=== PATIENT | female | born 1965 | race Caucasian/White ===

== ENCOUNTER → 2016-05-13 | Outpatient (CLI) | payer BC ==
[~2016-05-13] MED LIST: ACET-789 PO; ALPR-557 PO; ALPR.5T PO; CIPR-225 PO; CITA10TA70 PO; CITA20TA12 PO; Docusate Sodium PO; HYDR-34 PO; HYDR-757 PO; IBP600T1 PO; IBUP800T26 PO; Ibuprofen PO; LAMO100T69 PO; LISD50CA2 PO; ONDA4TAB8 PO; PRD20T PO
--- NOTE | 2016-05-15 10:08 | Diagnostic Imaging Report ---
Bilateral screening mammogram The current study was also evaluated with a Computer Aided Detection (CAD) system. Indication: Screening. No current complaints stated on the questionnaire. COMPARISON: 02/14/14. FINDINGS: The breasts are composed of heterogeneously dense parenchyma which may decrease mammographic sensitivity. There is a biopsy clip in the outer aspect of the left breast. There are multiple calcifications seen in the breasts bilaterally increased from previous exams. No heterogenous particularly suspicious group is seen. IMPRESSION: The breasts are very dense. There are increasing bilateral loosely grouped calcifications favored to be benign in etiology. Evaluation with ultrasound to rule out underlying lesion and 6 months mammogram followup would be recommended. ACR BI-RADS Category 0: Incomplete. (Needs additional imaging evaluation). Result letter will be mailed to the patient. Note: At least 10% of breast cancer is not imaged by mammography. Dictated by: Dictated on workstation # [id number]
== END ==
LOC: RAD 10:50
PROVIDERS: ATTEND Internal Medicine
DX: Z12.31 Encounter for screening mammogram for malignant neoplasm of breast (principal)
CPT/HCPCS: 77067

== ENCOUNTER → 2016-06-01 | Outpatient (CLI) | payer BC ==
--- NOTE | 2016-06-01 13:53 | Diagnostic Imaging Report ---
Pelvic ultrasound. INDICATION: History of right ovarian cyst. FINDINGS: The patient has had hysterectomy with no definite lesion seen in the hysterectomy bed. The urinary bladder appears unremarkable. The ovaries are obscured by bowel gas. IMPRESSION: The ovaries are not seen. Dictated by: Dictated on workstation # [id number]
--- NOTE | 2016-06-01 20:10 | Diagnostic Imaging Report ---
EXAM: Bilateral breast ultrasound. INDICATION: Bilateral dense breasts seen on mammography with calcifications favored to be benign. FINDINGS: The retroareolar region and 4 quadrants of each breast were scanned with no suspicious mass identified. There are scattered simple cysts seen less than a centimeter each, most prominent in the left breast at 1:00 o'clock zone, 2 cm from the nipple. No large cysts or solid masses identified. IMPRESSION: No suspicious abnormality. As recommended on the prior mammogram, a 6 month bilateral mammogram to insure stability of the increasing calcifications is recommended. BI-RADS 3. ACR BI-RADS Category 3: Probably benign findings. Result letter will be mailed to the patient. Note: At least 10% of breast cancer is not imaged by mammography. Dictated by: Dictated on workstation # [id number]
== END ==
LOC: RAD 13:01
PROVIDERS: ATTEND Internal Medicine
DX: R92.0 Mammographic microcalcification found on diagnostic imaging of breast (principal); Z90.710 Acquired absence of both cervix and uterus
CPT/HCPCS: 76830; 76856

== ENCOUNTER 2017-03-05 22:21 | Emergency (ER) | payer BC ==
[~2017-03-05] VITALS: Ht 157.5 cm; Wt 57.6 kg
[2017-03-05] MEDS ORDERED: LIDOCAINE 1% INJ 20 ML (XYLOCAINE) VIAL INJ ONE (22:30)
[2017-03-05] MEDS ORDERED: TETANUS,DIPTH,PERTUSS P/F (BOOSTRIX) 0.5 ML VIAL IM ONE (22:30)
--- NOTE | 2017-03-05 23:19 | ED General ---
General Chief Complaint: Laceration Stated Complaint: LEFT HAND LACERATION Nursing Triage Note: laceration to left inner hand, pad of palm Nursing Sepsis Screen: No Definite Risk Source of Information: Patient Exam Limitations: No Limitations History of Present Illness Time Seen by Provider: 22:25 Initial Comments This 52-year-old woman presents to the emergency room with a laceration to the left hand. She was preparing food when she accidentally stabbed her left thenar eminence with a paring knife. Wound is actively bleeding. Muscle is visible but she retains range of motion and strength in the hand and thumb. She is in need of a tetanus immunization. Allergies and Home Medications Allergies Coded Allergies: codeine (Unverified Allergy, Unknown, 03/05/17) Home Medications Alprazolam 0.5 Mg Tab, 0.5 MG PO DAILY PRN for ANXIETY, (Reported) Citalopram Hydrobromide 20 Mg Tablet, 20 MG PO DAILY, (Reported) Lisdexamfetamine Dimesylate 50 Mg Capsule, 50 MG PO DAILY, (Reported) Constitutional: no symptoms reported EENTM: no symptoms reported Respiratory: no symptoms reported Cardiovascular: no symptoms reported Gastrointestinal: no symptoms reported Genitourinary: no symptoms reported : No Musculoskeletal: see HPI Skin: see HPI Psychiatric/Neurological: No Symptoms Reported Hematologic/Lymphatic: No Symptoms Reported Past Itdmavk-Ylecrk-Nrgpct Hx Patient Social History Alcohol Use: Occasionally Uses Recreational Drug Use: No Smoking Status: Never a Smoker 2nd Hand Smoke Exposure: No Recent Foreign Travel: No Contact w/Someone Who Travel: No Recent Infectious Disease Expo: No Physical Abuse: No Sexual Abuse: No Mistreated: No Fear: No Immunizations Up To Date Tetanus Booster (TDap): More than 5yrs Date of Influenza Vaccine: Dec 14, 2016 Surgeries History of Surgeries: Yes (wisdom teeth, UTERINE ABLATION) Surgeries: Hysterectomy Respiratory History of Respiratory Disorde: No Cardiovascular History of Cardiac Disorders: No Neurological History of Neurological Disord: Yes Neurological Disorders: Headaches /Migraines Reproductive System Hx Reproductive Disorders: No Sexually Transmitted Disease: No Genitourinary History of Genitourinary Disor: No Gastrointestinal History of Gastrointestinal Di: No Musculoskeletal History of Musculoskeletal Dis: No (ANKYLOSING SPONDYLITIS, STENOSIS) Endocrine History of Endocrine Disorders: No HEENT History of HEENT Disorders: No Cancer History of Cancer: No Psychosocial History of Psychiatric Problem: Yes (mood disorder) Suicide Risk Score: 0 Integumentary History of Skin or Integumenta: No Blood Transfusions History of Blood Disorders: No Family Medical History Significant Family History: Heart Disease, Cancer, Diabetes, Hypertension Physical Exam Vital Signs Vital Sign - Last 12Hours 03/05/17 22:25 Pulse 88 Resp 18 B/P (MAP) 133/80 (97) Pulse Ox 97 Capillary Refill : Less Than 3 Seconds General Appearance: No Apparent Distress, WD/WN HEENT: Normal ENT Inspection Respiratory: No Accessory Muscle Use, No Respiratory Distress Extremity: Other (1.5 cm laceration to the thenar eminence of the left hand with active bleeding. There is muscle exposure with no evidence of muscle damage. Strength and range of motion is intact in the hand. Distal sensation and capillary refill intact. No other evidence of injury.) Neurologic/Psychiatric: Alert, Oriented x3, No Motor/Sensory Deficits, Normal Mood/Affect, space operations II-XII Norm as Tested Laceration Repair : Other Wound Location Thenar eminence of the left hand Wound Length (cm): 1.5 Wound's Depth, Shape: linear, sub Q Wound Explored: clean Irrigated w/ Saline (ccs): 500 Betadine Prep?: Yes Anesthesia: 1% Lidocaine Volume Anesthetic (ccs): 5 Suture: Prolene Suture Size: 4-0 Number of Sutures: 3 Sterile Dressing Applied?: Yes (Band-Aid with antibiotic ointment) Progress/Results/Core Measures Suspected Sepsis Recent Fever Within 48 Hours: No Infection Criteria Present: None New/Unexplained Altered Menta: No Sepsis Screen: No Definite Risk Sepsis Diagnosis: SIRS Temperature: Pulse: 88 Respiratory Rate: 18 Blood Pressure 133 /80 Mean: 97 Results/Orders My Orders Orders - KATHIA JEAN MD Dipht,Pertchuck(Acell),Tet Adult (Boostrix (03/05/17 22:30) Lidocaine 1% Injection (Xylocaine 1% Inj (03/05/17 22:30) Medications Given in ED Vital Signs/I&O Capillary Refill : Less Than 3 Seconds Blood Pressure Mean: 97 Progress Note : Progress Note Tetanus immunization was provided. Wound was irrigated and repaired with suture. Departure Impression Impression: Primary Impression: Laceration of left hand Qualified Codes: S61.412A - Laceration without foreign body of left hand, initial encounter Disposition: HOME, SELF-CARE Condition: Improved Departure-Patient Inst. Decision time for Depature: 23:00 Referrals: CARTER HAND DO (PCP/Family) Primary Care Physician Patient Instructions: Laceration Repair With Stitches (DC) Add. Discharge Instructions: Keep the wound clean and dry except for normal handwashing and showering. Avoid submersion until sutures are removed. Monitor for signs of infection such as increasing redness, increasing swelling, puslike drainage, or fever. Return to care if you notice these problems. You may use Tylenol and/or ibuprofen for pain. Have your sutures removed in about 7 days. All discharge instructions reviewed with patient and/or family. Voiced understanding. KATHIA JEAN MD Mar 05, 2017 23:19
[2017-03-05 23:27] VITALS: BP 120/70
== END 2017-03-05 23:22 | disposition home or self-care (01) ==
LOC: EDUNIT# 22:21 → ER 22:23
DX: S61.412A Laceration without foreign body of left hand, initial encounter (principal); G43.909 Migraine, unspecified, not intractable, without status migrainosus; F39 Unspecified mood [affective] disorder; Z90.710 Acquired absence of both cervix and uterus; Z82.49 Family history of ischemic heart disease and other diseases of the circulatory system; W26.0XXA Contact with knife, initial encounter
CPT/HCPCS: 12011; 90715

== ENCOUNTER 2017-06-24 08:57 | Emergency (ER) | payer BC ==
[~2017-06-24] VITALS: Ht 157.5 cm; Wt 57.6 kg
[2017-06-24] MEDS ORDERED: ASPIRIN 81 MG CHEW (CHILDREN'S ASA) PO ONE (09:15)
[2017-06-24] MEDS ORDERED: NITROGLYCERIN 0.4 MG SL TABS BTL 25'S SL PRN (09:15)
[2017-06-24 09:23] VITALS: BP 122/76
[2017-06-24 09:30] LABS: BASOPHILS % (AUTO) 1 % (0-10); EOSINOPHILS # (AUTO) 0.1 10^3/uL (0.0-0.3); EOSINOPHILS % (AUTO) 1 % (0-10); HEMATOCRIT 41 % (35-52); HEMOGLOBIN 13.9 G/DL (11.5-16.0); LYMPHOCYTES # (AUTO) 1.3 X 10^3 (1.0-4.0); LYMPHOCYTES % (AUTO) 21 % (12-44); MEAN CORPUSCULAR HEMOGLOBIN 34 PG (25-34); MEAN CORPUSCULAR HGB CONC 34 G/DL (32-36); MEAN CORPUSCULAR VOLUME 98 FL (80-99); MEAN PLATELET VOLUME 9.6 FL (7.4-10.4); MONOCYTES # (AUTO) 0.4 X 10^3 (0.0-1.0); MONOCYTES % (AUTO) 6 % (0-12); NEUTROPHILS # (AUTO) 4.4 X 10^3 (1.8-7.8); NEUTROPHILS % (AUTO) 71 % (42-75); PLATELET COUNT 246 10^3/uL (130-400); RED BLOOD COUNT 4.15 10^6/uL (4.35-5.85); RED CELL DISTRIBUTION WIDTH 12.4 % (10.0-14.5); WHITE BLOOD COUNT 6.2 10^3/uL (4.3-11.0)
[2017-06-24 09:41] LABS: INR 1.1 (0.8-1.4); PROTHROMBIN TIME PATIENT 13.8 SEC (12.2-14.7)
[2017-06-24 09:48] LABS: ALANINE AMINOTRANSFERASE 13 U/L (0-55); ALBUMIN 4.4 GM/DL (3.2-4.5); ALKALINE PHOSPHATASE 69 U/L (40-136); BILIRUBIN,TOTAL 0.4 MG/DL (0.1-1.0); BUN/CREATININE RATIO 24; CALCIUM 9.7 MG/DL (8.5-10.1); CARBON DIOXIDE 26 MMOL/L (21-32); CHLORIDE 101 MMOL/L (98-107); CREATININE SERUM 0.71 MG/DL (0.60-1.30); GFR ESTIMATED > 60; GLUCOSE 85 MG/DL (70-105); MAGNESIUM 2.1 MG/DL (1.8-2.4); POTASSIUM 3.9 MMOL/L (3.6-5.0); SODIUM 136 MMOL/L (135-145)
[2017-06-24 09:55] LABS: MYOGLOBIN SERUM 32.3 NG/ML (10.0-92.0)
--- NOTE | 2017-06-24 10:10 | Diagnostic Imaging Report ---
Indication: Chest pain. Procedure: Frontal chest obtained at 10:01 hrs. a.m. Comparison: There are no previous studies for comparison. Findings: Heart is normal in size. Mediastinal silhouette is unremarkable. There are chronic-appearing increased basilar markings. There is no consolidation or pneumothorax or pleural fluid. Impression: Chronic-appearing increased basilar markings are present. No overt consolidation or pneumothorax or pleural fluid. Dictated by: Dictated on workstation # [id number]
[2017-06-24] MEDS ORDERED: LIDOCAINE 2% VISCOUS 15 ML UDC PO ONE (10:15)
[2017-06-24] MEDS ORDERED: ANTACID SUSP 30 ML UDC (MYLANTA) PO ONE (10:15)
[2017-06-24] MEDS ORDERED: KETOROLAC 30 MG/ML VIAL IVP ONE (11:15)
--- NOTE | 2017-06-24 11:17 | ED Chest Pain ---
General Chief Complaint: Chest Pain Stated Complaint: CHEST PAIN Nursing Triage Note: ARRIVED VIA AMB TO ROOM 07. STATES CHEST PAIN STARTED AT APPX 0630 ET STATES SHE THINKS SHE HAS A PULLED MUSCLE. Nursing Sepsis Screen: No Definite Risk Source: patient Exam Limitations: no limitations History of Present Illness Date Seen by Provider: Jun 24, 2017 Time Seen by Provider: 08:59 Initial Comments This 52-year-old woman presents to emergency room with central chest pain that started around 06:30 this morning. She noted that her blood pressure and heart rate were elevated at home. She had some sweats and dizziness associated with the pain. She does feel little short of breath and notes that it hurts to take a deep breath. Pain is also worse with movement of her torso and upper extremities. She has never had a cardiac workup and has no known heart disease. She has no history of DVT. She did recently drive to [place] and back but denies any lower extremity symptoms. Pain is now 5/10 and was 8/10 at its worst. It is sharp and constant with exacerbation by upper body movements and deep breathing. Allergies and Home Medications Allergies Coded Allergies: codeine (Unverified Allergy, Unknown, 03/05/17) Home Medications Alprazolam 0.5 Mg Tab, 0.5 MG PO DAILY PRN for ANXIETY, (Reported) Citalopram Hydrobromide 20 Mg Tablet, 20 MG PO DAILY, (Reported) Lisdexamfetamine Dimesylate 50 Mg Capsule, 50 MG PO DAILY, (Reported) Patient Home Medication List Home Medication List Reviewed: Yes Review of Systems Constitutional: no symptoms reported EENTM: No Symptoms Reported Respiratory: See HPI Cardiovascular: See HPI Gastrointestinal: No Symptoms Reported Genitourinary: No Symptoms Reported Musculoskeletal: see HPI Skin: see HPI Psychiatric/Neurological: No Symptoms Reported Endocrine: No Symptoms Reported Past Iyzofoz-Lrusdh-Hkphnw Hx Patient Social History Alcohol Use: Occasionally Uses Recreational Drug Use: No Smoking Status: Current Everyday Smoker 2nd Hand Smoke Exposure: No Recent Foreign Travel: No Contact w/Someone Who Travel: No Recent Infectious Disease Expo: No Immunizations Up To Date Tetanus Booster (TDap): More than 5yrs Date of Influenza Vaccine: Dec 14, 2016 Past Medical History Surgeries: Yes (wisdom teeth, UTERINE ABLATION) Hysterectomy Respiratory: No Cardiac: No Neurological: Yes Headaches /Migraines : No Reproductive Disorders: No Sexually Transmitted Disease: No Genitourinary: No Gastrointestinal: No Musculoskeletal: No (ANKYLOSING SPONDYLITIS, STENOSIS) Endocrine: No HEENT: No Cancer: No Psychosocial: Yes (mood disorder) Integumentary: No Blood Disorders: No Family Medical History Heart Disease, Cancer, Diabetes, Hypertension Physical Exam Vital Signs Vital Signs - First Documented 06/24/17 09:00 Temp 98.0 Pulse 93 Resp 18 B/P (MAP) 124/90 (101) Pulse Ox 98 O2 Delivery Room Air Capillary Refill : Less Than 3 Seconds General Appearance: WD/WN, Mild Distress HEENT: PERRL/EOMI, Normal ENT Inspection Neck: Normal Inspection Respiratory: Chest Non Tender, Lungs Clear, Normal Breath Sounds, No Accessory Muscle Use, No Respiratory Distress Cardiovascular: Regular Rate, Rhythm, No Edema, No Murmur, Normal Peripheral Pulses Gastrointestinal: Normal Bowel Sounds, Non Tender, Soft Extremity: Normal Inspection, Non Tender, No Calf Tenderness, No Pedal Edema, Other (negative Fidel) Neurologic/Psychiatric: Alert, Oriented x3, No Motor/Sensory Deficits, Normal Mood/Affect, operations general agent II-XII Norm as Tested Skin: Normal Color, Warm/Dry Procedures/Interventions Suture Size: 4-0 Progress/Results/Core Measures Lab Results Laboratory Tests Test 06/24/17 09:20 06/24/17 11:42 Range/Units White Blood Count 6.2 4.3-11.0 10^3/uL Red Blood Count 4.15 L 4.35-5.85 10^6/uL Hemoglobin 13.9 11.5-16.0 G/DL Hematocrit 41 35-52 % Mean Corpuscular Volume 98 80-99 FL Mean Corpuscular Hemoglobin 34 25-34 PG Mean Corpuscular Hemoglobin Concent 34 32-36 G/DL Red Cell Distribution Width 12.4 10.0-14.5 % Platelet Count 246 130-400 10^3/uL Mean Platelet Volume 9.6 7.4-10.4 FL Neutrophils (%) (Auto) 71 42-75 % Lymphocytes (%) (Auto) 21 12-44 % Monocytes (%) (Auto) 6 0-12 % Eosinophils (%) (Auto) 1 0-10 % Basophils (%) (Auto) 1 0-10 % Neutrophils # (Auto) 4.4 1.8-7.8 X 10^3 Lymphocytes # (Auto) 1.3 1.0-4.0 X 10^3 Monocytes # (Auto) 0.4 0.0-1.0 X 10^3 Eosinophils # (Auto) 0.1 0.0-0.3 10^3/uL Basophils # (Auto) 0.0 0.0-0.1 10^3/uL Prothrombin Time 13.8 12.2-14.7 SEC INR Comment 1.1 0.8-1.4 Activated Partial Thromboplast Time 31 24-35 SEC D-Dimer < 0.27 0.00-0.49 UG/ML Sodium Level 136 135-145 MMOL/L Potassium Level 3.9 3.6-5.0 MMOL/L Chloride Level 101 98-107 MMOL/L Carbon Dioxide Level 26 21-32 MMOL/L Anion Gap 9 5-14 MMOL/L Blood Urea Nitrogen 17 7-18 MG/DL Creatinine 0.71 0.60-1.30 MG/DL Estimat Glomerular Filtration Rate > 60 BUN/Creatinine Ratio 24 Glucose Level 85 70-105 MG/DL Calcium Level 9.7 8.5-10.1 MG/DL Magnesium Level 2.1 1.8-2.4 MG/DL Total Bilirubin 0.4 0.1-1.0 MG/DL Aspartate Amino Transf (AST/SGOT) 18 5-34 U/L Alanine Aminotransferase (ALT/SGPT) 13 0-55 U/L Alkaline Phosphatase 69 40-136 U/L Myoglobin 32.3 10.0-92.0 NG/ML Troponin I < 0.30 < 0.30 <0.30 NG/ML Total Protein 7.0 6.4-8.2 GM/DL Albumin 4.4 3.2-4.5 GM/DL My Orders Orders - KATHIA JEAN MD Ekg Tracing (06/24/17 08:59) Cbc With Automated Diff (06/24/17 09:10) Magnesium (06/24/17 09:10) Chest 1 View, Ap/Pa Only (06/24/17 09:10) Cardiac Profile 1 (06/24/17 09:10) Comprehensive Metabolic Panel (06/24/17 09:10) Myoglobin Serum (06/24/17 09:10) Protime With Inr (06/24/17 09:10) Partial Thromboplastin Time (06/24/17 09:10) O2 (06/24/17 09:10) Monitor-Rhythm Ecg Trace Only (06/24/17 09:10) Lipid Panel (06/25/17 06:00) Aspirin Chewable Tablet (Baby Aspirin Ch (06/24/17 09:15) Nitroglycerin 0.4 Mg Btl 25's (Nitrostat (06/24/17 09:15) Saline Lock/Iv-Start (06/24/17 09:10) Fibrin Degradation Products (06/24/17 09:10) Lidocaine 2% Viscous 15 Ml (Xylocaine Vi (06/24/17 10:15) Antacid Suspension (Mylanta Suspension (06/24/17 10:15) Ketorolac Injection (Toradol Injection) (06/24/17 11:15) Troponin I (06/24/17 11:38) Medications Given in ED Current Medications Medications Dose Ordered Sig/Karen Route Start Time Stop Time Status Last Admin Dose Admin Al Hydrox/Mg Hydrox/Simethicone 30 ml ONCE ONCE PO 06/24/17 10:15 06/24/17 10:16 DC 06/24/17 10:14 30 ML Aspirin 324 mg ONCE ONCE PO 06/24/17 09:15 06/24/17 09:16 DC 06/24/17 09:26 324 MG Ketorolac Tromethamine 15 mg ONCE ONCE IVP 06/24/17 11:15 06/24/17 11:16 DC 06/24/17 11:10 15 MG Lidocaine HCl 15 ml ONCE ONCE PO 06/24/17 10:15 06/24/17 10:16 DC 06/24/17 10:14 15 ML Nitroglycerin 0.4 mg UD PRN SL 06/24/17 09:15 06/24/17 09:27 0.4 MG Vital Signs/I&O 06/24/17 09:00 Temp 98.0 Pulse 93 Resp 18 B/P (MAP) 124/90 (101) Pulse Ox 98 O2 Delivery Room Air Blood Pressure Mean: 101 Progress Note #1: Time: 11:11 Progress Note Chest pain workup was pursued. Patient was treated with aspirin and nitroglycerin. She did not believe the nitroglycerin affected her pain but she did have side effects related to it. Workup was unremarkable. As patient's ER course progressed, she felt like her pain was musculoskeletal. She specifically had worsening of pain when she moved her shoulder girdle. She had no significant change in symptoms with GI cocktail. Toradol is being administered for pain control. Progress Note #2: Time: 11:42 Progress Note Patient still is experiencing some pain after Toradol, especially with movement of the head or shoulders. She is convinced it is musculoskeletal in nature. However, as a matter precaution we will repeat a troponin. Patient is agreeable. Progress Note #3: Time: 12:31 Progress Note Repeat troponin was negative. Patient rates her pain as 1/10 at this time. Initial ECG Impression Date: Jun 24, 2017 Initial ECG Impression Time: 08:59 Initial ECG Rate: 96 Initial ECG Rhythm: S.Tach Comment Sinus tachycardia with no ST elevation or depression. No abnormal intervals or axis deviation. Diagonstic Imaging: Xray Plain Films/CT/US/NM/MRI: chest Comments Chest x-ray viewed by me and report reviewed. See report below: NAME: ANN MED[facility] REC#: [id number] PT STATUS: REG ER : 1965 PHYSICIAN: KATHIA JEAN MD ADMIT DATE: 06/24/17/ER Draft Date of Exam:06/24/17 CHEST 1 VIEW, AP/PA ONLY Indication: Chest pain. Procedure: Frontal chest obtained at 10:01 hrs. a.m. Comparison: There are no previous studies for comparison. Findings: Heart is normal in size. Mediastinal silhouette is unremarkable. There are chronic-appearing increased basilar markings. There is no consolidation or pneumothorax or pleural fluid. Impression: Chronic-appearing increased basilar markings are present. No overt consolidation or pneumothorax or pleural fluid. Dictated on workstation # [id number] Dict: 06/24/17 1007 Trans: 06/24/17 1009 [facility] [id number] Interpreted by: TERESITA NERI MD Departure Impression Primary Impression: Atypical chest pain Disposition: 01 HOME, SELF-CARE Condition: Improved Departure-Patient Inst. Decision time for Depature: 12:31 Referrals: CARTER HAND DO (PCP/Family) Primary Care Physician Patient Instructions: Chest Pain (DC) Add. Discharge Instructions: You may take ibuprofen up to 400 mg every 6 hours as needed for pain. Add Tylenol (acetaminophen) up to 650 mg every 6 hours as needed for additional pain relief. Return to care if symptoms are worsening. Follow-up with your primary care provider soon as possible. All discharge instructions reviewed with patient and/or family. Voiced understanding. Copy Copies To 1: CARTER HAND JOSHUA T MD Jun 24, 2017 11:17
[2017-06-24 12:45] VITALS: BP 107/73
== END 2017-06-24 12:45 | disposition home or self-care (01) ==
LOC: EDUNIT# 08:57 → ER 08:59
DX: R07.89 Other chest pain (principal); G43.909 Migraine, unspecified, not intractable, without status migrainosus; F17.200 Nicotine dependence, unspecified, uncomplicated; Z88.5 Allergy status to narcotic agent; Z82.49 Family history of ischemic heart disease and other diseases of the circulatory system; Z90.710 Acquired absence of both cervix and uterus
CPT/HCPCS: 36415; 71045; 80053; 83735; 83874; 84484; 85025; 85379; 85610; 85730; 93005; 93041; 96374

== ENCOUNTER 2017-12-07 15:00 | Outpatient (CLI) | payer BC ==
[~2017-12-07] VITALS: Ht 157.5 cm; Wt 57.6 kg
[~2017-12-07 15:00] MED LIST changes: +HYDR-4226 PO; -HYDR-757 PO
[2017-12-07] MEDS ORDERED: LISD50CA PO (15:10)
[2017-12-07] MEDS ORDERED: CHOL200085 PO (15:10)
[2017-12-07] MEDS ORDERED: TIZA4CAP8 PO (15:10)
[2017-12-07] MEDS ORDERED: CITA40TA19 PO (15:10)
[2017-12-07] MEDS ORDERED: ALPR1TAB7 PO (15:10)
[2017-12-07] MEDS ORDERED: IBUP-1780 PO (15:10)
== END 2017-12-07 15:15 | disposition home or self-care (01) ==
LOC: PREOP 15:00
PROVIDERS: ATTEND Surgery
DX: Z01.818 Encounter for other preprocedural examination (principal)

== ENCOUNTER 2017-12-13 12:04 | Day surgery (SDC) | payer BC ==
[~2017-12-13] VITALS: Ht 157.5 cm; Wt 57.6 kg
[~2017-12-13 12:04] MED LIST changes: +ALPR1TAB7 PO; +CHOL200085 PO; +CITA40TA19 PO; +IBUP-1780 PO; +LISD50CA PO; +TIZA4CAP8 PO
[2017-12-13] MEDS ORDERED: LACTATED RINGERS 1,000 ML IV STA (12:24)
[2017-12-13 12:30] VITALS: BP 110/82
--- OUTSIDE RECORDS SUMMARY | 2017-12-13 12:52 | XMS REPORT ---
Author Author JORDIN DUFFY Organization [employer] Address Unknown Phone Unavailable Care Team Providers Care Waffle Machine Operator Name Role Phone JORDIN DUFFY CP Unavailable Allergies No Known Allergies Problems Problem Type Condition ICD-9 Code Onset Dates Condition Status Problem Irregular menstrual cycle 626.4 Active Problem Routine general medical examination at health care facility V70.0 Active Problem Attention deficit disorder of childhood without mention of hyperactivity 314.00 Active Problem Need for prophylactic vaccination and inoculation, Influenza V04.81 Active Problem Degeneration of lumbar or lumbosacral intervertebral disc 722.52 Active Problem Personal history of underimmunization status V15.83 Active Problem Unspecified contraceptive management V25.9 Active Problem Major depressive disorder, single episode, moderate 296.22 Active Problem Other dyschromia 709.09 Active Problem Cough 786.2 Active Problem VARICELLA DX V05.4 Active Problem Hypoglycemia, unspecified 251.2 Active Problem Screening for malignant neoplasm of the cervix V76.2 Active Problem Counseling on substance use and abuse V65.42 Active Problem Lumbar sprain and strain 847.2 Active Problem Mammographic microcalcification 793.81 Active Problem Unspecified abnormal mammogram 793.80 Active Problem Personal history of tobacco use, presenting hazards to health V15.82 Active Problem Lumbago 724.2 Active Problem Contact dermatitis and other eczema, due to unspecified cause 692.9 Active Medications Medication Code System Code Instructions Start Date End Date Status Dosage Zanaflex [facility] [address]-36 4 MG 2 times a day prn Jan 12, 2014 1 capsule by Oral route Results No Known Results Summary Purpose [employer] Submission
--- OUTSIDE RECORDS SUMMARY | 2017-12-13 12:52 | XMS REPORT ---
Author Author DIANE CONSTANTINO Organization [employer] Address Unknown Phone Unavailable Care Team Providers Care Customer Logistics Manager Name Role Phone DIANE CONSTANTINO CP Unavailable Allergies, Adverse Reactions, Alerts Substance Reaction Event Type N.K.D.A. 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 [address]-21 800 MG Jan 24, 2014 take 1 tablet ( 800 mg) by oral route 3 times per day with food Ambien [facility] [address]-35 5 MG Orally August 24, 2012 take 0.5 tablet by Oral route at bedtime 1 time per day PRN insomnia citalopram ND 0 10 mg September 30, 2012 take 1 tablet by Oral route 1 time per day Xanax [facility] [address]-89 0.5 MG Once a day prn July 25, 2012 1 tablet by Oral route 2 times per day PRN anxiety Vyvanse [facility] [address]-76 60 MG Orally Oct 26, 2013 1 capsule by Oral route 1 time per day For ADHD Lamictal [facility] [address]-94 100 mg Oct 26, 2013 1 Tablet(s) by Oral route 1 time per day Hydrocodone-Acetaminophen [facility] [address]-87 7.5-325 MG Orally Jan 12, 2014 1 tablet by Oral route every 4 hours PRN Procedures Procedure Coding System Code Date Office Visit, Est Pt., Level 3 CPT-4 36162 Apr 15, 2015 Vital Signs Date/Time: Apr 15, 2015 Temperature 98.8 F Weight 119 lbs Height 62 in BMI 21.76 Index Blood Pressure Diastolic 72 mmHg Blood Pressure Systolic 120 mmHg Cardiac Monitoring Heart Rate 80 bpm Results No Known Results Summary Purpose [employer] Submission
--- OUTSIDE RECORDS SUMMARY | 2017-12-13 12:54 | XMS REPORT | Continuity of Care Document ---
Author Author [facility] Address Unknown Phone Unavailable Allergies Active Description Code Type Severity Reaction Onset Reported/Identified Relationship to Patient Clinical Status Yes codeine [id number] Drug Allergy Unknown N/A 03/05/2017 Medications There is no data. Problems Date Dx Coded Attending Type Code Diagnosis Diagnosed By 11/12/2007 LEVAR OVALLES DO V05.3 Hepatitis Viral/all 11/12/2007 LEVAR OVALLES DO V05.3 Hepatitis Viral/all 11/12/2007 V05.3 Hepatitis Viral/all 11/12/2007 V05.3 Hepatitis Viral/all 11/12/2007 LEVAR OVALLES DO V05.3 Hepatitis Viral/all 11/12/2007 LEVAR OVALLES DO V05.3 Hepatitis Viral/all 11/12/2007 CAITLYN BARRON, PEPPER James V05.3 Hepatitis Viral/all 11/12/2007 NISHANT BENSON APRN V05.3 Hepatitis Viral/all 11/12/2007 TIERNEY CRUZ MD V05.3 Hepatitis Viral/all 11/12/2007 LEVAR OVALLES DO V05.3 Hepatitis Viral/all 11/12/2007 JORDIN DUFFY APRN V05.3 Hepatitis Viral/all 11/12/2007 RUBI HAWKINS DDS V05.3 Hepatitis Viral/all 11/12/2007 LEVAR OVALLES DO V05.3 Hepatitis Viral/all 11/12/2007 JORDIN DUFFY APRN V05.3 Hepatitis Viral/all 11/12/2007 LEVAR OVALLES DO V05.3 Hepatitis Viral/all 11/12/2007 GERARDO SCHNEIDER APRN V05.3 Hepatitis Viral/all 03/22/2008 LEVAR OVALLES DO 346.90 Migraine Unspecified Without Intractable Migraine 03/22/2008 LEVAR OVALLES DO V58.69 MEDICATION HIGH RISK 03/22/2008 OVALLES DO, LEVAR K 346.90 Migraine Unspecified Without Intractable Migraine 03/22/2008 OVALLES DO, LEVAR K V58.69 MEDICATION HIGH RISK 03/22/2008 346.90 Migraine Unspecified Without Intractable Migraine 03/22/2008 V58.69 MEDICATION HIGH RISK 03/22/2008 346.90 Migraine Unspecified Without Intractable Migraine 03/22/2008 V58.69 MEDICATION HIGH RISK 03/22/2008 OVALLES DO, LEVAR K 346.90 Migraine Unspecified Without Intractable Migraine 03/22/2008 OVALLES DO, LEVAR K V58.69 MEDICATION HIGH RISK 03/22/2008 OVALLES DO, LEVAR K 346.90 Migraine Unspecified Without Intractable Migraine 03/22/2008 OVALLES DO, LEVAR K V58.69 MEDICATION HIGH RISK 03/22/2008 WHITE DDS, PEPPER J 346.90 Migraine Unspecified Without Intractable Migraine 03/22/2008 WHITE DDS, PEPPER J V58.69 MEDICATION HIGH RISK 03/22/2008 NISHANT BENSON APRN R 346.90 Migraine Unspecified Without Intractable Migraine 03/22/2008 VIC BENSON APRNRICIA R V58.69 MEDICATION HIGH RISK 03/22/2008 TIERNEY CRUZ MD 346.90 Migraine Unspecified Without Intractable Migraine 03/22/2008 TIERNEY CRUZ MD V58.69 MEDICATION HIGH RISK 03/22/2008 OVALLES DO LEVAR K 346.90 Migraine Unspecified Without Intractable Migraine 03/22/2008 OVALLES DO, LEVAR K V58.69 MEDICATION HIGH RISK 03/22/2008 MISSAEL DUFFY APRNA S 346.90 Migraine Unspecified Without Intractable Migraine 03/22/2008 TATI FITZGERALD JORDIN S V58.69 MEDICATION HIGH RISK 03/22/2008 HAWKINS DDS, RUBI 346.90 Migraine Unspecified Without Intractable Migraine 03/22/2008 HAWKINS DDS, RUBI V58.69 MEDICATION HIGH RISK 03/22/2008 OVALLES DO, LEVAR K 346.90 Migraine Unspecified Without Intractable Migraine 03/22/2008 OVALLES DO, LEVAR K V58.69 MEDICATION HIGH RISK 03/22/2008 TATI BLINTZE ROLLER, JORDIN S 346.90 Migraine Unspecified Without Intractable Migraine 03/22/2008 TATI BLINTZE ROLLER, JORDIN S V58.69 MEDICATION HIGH RISK 03/22/2008 OVALLES DO, LEVAR K 346.90 Migraine Unspecified Without Intractable Migraine 03/22/2008 OVALLES DO, LEVAR K V58.69 MEDICATION HIGH RISK 03/22/2008 GERARDO SCHNEIDER APRN R 346.90 Migraine Unspecified Without Intractable Migraine 03/22/2008 GERARDO SCHNEIDER APRN R V58.69 MEDICATION HIGH RISK 10/23/2008 OVALLES DO, LEVAR K V74.1 SCREENING EXAMINATION FOR PULMONARY TUBERCULOSIS 10/23/2008 OVALLES DO, LEVAR K V74.1 SCREENING EXAMINATION FOR PULMONARY TUBERCULOSIS 10/23/2008 V74.1 SCREENING EXAMINATION FOR PULMONARY TUBERCULOSIS 10/23/2008 V74.1 SCREENING EXAMINATION FOR PULMONARY TUBERCULOSIS 10/23/2008 OVALLES DO, LEVAR K V74.1 SCREENING EXAMINATION FOR PULMONARY TUBERCULOSIS 10/23/2008 OVALLES DO, LEVAR K V74.1 SCREENING EXAMINATION FOR PULMONARY TUBERCULOSIS 10/23/2008 PEPPER BRADY DDS V74.1 SCREENING EXAMINATION FOR PULMONARY TUBERCULOSIS 10/23/2008 NISHANT BENSON APRN V74.1 SCREENING EXAMINATION FOR PULMONARY TUBERCULOSIS 10/23/2008 TIERNEY CRUZ MD V74.1 SCREENING EXAMINATION FOR PULMONARY TUBERCULOSIS 10/23/2008 OVALLES DO, LEVAR K V74.1 SCREENING EXAMINATION FOR PULMONARY TUBERCULOSIS 10/23/2008 JORDIN DUFFY APRN V74.1 SCREENING EXAMINATION FOR PULMONARY TUBERCULOSIS 10/23/2008 RUBI HAWKINS DDS V74.1 SCREENING EXAMINATION FOR PULMONARY TUBERCULOSIS 10/23/2008 OVALLES DO, LEVAR K V74.1 SCREENING EXAMINATION FOR PULMONARY TUBERCULOSIS 10/23/2008 JORDIN DUFFY APRN V74.1 SCREENING EXAMINATION FOR PULMONARY TUBERCULOSIS 10/23/2008 OVALLES DO, LEVAR K V74.1 SCREENING EXAMINATION FOR PULMONARY TUBERCULOSIS 10/23/2008 ROBSON SCHNEIDER APRNINA R V74.1 SCREENING EXAMINATION FOR PULMONARY TUBERCULOSIS 11/01/2008 OVALLES DO, LEVAR K 300.00 anxiety 11/01/2008 OVALLES DO, LEVAR K 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 11/01/2008 OVALLES DO, LEVAR K 300.00 anxiety 11/01/2008 OVALLES DO, LEVAR K 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 11/01/2008 300.00 anxiety 11/01/2008 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 11/01/2008 300.00 anxiety 11/01/2008 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 11/01/2008 OVALLES DO, LEVAR K 300.00 anxiety 11/01/2008 OVALLES DO, LEVAR K 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 11/01/2008 OVALLES DO, LEVAR K 300.00 anxiety 11/01/2008 OVALLES DO, LEVAR K 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 11/01/2008 WHITE DDS, PEPPER J 300.00 anxiety 11/01/2008 WHITE DDS, PEPPER J 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 11/01/2008 VIC BENSON APRNRICIA R 300.00 anxiety 11/01/2008 VIC BENSON APRNRICIA R 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 11/01/2008 TIERNEY CRUZ MD 300.00 anxiety 11/01/2008 TIERNEY CRUZ MD 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 11/01/2008 JOSR RUFFIN LEVAR K 300.00 anxiety 11/01/2008 OVALLES DO, LEVAR K 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 11/01/2008 DARCY DUFFY APRNNDA S 300.00 anxiety 11/01/2008 DARCY DUFFY APRNNDA S 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 11/01/2008 HAWKINS DDS, RUBI 300.00 anxiety 11/01/2008 HAWKINS DDS, RUBI 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 11/01/2008 JOSR RUFFIN LEVAR K 300.00 anxiety 11/01/2008 OVALLES DO, LEVAR K 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 11/01/2008 DARCY DUFFY APRNNDA S 300.00 anxiety 11/01/2008 DARCY DUFFY APRNNDA S 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 11/01/2008 JOSR RUFFIN LEVAR K 300.00 anxiety 11/01/2008 OVALLES DO, LEVAR K 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 11/01/2008 JENNIE BLINTZE ROLLER, GERARDO R 300.00 anxiety 11/01/2008 JENNIE BLINTZE ROLLER, GERARDO R 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 10/01/2009 JOSR RUFFIN LEVAR K 305.1 NONDEPENDENT ABUSE OF DRUGS, TOBACCO USE DISORDER 10/01/2009 JOSR RUFFIN LEVAR K 780.8 Generalized Hyperhidrosis 10/01/2009 MIAN OVALLES DOA K V25.40 Contraceptive Surveillance Unspecified 10/01/2009 MIAN OVALLES DOA K V72.31 COATING ENGINEER EXAM, ROUTINE 10/01/2009 LEVAR OVALLES DO K V74.5 Std Screen 10/01/2009 OVALLES MIAN RUFFINA K 305.1 NONDEPENDENT ABUSE OF DRUGS, TOBACCO USE DISORDER 10/01/2009 LEVAR OVALLES DO K 780.8 Generalized Hyperhidrosis 10/01/2009 MIAN OVALLES DOA K V25.40 Contraceptive Surveillance Unspecified 10/01/2009 MIAN OVALLES DOA K V72.31 COATING ENGINEER EXAM, ROUTINE 10/01/2009 MIAN OVALLES DOA K V74.5 Std Screen 10/01/2009 305.1 NONDEPENDENT ABUSE OF DRUGS, TOBACCO USE DISORDER 10/01/2009 780.8 Generalized Hyperhidrosis 10/01/2009 V25.40 Contraceptive Surveillance Unspecified 10/01/2009 V72.31 COATING ENGINEER EXAM, ROUTINE 10/01/2009 V74.5 Std Screen 10/01/2009 305.1 NONDEPENDENT ABUSE OF DRUGS, TOBACCO USE DISORDER 10/01/2009 780.8 Generalized Hyperhidrosis 10/01/2009 V25.40 Contraceptive Surveillance Unspecified 10/01/2009 V72.31 COATING ENGINEER EXAM, ROUTINE 10/01/2009 V74.5 Std Screen 10/01/2009 LEVAR OVALLES DO 305.1 NONDEPENDENT ABUSE OF DRUGS, TOBACCO USE DISORDER 10/01/2009 MIAN OVALLES DOA K 780.8 Generalized Hyperhidrosis 10/01/2009 MIAN OVALLES DOA K V25.40 Contraceptive Surveillance Unspecified 10/01/2009 MIAN OVALLES DOA K V72.31 COATING ENGINEER EXAM, ROUTINE 10/01/2009 MIAN OVALLES DOA K V74.5 Std Screen 10/01/2009 MIAN OVALLES DOA K 305.1 NONDEPENDENT ABUSE OF DRUGS, TOBACCO USE DISORDER 10/01/2009 MIAN OVALLES DOA K 780.8 Generalized Hyperhidrosis 10/01/2009 JOSR RUFFIN LEVAR K V25.40 Contraceptive Surveillance Unspecified 10/01/2009 MIAN OVALLES DOA K V72.31 COATING ENGINEER EXAM, ROUTINE 10/01/2009 OVALLES DO LEVAR K V74.5 Std Screen 10/01/2009 WHITE DDS, PEPPER J 305.1 NONDEPENDENT ABUSE OF DRUGS, TOBACCO USE DISORDER 10/01/2009 WHITE DDSPEPPER J 780.8 Generalized Hyperhidrosis 10/01/2009 WHITE DDS, PEPPER J V25.40 Contraceptive Surveillance Unspecified 10/01/2009 WHITE DDS, PEPPER J V72.31 COATING ENGINEER EXAM, ROUTINE 10/01/2009 WHITE DDS, PEPPER J V74.5 Std Screen 10/01/2009 NISHANT BENSON APRN R 305.1 NONDEPENDENT ABUSE OF DRUGS, TOBACCO USE DISORDER 10/01/2009 MARCELINO FITZGERALD NISHANT R 780.8 Generalized Hyperhidrosis 10/01/2009 MARCELINO FITZGERALD NISHANT R V25.40 Contraceptive Surveillance Unspecified 10/01/2009 VIC BENSON APRNRICIA R V72.31 COATING ENGINEER EXAM, ROUTINE 10/01/2009 CLAUDINE BENSON APRNIA R V74.5 Std Screen 10/01/2009 TIERNEY CRUZ MD 305.1 NONDEPENDENT ABUSE OF DRUGS, TOBACCO USE DISORDER 10/01/2009 TIERNEY CRUZ MD 780.8 Generalized Hyperhidrosis 10/01/2009 TIERNEY CRUZ MD V25.40 Contraceptive Surveillance Unspecified 10/01/2009 TIERNEY CRUZ MD V72.31 COATING ENGINEER EXAM, ROUTINE 10/01/2009 TIERNEY CRUZ MD V74.5 Std Screen 10/01/2009 LEVAR OVALLES DO K 305.1 NONDEPENDENT ABUSE OF DRUGS, TOBACCO USE DISORDER 10/01/2009 LEVAR OVALLES DO K 780.8 Generalized Hyperhidrosis 10/01/2009 LEVAR OVALLES DO K V25.40 Contraceptive Surveillance Unspecified 10/01/2009 LEVAR OVALLES DO K V72.31 COATING ENGINEER EXAM, ROUTINE 10/01/2009 LEVAR OVALLES DO K V74.5 Std Screen 10/01/2009 DARCY DUFFY APRNNDA S 305.1 NONDEPENDENT ABUSE OF DRUGS, TOBACCO USE DISORDER 10/01/2009 DARCY DUFFY APRNNDA S 780.8 Generalized Hyperhidrosis 10/01/2009 DARCY DUFFY APRNNDA S V25.40 Contraceptive Surveillance Unspecified 10/01/2009 DARCY DUFFY APRNNDA S V72.31 COATING ENGINEER EXAM, ROUTINE 10/01/2009 DARCY DUFFY APRNNDA S V74.5 Std Screen 10/01/2009 RUBI HAWKINS DDS 305.1 NONDEPENDENT ABUSE OF DRUGS, TOBACCO USE DISORDER 10/01/2009 HAWKINS DDS, RUBI 780.8 Generalized Hyperhidrosis 10/01/2009 HAWKINS DDS, RUBI V25.40 Contraceptive Surveillance Unspecified 10/01/2009 HAWKINS DDS, RUBI V72.31 COATING ENGINEER EXAM, ROUTINE 10/01/2009 HAWKINS DDS, RUBI V74.5 Std Screen 10/01/2009 JOSR RUFFIN LEVAR K 305.1 NONDEPENDENT ABUSE OF DRUGS, TOBACCO USE DISORDER 10/01/2009 JOSR RUFFIN LEVAR K 780.8 Generalized Hyperhidrosis 10/01/2009 OVALLES DO LEVAR K V25.40 Contraceptive Surveillance Unspecified 10/01/2009 JOSR RUFFIN LEVAR K V72.31 COATING ENGINEER EXAM, ROUTINE 10/01/2009 JOSR RUFFIN LEVAR K V74.5 Std Screen 10/01/2009 JORDIN DUFFY APRN S 305.1 NONDEPENDENT ABUSE OF DRUGS, TOBACCO USE DISORDER 10/01/2009 JORDIN DUFFY APRN S 780.8 Generalized Hyperhidrosis 10/01/2009 DARCY DUFFY APRNNDA S V25.40 Contraceptive Surveillance Unspecified 10/01/2009 MISSAEL DUFFY APRNA S V72.31 COATING ENGINEER EXAM, ROUTINE 10/01/2009 DARCY DUFFY APRNNDA S V74.5 Std Screen 10/01/2009 OVALLES DO LEVAR K 305.1 NONDEPENDENT ABUSE OF DRUGS, TOBACCO USE DISORDER 10/01/2009 JOSR DO LEVAR K 780.8 Generalized Hyperhidrosis 10/01/2009 JOSR RUFFIN LEVAR K V25.40 Contraceptive Surveillance Unspecified 10/01/2009 JOSR RUFFIN LEVAR K V72.31 COATING ENGINEER EXAM, ROUTINE 10/01/2009 OVALLES DO LEVAR K V74.5 Std Screen 10/01/2009 JENNIE BLINTZE ROLLER GERARDO R 305.1 NONDEPENDENT ABUSE OF DRUGS, TOBACCO USE DISORDER 10/01/2009 JENNIE BLINTZE ROLLER GERARDO R 780.8 Generalized Hyperhidrosis 10/01/2009 JENNIE BLINTZE ROLLER, GERARDO R V25.40 Contraceptive Surveillance Unspecified 10/01/2009 JENNIE GRAYSONN GERARDO R V72.31 COATING ENGINEER EXAM, ROUTINE 10/01/2009 JENNIE BLINTZE ROLLER, GERARDO R V74.5 Std Screen 11/11/2009 OVALLES DOMIANA Ewa 719.47 Pain In Joint Involving Ankle And Foot 11/11/2009 OVALLES DO LEVAR K 719.47 Pain In Joint Involving Ankle And Foot 11/11/2009 719.47 Pain In Joint Involving Ankle And Foot 11/11/2009 719.47 Pain In Joint Involving Ankle And Foot 11/11/2009 OVALLES MIAN RUFFINA K 719.47 Pain In Joint Involving Ankle And Foot 11/11/2009 OVALLES MIAN RUFFINA K 719.47 Pain In Joint Involving Ankle And Foot 11/11/2009 PEPPER BRADY DDS 719.47 Pain In Joint Involving Ankle And Foot 11/11/2009 NISHANT BENSON APRN 719.47 Pain In Joint Involving Ankle And Foot 11/11/2009 TIERNEY CRUZ MD 719.47 Pain In Joint Involving Ankle And Foot 11/11/2009 OVALLES LEVAR RUFFIN 719.47 Pain In Joint Involving Ankle And Foot 11/11/2009 JORDIN DUFFY APRN 719.47 Pain In Joint Involving Ankle And Foot 11/11/2009 RUBI HAWKINS DDS 719.47 Pain In Joint Involving Ankle And Foot 11/11/2009 LEVAR OVALLES DO 719.47 Pain In Joint Involving Ankle And Foot 11/11/2009 JORDIN DUFFY APRN 719.47 Pain In Joint Involving Ankle And Foot 11/11/2009 LEVAR OVALLES DO 719.47 Pain In Joint Involving Ankle And Foot 11/11/2009 GERARDO SCHNEIDER APRN 719.47 Pain In Joint Involving Ankle And Foot 12/13/2009 OVALLES DO LEVAR K 735.0 Hallux Valgus (acquired) 12/13/2009 OVALLES DO, LEVAR K 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 12/13/2009 OVALLES DO LEVAR K 735.0 Hallux Valgus (acquired) 12/13/2009 OVALLES DO LEVAR K 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 12/13/2009 735.0 Hallux Valgus (acquired) 12/13/2009 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 12/13/2009 735.0 Hallux Valgus (acquired) 12/13/2009 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 12/13/2009 OVALLES DO, LEVAR K 735.0 Hallux Valgus (acquired) 12/13/2009 OVALLES DO, LEVAR K 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 12/13/2009 OVALLES DO, LEVAR K 735.0 Hallux Valgus (acquired) 12/13/2009 OVALLES DO, LEVAR K 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 12/13/2009 WHITE DDS, PEPPER J 735.0 Hallux Valgus (acquired) 12/13/2009 WHITE DDS, PEPPER J 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 12/13/2009 MARCELINO BLINTZE ROLLER, NISHANT R 735.0 Hallux Valgus (acquired) 12/13/2009 MARCELINO BLINTZE ROLLER, NISHANT R 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 12/13/2009 TIERNEY CRUZ MD 735.0 Hallux Valgus (acquired) 12/13/2009 TIERNEY CRUZ MD 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 12/13/2009 OVALLES DO, LEVAR K 735.0 Hallux Valgus (acquired) 12/13/2009 OVALLES DO, LEVAR K 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 12/13/2009 TATI FITZGERALD JORDIN S 735.0 Hallux Valgus (acquired) 12/13/2009 TATI FITZGERALD JORDIN S 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 12/13/2009 SHRUTHI DDS, RUBI 735.0 Hallux Valgus (acquired) 12/13/2009 SHRUTHI LEMOSS, RUBI 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 12/13/2009 OVALLES DO, LEVAR K 735.0 Hallux Valgus (acquired) 12/13/2009 OVALLES DO, LEVAR K 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9 Rhinitis 02/12/2010 462 Pharyngitis Acute 02/12/2010 477.9 Rhinitis 02/12/2010 462 Pharyngitis Acute 02/12/2010 477.9 Rhinitis 02/12/2010 OVALLES DO, LEVAR K 462 Pharyngitis Acute 02/12/2010 OVALLES DO, LEVAR K 477.9 Rhinitis 02/12/2010 OVALLES DO, LEVAR K 462 Pharyngitis Acute 02/12/2010 OVALLES DO, LEVAR K 477.9 Rhinitis 02/12/2010 WHITE DDS, PEPPER J 462 Pharyngitis Acute 02/12/2010 WHITE DDS, PEPPER J 477.9 Rhinitis 02/12/2010 MARCELINO FITZGERALD, NISHANT R 462 Pharyngitis Acute 02/12/2010 MARCELINO FITZGERALD, NISHANT R 477.9 Rhinitis 02/12/2010 TIERNEY CRUZ MD 462 Pharyngitis Acute 02/12/2010 TIERNEY CRUZ MD 477.9 Rhinitis 02/12/2010 OVALLES DO, LEVAR K 462 Pharyngitis Acute 02/12/2010 OVALLES DO, LEVAR K 477.9 Rhinitis 02/12/2010 TATI GRAYSONN JORDIN S 462 Pharyngitis Acute 02/12/2010 TATI FITZGERALD JORDIN S 477.9 Rhinitis 02/12/2010 HAWKINS DDSRUBI 462 Pharyngitis Acute 02/12/2010 HAWKINS DDS, RUBI 477.9 Rhinitis 02/12/2010 OVALLES DO, LEVAR K 462 Pharyngitis Acute 02/12/2010 OVALLES DO, LEVAR K 477.9 Rhinitis 02/12/2010 TATI BLINTZE ROLLER, JORDIN S 462 Pharyngitis Acute 02/12/2010 TATI BLINTZE ROLLER, JORDIN S 477.9 Rhinitis 02/12/2010 OVALLES DOMIANA K 462 Pharyngitis Acute 02/12/2010 OVALLES DO, LEVAR K 477.9 Rhinitis 02/12/2010 JENNIE BLINTZE ROLLER, GERARDO R 462 Pharyngitis Acute 02/12/2010 JENNIE BLINTZE ROLLER, GERARDO R 477.9 Rhinitis 03/28/2010 OVALLES DO LEVAR K V25.49 SURVEILLANCE OF OTHER CONTRACEPTIVE METHOD 03/28/2010 OVALLES DO LEVAR K V25.49 SURVEILLANCE OF OTHER CONTRACEPTIVE METHOD 03/28/2010 V25.49 SURVEILLANCE OF OTHER CONTRACEPTIVE METHOD 03/28/2010 V25.49 SURVEILLANCE OF OTHER CONTRACEPTIVE METHOD 03/28/2010 OVALLES DO LEVAR K V25.49 SURVEILLANCE OF OTHER CONTRACEPTIVE METHOD 03/28/2010 OVALLES DO LEVAR K V25.49 SURVEILLANCE OF OTHER CONTRACEPTIVE METHOD 03/28/2010 PEPPER BRADY DDS V25.49 SURVEILLANCE OF OTHER CONTRACEPTIVE METHOD 03/28/2010 NISHANT BENSON APRN V25.49 SURVEILLANCE OF OTHER CONTRACEPTIVE METHOD 03/28/2010 TIERNEY CRUZ MD V25.49 SURVEILLANCE OF OTHER CONTRACEPTIVE METHOD 03/28/2010 OVALLES DO LEVAR K V25.49 SURVEILLANCE OF OTHER CONTRACEPTIVE METHOD 03/28/2010 DARCY DUFFY APRNNDA S V25.49 SURVEILLANCE OF OTHER CONTRACEPTIVE METHOD 03/28/2010 RUBI HAWKINS DDS V25.49 SURVEILLANCE OF OTHER CONTRACEPTIVE METHOD 03/28/2010 OVALLES DO LEVAR K V25.49 SURVEILLANCE OF OTHER CONTRACEPTIVE METHOD 03/28/2010 DARCY DUFFY APRNNDA S V25.49 SURVEILLANCE OF OTHER CONTRACEPTIVE METHOD 03/28/2010 OVALLES DO LEVAR K V25.49 SURVEILLANCE OF OTHER CONTRACEPTIVE METHOD 03/28/2010 JENNIE BLINTZE ROLLERROBSON QuinonesINA R V25.49 SURVEILLANCE OF OTHER CONTRACEPTIVE METHOD 10/03/2010 OVALLES DO LEVAR K V72.41 TEST NEGATIVE RESULT 10/03/2010 OVALLES DO LEVAR K V72.41 TEST NEGATIVE RESULT 10/03/2010 V72.41 TEST NEGATIVE RESULT 10/03/2010 V72.41 TEST NEGATIVE RESULT 10/03/2010 OVALLES DO, LEVAR K V72.41 TEST NEGATIVE RESULT 10/03/2010 OVALLES DO, LEVAR K V72.41 TEST NEGATIVE RESULT 10/03/2010 PEPPER BRADY DDS V72.41 TEST NEGATIVE RESULT 10/03/2010 NISHANT BENSON APRN V72.41 TEST NEGATIVE RESULT 10/03/2010 TIERNEY CRUZ MD V72.41 TEST NEGATIVE RESULT 10/03/2010 OVALLES DO, LEVAR K V72.41 TEST NEGATIVE RESULT 10/03/2010 MISSAEL DUFFY APRNA S V72.41 TEST NEGATIVE RESULT 10/03/2010 RUBI HAWKINS DDS V72.41 TEST NEGATIVE RESULT 10/03/2010 OVALLES DO, LEVAR K V72.41 TEST NEGATIVE RESULT 10/03/2010 MISSAEL DUFFY APRNA S V72.41 TEST NEGATIVE RESULT 10/03/2010 OVALLES DO, LEVAR K V72.41 TEST NEGATIVE RESULT 10/03/2010 GERARDO SCHNEIDER APRN V72.41 TEST NEGATIVE RESULT 01/02/2011 OVALLES DO, LEVAR K V76.10 BREAST CANCER SCREENING 01/02/2011 OVALLES DO, LEVAR K V76.10 BREAST CANCER SCREENING 01/02/2011 V76.10 BREAST CANCER SCREENING 01/02/2011 V76.10 BREAST CANCER SCREENING 01/02/2011 OVALLES DO, LEVAR K V76.10 BREAST CANCER SCREENING 01/02/2011 OVALLES DO, LEVAR K V76.10 BREAST CANCER SCREENING 01/02/2011 PEPPER BRADY DDS V76.10 BREAST CANCER SCREENING 01/02/2011 NISHANT BENSON APRN R V76.10 BREAST CANCER SCREENING 01/02/2011 TIERNEY CRUZ MD V76.10 BREAST CANCER SCREENING 01/02/2011 OVALLES DO, LEVAR K V76.10 BREAST CANCER SCREENING 01/02/2011 MISSAEL DUFFY APRNA S V76.10 BREAST CANCER SCREENING 01/02/2011 RUBI HAWKINS DDS V76.10 BREAST CANCER SCREENING 01/02/2011 OVALLES DO, LEVAR K V76.10 BREAST CANCER SCREENING 01/02/2011 MISSAEL DUFFY APRNA S V76.10 BREAST CANCER SCREENING 01/02/2011 OVALLES DO, LEVAR K V76.10 BREAST CANCER SCREENING 01/02/2011 GERARDO SCHNEIDER APRN V76.10 BREAST CANCER SCREENING 04/10/2011 OVALLES LEVAR RUFFIN V25.9 CONTRACEPTION MANAGEMENT 04/10/2011 JOSR LEVAR RUFFIN V65.42 COUNSELING - SMOKING CESSATION 04/10/2011 JOSR RUFFINLEVAR V76.2 CERVICAL CANCER SCREENING (PAP SMEAR) 04/10/2011 OVALLES LEVAR RUFFIN V25.9 CONTRACEPTION MANAGEMENT 04/10/2011 OVALLES LEVAR RUFFIN V65.42 COUNSELING - SMOKING CESSATION 04/10/2011 OVALELS LEVAR RUFFIN V76.2 CERVICAL CANCER SCREENING (PAP SMEAR) 04/10/2011 V25.9 CONTRACEPTION MANAGEMENT 04/10/2011 V65.42 COUNSELING - SMOKING CESSATION 04/10/2011 V76.2 CERVICAL CANCER SCREENING (PAP SMEAR) 04/10/2011 V25.9 CONTRACEPTION MANAGEMENT 04/10/2011 V65.42 COUNSELING - SMOKING CESSATION 04/10/2011 V76.2 CERVICAL CANCER SCREENING (PAP SMEAR) 04/10/2011 LEVAR OVALLES DO V25.9 CONTRACEPTION MANAGEMENT 04/10/2011 OVALLES LEVAR RUFFIN V65.42 COUNSELING - SMOKING CESSATION 04/10/2011 JOSR LEVAR RUFFIN V76.2 CERVICAL CANCER SCREENING (PAP SMEAR) 04/10/2011 LEVAR OVALLES DO V25.9 CONTRACEPTION MANAGEMENT 04/10/2011 JOSR LEVAR RUFFIN V65.42 COUNSELING - SMOKING CESSATION 04/10/2011 JOSR LEVAR RUFFIN V76.2 CERVICAL CANCER SCREENING (PAP SMEAR) 04/10/2011 PEPPER BRADY DDS J V25.9 CONTRACEPTION MANAGEMENT 04/10/2011 PEPPER BRADY DDS V65.42 COUNSELING - SMOKING CESSATION 04/10/2011 CAITLYN LEMOSSPEPPER J V76.2 CERVICAL CANCER SCREENING (PAP SMEAR) 04/10/2011 NISHANT BENSON APRN R V25.9 CONTRACEPTION MANAGEMENT 04/10/2011 NISHANT BENSON APRN V65.42 COUNSELING - SMOKING CESSATION 04/10/2011 NISHANT BENSON APRN R V76.2 CERVICAL CANCER SCREENING (PAP SMEAR) 04/10/2011 TIERNEY CRUZ MD V25.9 CONTRACEPTION MANAGEMENT 04/10/2011 TIERNEY CRUZ MD V65.42 COUNSELING - SMOKING CESSATION 04/10/2011 TIERNEY CRUZ MD V76.2 CERVICAL CANCER SCREENING (PAP SMEAR) 04/10/2011 LEVAR OVALLES DO K V25.9 CONTRACEPTION MANAGEMENT 04/10/2011 MIAN OVALLES DOA K V65.42 COUNSELING - SMOKING CESSATION 04/10/2011 MIAN OVALLES DOA K V76.2 CERVICAL CANCER SCREENING (PAP SMEAR) 04/10/2011 MISSAEL DUFFY APRNA S V25.9 CONTRACEPTION MANAGEMENT 04/10/2011 MISSAEL DUFFY APRNA S V65.42 COUNSELING - SMOKING CESSATION 04/10/2011 JORDIN DUFFY APRN S V76.2 CERVICAL CANCER SCREENING (PAP SMEAR) 04/10/2011 HAWKINS DDSRUBI V25.9 CONTRACEPTION MANAGEMENT 04/10/2011 HAWKINS DDSRUBI V65.42 COUNSELING - SMOKING CESSATION 04/10/2011 HAWKINS DDSRUBI V76.2 CERVICAL CANCER SCREENING (PAP SMEAR) 04/10/2011 LEVAR OVALLES DO K V25.9 CONTRACEPTION MANAGEMENT 04/10/2011 MIAN OVALLES DOA K V65.42 COUNSELING - SMOKING CESSATION 04/10/2011 MIAN OVALLES DOA K V76.2 CERVICAL CANCER SCREENING (PAP SMEAR) 04/10/2011 JORDIN DUFFY APRN S V25.9 CONTRACEPTION MANAGEMENT 04/10/2011 MISSAEL DUFFY APRNA S V65.42 COUNSELING - SMOKING CESSATION 04/10/2011 JORDIN DUFFY APRN S V76.2 CERVICAL CANCER SCREENING (PAP SMEAR) 04/10/2011 LEVAR OVALLES DO K V25.9 CONTRACEPTION MANAGEMENT 04/10/2011 MIAN OVALLES DOA K V65.42 COUNSELING - SMOKING CESSATION 04/10/2011 MIAN OVALLES DOA K V76.2 CERVICAL CANCER SCREENING (PAP SMEAR) 04/10/2011 GERARDO SCHNEIDER APRN R V25.9 CONTRACEPTION MANAGEMENT 04/10/2011 GERARDO SCHNEIDER APRN R V65.42 COUNSELING - SMOKING CESSATION 04/10/2011 GERARDO SCHNEIDER APRN R V76.2 CERVICAL CANCER SCREENING (PAP SMEAR) 04/27/2011 LEVAR OVALLES DO 793.81 MAMMOGRAPHIC MICROCALCIFICATION 04/27/2011 LEVAR OVALLES DO 793.81 MAMMOGRAPHIC MICROCALCIFICATION 04/27/2011 793.81 MAMMOGRAPHIC MICROCALCIFICATION 04/27/2011 793.81 MAMMOGRAPHIC MICROCALCIFICATION 04/27/2011 OVALLES DO, LEVAR K 793.81 MAMMOGRAPHIC MICROCALCIFICATION 04/27/2011 OVALLES DO, LEVAR K 793.81 MAMMOGRAPHIC MICROCALCIFICATION 04/27/2011 PEPPER BRADY DDS J 793.81 MAMMOGRAPHIC MICROCALCIFICATION 04/27/2011 NISHANT BENSON APRN R 793.81 MAMMOGRAPHIC MICROCALCIFICATION 04/27/2011 TIERNEY CRUZ MD 793.81 MAMMOGRAPHIC MICROCALCIFICATION 04/27/2011 OVALLES DO, LEVAR K 793.81 MAMMOGRAPHIC MICROCALCIFICATION 04/27/2011 JORDIN DUFFY APRN S 793.81 MAMMOGRAPHIC MICROCALCIFICATION 04/27/2011 RUBI HAWKINS DDS 793.81 MAMMOGRAPHIC MICROCALCIFICATION 04/27/2011 OVALLSE DO, LEVAR K 793.81 MAMMOGRAPHIC MICROCALCIFICATION 04/27/2011 JORDIN DUFFY APRN S 793.81 MAMMOGRAPHIC MICROCALCIFICATION 04/27/2011 OVALLES DO, LEVAR K 793.81 MAMMOGRAPHIC MICROCALCIFICATION 04/27/2011 GERARDO SCHNEIDER APRN R 793.81 MAMMOGRAPHIC MICROCALCIFICATION 06/26/2011 Ot 626.6 METRORRHAGIA 07/28/2011 OVALLES DO, LEVAR K 724.2 BACK PAIN, LOWER 07/28/2011 OVALLES DO, LEVAR K 724.2 BACK PAIN, LOWER 07/28/2011 724.2 BACK PAIN, LOWER 07/28/2011 724.2 BACK PAIN, LOWER 07/28/2011 OVALLES DO, LEVAR K 724.2 BACK PAIN, LOWER 07/28/2011 OVALLES DO, LEVAR K 724.2 BACK PAIN, LOWER 07/28/2011 CAITLYN BARRON, PEPPER J 724.2 BACK PAIN, LOWER 07/28/2011 NISHANT BENSON APRN R 724.2 BACK PAIN, LOWER 07/28/2011 TIERNEY CRUZ MD 724.2 BACK PAIN, LOWER 07/28/2011 OVALLES DO, LEVAR K 724.2 BACK PAIN, LOWER 07/28/2011 JORDIN DUFFY APRN S 724.2 BACK PAIN, LOWER 07/28/2011 SHRUTHI BARRON, RUBI 724.2 BACK PAIN, LOWER 07/28/2011 OVALLES DO, LEVAR K 724.2 BACK PAIN, LOWER 07/28/2011 JORDIN DUFFY APRN S 724.2 BACK PAIN, LOWER 07/28/2011 OVALLES DO, LEVAR K 724.2 BACK PAIN, LOWER 07/28/2011 JENNIE FITZGERALD, GERARDO R 724.2 BACK PAIN, LOWER 01/15/2012 OVALLES DO, LEVAR K V04.81 FLU DX (3 YRS AND ABOVE, IM) 01/15/2012 OVALLES DO, LEVAR K V04.81 FLU DX (3 YRS AND ABOVE, IM) 01/15/2012 V04.81 FLU DX (3 YRS AND ABOVE, IM) 01/15/2012 V04.81 FLU DX (3 YRS AND ABOVE, IM) 01/15/2012 OVALLES DO, LEVAR K V04.81 FLU DX (3 YRS AND ABOVE, IM) 01/15/2012 OVALLES DO, LEVAR K V04.81 FLU DX (3 YRS AND ABOVE, IM) 01/15/2012 CAITLYN BARRON, PEPPER James V04.81 FLU DX (3 YRS AND ABOVE, IM) 01/15/2012 NISHANT BENSON APRN V04.81 FLU DX (3 YRS AND ABOVE, IM) 01/15/2012 TIERNEY CRUZ MD V04.81 FLU DX (3 YRS AND ABOVE, IM) 01/15/2012 OVALLES DO, LEVAR K V04.81 FLU DX (3 YRS AND ABOVE, IM) 01/15/2012 JORDIN DUFFY APRN S V04.81 FLU DX (3 YRS AND ABOVE, IM) 01/15/2012 SHRUTHI BARRON, RUBI V04.81 FLU DX (3 YRS AND ABOVE, IM) 01/15/2012 OVALLES DO, LEVAR K V04.81 FLU DX (3 YRS AND ABOVE, IM) 01/15/2012 JORDIN DUFFY APRN S V04.81 FLU DX (3 YRS AND ABOVE, IM) 01/15/2012 OVALLES DO, LEVAR K V04.81 FLU DX (3 YRS AND ABOVE, IM) 01/15/2012 GERARDO SCHNEIDER APRN R V04.81 FLU DX (3 YRS AND ABOVE, IM) 10/06/2012 V05.4 VARICELLA DX 10/06/2012 V05.4 VARICELLA DX 10/06/2012 OVALLES DO, LEVAR K V05.4 VARICELLA DX 10/06/2012 OVALLES DO, LEVAR K V05.4 VARICELLA DX 10/06/2012 CAITLYN BARRON, PEPPER J V05.4 VARICELLA DX 10/06/2012 NISHANT BENSON APRN R V05.4 VARICELLA DX 10/06/2012 TIERNEY CRUZ MD V05.4 VARICELLA DX 10/06/2012 OVALLES DO, LEVAR K V05.4 VARICELLA DX 10/06/2012 MISSAEL DUFFY APRNA S V05.4 VARICELLA DX 10/06/2012 RUBI HAWKINS DDS V05.4 VARICELLA DX 10/06/2012 OVALLES DO, LEVAR K V05.4 VARICELLA DX 10/06/2012 MISSAEL DUFFY APRNA S V05.4 VARICELLA DX 10/06/2012 OVALLES DO, LEVAR K V05.4 VARICELLA DX 10/06/2012 ROBSON SCHNEIDER APRNINA R V05.4 VARICELLA DX 11/02/2012 251.2 HYPOGLYCEMIA 11/02/2012 251.2 HYPOGLYCEMIA 11/02/2012 OVALLES DO, LEVAR K 251.2 HYPOGLYCEMIA 11/02/2012 OVALLES , LEVAR K 251.2 HYPOGLYCEMIA 11/02/2012 PEPPER BRADY DDS J 251.2 HYPOGLYCEMIA 11/02/2012 NISHANT BENSON APRN R 251.2 HYPOGLYCEMIA 11/02/2012 TIERNEY CRUZ MD 251.2 HYPOGLYCEMIA 11/02/2012 OVALLES , LEVAR K 251.2 HYPOGLYCEMIA 11/02/2012 DARCY DUFFY APRNNDA S 251.2 HYPOGLYCEMIA 11/02/2012 RUBI HAWKINS DDS 251.2 HYPOGLYCEMIA 11/02/2012 OVALLES DO, LEVAR K 251.2 HYPOGLYCEMIA 11/02/2012 TATI FITZGERALD JORDIN S 251.2 HYPOGLYCEMIA 11/02/2012 OVALLES DO, LEVAR K 251.2 HYPOGLYCEMIA 11/02/2012 JENNIE FITZGERALD GERARDO R 251.2 HYPOGLYCEMIA 12/13/2012 OVALLES DO LEVAR K V15.83 IMMUNIZATION- DELINQUENT 12/13/2012 OVALLES DO LEVAR K V15.83 IMMUNIZATION- DELINQUENT 12/13/2012 CAITLYN LEMOSS, PEPPER James V15.83 IMMUNIZATION- DELINQUENT 12/13/2012 NISHANT BENSON APRN R V15.83 IMMUNIZATION- DELINQUENT 12/13/2012 TIERNEY CRUZ MD V15.83 IMMUNIZATION- DELINQUENT 12/13/2012 LEVAR OVALLES DO V15.83 IMMUNIZATION- DELINQUENT 12/13/2012 JORDIN UDFFY APRN S V15.83 IMMUNIZATION- DELINQUENT 12/13/2012 SHRUTHI BARRON, RUBI V15.83 IMMUNIZATION- DELINQUENT 12/13/2012 LEVAR OVALLES DO K V15.83 IMMUNIZATION- DELINQUENT 12/13/2012 JORDIN DUFFY APRN S V15.83 IMMUNIZATION- DELINQUENT 12/13/2012 LEVAR OVALLES DO K V15.83 IMMUNIZATION- DELINQUENT 12/13/2012 GERARDO SCHNEIDER APRN V15.83 IMMUNIZATION- DELINQUENT 02/16/2013 LEVAR OVALLES DO K 709.09 OTHER DYSCHROMIA 02/16/2013 LEVAR OVALLES DO K 786.2 COUGH 02/16/2013 CAITLYN DDS, PEPPER J 709.09 OTHER DYSCHROMIA 02/16/2013 CAITLYN LEMOSS, PEPPER J 786.2 COUGH 02/16/2013 NISHANT BENSON APRN R 709.09 OTHER DYSCHROMIA 02/16/2013 NISHANT BENSON APRN R 786.2 COUGH 02/16/2013 TIERNEY CRUZ MD 709.09 OTHER DYSCHROMIA 02/16/2013 TIERNEY CRUZ MD 786.2 COUGH 02/16/2013 LEVAR OVALLES DO K 709.09 OTHER DYSCHROMIA 02/16/2013 OVALLES DO LEVAR K 786.2 COUGH 02/16/2013 JORDIN DUFFY APRN S 709.09 OTHER DYSCHROMIA 02/16/2013 JORDIN DUFFY APRN S 786.2 COUGH 02/16/2013 SHRUTHI BARRON, RUBI 709.09 OTHER DYSCHROMIA 02/16/2013 SHRUTHI BARRON, RUBI 786.2 COUGH 02/16/2013 MIAN OVALLES DOA K 709.09 OTHER DYSCHROMIA 02/16/2013 OVALLES DO, LEVAR K 786.2 COUGH 02/16/2013 TATI BLINTZE ROLLER, JORDIN S 709.09 OTHER DYSCHROMIA 02/16/2013 TATI BLINTZE ROLLER, JORDIN S 786.2 COUGH 02/16/2013 OVALLES DO, LEVAR K 709.09 OTHER DYSCHROMIA 02/16/2013 OVALLES DO, LEVAR K 786.2 COUGH 02/16/2013 JENNIE BLINTZE ROLLER, GERARDO R 709.09 OTHER DYSCHROMIA 02/16/2013 JENNIE BLINTZE ROLLER, GERARDO R 786.2 COUGH 09/21/2013 VIC BENSON APRNRICIA R 692.9 CONTACT DERMATITIS AND OTHER ECZEMA UNSPECIFIED CAUSE 09/21/2013 TIERNEY CRUZ MD 692.9 CONTACT DERMATITIS AND OTHER ECZEMA UNSPECIFIED CAUSE 09/21/2013 OVALLES DO LEVAR K 692.9 CONTACT DERMATITIS AND OTHER ECZEMA UNSPECIFIED CAUSE 09/21/2013 MISSAEL DUFFY APRNA S 692.9 CONTACT DERMATITIS AND OTHER ECZEMA UNSPECIFIED CAUSE 09/21/2013 RUBI HAWKINS DDS 692.9 CONTACT DERMATITIS AND OTHER ECZEMA UNSPECIFIED CAUSE 09/21/2013 OVALLES DO LEVAR K 692.9 CONTACT DERMATITIS AND OTHER ECZEMA UNSPECIFIED CAUSE 09/21/2013 MISSAEL DUFFY APRNA S 692.9 CONTACT DERMATITIS AND OTHER ECZEMA UNSPECIFIED CAUSE 09/21/2013 OVALLES DO, LEVAR K 692.9 CONTACT DERMATITIS AND OTHER ECZEMA UNSPECIFIED CAUSE 09/21/2013 JENNIE FITZGERALD GERARDO R 692.9 CONTACT DERMATITIS AND OTHER ECZEMA UNSPECIFIED CAUSE 10/26/2013 TIERNEY CRUZ MD 847.2 SPRAIN LUMBAR REGION 10/26/2013 OVALLES DO, LEVAR K 847.2 SPRAIN LUMBAR REGION 10/26/2013 TATI FITZGERALD JORDIN S 847.2 SPRAIN LUMBAR REGION 10/26/2013 RUBI HAWKINS DDS 847.2 SPRAIN LUMBAR REGION 10/26/2013 OVALLES DO, LEVAR K 847.2 SPRAIN LUMBAR REGION 10/26/2013 DARCY DUFFY APRNNDA S 847.2 SPRAIN LUMBAR REGION 10/26/2013 OVALLES DO LEVAR K 847.2 SPRAIN LUMBAR REGION 10/26/2013 JENNIE FITZGERALD GERARDO R 847.2 SPRAIN LUMBAR REGION 10/26/2013 TED ZABALA, KATHIA Chyna Ot 724.5 BACKACHE NOS 11/14/2013 LEVAR OVALLES DO 722.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 11/14/2013 JORDIN DUFFY APRN S 722.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 11/14/2013 RUBI HAWKINS DDS 722.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 11/14/2013 LEVAR OVALLES DO 722.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 11/14/2013 JORDIN DUFFY APRN S 722.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 11/14/2013 LEVAR OVALLES DO 722.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 11/14/2013 GERARDO SCHNEIDER APRN R 722.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 11/20/2013 JORDIN DUFFY APRN S 296.22 MAJOR DEPRESSIVE AFFECTIVE DISORDER SINGLE EPISODE MODERATE DEGREE 11/20/2013 JORDIN DUFFY APRN S 314.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 DEFICIT DISORDER OF CHILDHOOD WITHOUT HYPERACTIVITY 11/20/2013 JORDIN DUFFY APRN S 626.4 IRREGULAR MENSTRUAL CYCLE 11/20/2013 JORDIN DUFFY APRN S V25.9 CONTRACEPTION MANAGEMENT 11/20/2013 JORDIN DUFFY APRN S V70.0 EXAM - ROUTINE H&P 11/20/2013 RUBI HAWKINS DDS 296.22 MAJOR DEPRESSIVE AFFECTIVE DISORDER SINGLE EPISODE MODERATE DEGREE 11/20/2013 RUBI HAWKINS DDS 314.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 DEFICIT DISORDER OF CHILDHOOD WITHOUT HYPERACTIVITY 11/20/2013 RUBI HAWKINS DDS 626.4 IRREGULAR MENSTRUAL CYCLE 11/20/2013 RUBI HAWKINS DDS V25.9 CONTRACEPTION MANAGEMENT 11/20/2013 RUBI HAWKINS DDS V70.0 EXAM - ROUTINE H&P 11/20/2013 LEVAR OVALLES DO K 296.22 MAJOR DEPRESSIVE AFFECTIVE DISORDER SINGLE EPISODE MODERATE DEGREE 11/20/2013 LEVAR OVALLES DO 314.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 DEFICIT DISORDER OF CHILDHOOD WITHOUT HYPERACTIVITY 11/20/2013 OVALLES DO, LEVAR K 626.4 IRREGULAR MENSTRUAL CYCLE 11/20/2013 OVALLES DO LEVAR K V25.9 CONTRACEPTION MANAGEMENT 11/20/2013 OVALLES DO LEVAR K V70.0 EXAM - ROUTINE H&P 11/20/2013 MISSAEL DUFFY APRNA S 296.22 MAJOR DEPRESSIVE AFFECTIVE DISORDER SINGLE EPISODE MODERATE DEGREE 11/20/2013 TATI FITZGERALD JORDIN S 314.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 DEFICIT DISORDER OF CHILDHOOD WITHOUT HYPERACTIVITY 11/20/2013 DARCY DUFFY APRNNDA S 626.4 IRREGULAR MENSTRUAL CYCLE 11/20/2013 DARCY DUFFY APRNNDA S V25.9 CONTRACEPTION MANAGEMENT 11/20/2013 DARCY DUFFY APRNNDA S V70.0 EXAM - ROUTINE H&P 11/20/2013 MIAN OVALLES DOA K 296.22 MAJOR DEPRESSIVE AFFECTIVE DISORDER SINGLE EPISODE MODERATE DEGREE 11/20/2013 JOSR RUFFIN LEVAR K 314.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 DEFICIT DISORDER OF CHILDHOOD WITHOUT HYPERACTIVITY 11/20/2013 MIAN OVALLES DOA K 626.4 IRREGULAR MENSTRUAL CYCLE 11/20/2013 MIAN OVALLES DOA K V25.9 CONTRACEPTION MANAGEMENT 11/20/2013 MIAN OVALLES DOA K V70.0 EXAM - ROUTINE H&P 11/20/2013 ROBSON SCHNEIDER APRNINA R 296.22 MAJOR DEPRESSIVE AFFECTIVE DISORDER SINGLE EPISODE MODERATE DEGREE 11/20/2013 ROBSON SCHNEIDER APRNINA R 314.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 DEFICIT DISORDER OF CHILDHOOD WITHOUT HYPERACTIVITY 11/20/2013 JENNIE FITZGERALD GERARDO R 626.4 IRREGULAR MENSTRUAL CYCLE 11/20/2013 JENNIE FITZGERALD GERARDO R V25.9 CONTRACEPTION MANAGEMENT 11/20/2013 JENNIE FITZGERALD GERARDO R V70.0 EXAM - ROUTINE H&P 12/23/2013 MIAN OVALLES DOA K V04.81 FLU SHOT 12/23/2013 DARCY DUFFY APRNNDA S V04.81 FLU SHOT 12/23/2013 JOSR RUFFIN LEVAR K V04.81 FLU SHOT 12/23/2013 JENNIE FITZGERALD GERARDO R V04.81 FLU SHOT 01/24/2014 JORDIN DUFFY APRN S V15.82 NICOTINE ABUSE 01/24/2014 MIAN OVALLES DOA K V15.82 NICOTINE ABUSE 01/24/2014 JENNIE FITZGERALD GERARDO R V15.82 NICOTINE ABUSE 01/26/2014 ALLY BARRIGA BULB TESTER Ot 722.10 01/29/2014 JORDIN DUFFY APRN 793.80 ABNORMAL MAMMOGRAM 01/29/2014 JOSR RUFFINLEVAR Ewa 793.80 ABNORMAL MAMMOGRAM 01/29/2014 GERARDO SCHNEIDER APRN 793.80 ABNORMAL MAMMOGRAM 01/30/2014 ALLY BARRIGA BULB TESTER Ot 724.2 LUMBAGO 01/30/2014 ALLY BARRIGA BULB TESTER Ot V57.1 PHYSICAL THERAPY NEC 02/14/2014 Ot 611.89 02/14/2014 Ot V16.3 02/14/2014 Ot V76.12 02/14/2014 Ot 793.81 02/14/2014 Ot 793.82 02/14/2014 Ot V71.2 02/14/2014 Ot 793.81 02/14/2014 Ot 610.1 02/14/2014 Ot 793.81 02/14/2014 Ot 626.6 02/14/2014 Ot V72.84 02/14/2014 Ot V74.8 02/14/2014 ALLY BARRIGA BULB TESTER Ot 722.10 02/14/2014 DEION ZABALA, MICHAEL James Ot 625.8 02/14/2014 MABLE RUFFINJOJO Ot V76.12 02/19/2014 MABLE RUFFINJOJO Ot V76.12 2014 MABLE JOJO RUFFIN Ot 218.1 INTRAMURAL LEIOMYOMA 2014 JOJO AKINS DO Ot 218.2 SUBSEROUS LEIOMYOMA 2014 JOJO AKINS DO Ot 617.0 UTERINE ENDOMETRIOSIS 2014 KAYLAIMANI JOJO RUFFIN Ot 621.2 HYPERTROPHY OF UTERUS 2014 KAYLAIMANI JOJO RUFFIN Ot 626.2 EXCESSIVE MENSTRUATION 03/14/2014 JOJO AKINS DO S Ot 793.80 06/23/2014 GERARDO SCHNEIDER APRN 786.2 COUGH 06/23/2014 GERARDO SCHNEIDER APRN 787.01 NAUSEA WITH VOMITING 06/23/2014 GERARDO SCHNEIDER APRN 787.91 DIARRHEA 07/05/2015 Ot 793.82 INCONCLUSIVE MAMMOGRAM 07/05/2015 Ot V71.2 OBSERV- SUSPECT TB 07/05/2015 Ot 793.81 MAMMOGRAPHIC MICROCLACIFICATION 07/05/2015 Ot 610.1 DIFFUS CYSTIC MASTOPATHY 07/05/2015 Ot 793.81 MAMMOGRAPHIC MICROCLACIFICATION 07/05/2015 Ot 626.6 METRORRHAGIA 07/05/2015 Ot V72.84 EXAM PRE- OPERATIVE NOS 07/05/2015 Ot V74.8 SCREEN- BACTERIAL DIS NEC 07/05/2015 ALLY BARRIGA BULB TESTER Ot 722.10 LUMBAR DISC DISPLACEMENT 07/05/2015 DEION ZABALA, MICHAEL James Ot 625.8 FEM GENITAL SYMPTOMS NEC 07/05/2015 JOJO AKINS DO Ot V76.12 OTH SCREEN MAMMO-MALIGN NEOPLASM OF YOAN 07/05/2015 JOJO AKINS DO Ot 218.9 UTERINE LEIOMYOMA NOS 07/05/2015 JOJO KAINS DO Ot 625.9 FEM GENITAL SYMPTOMS NOS 07/05/2015 JOJO AKINS DO Ot V72.84 EXAM PRE-OPERATIVE NOS 07/05/2015 MABLE RUFFIN JOJO Bethea Ot V74.8 SCREEN-BACTERIAL DIS NEC 07/05/2015 JOJO AKINS DO Ot 793.80 UNSPEC ABNORMAL MAMMOGRAM 07/05/2015 AMALIA ZABALA, PATRICK Bethea Ot F17.210 NICOTINE DEPENDENCE, CIGARETTES, UNCOMPL 07/05/2015 AMALIA ZABALA, PATRICK Bethea Ot N15.9 RENAL TUBULO-INTERSTITIAL DISEASE, UNSPE 07/05/2015 PATRICK HOLLAND MD Ot R11.2 NAUSEA WITH VOMITING, UNSPECIFIED 07/05/2015 PATRICK HOLLAND MD Ot R51 HEADACHE 07/05/2015 PATRICK HOLLAND MD Ot F17.210 NICOTINE DEPENDENCE, CIGARETTES, UNCOMPL 07/05/2015 PATRICK HOLLAND MD Ot N15.9 RENAL TUBULO-INTERSTITIAL DISEASE, UNSPE 07/05/2015 PATRICK HOLLAND MD Ot R11.2 NAUSEA WITH VOMITING, UNSPECIFIED 07/05/2015 PATRICK HOLLAND MD Ot R51 HEADACHE 07/06/2015 PATRICK HOLLAND MD Ot F17.210 NICOTINE DEPENDENCE, CIGARETTES, UNCOMPL 07/06/2015 PATRICK HOLLAND MD Ot N15.9 RENAL TUBULO-INTERSTITIAL DISEASE, UNSPE 07/06/2015 PATRICK HOLLAND MD Ot R11.2 NAUSEA WITH VOMITING, UNSPECIFIED 07/06/2015 AMALIA ZABALA, PATRICK Bethea Ot R51 HEADACHE 07/16/2015 CAMPBELL PIZANO BLINTZE ROLLER Ot K59.00 CONSTIPATION, UNSPECIFIED 07/16/2015 CAMPBELL PIZANO BLINTZE ROLLER Ot N28.1 CYST OF KIDNEY, ACQUIRED 07/16/2015 CAMPBELL PIZANO BLINTZE ROLLER Ot N83.20 UNSPECIFIED OVARIAN CYSTS 07/16/2015 CAMPBELL PIZANO BLINTZE ROLLER Ot R10.31 RIGHT LOWER QUADRANT PAIN 07/16/2015 CAMPBELL PIZANO BLINTZE ROLLER Ot R30.0 DYSURIA 07/17/2015 CAMPBELL PIZANO BLINTZE ROLLER Ot K59.00 CONSTIPATION, UNSPECIFIED 07/17/2015 CAMPBELL PIZANO BLINTZE ROLLER Ot N28.1 CYST OF KIDNEY, ACQUIRED 07/17/2015 CAMPBELL PIZANO BLINTZE ROLLER Ot N83.20 UNSPECIFIED OVARIAN CYSTS 07/17/2015 CAMPBELL PIZANO BLINTZE ROLLER Ot R10.31 RIGHT LOWER QUADRANT PAIN 07/17/2015 CAMPBELL PIZANO BLINTZE ROLLER Ot R30.0 DYSURIA 08/01/2015 AMALIA ZABALA, PATRICK Neema Ot F17.210 NICOTINE DEPENDENCE, CIGARETTES, UNCOMPL 08/01/2015 AMALIA ZABALA, PATRICK Neema Ot N15.9 RENAL TUBULO-INTERSTITIAL DISEASE, UNSPE 08/01/2015 AMALIA ZABALA, PATRICK Bethea Ot R11.2 NAUSEA WITH VOMITING, UNSPECIFIED 08/01/2015 AMALIA ZABALA PATRICK Neema Ot R51 HEADACHE 08/02/2015 AMALIA ZABALA, PATRICK Neema Ot F17.210 NICOTINE DEPENDENCE, CIGARETTES, UNCOMPL 08/02/2015 AMALIA ZABALA, PATRICK Neema Ot N15.9 RENAL TUBULO-INTERSTITIAL DISEASE, UNSPE 08/02/2015 AMALIA ZABALA PATRICK Neema Ot R11.2 NAUSEA WITH VOMITING, UNSPECIFIED 08/02/2015 AMALIA ZABALA, PATRICK Bethea Ot R51 HEADACHE 05/13/2016 Ot 793.82 INCONCLUSIVE MAMMOGRAM 05/13/2016 Ot V71.2 OBSERV- SUSPECT TB 05/13/2016 Ot 793.81 MAMMOGRAPHIC MICROCLACIFICATION 05/13/2016 Ot 610.1 DIFFUS CYSTIC MASTOPATHY 05/13/2016 Ot 793.81 MAMMOGRAPHIC MICROCLACIFICATION 05/13/2016 Ot 626.6 METRORRHAGIA 05/13/2016 Ot V72.84 EXAM PRE- OPERATIVE NOS 05/13/2016 Ot V74.8 SCREEN- BACTERIAL DIS NEC 05/13/2016 ALLY BARRIGA BULB TESTER Ot 722.10 LUMBAR DISC DISPLACEMENT 05/13/2016 MICHALE ALBARRAN MD Ot 625.8 FEM GENITAL SYMPTOMS NEC 05/13/2016 MABLE RUFFINJOJO Ot V76.12 OTH SCREEN MAMMO-MALIGN NEOPLASM OF YOAN 05/13/2016 MABLE JOJO RUFFIN Ot 218.9 UTERINE LEIOMYOMA NOS 05/13/2016 MABLE JJOO RUFFIN Ot 625.9 FEM GENITAL SYMPTOMS NOS 05/13/2016 MABLE JOJO RUFFIN Ot V72.84 EXAM PRE-OPERATIVE NOS 05/13/2016 MABLE JOJO RUFFIN Ot V74.8 SCREEN-BACTERIAL DIS NEC 05/13/2016 KAYLAJOJO DIALLO DO Ot 793.80 UNSPEC ABNORMAL MAMMOGRAM 05/28/2016 CARTER HAND DO Ot Z12.31 ENCNTR SCREEN MAMMOGRAM FOR MALIGNANT NE 06/01/2016 Ot 793.82 INCONCLUSIVE MAMMOGRAM 06/01/2016 Ot V71.2 OBSERV- SUSPECT TB 06/01/2016 Ot 793.81 MAMMOGRAPHIC MICROCLACIFICATION 06/01/2016 Ot 610.1 DIFFUS CYSTIC MASTOPATHY 06/01/2016 Ot 793.81 MAMMOGRAPHIC MICROCLACIFICATION 06/01/2016 Ot 626.6 METRORRHAGIA 06/01/2016 Ot V72.84 EXAM PRE- OPERATIVE NOS 06/01/2016 Ot V74.8 SCREEN- BACTERIAL DIS NEC 06/01/2016 ALLY BARRIGA BULB TESTER Ot 722.10 LUMBAR DISC DISPLACEMENT 06/01/2016 MICHAEL ALBARRAN MD Ot 625.8 FEM GENITAL SYMPTOMS NEC 06/01/2016 MABLE JOJO RUFFIN Ot V76.12 OTH SCREEN MAMMO-MALIGN NEOPLASM OF YOAN 06/01/2016 KAYLAJOJO DIALLO DO Ot 218.9 UTERINE LEIOMYOMA NOS 06/01/2016 KAYLAJOJO DIALLO DO Ot 625.9 FEM GENITAL SYMPTOMS NOS 06/01/2016 KAYLAJOJO DIALLO DO Ot V72.84 EXAM PRE-OPERATIVE NOS 06/01/2016 JOJO AKINS DO Ot V74.8 SCREEN-BACTERIAL DIS NEC 06/01/2016 JOJO AKINS DO S Ot 793.80 UNSPEC ABNORMAL MAMMOGRAM 06/01/2016 YAZAN RUFFIN CARTER Ot Z12.31 ENCNTR SCREEN MAMMOGRAM FOR MALIGNANT NE 06/02/2016 CARTER HAND DO Ot R92.0 MAMMOGRAPHIC MICROCALCIFICATION FOUND ON 06/02/2016 YAZAN RUFFIN CARTER Ot Z90.710 ACQUIRED ABSENCE OF BOTH CERVIX AND UTER 06/16/2016 CARTER HAND DO Ot R92.0 MAMMOGRAPHIC MICROCALCIFICATION FOUND ON 06/16/2016 YAZAN RUFFIN CARTER Ot Z90.710 ACQUIRED ABSENCE OF BOTH CERVIX AND UTER 03/05/2017 ALLY BARRIGA BULB TESTER Ot 722.10 LUMBAR DISC DISPLACEMENT 03/05/2017 DEION ZABALA, MICHAEL James Ot 625.8 FEM GENITAL SYMPTOMS NEC 03/05/2017 MABLE RUFFIN JOJO S Ot V76.12 OTH SCREEN MAMMO-MALIGN NEOPLASM OF YOAN 03/05/2017 MABLE DO JOJO S Ot 218.9 UTERINE LEIOMYOMA NOS 03/05/2017 MABLE RUFFIN JOJO S Ot 625.9 FEM GENITAL SYMPTOMS NOS 03/05/2017 MABLE RUFFIN JOJO S Ot V72.84 EXAM PRE-OPERATIVE NOS 03/05/2017 MABLE RUFFIN JOJO Bethea Ot V74.8 SCREEN-BACTERIAL DIS NEC 03/05/2017 MABLE RUFFIN JOJO S Ot 793.80 UNSPEC ABNORMAL MAMMOGRAM 03/05/2017 HAND DO CARTER Ot Z12.31 ENCNTR SCREEN MAMMOGRAM FOR MALIGNANT NE 03/05/2017 YAZAN RUFFIN CARTER Ot R92.0 MAMMOGRAPHIC MICROCALCIFICATION FOUND ON 03/05/2017 HAND CARTER RUFFIN Ot Z90.710 ACQUIRED ABSENCE OF BOTH CERVIX AND UTER 03/05/2017 TED ZABALA, KATHIA Clemente Ot F39 UNSPECIFIED MOOD [AFFECTIVE] DISORDER 03/05/2017 TED ZABALA, KATHIA Clemente Ot G43.909 MIGRAINE, UNSP, NOT INTRACTABLE, WITHOUT 03/05/2017 KATHIA JEAN MD Ot S61.412A LACERATION WITHOUT FOREIGN BODY OF LEFT 03/05/2017 KATHIA JEAN MD Ot W26.0XXA CONTACT WITH KNIFE, INITIAL ENCOUNTER 03/05/2017 KATHIA JEAN MD, Ot Z82.49 FAMILY HX OF ISCHEM HEART DIS AND OTH DI 03/05/2017 KATHIA JEAN MD Ot Z90.710 ACQUIRED ABSENCE OF BOTH CERVIX AND UTER 03/09/2017 KATHIA JEAN MD Ot F39 UNSPECIFIED MOOD [AFFECTIVE] DISORDER 03/09/2017 KATHIA JEAN MD Ot G43.909 MIGRAINE, UNSP, NOT INTRACTABLE, WITHOUT 03/09/2017 KATHIA JEAN MD Ot S61.412A LACERATION WITHOUT FOREIGN BODY OF LEFT 03/09/2017 KATHIA JEAN MD Ot W26.0XXA CONTACT WITH KNIFE, INITIAL ENCOUNTER 03/09/2017 KATHIA JEAN MD Ot Z82.49 FAMILY HX OF ISCHEM HEART DIS AND OTH DI 03/09/2017 KATHIA JEAN MD Ot Z90.710 ACQUIRED ABSENCE OF BOTH CERVIX AND UTER 06/24/2017 NITHYA ALLY L BULB TESTER Ot 722.10 LUMBAR DISC DISPLACEMENT 06/24/2017 DEION ZABALA, MICHAEL James Ot 625.8 FEM GENITAL SYMPTOMS NEC 06/24/2017 JOJO AKINS DO Ot V76.12 OTH SCREEN MAMMO-MALIGN NEOPLASM OF YOAN 06/24/2017 JOJO AKINS DO S Ot 218.9 UTERINE LEIOMYOMA NOS 06/24/2017 JOJO AKINS DO S Ot 625.9 FEM GENITAL SYMPTOMS NOS 06/24/2017 JOJO AKINS DO Ot V72.84 EXAM PRE-OPERATIVE NOS 06/24/2017 JOJO AKINS DO Ot V74.8 SCREEN-BACTERIAL DIS NEC 06/24/2017 JOJO AKINS DO S Ot 793.80 UNSPEC ABNORMAL MAMMOGRAM 06/24/2017 CARTER HAND DO Ot Z12.31 ENCNTR SCREEN MAMMOGRAM FOR MALIGNANT NE 06/24/2017 CARTER HAND DO Ot R92.0 MAMMOGRAPHIC MICROCALCIFICATION FOUND ON 06/24/2017 CARTER HAND DO Ot Z90.710 ACQUIRED ABSENCE OF BOTH CERVIX AND UTER 06/24/2017 KATHIA JEAN MD Ot F17.200 NICOTINE DEPENDENCE, UNSPECIFIED, UNCOMP 06/24/2017 KATHIA JEAN MD Ot G43.909 MIGRAINE, UNSP, NOT INTRACTABLE, WITHOUT 06/24/2017 TED ZABALA, KATHIA Clemente Ot R07.89 OTHER CHEST PAIN 06/24/2017 TED ZABALA, KATHIA Clemente Ot Z82.49 FAMILY HX OF ISCHEM HEART DIS AND OTH DI 06/24/2017 TED ZABALA, KATHIA Clemente Ot Z88.5 ALLERGY STATUS TO NARCOTIC AGENT STATUS 06/24/2017 TED ZABALA, KATHIA Clemente Ot Z90.710 ACQUIRED ABSENCE OF BOTH CERVIX AND UTER 06/24/2017 ALLY BARRIGA BULB TESTER Ot 722.10 LUMBAR DISC DISPLACEMENT 06/24/2017 DEION ZABALA, MICHAEL James Ot 625.8 FEM GENITAL SYMPTOMS NEC 06/24/2017 KAYLAECH DO, JOJO S Ot V76.12 OTH SCREEN MAMMO-MALIGN NEOPLASM OF YOAN 06/24/2017 KAYLAECH DO, JOJO S Ot 218.9 UTERINE LEIOMYOMA NOS 06/24/2017 FENECH DO, JOJO S Ot 625.9 FEM GENITAL SYMPTOMS NOS 06/24/2017 FENECH DO, JOJO S Ot V72.84 EXAM PRE-OPERATIVE NOS 06/24/2017 KAYLAECH DO, JOJO S Ot V74.8 SCREEN-BACTERIAL DIS NEC 06/24/2017 MABLE RUFFIN JOJO S Ot 793.80 UNSPEC ABNORMAL MAMMOGRAM 06/24/2017 CARTER HAND DO Ot Z12.31 ENCNTR SCREEN MAMMOGRAM FOR MALIGNANT NE 06/24/2017 CARTER HAND DO Ot R92.0 MAMMOGRAPHIC MICROCALCIFICATION FOUND ON 06/24/2017 CARTER HAND DO Ot Z90.710 ACQUIRED ABSENCE OF BOTH CERVIX AND UTER 06/24/2017 ALLY BARRIGA BULB TESTER Ot 722.10 LUMBAR DISC DISPLACEMENT 06/24/2017 DEION ZABALA, MICHAEL J Ot 625.8 FEM GENITAL SYMPTOMS NEC 06/24/2017 FENECH DO, JOJO S Ot V76.12 OTH SCREEN MAMMO-MALIGN NEOPLASM OF YOAN 06/24/2017 KAYLAECH DO, JOJO S Ot 218.9 UTERINE LEIOMYOMA NOS 06/24/2017 FENECH DO, JOJO S Ot 625.9 FEM GENITAL SYMPTOMS NOS 06/24/2017 FENECH DO JOJO S Ot V72.84 EXAM PRE-OPERATIVE NOS 06/24/2017 FENECH DO, JOJO S Ot V74.8 SCREEN-BACTERIAL DIS NEC 06/24/2017 JOJO AKINS DO S Ot 793.80 UNSPEC ABNORMAL MAMMOGRAM 06/24/2017 YAZAN RUFFIN CARTER Ot Z12.31 ENCNTR SCREEN MAMMOGRAM FOR MALIGNANT NE 06/24/2017 ADAN HAND DOI Ot R92.0 MAMMOGRAPHIC MICROCALCIFICATION FOUND ON 06/24/2017 ADAN HAND DOI Ot Z90.710 ACQUIRED ABSENCE OF BOTH CERVIX AND UTER 06/24/2017 ALLY BARRIGA BULB TESTER Ot 722.10 LUMBAR DISC DISPLACEMENT 06/24/2017 DEION ZABALA, MICHAEL J Ot 625.8 FEM GENITAL SYMPTOMS NEC 06/24/2017 MABLE RUFFIN JOJO S Ot V76.12 OTH SCREEN MAMMO-MALIGN NEOPLASM OF YOAN 06/24/2017 MABLE RUFFIN JOJO S Ot 218.9 UTERINE LEIOMYOMA NOS 06/24/2017 MABLE RUFFIN JOJO S Ot 625.9 FEM GENITAL SYMPTOMS NOS 06/24/2017 MABLE RUFFIN JOJO S Ot V72.84 EXAM PRE-OPERATIVE NOS 06/24/2017 MABLE RUFFIN JOJO S Ot V74.8 SCREEN-BACTERIAL DIS NEC 06/24/2017 JOJO AKINS DO S Ot 793.80 UNSPEC ABNORMAL MAMMOGRAM 06/24/2017 CARTER HAND DO Ot Z12.31 ENCNTR SCREEN MAMMOGRAM FOR MALIGNANT NE 06/24/2017 ADAN HAND DOI Ot R92.0 MAMMOGRAPHIC MICROCALCIFICATION FOUND ON 06/24/2017 YAZAN RUFFIN CARTER Ot Z90.710 ACQUIRED ABSENCE OF BOTH CERVIX AND UTER 06/25/2017 ALLY BARRIGA BULB TESTER Ot 722.10 LUMBAR DISC DISPLACEMENT 06/25/2017 DEION ZABALA, MICHAEL J Ot 625.8 FEM GENITAL SYMPTOMS NEC 06/25/2017 MABLE RUFFIN JOJO S Ot V76.12 OTH SCREEN MAMMO-MALIGN NEOPLASM OF YOAN 06/25/2017 MABLE RUFFIN JOJO S Ot 218.9 UTERINE LEIOMYOMA NOS 06/25/2017 MABLE RUFFIN JOJO S Ot 625.9 FEM GENITAL SYMPTOMS NOS 06/25/2017 MABLE RUFFIN JOJO S Ot V72.84 EXAM PRE-OPERATIVE NOS 06/25/2017 MABLE RUFFIN JOJO S Ot V74.8 SCREEN-BACTERIAL DIS NEC 06/25/2017 JOJO AKINS DO Ot 793.80 UNSPEC ABNORMAL MAMMOGRAM 06/25/2017 YAZAN CARTER RUFFIN Ot Z12.31 ENCNTR SCREEN MAMMOGRAM FOR MALIGNANT NE 06/25/2017 HANDCARTER GARCIA DO Ot R92.0 MAMMOGRAPHIC MICROCALCIFICATION FOUND ON 06/25/2017 YAZAN CARTER RUFFIN Ot Z90.710 ACQUIRED ABSENCE OF BOTH CERVIX AND UTER 06/28/2017 TED ZABALA, KATHIA Clemente Ot F17.200 NICOTINE DEPENDENCE, UNSPECIFIED, UNCOMP 06/28/2017 TED ZABALA, KATHIA Clemente Ot G43.909 MIGRAINE, UNSP, NOT INTRACTABLE, WITHOUT 06/28/2017 TED ZABALA, KATHIA Clemente Ot R07.89 OTHER CHEST PAIN 06/28/2017 TED ZABALA, KATHIA Clemente Ot Z82.49 FAMILY HX OF ISCHEM HEART DIS AND OTH DI 06/28/2017 KATHIA JEAN MD Ot Z88.5 ALLERGY STATUS TO NARCOTIC AGENT STATUS 06/28/2017 KATHIA JEAN MD Ot Z90.710 ACQUIRED ABSENCE OF BOTH CERVIX AND UTER Procedures Code [place] [address] GLUCOSE FINGER STICK 11/02/2012 32526 ROUTINE VENIPUNCTURE 11/03/2012 56788 A1C (IN-HOUSE) 11/03/2012 23211 CBC 11/03/2012 37926 CMP 11/03/2012 12184 LIPID PANEL 11/03/2012 2550979 GFR CALC (RESULT ONLY) 11/03/2012 49756 TSH 11/03/2012 15020 VITAMIN D 25-HYDROXY (D2,D3 , TOTAL) 11/03/2012 76109 TB TEST INTRADERMAL 08/04/2013 69082 MAMMOGRAM DX, LINNEA 11/07/2013 31653 XRAY LUMBAR SPINE 2 OR 3 VIEWS 11/07/2013 PHYSICAL PHYSICAL THERAPY, VIA VALDEZ 11/08/2013 01937 TEST, URINE (IN- HOUSE) 11/20/2013 [id number] DEPO PROVERA 11/20/2013 27781 THERAPUTIC INJ SQ/IM 11/20/2013 15096 MAMMOGRAM, SCREENING 01/24/2014 37660 MAMMOGRAM DX, RIGHT 01/24/2014 60604 ROUTINE VENIPUNCTURE 02/13/2014 49150 CBC 02/14/2014 68174 T4 FREE 02/14/2014 57948 TSH 02/14/2014 Results Test Result Range Complete blood count (CBC) with automated white blood cell (WBC) differential - 06/24/17 09:20 Blood leukocytes automated count (number/volume) 6.2 10*3/uL 4.3-11.0 Blood erythrocytes automated count (number/volume) 4.15 10*6/uL 4.35-5.85 Venous blood hemoglobin measurement (mass/volume) 13.9 g/dL 11.5-16.0 Blood hematocrit (volume fraction) 41 % 35-52 Automated erythrocyte mean corpuscular volume 98 [foz_us] 80-99 Automated erythrocyte mean corpuscular hemoglobin (mass per erythrocyte) 34 pg 25-34 Automated erythrocyte mean corpuscular hemoglobin concentration measurement ( mass/volume) 34 g/dL 32-36 Automated erythrocyte distribution width ratio 12.4 % 10.0-14.5 Automated blood platelet count (count/volume) 246 10*3/uL 130-400 Automated blood platelet mean volume measurement 9.6 [foz_us] 7.4-10.4 Automated blood neutrophils/100 leukocytes 71 % 42-75 Automated blood lymphocytes/100 leukocytes 21 % 12-44 Blood monocytes/100 leukocytes 6 % 0-12 Automated blood eosinophils/100 leukocytes 1 % 0-10 Automated blood basophils/100 leukocytes 1 % 0-10 Blood neutrophils automated count (number/volume) 4.4 10*3 1.8-7.8 Blood lymphocytes automated count (number/volume) 1.3 10*3 1.0-4.0 Blood monocytes automated count (number/volume) 0.4 10*3 0.0-1.0 Automated eosinophil count 0.1 10*3/uL 0.0-0.3 Automated blood basophil count (count/volume) 0.0 10*3/uL 0.0-0.1 PT panel in platelet poor plasma by coagulation assay - 06/24/17 09:20 Prothrombin time (PT) in platelet poor plasma by coagulation assay 13.8 s 12.2-14.7 INR in platelet poor plasma or blood by coagulation assay 1.1 0.8-1.4 Activated partial thromboplastin time (aPTT) in platelet poor plasma bycoagulation assay - 06/24/17 09:20 Activated partial thromboplastin time (aPTT) in platelet poor plasma bycoagulation assay 31 s 24-35 Comprehensive metabolic panel - 06/24/17 09:20 Serum or plasma sodium measurement (moles/volume) 136 mmol/L 135-145 Serum or plasma potassium measurement (moles/volume) 3.9 mmol/L 3.6-5.0 Serum or plasma chloride measurement (moles/volume) 101 mmol/L 98-107 Carbon dioxide 26 mmol/L 21-32 Serum or plasma anion gap determination (moles/volume) 9 mmol/L 5-14 Serum or plasma urea nitrogen measurement (mass/volume) 17 mg/dL 7-18 Serum or plasma creatinine measurement (mass/volume) 0.71 mg/dL 0.60-1.30 Serum or plasma urea nitrogen/creatinine mass ratio 24 NRG Serum or plasma creatinine measurement with calculation of estimated glomerular filtration rate > NRG Serum or plasma glucose measurement (mass/volume) 85 mg/dL 70-105 Serum or plasma calcium measurement (mass/volume) 9.7 mg/dL 8.5-10.1 Serum or plasma total bilirubin measurement (mass/volume) 0.4 mg/dL 0.1-1.0 Serum or plasma alkaline phosphatase measurement (enzymatic activity/volume) 69 U/L 40-136 Serum or plasma aspartate aminotransferase measurement (enzymatic activity/ volume) 18 U/L 5-34 Serum or plasma alanine aminotransferase measurement (enzymatic activity/volume ) 13 U/L 0-55 Serum or plasma protein measurement (mass/volume) 7.0 g/dL 6.4-8.2 Serum or plasma albumin measurement (mass/volume) 4.4 g/dL 3.2-4.5 Magnesium - 06/24/17 09:20 Magnesium 2.1 mg/dL 1.8-2.4 Serum or plasma troponin i.cardiac measurement (mass/volume) - 06/24/17 09:20 Serum or plasma troponin i.cardiac measurement (mass/volume) < ng/ mL <0.30 Myoglobin, serum - 06/24/17 09:20 Myoglobin, serum 32.3 ng/mL 10.0-92.0 Fibrin D-dimer FEU measurement in platelet poor plasma (mass/volume) - 09:20 Fibrin D-dimer FEU measurement in platelet poor plasma (mass/volume) < ug/mL 0.00-0.49 Serum or plasma troponin i.cardiac measurement (mass/volume) - 06/24/17 11:42 Serum or plasma troponin i.cardiac measurement (mass/volume) < ng/ mL <0.30 Encounters ACCT No. Visit Date/Time Discharge Status Pt. Type Provider Facility Loc./Unit Complaint [id number] 06/23/2014 12:47:00 06/23/2014 23:59:59 CLS Outpatient GERARDO SCHNEIDER APRN [id number] 02/13/2014 18:02:00 02/13/2014 23:59:59 CLS Outpatient LEVAR OVALLES DO [id number] 01/24/2014 10:32:00 01/24/2014 23:59:59 CLS Outpatient JORDIN DUFFY APRN [id number] 12/23/2013 11:07:00 12/23/2013 23:59:59 CLS Outpatient LEVAR OVALLES DO [id number] 12/13/2013 12:59:00 12/13/2013 23:59:59 CLS Outpatient RUBI HAWKINS DDS [id number] 11/20/2013 08:41:00 11/20/2013 23:59:59 CLS Outpatient JORDIN DUFFY APRN [id number] 11/07/2013 07:51:00 11/07/2013 23:59:59 CLS Outpatient LEVAR OVALLES DO [id number] 10/26/2013 09:41:00 10/26/2013 23:59:59 CLS Outpatient TIERNEY CRUZ MD [id number] 09/21/2013 14:24:00 09/21/2013 23:59:59 CLS Outpatient NISHANT BENSON APRN [id number] 07/28/2013 15:55:00 07/28/2013 23:59:59 CLS Outpatient PEPPER BRADY DDS [id number] 02/16/2013 10:01:00 02/16/2013 23:59:59 CLS Outpatient LEVAR OVALLES DO [id number] 12/13/2012 10:46:00 12/13/2012 23:59:59 CLS Outpatient LEVAR OVALLES DO [id number] 01/15/2012 10:55:00 01/15/2012 23:59:59 [place] [id number] 01/15/2012 10:55:00 01/15/2012 23:59:59 CLS Outpatient LEVAR OVALLES DO [id number] 11/03/2012 08:53:00 Document Registration [id number] 11/02/2012 11:49:00 Document Registration [id number] 12/06/2017 05:49:00 12/06/2017 23:59:59 CLS Outpatient YULIA ROSADO DO [facility] PREOP COLO [id number] 11/09/2017 07:12:00 11/09/2017 23:59:59 CLS Preadmit HAND DO, CARTER [facility] RAD SCREENING [id number] 06/24/2017 08:59:00 06/24/2017 12:45:00 DIS Emergency TED ZABALA, KATHIA Clemente [facility] ER CHEST PAIN [id number] 04/15/2017 14:16:00 04/15/2017 23:59:59 CLS Preadmit HAND DO, CARTER [facility] RAD SCREENING MAMMO [id number] 03/05/2017 22:23:00 03/05/2017 23:22:00 DIS Emergency TED ZABALA, KATHIA Clemente [facility] ER LEFT HAND LACERATION [id number] 06/01/2016 13:01:00 06/01/2016 23:59:59 CLS Outpatient HAND DO, CARTER [facility] RAD R92.0 [id number] 05/13/2016 10:50:00 05/13/2016 23:59:59 CLS Outpatient HAND DO, CARTER [facility] RAD Z12.31 [id number] 07/16/2015 12:18:00 07/16/2015 15:15:00 DIS Emergency CAMPBELL PIZANO APRN [facility] ER [id number] 07/05/2015 05:24:00 07/05/2015 08:01:00 DIS Emergency PATRICK HOLLAND MD [facility] ER [id number] 2014 06:00:00 2014 17:40:00 DIS [facility]IB[facility] [id number] 02/14/2014 12:55:00 02/14/2014 23:59:59 CLS Outpatient JOJO AKINS DO [facility] RAD ABNORMAL MAMMO [id number] 02/14/2014 09:01:00 02/14/2014 23:59:59 CLS Outpatient JOJO AKINS DO [facility] PREOP PELVIC PAIN; FIBROIDS [id number] 12/27/2013 08:26:00 01/30/2014 09:54:00 DIS Outpatient ALLY BARRIGA BULB TESTER [facility] REHAB LBP [id number] 01/24/2014 08:55:00 01/24/2014 23:59:59 CLS Outpatient JOJO AKINS DO [facility] RAD SCREENING [id number] 01/04/2014 09:45:00 01/04/2014 23:59:59 CLS Outpatient MICHAEL ALBARRAN MD [facility] RAD PELVIC MASS ON MRI [id number] 12/04/2013 14:27:00 12/04/2013 23:59:59 CLS Outpatient ALLY BARRIGA BULB TESTER [facility] RAD LBP [id number] 10/25/2013 20:57:00 10/26/2013 00:10:00 DIS Emergency TED ZABALA, KATHIA Clemente [facility] ER BACK PAIN [id number] 12/13/2017 13:00:00 PEN Preadmit YULIA ROSADO DO [facility] ENDO SCREENING [id number] 06/26/2011 05:37:00 Document Registration [id number] 06/18/2011 08:00:00 Document Registration [id number] 05/06/2011 12:07:00 Document Registration [id number] 04/22/2011 08:02:00 Document Registration [id number] 04/16/2011 09:06:00 Document Registration [id number] 10/22/2009 13:28:00 Document Registration [id number] 10/11/2009 08:49:00 Document Registration [email or web address] 2014 06:08:12 ACT Document Registration
--- NOTE | 2017-12-13 13:01 | Progress Note-Pre Operative ---
Pre-Operative Progress Note H&P Reviewed The H&P was reviewed, patient examined and no changes noted. Time Seen by Provider: 12:43 Date H&P Reviewed: Dec 13, 2017 Time H&P Reviewed: 12:44 Pre-Operative Diagnosis: Change in bowel habits YULIA ROSADO DO Dec 13, 2017 13:01
[2017-12-13] MEDS ORDERED: MIDAZOLAM 2 MG/2 ML (VERSED) VIAL ONE (14:17)
[2017-12-13] MEDS ORDERED: proPOfol 200 MG/20 ML (DIPRIVAN) VIAL IV ONE ×2 (14:17→14:41)
--- NOTE | 2017-12-13 15:09 | Progress Note-Post Operative ---
Post-Operative Progess Note Surgeon (s)/Pmo Business Analyst (s) Surgeon YULIA ROSADO DO Pmo Business Analyst: none Pre-Operative Diagnosis Change in bowel habits Post-Operative Diagnosis Colon polyps Internal hemorrhoids Procedure & Operative Findings Date of Procedure 12/13/17 Procedure Performed/Findings Colon with snare Anesthesia Type IV sedation by ACUTE DIALYSIS NURSE Estimated Blood Loss Estimated blood loss (mL): scant Specimens/Packing Specimens Removed Asc colon polyp Rectal polyp x 2 YULIA ROSADO DO Dec 13, 2017 15:09
--- NOTE | 2017-12-13 15:10 | Endoscopy Discharge Instruct ---
Endo Procedure/Findings Findings 1.: Polyp 2.: Internal Hemorrhoids Discharge Instructions - Activity: You might feel a little sleepy until tomorrow. This is due to the medicine you received to relax you. Until tomorrow, you should: NOT drive a car, operate machinery or power tools. NOT drink any alcoholic beverages. NOT make any important decisions or sign importortant papers. Do not return to work until tomorrow, unless otherwise instructed. Resume previous activities tomorrow. Diet: Start by taking liquids. If you tolerate liquids, advance to solid food. make appointment for one week Notify Physician - If you experience excessive bleeding, unusual abdominal pain, fever, or chest pain, contact your doctor immediately. Follow-Up: - I have received and understand the above instructions and will call my doctor if I have any further questions. Patient Signature Date Nurse Signature Other (Relationship) YULIA ROSADO DO Dec 13, 2017 15:10
--- NOTE | 2017-12-13 16:06 | Anesthesia-General Post-Op ---
MAC Patient Condition Mental Status/LOC: Same as Preop Cardiovascular: Satisfactory Nausea/Vomiting: Absent Respiratory: Satisfactory Pain: Controlled Complications: Absent Post Op Complications Complications None Follow Up Care/Instructions Patient Instructions None needed. Anesthesiology Discharge Order Discharge Order Patient is doing well, no complaints, stable vital signs, no apparent adverse anesthesia problems. No complications reported per nursing. DERRICK DING CRNA Dec 13, 2017 16:06
--- NOTE | 2017-12-13 20:11 | OPERATIVE REPORT ---
DATE OF SERVICE: PREOPERATIVE DIAGNOSES: Change in bowel habits, left upper quadrant pain and numbness. POSTOPERATIVE DIAGNOSES: 1. Colon polyps. 2. Internal hemorrhoids. PROCEDURE: Colonoscopy with snare polypectomy. SURGEON: Brian Cordero DO LUMBER MARKER: None. ANESTHESIA: IV sedation by SHELL FISHERMAN. SPECIMEN: One polyp from the ascending colon and 2 polyps from the rectum. BLOOD LOSS: Scant. FLUIDS: Per anesthesia. POSTOPERATIVE CONDITION: Stable. INDICATION FOR PROCEDURE: The patient is a 52-year-old female who is in need of colonoscopy because of age, but also because she has had change in bowel habits, some left upper quadrant pain and some numbness. FINDINGS: The patient had at least 3 polyps, possibly a smaller to couple of smaller ones, one in the ascending colon and 2 in the rectum. She has also had some minimal internal hemorrhoids. PROCEDURE NOTE: After informed consent was obtained, the patient was brought to the endoscopy suite and placed in the left lateral decubitus position. She was administered IV sedation by the SHELL FISHERMAN who then monitored her vitals the entire time, heart rate, blood pressure and pulse ox and the scope was inserted, pushed all the way to about 150 cm, able to get all the way to the cecum, took a picture of appendiceal orifice and noted the ileocecal valve and then just prior to get into the cecum and ascending colon, saw a large polyp. I elected to do a snare polypectomy of this, able to get this and suctioned it up, will be sent to pathology. Once in the cecum, then slowly withdrew the scope, insufflating to look circumferentially at the wade starting in the cecum, up the ascending colon to the hepatic flexure, then down to transverse colon, to the splenic flexure, then into the descending colon and finally into the sigmoid and rectum and in the rectum about 15 cm saw 2 small polyps, did a snare polypectomies of both of these and then suctioned them up. Then, into the rectal vault, retroflexed, saw some small internal hemorrhoids, took a picture of this and then removed the scope. The patient tolerated the procedure and she was recovered in endoscopy suite. Job ID: [id number] DocumentID: [id number] Dictated Date: 12/13/2017 15:08:04 Master Control Operator Date: 12/13/2017 20:11:11 Dictated By: BRIAN CORDERO DO [facility]
== END 2017-12-13 15:50 | disposition home or self-care (01) ==
LOC: ENDO 12:04
PROVIDERS: ATTEND Surgery
DX: D12.2 Benign neoplasm of ascending colon (principal); K62.1 Rectal polyp; K64.8 Other hemorrhoids; K63.89 Other specified diseases of intestine; R19.4 Change in bowel habit; R10.12 Left upper quadrant pain; F41.9 Anxiety disorder, unspecified; F31.9 Bipolar disorder, unspecified; F20.9 Schizophrenia, unspecified; F98.8 Other specified behavioral and emotional disorders with onset usually occurring in childhood and adolescence; G47.00 Insomnia, unspecified; F17.210 Nicotine dependence, cigarettes, uncomplicated; G43.909 Migraine, unspecified, not intractable, without status migrainosus; M48.061 Spinal stenosis, lumbar region without neurogenic claudication; Z79.899 Other long term (current) drug therapy

== ENCOUNTER 2018-12-01 18:33 | Emergency (ER) | payer BC ==
[~2018-12-01] VITALS: Ht 160 cm; Wt 26.0 kg
[~2018-12-01 18:33] MED LIST changes: +CHOL200014 PO; -CHOL200085 PO
--- NOTE | 2018-12-01 18:53 | ED GI ---
General Chief Complaint: Abdominal/GI Problems Stated Complaint: ABD PAIN/PAIN ALL OVER Nursing Triage Note: Pt abmbualtes to RM 9, guarding right side of abd. C/O RLQ pain that radiates to back, starting yesterday. Pt reports chills and nausea yesterday, fever and vomiting today. Pt reports taking ibuprofen and tylenol for the pain but is unrelieved. Sepsis Screen: Possible Severe Sepsis Risk Source of Information: Patient History of Present Illness Date Seen by Provider: Dec 01, 2018 Time Seen by Provider: 18:45 Initial Comments PT ARRIVES VIA POV FROM HOME C/O RLQ PAIN AND RIGHT FLANK PAIN--STATES "SINCE EVERYTHING FELL OUT" --STATES THAT HER "BLADDER AND RECTUM FELL OUT" ON 11/03/18 HAS NOT SOUGHT CARE UNTIL TODAY PT HAD HYST IN 2013, OVARIES INTACT. DONE BY DR. AKINS. HAS NOT SEEN HIM SINCE THEN STATES NO RELIEF WITH TYLENOL AND MOTRIN C/O NAUSEA SINCE YESTERDAY AND VOMITING TODAY HAS HAD CHILLS YESTERDAY AND SUBJECTIVE FEVER TODAY--IS 100.4 ON ARRIVAL HERE STATES TODAY SHE HAS PAIN IN HER "KNEES, SHOULDERS, EVERYWHERE" NO PAIN ON URINATION PCP: DR. HAND--HAD AN APPOINTMENT 2 DAYS AGO, FOR THIS PROBLEM, BUT "MISSED IT" Allergies and Home Medications Allergies Coded Allergies: No Known Drug Allergies (Unverified , 12/07/17) Home Medications Alprazolam 1 Mg Tablet, 1 MG PO PRN, (Reported) Cholecalciferol (Vitamin D3) 2,000 Unit Tablet, 2,000 UNIT PO 3X PER WEEK, (Reported) Citalopram Hydrobromide 40 Mg Tablet, 40 MG PO DAILY, (Reported) Ibuprofen 800 Mg Tablet, 800 MG PO Q8H PRN for PAIN, (Reported) Ketorolac Tromethamine 10 Mg Tablet, 10 MG PO Q6H Prescribed by: DAVID JESUS on 12/01/182040 Lisdexamfetamine Dimesylate 50 Mg Capsule, 50 MG PO DAILY, (Reported) Nitrofurantoin Monohyd/M-Cryst 100 Mg Capsule, 100 MG PO BID Prescribed by: DAVID JESUS on 12/01/182040 Ondansetron 4 Mg Tab.rapdis, 4 MG PO Q4H Prescribed by: DAVID JESUS on 12/01/182040 Phenazopyridine HCl 200 Mg Tablet, 1 TAB PO TID Prescribed by: DAVID JESUS on 12/01/182040 Tizanidine HCl 4 Mg Capsule, 4 MG PO HS PRN for SPASMS, (Reported) Patient Home Medication List Home Medication List Reviewed: Yes Review of Systems Review of Systems Constitutional: see HPI, chills, fever EENTM: No Symptoms Reported Respiratory: No Symptoms Reported; Denies Cough, Denies Shortness of Air Cardiovascular: No Symptoms Reported Gastrointestinal: See HPI, Abdominal Pain; Denies Constipated, Denies Diarrhea; Nausea, Vomiting Genitourinary: See HPI; Denies Burning, Denies Discharge, Denies Frequency; Flank Pain; Denies Pain, Denies Urgency Musculoskeletal: see HPI, back pain, joint pain, other (GENERALIZED PAIN ) Skin: no symptoms reported Psychiatric/Neurological: No Symptoms Reported Endocrine: No Symptoms Reported Hematologic/Lymphatic: No Symptoms Reported Past [id number] Hx Patient Social History Alcohol Use: Denies Use Recreational Drug Use: No Smoking Status: Current Everyday Smoker Type Used: Cigarettes 2nd Hand Smoke Exposure: No Recent Foreign Travel: No Contact w/Someone Who Travel: No Recent Infectious Disease Expo: No Recent Hopitalizations: No Immunizations Up To Date Tetanus Booster (TDap): More than 5yrs Date of Influenza Vaccine: Dec 14, 2016 Seasonal Allergies Seasonal Allergies: Yes Past Medical History Surgeries: Yes (WISDOM TEETH REMOVED; UTERINE ABLATION; COLONOSCOPY; HYST/OVARIES INTACT [address] 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 Sexually Transmitted Disease: No HIV/AIDS: No Genitourinary: No Gastrointestinal: No Musculoskeletal: Yes (ANKYLOSING SPONDYLITIS; SPINAL STENOSIS) Chronic Back Pain Endocrine: No HEENT: No Loss of Vision: Denies Hearing Impairment: Denies Cancer: No Psychosocial: Yes (MOOD DISORDER) Anxiety, Depression Integumentary: No Blood Disorders: No Adverse Reaction/Blood Tranf: No (N/A) Family Medical History Heart Disease, Cancer, Diabetes, Hypertension Physical Exam Vital Signs Vital Signs - First Documented 12/01/18 18:48 Temp 38.0 Pulse 107 Resp 18 B/P (MAP) 112/81 (91) Pulse Ox 98 O2 Delivery Room Air Capillary Refill : Less Than 3 Seconds Height/Weight/BMI Height: 5'2.00" Weight: 127lbs. 0.0oz. [id number]; 10.00 BMI Method:Stated General Appearance: no apparent distress HEENT: PERRL/EOMI Neck: normal inspection Respiratory: normal breath sounds, no respiratory distress, no accessory muscle use Cardiovascular: regular rate, rhythm, no edema, no gallop, no JVD, no murmur Gastrointestinal: normal bowel sounds, soft, no organomegaly, no pulsatile mass; No distended, No guarding, No rebound; tenderness (RLQ AND RIGHT FLANK); No hernia, No mass Rectal: deferred Genital/Rectal: other (DECLINES) Extremities: normal range of motion, non-tender, normal inspection, no pedal edema, normal capillary refill Back: no vertebral tenderness, CVA tenderness (R) Neurologic/Psychiatric: spool fixer II-XII nml as tested, no motor/sensory deficits, alert, normal mood/affect, oriented x 3 Skin: normal color, warm/dry; No rash Focused Exam Lactate Level 12/01/18 18:57: Lactic Acid Level 0.45L Lactic Acid Level Laboratory Tests Test 12/01/18 18:57 Lactic Acid Level 0.45 MMOL/L (0.50-2.00) L Procedures/Interventions Suture Size: 4-0 Progress/Results/Core Measures Results/Orders Lab Results Laboratory Tests Test 12/01/18 18:57 12/01/18 18:59 Range/Units White Blood Count 9.5 4.3-11.0 10^3/uL Red Blood Count 3.80 L 4.35-5.85 10^6/uL Hemoglobin 12.3 11.5-16.0 G/DL Hematocrit 37 35-52 % Mean Corpuscular Volume 96 80-99 FL Mean Corpuscular Hemoglobin 32 25-34 PG Mean Corpuscular Hemoglobin Concent 34 32-36 G/DL Red Cell Distribution Width 12.8 10.0-14.5 % Platelet Count 238 130-400 10^3/uL Mean Platelet Volume 9.8 7.4-10.4 FL Neutrophils (%) (Auto) 76 H 42-75 % Lymphocytes (%) (Auto) 14 12-44 % Monocytes (%) (Auto) 10 0-12 % Eosinophils (%) (Auto) 1 0-10 % Basophils (%) (Auto) 0 0-10 % Neutrophils # (Auto) 7.2 1.8-7.8 X 10^3 Lymphocytes # (Auto) 1.3 1.0-4.0 X 10^3 Monocytes # (Auto) 0.9 0.0-1.0 X 10^3 Eosinophils # (Auto) 0.1 0.0-0.3 10^3/uL Basophils # (Auto) 0.0 0.0-0.1 10^3/uL Urine Color ABE H Urine Clarity VERY CLOUDY H Urine pH 6 5-9 Urine Specific [place] 1.020 1.016-1.022 Urine Protein 2+ H NEGATIVE Urine Glucose (UA) NEGATIVE NEGATIVE Urine Ketones 2+ H NEGATIVE Urine Nitrite POSITIVE H NEGATIVE Urine Bilirubin NEGATIVE NEGATIVE Urine Urobilinogen NORMAL NORMAL MG/DL Urine Leukocyte Esterase 3+ H NEGATIVE Urine RBC (Auto) 5+ H NEGATIVE Urine RBC NONE /HPF Urine WBC TNTC H /HPF Urine Squamous Epithelial Cells 2-5 /HPF Urine Crystals NONE /LPF Urine Bacteria LARGE H /HPF Urine Casts NONE /LPF Urine Mucus SMALL H /LPF Urine Culture Indicated YES Sodium Level 135 135-145 MMOL/L Potassium Level 4.0 3.6-5.0 MMOL/L Chloride Level 100 98-107 MMOL/L Carbon Dioxide Level 26 21-32 MMOL/L Anion Gap 9 5-14 MMOL/L Blood Urea Nitrogen 13 7-18 MG/DL Creatinine 0.75 0.60-1.30 MG/DL Estimat Glomerular Filtration Rate > 60 BUN/Creatinine Ratio 17 Glucose Level 96 70-105 MG/DL Lactic Acid Level 0.45 L 0.50-2.00 MMOL/L Calcium Level 10.0 8.5-10.1 MG/DL Corrected Calcium 9.7 8.5-10.1 MG/DL Magnesium Level 2.1 1.6-2.4 MG/DL Total Bilirubin 0.4 0.1-1.0 MG/DL Aspartate Amino Transf (AST/SGOT) 14 5-34 U/L Alanine Aminotransferase (ALT/SGPT) 8 0-55 U/L Alkaline Phosphatase 72 40-136 U/L Total Protein 7.0 6.4-8.2 GM/DL Albumin 4.4 3.2-4.5 GM/DL Amylase Level 47 25-125 U/L Lipase 10 8-78 U/L Urine Opiates Screen NEGATIVE NEGATIVE Urine Oxycodone Screen NEGATIVE NEGATIVE Urine Methadone Screen NEGATIVE NEGATIVE Urine Propoxyphene Screen NEGATIVE NEGATIVE Urine Barbiturates Screen NEGATIVE NEGATIVE Ur Tricyclic Antidepressants Screen NEGATIVE NEGATIVE Urine Phencyclidine Screen NEGATIVE NEGATIVE Urine Amphetamines Screen POSITIVE H NEGATIVE Urine Methamphetamines Screen NEGATIVE NEGATIVE Urine Benzodiazepines Screen NEGATIVE NEGATIVE Urine Cocaine Screen NEGATIVE NEGATIVE Urine Cannabinoids Screen NEGATIVE NEGATIVE Glucometer 110 70-110 MG/DL My Orders Orders - DAVID JESUS DO Accucheck Stat ONCE (12/01/18 18:40) Amylase (12/01/18 18:40) Cbc With Automated Diff (12/01/18 18:40) Comprehensive Metabolic Panel (12/01/18 18:40) Lipase (12/01/18 18:40) Ua Culture If Indicated (12/01/18 18:40) Drug Screen Stat (Urine) (12/01/18 18:58) Lactic Acid Analyzer (12/01/18 18:58) Magnesium (12/01/18 18:58) Blood Culture (12/01/18 18:58) Ed Iv/Invasive Line Start (12/01/18 18:58) Lactated Ringers (Lr 1000 Ml Iv Solution (12/01/18 18:58) Ondansetron Injection (Zofran Injectio (12/01/18 19:00) Urine Culture (12/01/18 18:57) Ceftriaxone For Iv Use (Rocephin For I (12/01/18 19:45) Ct Abd/Pelvis Wo(Kidney Stone) (12/01/18 19:36) Acute Abd Series (12/01/18 19:36) Ketorolac Injection (Toradol Injection) (12/01/18 19:45) Acetaminophen Tablet (Tylenol Tablet) (12/01/18 20:45) Medications Given in ED Current Medications Medications Dose Ordered Sig/Karen Route Start Time Stop Time Status Last Admin Dose Admin Acetaminophen 1,000 mg ONCE ONCE PO 12/01/18 20:45 12/01/18 20:46 DC 12/01/18 20:54 1,000 MG Ceftriaxone Sodium 1000 mg/ Sterile Water 10 ml @ 200 mls/hr ONCE ONCE IV 12/01/18 19:45 12/01/18 19:47 DC 12/01/18 19:39 200 MLS/HR Ketorolac Tromethamine 30 mg ONCE ONCE IVP 12/01/18 19:45 12/01/18 19:46 DC 12/01/18 19:41 30 MG Lactated Ringer's 1,000 ml @ 0 mls/hr Q0M ONCE IV 12/01/18 18:58 12/01/18 19:00 DC 12/01/18 19:09 0 MLS/HR Ondansetron HCl 4 mg ONCE ONCE IVP 12/01/18 19:00 12/01/18 19:01 DC 12/01/18 19:09 4 MG Vital Signs/I&O 12/01/18 12/01/18 18:48 20:56 Temp 38.0 38.0 Pulse 107 107 Resp 18 18 B/P (MAP) 112/81 (91) 122/85 (91) Pulse Ox 98 98 O2 Delivery Room Air 12/02/18 00:00 Intake Total 1010 ml Balance 1010 ml Blood Pressure Mean: 91 Progress Progress Note : Progress Note FEELING MUCH BETTER AT DISMISSAL NO DETERIORATION IN PT'S CONDITION DURING ER STAY Diagnostic Imaging Comments ABDOMEN XRAYS--CONSTIPATION, GAS IN LEFT MID ABDOMEN, NODULE LEFT LOWER CHEST--POSSIBLE NIPPLE SHADOW CT ABDOMEN/PELVIS--NO ACUTE PROCESS PER RADIOLOGIST REPORTS AT 2039 Reviewed: Reviewed by Me Departure Impression Primary Impression: Urinary tract infection Disposition: HOME, SELF-CARE Condition: Improved Departure-Patient Inst. Referrals: JOJO AKINS MINDI DO (PCP/Family) Primary Care Physician Patient Instructions: Urinary Tract Infection, Adult (DC) Add. Discharge Instructions: LOTS OF CLEAR LIQUIDS--NO COFFEE, POP OR TEA TYLENOL AND MOTRIN NEEDED FOR PAIN OR FEVER FOLLOW UP WITH DR. AKINS NEXT WEEK FOR FURTHER CARE All discharge instructions reviewed with patient and/or family. Voiced understanding. Scripts Ondansetron (Ondansetron Odt) 4 Mg Tab.rapdis 4 MG PO Q4H for Nausea/Vomiting, #10 TAB Prov: DAVID JESUS K 12/01/18 Ketorolac Tromethamine (Ketorolac Tromethamine) 10 Mg Tablet 10 MG PO Q6H for Pain, #15 TAB Prov: MAHSA JESUSA K 12/01/18 Phenazopyridine HCl (Pyridium) 200 Mg Tablet 1 TAB PO TID for BLADDER DISCOMFORT, #15 TAB Prov: DAVID JESUS DO 12/01/18 Nitrofurantoin Monohyd/M-Cryst (Macrobid 100 mg Capsule) 100 Mg Capsule 100 MG PO BID, #20 CAP Prov: DAVID JESUS DO 12/01/18 DAVID JESUS DO Dec 01, 2018 18:53
[2018-12-01] MEDS ORDERED: LACTATED RINGERS 1,000 ML IV ONE (18:58)
[2018-12-01] MEDS ORDERED: ONDANSETRON 4 MG/2 ML (SDV) Z0FRAN IVP ONE (19:00)
[2018-12-01 19:12] LABS: BASOPHILS % (AUTO) 0 % (0-10); EOSINOPHILS # (AUTO) 0.1 10^3/uL (0.0-0.3); EOSINOPHILS % (AUTO) 1 % (0-10); HEMATOCRIT 37 % (35-52); HEMOGLOBIN 12.3 G/DL (11.5-16.0); LYMPHOCYTES # (AUTO) 1.3 X 10^3 (1.0-4.0); LYMPHOCYTES % (AUTO) 14 % (12-44); MEAN CORPUSCULAR HEMOGLOBIN 32 PG (25-34); MEAN CORPUSCULAR HGB CONC 34 G/DL (32-36); MEAN CORPUSCULAR VOLUME 96 FL (80-99); MEAN PLATELET VOLUME 9.8 FL (7.4-10.4); MONOCYTES # (AUTO) 0.9 X 10^3 (0.0-1.0); MONOCYTES % (AUTO) 10 % (0-12); NEUTROPHILS # (AUTO) 7.2 X 10^3 (1.8-7.8); NEUTROPHILS % (AUTO) 76 % (42-75); PLATELET COUNT 238 10^3/uL (130-400); RED CELL DISTRIBUTION WIDTH 12.8 % (10.0-14.5); WHITE BLOOD COUNT 9.5 10^3/uL (4.3-11.0)
[2018-12-01 19:18] LABS: BILIRUBIN,URINE NEGATIVE (NEGATIVE); CLARITY,URINE VERY CLOUDY; COLOR,URINE AMBER; GLUCOSE, URINE (UA) NEGATIVE (NEGATIVE); KETONES,URINE 2+ (NEGATIVE); LEUKOCYTE ESTERASE ,URINE 3+ (NEGATIVE); NITRITE,URINE POSITIVE (NEGATIVE); PH,URINE 6 (5-9); PROTEIN,URINE 2+ (NEGATIVE); UROBILINOGEN,URINE NORMAL (NORMAL)
[2018-12-01 19:30] LABS: BACTERIA,URINE LARGE /HPF; WBC,URINE TNTC /HPF
[2018-12-01 19:34] LABS: ALANINE AMINOTRANSFERASE 8 U/L (0-55); ALBUMIN 4.4 GM/DL (3.2-4.5); ALKALINE PHOSPHATASE 72 U/L (40-136); AMYLASE 47 U/L (25-125); BILIRUBIN,TOTAL 0.4 MG/DL (0.1-1.0); BUN/CREATININE RATIO 17; CARBON DIOXIDE 26 MMOL/L (21-32); CHLORIDE 100 MMOL/L (98-107); CREATININE SERUM 0.75 MG/DL (0.60-1.30); GFR ESTIMATED > 60; GLUCOSE 96 MG/DL (70-105); LIPASE 10 U/L (8-78); MAGNESIUM 2.1 MG/DL (1.6-2.4); SODIUM 135 MMOL/L (135-145)
[2018-12-01 19:35] LABS: AMPHETAMINE SCREEN, URINE POSITIVE (NEGATIVE); BARBITURATE SCREEN URINE NEGATIVE (NEGATIVE); BENZODIAZEPINES SCREEN URINE NEGATIVE (NEGATIVE); CANNABINOID SCREEN, URINE NEGATIVE (NEGATIVE); COCAINE SCREEN URINE NEGATIVE (NEGATIVE); METHADONE STAT NEGATIVE (NEGATIVE); METHAMPHETAMINE SCREEN URINE S NEGATIVE (NEGATIVE); OPIATE SCREEN URINE NEGATIVE (NEGATIVE); OXYCODONE STAT NEGATIVE (NEGATIVE); PROPOXYPHENE STAT NEGATIVE (NEGATIVE); TRICYCLIC ANTIDEPRESSANTS SCRE NEGATIVE (NEGATIVE)
[2018-12-01] MEDS ORDERED: cefTRIAXone FOR IV USE 1,000 MG in WATER (STERILE) FOR INJECTION 10 ML IV ONE (19:45)
[2018-12-01] MEDS ORDERED: KETOROLAC 30 MG/ML VIAL IVP ONE (19:45)
--- NOTE | 2018-12-01 20:22 | Diagnostic Imaging Report ---
INDICATION: Severe abdominal pain starting one day earlier. TECHNIQUE: Single view chest with supine and upright radiographs of the abdomen. CORRELATION STUDY: Chest, 06/24/2017. FINDINGS: Heart size and vasculature are within normal limits. Prominent interstitial markings are noted. There is a nodular density over the left mid lung field, approximately 15 mm. Small sclerotic foci over the proximal right humerus likely of no significance. Mild fecal retention without evidence for large fecal impaction. Scattered gas-filled loops of bowel are present most pronounced in the left mid abdomen. There is however gas and stool to the level of the rectum. No definitive pathologic intra-abdominal calcifications. The liver may be somewhat prominent. IMPRESSION: 1. Negative for acute cardiopulmonary abnormality. 2. There is nodular density over the left mid lower chest. This may be reflective of nipple shadow. Pulmonary nodule is not excluded. Short-term follow-up with nonemergent two-view chest imaging to include nipple markers would be recommended. 3. Mild severity fecal retention. Disproportionate gas within the left mid abdomen; however, no findings to suggest high degree of bowel obstruction. Dictated by: Dictated on workstation # [id number]
--- NOTE | 2018-12-01 20:36 | Diagnostic Imaging Report ---
PROCEDURE: CT urinary tract, rule out kidney stone. TECHNIQUE: Multiple contiguous axial images were obtained through the abdomen and pelvis without the use of intravenous contrast. Auto Exposure Controls were utilized during the CT exam to meet ALARA standards for radiation dose reduction. INDICATION: Right flank pain. COMPARISON: Study of 07/16/2015. FINDINGS: Unenhanced images of the liver and spleen reveal no focal abnormality. There is no gallbladder, pancreatic or adrenal gland lesion. Unenhanced images of the kidneys again demonstrate probable cyst in the medial left upper pole. There is no evidence of renal or ureteric stone. No hydronephrosis or hydroureter is identified. The appendix has a normal appearance. No bladder calculus is seen. There is no evidence of organized fluid collection. IMPRESSION: No acute abnormality is identified. In particular, there is no evidence of urinary tract calculus or obstruction. Dictated by: Dictated on workstation # [id number]
[2018-12-01] MEDS ORDERED: KETO10TA PO (20:41)
[2018-12-01] MEDS ORDERED: ONDA4TAB11 PO (20:41)
[2018-12-01] MEDS ORDERED: NITR-65 PO (20:41)
[2018-12-01] MEDS ORDERED: PHEN-640 PO (20:41)
[2018-12-01] MEDS ORDERED: ACETAMINOPHEN 500 MG TAB (TYLENOL) PO ONE (20:45)
[2018-12-01 20:56] VITALS: BP 122/85
== END 2018-12-01 20:56 | disposition home or self-care (01) ==
LOC: EDUNIT# 18:33 → ER 18:34
DX: N39.0 Urinary tract infection, site not specified (principal); F41.9 Anxiety disorder, unspecified; F32.9 Major depressive disorder, single episode, unspecified; G43.909 Migraine, unspecified, not intractable, without status migrainosus; F17.210 Nicotine dependence, cigarettes, uncomplicated; Z90.710 Acquired absence of both cervix and uterus; Z82.49 Family history of ischemic heart disease and other diseases of the circulatory system
CPT/HCPCS: 36415; 74022; 74176; 80053; 80306; 81000; 82150; 82962; 83605; 83690; 83735; 85025; 87040; 87077; 87088; 87186

== ENCOUNTER → 2018-12-30 | Outpatient (CLI) | payer BC ==
[~2018-12-30] MED LIST changes: +KETO10TA PO; +NITR-65 PO; +ONDA4TAB11 PO; +PHEN-640 PO
--- NOTE | 2018-12-30 08:51 | Diagnostic Imaging Report ---
INDICATION: Cough, history of tobacco use. TECHNIQUE: Two view chest 8:17 AM CORRELATION STUDY: 12/01/2018 FINDINGS: The heart size, mediastinal configuration and pulmonary vasculature are within normal limits. Mildly prominent interstitial markings throughout both lung souza. No infiltrate. No effusion. Lung souza are slightly hyperinflated. Previously noted nodule over the left mid to lower lung field not demonstrated at follow-up. There is somewhat faint appearing density over the right lung base currently. Visualized osseous structures are unremarkable. IMPRESSION: 1. Negative for acute abnormality of the chest. Dictated by: Dictated on workstation # [id number]
--- NOTE | 2018-12-30 11:28 | Diagnostic Imaging Report ---
INDICATION: Routine screening. COMPARISON is made with prior mammograms from 05/13/2016 and 01/24/2014. 2-D and 3-D bilateral screening mammography was performed with CAD. FINDINGS: Both breasts remain heterogeneously dense, limiting the sensitivity of mammography. Bilateral calcifications appear stable. There is a biopsy clip in the upper outer left breast. No new mass or malignant appearing microcalcifications are seen. Axillae are unremarkable. IMPRESSION: BI-RADS Category 2 No mammographic features suspicious for malignancy are identified. ACR BI-RADS Category 2: Benign findings. Result letter will be mailed to the patient. Note: At least 10% of breast cancer is not imaged by mammography. Dictated by: Dictated on workstation # [id number]
== END ==
LOC: RAD 07:55
PROVIDERS: ATTEND Internal Medicine
DX: Z12.31 Encounter for screening mammogram for malignant neoplasm of breast (principal); R05 Cough; Z87.891 Personal history of nicotine dependence
CPT/HCPCS: 71046; 77067

== ENCOUNTER 2019-08-06 05:31 | Emergency (ER) | payer BC ==
[~2019-08-06] VITALS: Ht 157 cm; Wt 59.1 kg
--- OUTSIDE RECORDS SUMMARY | 2019-08-06 05:38 | XMS REPORT ---
Author Author Annabella SALVADOR Organization [facility] Address [address] [place] [address] Care Team Providers Care Weight Checker Name Role Phone FAY SALVADOR Unavailable PROBLEMS Type Condition ICD9-CM Code OUV27-RZ Code Onset Dates Condition S tatus SNOMED Code Problem Counseling on substance use and abuse V65.42 Active 225895991 Problem Screening for malignant neoplasm of the cervix V76.2 Active 615456422 Problem Personal history of tobacco use, presenting hazards to health V15.82 Active 8560521015101 Problem Unspecified contraceptive management V25.9 Active 886023082 Problem VARICELLA DX V05.4 Active Problem Routine general medical examination at [facility] V70.0 Active 053515105 Problem Lumbar sprain and strain 847.2 Activ e 398568618 Problem Need for prophylactic vaccination and inoculation, Influen za V04.81 Active 611844852 Problem Cough 786.2 Active 68150754 Problem Degeneration of lumbar or lumbosacral intervertebral disc 722.52 Active 97298430 Problem Other dyschromia 709.09 Active 325 3007 Problem Major depressive disorder, single episode, moderate 296.22 Active 72949101 Problem Unspecified abnormal mammogram 793.80 Active 556939119 Problem Hypoglycemia, unspecified 251.2 Acti ve 133820785 Problem Mammographic microcalcification 793.81 Active 80651355646189 Problem Personal history of underimmunization status V15.83 Active 783044635 Problem Contact dermatitis and other eczema, due to unspecified ca use 692.9 Active 97406128 Problem Lumbago 724.2 Active 506084317 Problem Irregular menstrual cycle 626.4 Acti ve 84976813 Problem Attention deficit disorder o f childhood without mention of hyperactivity 314.00 Active 38860484 ALLERGIES No Information ENCOUNTERS Encounter Location Date Diagnosis [facility] [address] [facility] [id number] [address] [place] [address] Apr, Gastroenteritis K52.9 [facility] [address] [id number] [address] [place] [address] Oct, [facility] [address] [id number] [address] [place] [address] Oct, [facility] [address] [id number] [address] [place] [address] July, Status post partial hysterec shivani V88.02 ; Back pain 724.5 ; Arthralgia 719.40 and Nicotine addiction 305.1 [facility] [address] [id number] [address] [place] [address] Jun, [facility] [address] [id number] [address] [place] [address] Jun, [facility] [address] [id number] [address] [place] [address] Feb, [facility] [address] [id number] [address] [place] [address] Feb, [facility] [address] [id number] [address] [place] [address] Feb, [facility] [address] [id number] [address] [place] [address] Jan, [facility] [address] [id number] [address] [place] [address] Jan, [facility] [address] [id number] [address] [place] [address] Jan, [facility] [address] [id number] [address] [place] [address] Jan, [facility] [address] [id number] [address] [place] [address] Jan, [facility] [address] [id number] [address] [place] [address] Jan, [facility] [address] [id number] [address] [place] [address], [place] [address] Jan, [facility] [address] [id number] [address] [place] [address], [place] [address] Jan, [facility] [address] [id number] [address] [place] [address], [place] [address] Dec, [facility] [address] [id number] [address] [place] [address], [place] [address] Dec, [facility] [address] [id number] [address] [place] [address], [place] [address] Dec, [facility] [address] [id number] [address] [place] [address], [place] [address] Dec, [facility] [address] [id number] [address] [place] [address], [place] [address] Dec, [facility] [address] [id number] [address] [place] [address], [place] [address] Dec, [facility] [address] [id number] [address] [place] [address], [place] [address] Dec, [facility] [address] [id number] [address] [place] [address], [place] [address] Dec, [facility] [address] [id number] [address] [place] [address], [place] [address] Dec, [facility] [address] [id number] [address] [place] [address], [place] [address] Dec, [facility] [address] [id number] [address] [place] [address], [place] [address] Nov, 2013 [facility] [address] [id number] [address] [place] [address], [place] [address] 19 Nov, 2013 [facility] [address] [id number] [address] [place] [address], [place] [address] 08 Nov, 2013 [facility] [address] [id number] [address] [place] [address], [place] [address] 08 Nov, 2013 [facility] [address] [id number] [address] [place] [address] Nov, [facility] [address] [id number] [facility] [place] [address] Nov, [facility] [address] [id number] [facility] [place] [address] Oct, [facility] [address] [id number] [address] [place] [address], [place] [address] Oct, [facility] [address] [id number] [address] [place] [address], [place] [address] Oct, [facility] [address] [id number] [address] [place] [address], [place] [address] Oct, [facility] [address] [id number] [address] [place] [address], [place] [address] Oct, [facility] [address] [id number] [address] [place] [address], [place] [address] Oct, [facility] [address] [id number] [address] [place] [address], [place] [address] Oct, [facility] [address] [id number] [address] [place] [address], [place] [address] Oct, [facility] [address] [id number] [address] [place] [address], [place] [address] Oct, [facility] [address] [id number] [address] [place] [address], [place] [address] Oct, [facility] [address] [id number] [address] [place] [address], [place] [address] Oct, [facility] [address] [id number] [address] [place] [address], [place] [address] Sep, [facility] [address] [id number] [address] [place] [address], [place] [address] Sep, [facility] [address] [id number] [address] [place] [address], [place] [address] July, [facility] [address] [id number] [address] [place] [address], [place] [address] July, [facility] [address] [id number] [address] [place] [address], [place] [address] Feb, [facility] [address] [id number] [address] [place] [address], [place] [address] Feb, [facility] [address] [id number] [address] [place] [address], [place] [address] Dec, [facility] [address] [id number] [address] [place] [address], [place] [address] Nov, [facility] [address] [id number] [address] [place] [address], [place] [address] Oct, [facility] [address] [id number] [address] [place] [address], [place] [address] Oct, [facility] [address] [id number] [address] [place] [address], [place] [address] Oct, [facility] [address] [id number] [address] [place] [address], [place] [address] Sep, [facility] [address] [id number] [address] [place] [address], [place] [address] Sep, [facility] [address] [id number] [address] [place] [address], [place] [address] Aug, [facility] [address] [id number] [address] [place] [address], [place] [address] July, [facility] [address] [id number] [address] [place] [address], [place] [address] Mar, [facility] [address] [id number] [address] [place] [address], [place] [address] Jan, [facility] [address] [id number] [address] [place] [address], [place] [address] Jan, [facility] [address] [id number] [address] [place] [address], [place] [address] Jan, [facility] [address] [id number] [address] [place] [address], [place] [address] Jan, [facility] [address] [id number] [address] [place] [address], [place] [address] Dec, [facility] [address] [id number] [address] [place] [address], [place] [address] Dec, [facility] [address] [id number] [address] [place] [address], [place] [address] Dec, [facility] [address] [id number] [address] [place] [address], [place] [address] Dec, [facility] [address] [id number] [address] [place] [address], [place] [address] Dec, [facility] [address] [id number] [address] [place] [address], [place] [address] Dec, [facility] [address] [id number] [address] [place] [address], [place] [address] Oct, [facility] [address] [id number] [address] [place] [address], [place] [address] Oct, [facility] [address] [id number] [address] [place] [address], [place] [address] Sep, [facility] [address] [id number] [address] [place] [address], [place] [address] Aug, [facility] [address] [id number] [address] [place] [address], [place] [address] Aug, [facility] [address] [id number] [address] [place] [address], [place] [address] July, [facility] [address] [id number] [address] [place] [address], [place] [address] July, [facility] [address] [id number] [address] [place] [address], [place] [address] July, [facility] [address] [id number] [address] [place] [address], [place] [address] July, [facility] [address] [id number] [address] [place] [address], [place] [address] July, [facility] [address] [id number] [address] [place] [address], [place] [address] Jun, [facility] [address] [id number] [address] [place] [address], [place] [address] May, [facility] [address] [id number] [address] [place] [address], [place] [address] May, [facility] [address] [id number] [address] [place] [address], [place] [address] Apr, [facility] [address] [id number] [address] [place] [address], [place] [address] Apr, [facility] [address] [id number] [address] [place] [address], [place] [address] Apr, [facility] [address] [id number] [address] [place] [address], [place] [address] Apr, [facility] [address] [id number] [address] [place] [address], [place] [address] Apr, [facility] [address] [id number] [address] [place] [address], [place] [address] Apr, [facility] [address] [id number] [address] [place] [address], [place] [address] Mar, [facility] [address] [id number] [address] [place] [address], [place] [address] Mar, [facility] [address] [id number] [address] [place] [address], [place] [address] Mar, [facility] [address] [id number] [address] [place] [address], [place] [address] Mar, [facility] [address] [id number] [address] [place] [address] Mar, [facility] [address] [id number] [address] [place] [address] Jan, [facility] [address] [id number] [address] [place] [address] Dec, [facility] [address] [id number] [address] [place] [address] Dec, [facility] [address] [id number] [address] [place] [address] Feb, [facility] [address] [id number] [address] [place] [address] Jan, [facility] [address] [id number] [address] [place] [address] Jan, [facility] [address] [id number] [address] [place] [address] Jan, [facility] [address] [id number] [address] [place] [address] Jan, [facility] [address] [id number] [address] [place] [address] Dec, [facility] [address] [id number] [address] [place] [address] Sep, [facility] [address] [id number] [address] [place] [address] Oct, IMMUNIZATIONS No Known Immunizations SOCIAL HISTORY Never Assessed REASON FOR VISIT PLAN OF CARE VITAL SIGNS MEDICATIONS No Known Medications RESULTS No Results PROCEDURES No Known procedures INSTRUCTIONS MEDICATIONS ADMINISTERED No Known Medications MEDICAL (GENERAL) HISTORY Type Description Date Medical History degenerative disease lumbosacral spine Medical History depression Medical History attention deficit disorder Medical History cervical dysplasia Medical History osteoarthritis Surgical History loop electrosurgical excision procedure (LEEP) & cryo Surgical History uterine ablation ([facility]) 2012 Surgical History breast biopsy (L) calcifications/benign ([facility]) 04/2011 Surgical History hysterectomy 02/21/2014 Hospitalization History child x2 Hospitalization History Migraine
--- OUTSIDE RECORDS SUMMARY | 2019-08-06 05:38 | XMS REPORT ---
Author Author Annabella Victoria Doctor Organization [facility] Address Unknown Phone Unavailable Care Team Providers Care Compacting Machine Operator/Tender Name Role Phone Migration, Doctor Unavailable Unavailable PROBLEMS Type Condition ICD9-CM Code AVD28-HU Code Onset Dates Condition S tatus SNOMED Code Problem Counseling on substance use and abuse V65.42 Active 520981090 Problem Screening for malignant neoplasm of the cervix V76.2 Active 991246417 Problem Personal history of tobacco use, presenting hazards to health V15.82 Active 5072053524465 Problem Unspecified contraceptive management V25.9 Active 223742400 Problem VARICELLA DX V05.4 Active Problem Routine general medical examination at [facility] y V70.0 Active 111267063 Problem Lumbar sprain and strain 847.2 Activ e 476355082 Problem Need for prophylactic vaccination and inoculation, Influen za V04.81 Active 228953379 Problem Cough 786.2 Active 66791521 Problem Degeneration of lumbar or lumbosacral intervertebral disc 722.52 Active 08181362 Problem Other dyschromia 709.09 Active 325 3007 Problem Major depressive disorder, single episode, moderate 296.22 Active 27915027 Problem Unspecified abnormal mammogram 793.80 Active 803445193 Problem Hypoglycemia, unspecified 251.2 Acti ve 290127656 Problem Mammographic microcalcification 793.81 Active [id number] Problem Personal history of underimmunization status V15.83 Active 722143538 Problem Contact dermatitis and other eczema, due to unspecified ca use 692.9 Active 18014830 Problem Lumbago 724.2 Active 318172548 Problem Irregular menstrual cycle 626.4 Acti ve 46293432 Problem Attention deficit disorder o f childhood without mention of hyperactivity 314.00 Active 18441442 ALLERGIES No Information ENCOUNTERS Encounter Location Date Diagnosis [facility] [address] [facility] [id number] [address] [place] [address] Apr, Gastroenteritis K52.9 [facility] [address] [id number] [address] [place] [address] Oct, [facility] [address] [id number] [address] [place] [address] Oct, [facility] [address] [id number] [address] [place] [address] July, Status post partial hysterec shivani V88.02 ; Back pain 724.5 ; Arthralgia 719.40 and Nicotine addiction 305.1 [facility] [address] [id number] [address] [place] [address] Jun, [facility] [address] [id number] [address] [place] [phone] Jun, [facility] [address] [id number] [address] [place] [address] Feb, [facility] [address] [id number] [address] [place] [address] Feb, [facility] [address] [id number] [address] [place] [address] Feb, [facility] [address] [id number] [address] [place] [address] Jan, [facility] [address] [id number] [address] [place] [address] Jan, [facility] [address] [id number] [address] [place] [phone] Jan, [facility] [address] [id number] [address] [place] [address] Jan, [facility] [address] [id number] [address] [place] [address] Jan, [facility] [address] [id number] [address] [place] [address] Jan, [facility] [address] [id number] [address] [place] [address] Jan, [facility] [place] [facility] [address] [id number] [address] [place] [address], [place] [address] Jan, [facility] [place] [facility] [address] [id number] [address] [place] [address], [place] [address] Dec, [facility] [place] [facility] [address] [id number] [address] [place] [address], [place] [address] Dec, [facility] [place] [facility] [address] [id number] [address] [place] [address], [place] [address] Dec, [facility] [place] [facility] [address] [id number] [address] [place] [address], [place] [address] Dec, [facility] [place] [facility] [address] [id number] [address] [place] [address], [place] [address] Dec, [facility] [place] [facility] [address] [id number] [address] [place] [address], [place] [address] Dec, [facility] [place] [facility] [address] [id number] [address] [place] [address], [place] [address] Dec, [facility] [place] [facility] [address] [id number] [address] [place] [address], [place] [address] Dec, [facility] [place] [facility] [address] [id number] [address] [place] [address], [place] [address] Dec, [facility] [place] [facility] [address] [id number] [address] [place] [address], [place] [address] Dec, [facility] [place] [facility] [address] [id number] [address] [place] [address], [place] [address] 19 Nov, 2013 [facility] [place] [facility] [address] [id number] [address] [place] [address], [place] [address] 19 Nov, 2013 [facility] [place] [facility] [address] [id number] [address] [place] [address], [place] [address] 08 Nov, 2013 [facility] [place] [facility] [address] [id number] [address] [place] [address], [place] [address] 08 Nov, 2013 [facility] [place] [facility] [address] [id number] [address] [place] [address], [place] [address] Nov, [facility] [address] [id number] [facility] [place] [address] Nov, [facility] [place] [facility] [address] [id number] [address] [place] [address], [place] [address] Oct, [facility] [address] [id number] [address] [place] [address], [place] [address] Oct, [facility] [place] [facility] [address] [id number] [address] [place] [address], [place] [address] Oct, [facility] [address] [id number] [address] [place] [address], [place] [address] Oct, [facility] [place] [facility] [address] [id number] [address] [place] [address], [place] [address] Oct, [facility] [address] [id number] [address] [place] [address], [place] [address] Oct, [facility] [place] [facility] [address] [id number] [address] [place] [address], [place] [address] Oct, [facility] [address] [id number] [address] [place] [address], [place] [address] Oct, [facility] [place] [facility] [address] [id number] [address] [place] [address], [place] [address] Oct, [facility] [place] [facility] [address] [id number] [address] [place] [address], [place] [address] Oct, [facility] [place] [facility] [address] [id number] [address] [place] [address], [place] [address] Oct, [facility] [place] [facility] [address] [id number] [address] [place] [address], [place] [address] Sep, [facility] [place] [facility] [address] [id number] [address] [place] [address], [place] [address] Sep, [facility] [place] [facility] [address] [id number] [address] [place] [address], [place] [address] July, [facility] [place] [facility] [address] [id number] [address] [place] [address] July, [facility] [place] [address] [id number] [address] [place] [address], [place] [address] Feb, [facility] [address] [id number] [address] [place] [address], [place] [address] Feb, [facility] [address] [id number] [address] [place] [address], [place] [address] Dec, [facility] [address] [id number] [address] [place] [address], [place] [address] Nov, [facility] [address] [id number] [address] [place] [address], [place] [address] Oct, [facility] [address] [id number] [address] [place] [address], [place] [address] Oct, [facility] [address] [id number] [address] [place] [address], [place] [address] Oct, [facility] [place] [address] [id number] [address] [place] [address], [place] [address] Sep, [facility] [address] [id number] [address] [place] [address], [place] [address] Sep, [facility] [address] [id number] [address] [place] [address], [place] [address] Aug, [facility] [address] [id number] [address] [place] [address], [place] [address] July, [facility] [address] [id number] [address] [place] [address], [place] [address] Mar, [facility] [address] [id number] [address] [place] [address], [place] [address] Jan, [facility] [address] [id number] [address] [place] [address], [place] [address] Jan, [facility] [address] [id number] [address] [place] [address], [place] [address] Jan, [facility] [address] [id number] [address] [place] [address], [place] [address] Jan, [facility] [address] [id number] [address] [place] [address], [place] [address] Dec, [facility] [address] [id number] [address] [place] [address], [place] [address] Dec, [facility] [address] [id number] [address] [place] [address], [place] [address] Dec, [facility] [address] [id number] [address] [place] [address], [place] [address] Dec, [facility] [address] [id number] [address] [place] [address], [place] [address] Dec, [facility] [address] [id number] [address] [place] [address], [place] [address] Dec, [facility] [address] [id number] [address] [place] [address], [place] [address] Oct, [facility] [address] [id number] [address] [place] [address], [place] [address] Oct, [facility] [address] [id number] [address] [place] [address], [place] [address] Sep, [facility] [address] [id number] [address] [place] [address], [place] [address] Aug, [facility] [address] [id number] [address] [place] [address], [place] [address] Aug, [facility] [address] [id number] [address] [place] [address], [place] [address] July, [facility] [address] [id number] [address] [place] [address], [place] [address] July, [facility] [address] [id number] [address] [place] [address], [place] [address] July, [facility] [address] [id number] [address] [place] [address], [place] [address] July, [facility] [place] [address] [id number] [address] [place] [address], [place] [address] July, [facility] [address] [id number] [address] [place] [address], [place] [address] Jun, [facility] [address] [id number] [address] [place] [address], [place] [address] May, [facility] [address] [id number] [address] [place] [address], [place] [address] May, [facility] [address] [id number] [address] [place] [address], [place] [address] Apr, [facility] [address] [id number] [address] [place] [address], [place] [address] Apr, [facility] [place] [address] [id number] [address] [place] [address], [place] [address] Apr, [facility] [address] [id number] [address] [place] [address], [place] [address] Apr, [facility] [place] [address] [id number] [address] [place] [address], [place] [address] Apr, [facility] [address] [id number] [address] [place] [address], [place] [address] Apr, [facility] [place] [address] [id number] [address] [place] [address], [place] [address] Mar, [facility] [address] [id number] [address] [place] [address], [place] [address] Mar, [facility] [address] [id number] [address] [place] [address], [place] [address] Mar, [facility] [address] [id number] [address] [place] [address], [place] [address] Mar, [facility] [address] [id number] [address] [place] [address], [place] [address] Mar, [facility] [address] [id number] [address] [place] [address] Jan, [facility] [address] [id number] [address] [place] [address] Dec, [facility] [address] [id number] [address] [place] [address] Dec, [facility] [address] [id number] [address] [place] [address] Feb, [facility] [address] [id number] [address] [place] [address] Jan, [facility] [address] [id number] [address] [place] [address] Jan, [facility] [address] [id number] [address] [place] [address] Jan, [facility] [address] [id number] [address] [place] [address] Jan, [facility] [address] [id number] [address] [place] [address] Dec, [facility] [address] [id number] [address] [place] [address] Sep, [facility] [address] [id number] [address] [place] [address] Oct, IMMUNIZATIONS No Known Immunizations SOCIAL HISTORY [...]
--- OUTSIDE RECORDS SUMMARY | 2019-08-06 05:38 | XMS REPORT ---
Author Author Annabella Victoria Doctor Organization [facility] Address Unknown Phone Unavailable Care Team Providers Care Taxation Consultant Name Role Phone Migration, Doctor Unavailable Unavailable PROBLEMS Type Condition ICD9-CM Code [id number] Code Onset Dates Condition S tatus SNOMED Code Problem Counseling on substance use and abuse V65.42 Active 733452490 Problem Screening for malignant neoplasm of the cervix V76.2 Active 576419414 Problem Personal history of tobacco use, presenting hazards to health V15.82 Active 1171754965126 Problem Unspecified contraceptive management V25.9 Active 954678915 Problem VARICELLA DX V05.4 Active Problem Routine general medical examination at [facility] y V70.0 Active 078558053 Problem Lumbar sprain and strain 847.2 Activ e 703007915 Problem Need for prophylactic vaccination and inoculation, Influen za V04.81 Active 974034180 Problem Cough 786.2 Active 18537275 Problem Degeneration of lumbar or lumbosacral intervertebral disc 722.52 Active 75961571 Problem Other dyschromia 709.09 Active 325 3007 Problem Major depressive disorder, single episode, moderate 296.22 Active 33334993 Problem Unspecified abnormal mammogram 793.80 Active 721568107 Problem Hypoglycemia, unspecified 251.2 Acti ve 604046432 Problem Mammographic microcalcification 793.81 Active [id number] Problem Personal history of underimmunization status V15.83 Active 564386230 Problem Contact dermatitis and other eczema, due to unspecified ca use 692.9 Active 40631545 Problem Lumbago 724.2 Active 878694378 Problem Irregular menstrual cycle 626.4 Acti ve 35992865 Problem Attention deficit disorder o f childhood without mention of hyperactivity 314.00 Active 32923809 ALLERGIES No Information ENCOUNTERS Encounter Location Date Diagnosis [facility] [address] [facility] [id number] [address] [place] [phone] Apr, Gastroenteritis K52.9 [facility] [address] [id number] [address] [place] [phone] Oct, [facility] [address] [id number] [address] [place] [phone] Oct, [facility] [address] [id number] [address] [place] [address] July, Status post partial hysterec shivani V88.02 ; Back pain 724.5 ; Arthralgia 719.40 and Nicotine addiction 305.1 [facility] [address] [id number] [address] [place] [id number] Jun, [facility] [address] [id number] [address] [place] [phone] Jun, [facility] [address] [id number] [address] [place] [phone] Feb, [facility] [address] [id number] [address] [place] [phone] Feb, [facility] [address] [id number] [address] [place] [phone] Feb, [facility] [address] [id number] [address] [place] [phone] Jan, [facility] [address] [id number] [address] [place] [phone] Jan, [facility] [address] [id number] [address] [place] [phone] Jan, [facility] [address] [id number] [address] [place] [phone] Jan, [facility] [address] [id number] [address] [place] [phone] Jan, [facility] [address] [id number] [address] [place] [phone] Jan, [facility] [address] [id number] [address] [place] [phone] Jan, [facility] [place] [facility] [address] [id number] [address] [place] [address], [place] [address] Jan, [facility] [place] [facility] [address] [id number] [address] [place] [address], [place] [address] Dec, [facility] [place] [facility] [address] [id number] [address] [place] [address], [place] [address] Dec, [facility] [place] [facility] [address] [id number] [address] [place] [address], [place] [address] Dec, [facility] [place] [facility] [address] [id number] [address] [place] [address], [place] [address] Dec, [facility] [place] [facility] [address] [id number] [address] [place] [address], [place] [address] Dec, [facility] [place] [facility] [address] [id number] [address] [place] [address], [place] [address] Dec, [facility] [place] [facility] [address] [id number] [address] [place] [address], [place] [address] Dec, [facility] [place] [facility] [address] [id number] [address] [place] [address], [place] [address] Dec, [facility] [place] [facility] [address] [id number] [address] [place] [address], [place] [address] Dec, [facility] [place] [facility] [address] [id number] [address] [place] [address], [place] [address] Dec, [facility] [place] [facility] [address] [id number] [address] [place] [address], [place] [address] 19 Nov, 2013 [facility] [place] [facility] [address] [id number] [address] [place] [address], [place] [address] 19 Nov, 2013 [facility] [place] [facility] [address] [id number] [address] [place] [address], [place] [address] 08 Nov, 2013 [facility] [place] [facility] [address] [id number] [address] [place] [address], [place] [address] 08 Nov, 2013 [facility] [place] [facility] [address] [id number] [address] [place] [address], [place] [address] Nov, [facility] [address] [id number] [facility] [place] [place] [address] Nov, [facility] [place] [facility] [address] [id number] [address] [place] [address], [place] [address] Oct, [facility] [address] [id number] [address] [place] [address], [place] [address] Oct, [facility] [place] [facility] [address] [id number] [address] [place] [address], [place] [address] Oct, [facility] [address] [id number] [address] [place] [address], [place] [address] Oct, [facility] [place] [facility] [address] [id number] [address] [place] [address], [place] [address] Oct, [facility] [address] [id number] [address] [place] [address], [place] [address] Oct, [facility] [place] [facility] [address] [id number] [address] [place] [address], [place] [address] Oct, [facility] [address] [id number] [address] [place] [address], [place] [address] Oct, [facility] [place] [facility] [address] [id number] [address] [place] [address], [place] [address] Oct, [facility] [place] [facility] [address] [id number] [address] [place] [address], [place] [address] Oct, [facility] [place] [facility] [address] [id number] [address] [place] [address], [place] [address] Oct, [facility] [place] [facility] [address] [id number] [address] [place] [address], [place] [address] Sep, [facility] [place] [facility] [address] [id number] [address] [place] [address], [place] [address] Sep, [facility] [place] [facility] [address] [id number] [address] [place] [address], [place] [address] July, [facility] [place] [facility] [address] [id number] [address] [place] [address] July, [facility] [place] [address] [id number] [address] [place] [address], [place] [address] Feb, [facility] [address] [id number] [address] [place] [address], [place] [address] Feb, [facility] [address] [id number] [address] [place] [address], [place] [address] Dec, [facility] [address] [id number] [address] [place] [address], [place] [address] Nov, [facility] [address] [id number] [address] [place] [address], [place] [address] Oct, [facility] [address] [id number] [address] [place] [address], [place] [address] Oct, [facility] [address] [id number] [address] [place] [address], [place] [address] Oct, [facility] [place] [address] [id number] [address] [place] [address], [place] [address] Sep, [facility] [address] [id number] [address] [place] [address], [place] [address] Sep, [facility] [address] [id number] [address] [place] [address], [place] [address] Aug, [facility] [address] [id number] [address] [place] [address], [place] [address] July, [facility] [address] [id number] [address] [place] [address], [place] [address] Mar, [facility] [address] [id number] [address] [place] [address], [place] [address] Jan, [facility] [address] [id number] [address] [place] [address], [place] [address] Jan, [facility] [address] [id number] [address] [place] [address], [place] [address] Jan, [facility] [address] [id number] [address] [place] [address], [place] [address] Jan, [facility] [address] [id number] [address] [place] [address], [place] [address] Dec, [facility] [address] [id number] [address] [place] [address], [place] [address] Dec, [facility] [address] [id number] [address] [place] [address], [place] [address] Dec, [facility] [address] [id number] [address] [place] [address], [place] [address] Dec, [facility] [address] [id number] [address] [place] [address], [place] [address] Dec, [facility] [address] [id number] [address] [place] [address], [place] [address] Dec, [facility] [address] [id number] [address] [place] [address], [place] [address] Oct, [facility] [address] [id number] [address] [place] [address], [place] [address] Oct, [facility] [address] [id number] [address] [place] [address], [place] [address] Sep, [facility] [address] [id number] [address] [place] [address], [place] [address] Aug, [facility] [address] [id number] [address] [place] [address], [place] [address] Aug, [facility] [address] [id number] [address] [place] [address], [place] [address] July, [facility] [address] [id number] [address] [place] [address], [place] [address] July, [facility] [address] [id number] [address] [place] [address], [place] [address] July, [facility] [address] [id number] [address] [place] [address], [place] [address] July, [facility] [place] [address] [id number] [address] [place] [address], [place] [address] July, [facility] [address] [id number] [address] [place] [address], [place] [address] Jun, [facility] [address] [id number] [address] [place] [address], [place] [address] May, [facility] [address] [id number] [address] [place] [address], [place] [address] May, [facility] [address] [id number] [address] [place] [address], [place] [address] Apr, [facility] [address] [id number] [address] [place] [address], [place] [address] Apr, [facility] [place] [address] [id number] [address] [place] [address], [place] [address] Apr, [facility] [address] [id number] [address] [place] [address], [place] [address] Apr, [facility] [place] [address] [id number] [address] [place] [address], [place] [address] Apr, [facility] [address] [id number] [address] [place] [address], [place] [address] Apr, [facility] [place] [address] [id number] [address] [place] [address], [place] [address] Mar, [facility] [address] [id number] [address] [place] [address], [place] [address] Mar, [facility] [address] [id number] [address] [place] [address], [place] [address] Mar, [facility] [address] [id number] [address] [place] [address], [place] [address] Mar, [facility] [address] [id number] [address] [place] [address], [place] [address] Mar, [facility] [address] [id number] [address] [place] [id number] Jan, [facility] [address] [id number] [address] [place] [phone] Dec, [facility] [address] [id number] [address] [place] [address] Dec, [facility] [address] [id number] [address] [place] [address] Feb, [facility] [address] [id number] [address] [place] [address] Jan, [facility] [address] [id number] [address] [place] [address] Jan, [facility] [address] [id number] [address] [place] [address] Jan, [facility] [address] [id number] [address] [place] [address] Jan, [facility] [address] [id number] [address] [place] [address] Dec, [facility] [address] [id number] [place] [address] Sep, [facility] [address] [id number] [address] [place] [id number] Oct, IMMUNIZATIONS No Known Immunizations SOCIAL HISTORY [...]
--- OUTSIDE RECORDS SUMMARY | 2019-08-06 05:38 | XMS REPORT ---
Author Author Annabella Parrish Organization [facility] Address [address] [place] [address] Care Team Providers Care Logistics Planning Engineer Name Role Phone GERARDO Parrish Unavailable PROBLEMS Type Condition ICD9-CM Code THU41-QZ Code Onset Dates Condition S tatus SNOMED Code Problem Counseling on substance use and abuse V65.42 Active 112414999 Problem Screening for malignant neoplasm of the cervix V76.2 Active 988183888 Problem Personal history of tobacco use, presenting hazards to health V15.82 Active 4621401540018 Problem Unspecified contraceptive management V25.9 Active 059570287 Problem VARICELLA DX V05.4 Active Problem Routine general medical examination at rust y V70.0 Active 604829781 Problem Lumbar sprain and strain 847.2 Activ e 572930409 Problem Need for prophylactic vaccination and inoculation, Influen za V04.81 Active 892448892 Problem Cough 786.2 Active 72629538 Problem Degeneration of lumbar or lumbosacral intervertebral disc 722.52 Active 94266375 Problem Other dyschromia 709.09 Active 325 3007 Problem Major depressive disorder, single episode, moderate 296.22 Active 18145790 Problem Unspecified abnormal mammogram 793.80 Active 649188417 Problem Hypoglycemia, unspecified 251.2 Acti ve 866681393 Problem Mammographic microcalcification 793.81 Active [id number] Problem Personal history of underimmunization status V15.83 Active 319801403 Problem Contact dermatitis and other eczema, due to unspecified ca use 692.9 Active 79009085 Problem Lumbago 724.2 Active 878378114 Problem Irregular menstrual cycle 626.4 Acti ve 70218670 Problem Attention deficit disorder o f childhood without mention of hyperactivity 314.00 Active 84647007 ALLERGIES No Information ENCOUNTERS Encounter Location Date Diagnosis [facility] [address] [facility] [id number] [address] [place] [address] Apr, Gastroenteritis K52.9 [facility] [address] [id number] [address] [place] [address] Oct, [facility] [address] [id number] [address] [place] [address] Oct, [facility] [address] [id number] [address] [place] [address] July, Status post partial hysterec shivani V88.02 ; Back pain 724.5 ; Arthralgia 719.40 and Nicotine addiction 305.1 [facility] [address] [id number] [address] [place] [address] Jun, [facility] [address] [id number] [address] [place] [address] Jun, [facility] [address] [id number] [address] [place] [address] Feb, [facility] [address] [id number] [address] [place] [address] Feb, [facility] [address] [id number] [address] [place] [address] Feb, [facility] [address] [id number] [address] [place] [address] Jan, [facility] [address] [id number] [address] [place] [address] Jan, [facility] [address] [id number] [address] [place] [address] Jan, [facility] [address] [id number] [address] [place] [address] Jan, [facility] [address] [id number] [address] [place] [address] Jan, [facility] [address] [id number] [address] [place] [address] Jan, [facility] [address] [id number] [address] [place] [address], [place] [address] Jan, [facility] [address] [id number] [address] [place] [address], [place] [address] Jan, [facility] [address] [id number] [address] [place] [address], [place] [address] Dec, [facility] [address] [id number] [address] [place] [address], [place] [address] Dec, [facility] [address] [id number] [address] [place] [address], [place] [address] Dec, [facility] [address] [id number] [address] [place] [address], [place] [address] Dec, [facility] [address] [id number] [address] [place] [address], [place] [address] Dec, [facility] [address] [id number] [address] [place] [address], [place] [address] Dec, [facility] [address] [id number] [address] [place] [address], [place] [address] Dec, [facility] [address] [id number] [address] [place] [address], [place] [address] Dec, [facility] [address] [id number] [address] [place] [address], [place] [address] Dec, [facility] [address] [id number] [address] [place] [address], [place] [address] Dec, [facility] [address] [id number] [address] [place] [address], [place] [address] Nov, [facility] [address] [id number] [address] [place] [address], [place] [address] 19 Nov, 2013 [facility] [address] [id number] [address] [place] [address], [place] [address] 08 Nov, 2013 [facility] [address] [id number] [address] [place] [address], [place] [address] Nov, [facility] [address] [id number] [address] [place] [address], [place] [address] Nov, [facility] [address] [id number] [address] [place] [address], [place] [address] Nov, [facility] [address] [id number] [address] [place] [address], [place] [address] Oct, [facility] [address] [id number] [address] [place] [address], [place] [address] Oct, [facility] [address] [id number] [address] [place] [address], [place] [address] Oct, [facility] [address] [id number] [address] [place] [address], [place] [address] Oct, [facility] [address] [id number] [address] [place] [address], [place] [address] Oct, [facility] [address] [id number] [address] [place] [address], [place] [address] Oct, [facility] [address] [id number] [address] [place] [address], [place] [address] Oct, [facility] [address] [id number] [address] [place] [address], [place] [address] Oct, [facility] [address] [id number] [address] [place] [address], [place] [address] Oct, [facility] [address] [id number] [address] [place] [address], [place] [address] Oct, [facility] [address] [id number] [address] [place] [address], [place] [address] Oct, [facility] [address] [id number] [address] [place] [address], [place] [address] Sep, [facility] [address] [id number] [address] [place] [address], [place] [address] Sep, [facility] [address] [id number] [address] [place] [address], [place] [address] July, [facility] [address] [id number] [address] [place] [address], [place] [address] July, [facility] [address] [id number] [address] [place] [address], [place] [address] Feb, [facility] [address] [id number] [address] [place] [address], [place] [address] Feb, [facility] [address] [id number] [address] [place] [address], [place] [address] Dec, [facility] [address] [id number] [address] [place] [address], [place] [address] Nov, [facility] [address] [id number] [address] [place] [address], [place] [address] Oct, [facility] [address] [id number] [address] [place] [address], [place] [address] Oct, [facility] [address] [id number] [address] [place] [address], [place] [address] Oct, [facility] [address] [id number] [address] [place] [address], [place] [address] Sep, [facility] [address] [id number] [address] [place] [address], [place] [address] Sep, [facility] [address] [id number] [address] [place] [address], [place] [address] Aug, [facility] [address] [id number] [address] [place] [address], [place] [address] July, [facility] [address] [id number] [address] [place] [address], [place] [address] Mar, [facility] [address] [id number] [address] [place] [address], [place] [address] Jan, [facility] [address] [id number] [address] [place] [address], [place] [address] Jan, [facility] [address] [id number] [address] [place] [address], [place] [address] Jan, [facility] [address] [id number] [address] [place] [address], [place] [address] Jan, [facility] [address] [id number] [address] [place] [address], [place] [address] Dec, [facility] [address] [id number] [address] [place] [address], [place] [address] Dec, [facility] [address] [id number] [address] [place] [address], [place] [address] Dec, [facility] [address] [id number] [address] [place] [address], [place] [address] Dec, [facility] [address] [id number] [address] [place] [address], [place] [address] Dec, [facility] [address] [id number] [address] [place] [address], [place] [address] Dec, [facility] [address] [id number] [address] [place] [address], [place] [address] Oct, [facility] [address] [id number] [address] [place] [address] Oct, [facility] [address] [id number] [address] [place] [address] Sep, [facility] [address] [id number] [address] [place] [address] Aug, [facility] [address] [id number] [address] [place] [address], [place] [address] Aug, [facility] [address] [id number] [address] [place] [address] July, [facility] [address] [id number] [address] [place] [address] July, [facility] [address] [id number] [address] [place] [address] July, [facility] [address] [id number] [address] [place] [address], [place] [address] July, [facility] [address] [id number] [address] [place] [address], [place] [address] July, [facility] [address] [id number] [address] [place] [address], [place] [address] Jun, [facility] [address] [id number] [address] [place] [address], [place] [address] May, [facility] [address] [id number] [address] [place] [address], [place] [address] May, [facility] [address] [id number] [address] [place] [address], [place] [address] Apr, [facility] [address] [id number] [address] [place] [address], [place] [address] Apr, [facility] [address] [id number] [address] [place] [address], [place] [address] Apr, [facility] [address] [id number] [address] [place] [address], [place] [address] 05 Apr, 2011 [facility] [address] [id number] [address] [place] [address], [place] [address] Apr, [facility] [address] [id number] [address] [place] [address], [place] [address] Apr, [facility] [address] [id number] [address] [place] [address], [place] [address] Mar, [facility] [address] [id number] [address] [place] [address], [place] [address] Mar, [facility] [address] [id number] [address] [place] [address], [place] [address] Mar, [facility] [address] [id number] [address] [place] [address], [place] [address] Mar, [facility] [address] [id number] [address] [place] [address] Mar, [facility] [address] [id number] [address] [place] [address] Jan, [facility] [address] [id number] [address] [place] [address] Dec, [facility] [address] [id number] [address] [place] [address] Dec, [facility] [address] [id number] [address] [place] [address] Feb, [facility] [address] [id number] [address] [place] [address] Jan, [facility] [address] [id number] [address] [place] [address] Jan, [facility] [address] [id number] [address] [place] [address] Jan, [facility] [address] [id number] [address] [place] [address] Jan, [facility] [address] [id number] [address] [place] [address] Dec, [facility] [address] [id number] [address] [place] [address] Sep, [facility] [address] [id number] [address] [place] [id number] Oct, IMMUNIZATIONS No Known Immunizations SOCIAL HISTORY Never Assessed REASON FOR VISIT PLAN OF CARE VITAL SIGNS Height 62 in 2013-02-16 Weight 137.5 lbs 2013-02-16 Temperature 97 degrees Fahrenheit 2013-02-16 Heart Rate 76 bpm 2013-02-16 Respiratory Rate 16 2013-02-16 Blood pressure systolic 106 mmHg 2013-02-16 Blood pressure diastolic 68 mmHg 2013-02-16 MEDICATIONS No Known Medications RESULTS No Results [...]
--- OUTSIDE RECORDS SUMMARY | 2019-08-06 05:38 | XMS REPORT ---
Author Author Annabella Victoria Doctor Organization [facility] Address Unknown Phone Unavailable Care Team Providers Care Red Mud Thickener Operator Name Role Phone Migration, Doctor Unavailable Unavailable PROBLEMS Type Condition ICD9-CM Code HQP94-KT Code Onset Dates Condition S tatus SNOMED Code Problem Counseling on substance use and abuse V65.42 Active 111332975 Problem Screening for malignant neoplasm of the cervix V76.2 Active 375280601 Problem Personal history of tobacco use, presenting hazards to health V15.82 Active 4292991835918 Problem Unspecified contraceptive management V25.9 Active 201247192 Problem VARICELLA DX V05.4 Active Problem Routine general medical examination at [facility] y V70.0 Active 492363849 Problem Lumbar sprain and strain 847.2 Activ e 714375400 Problem Need for prophylactic vaccination and inoculation, Influen za V04.81 Active 487069288 Problem Cough 786.2 Active 91921806 Problem Degeneration of lumbar or lumbosacral intervertebral disc 722.52 Active 30499618 Problem Other dyschromia 709.09 Active 325 3007 Problem Major depressive disorder, single episode, moderate 296.22 Active 79970637 Problem Unspecified abnormal mammogram 793.80 Active 860934968 Problem Hypoglycemia, unspecified 251.2 Acti ve 447067775 Problem Mammographic microcalcification 793.81 Active [id number] Problem Personal history of underimmunization status V15.83 Active 718892555 Problem Contact dermatitis and other eczema, due to unspecified ca use 692.9 Active 58504370 Problem Lumbago 724.2 Active 976437688 Problem Irregular menstrual cycle 626.4 Acti ve 10972621 Problem Attention deficit disorder o f childhood without mention of hyperactivity 314.00 Active 90757404 ALLERGIES No Information ENCOUNTERS Encounter Location Date Diagnosis [facility] [address] [facility] [id number] [address] [place] [address] Apr, Gastroenteritis K52.9 [facility] [address] [id number] [address] [place] [id number] Oct, [facility] [address] [id number] [address] [place] [address] Oct, [facility] [address] [id number] [address] [place] [address] July, Status post partial hysterec shivani V88.02 ; Back pain 724.5 ; Arthralgia 719.40 and Nicotine addiction 305.1 [facility] [address] [id number] [address] [place] [address] Jun, [facility] [address] [id number] [address] [place] [address] Jun, [facility] [address] [id number] [address] [place] [address] Feb, [facility] [address] [id number] [address] [place] [address] Feb, [facility] [address] [id number] [address] [place] [address] Feb, [facility] [address] [id number] [address] [place] [address] Jan, [facility] [address] [id number] [address] [place] [address] Jan, [facility] [address] [id number] [address] [place] [address] Jan, [facility] [address] [id number] [address] [place] [phone] Jan, [facility] [address] [id number] [address] [place] [phone] Jan, [facility] [address] [id number] [address] [place] [phone] Jan, [facility] [address] [id number] [address] [place] [address] Jan, [facility] [place] [facility] [address] [id number] [address] [place] [address], [place] [address] Jan, [facility] [place] [facility] [address] [id number] [address] [place] [address], [place] [address] Dec, [facility] [place] [facility] [address] [id number] [address] [place] [address], [place] [address] Dec, [facility] [place] [facility] [address] [id number] [address] [place] [address], [place] [address] Dec, [facility] [place] [facility] [address] [id number] [address] [place] [address], [place] [address] Dec, [facility] [place] [facility] [address] [id number] [address] [place] [address], [place] [address] Dec, [facility] [place] [facility] [address] [id number] [address] [place] [address], [place] [address] Dec, [facility] [place] [facility] [address] [id number] [address] [place] [address], [place] [address] Dec, [facility] [place] [facility] [address] [id number] [address] [place] [address], [place] [address] Dec, [facility] [place] [facility] [address] [id number] [address] [place] [address], [place] [address] Dec, [facility] [place] [facility] [address] [id number] [address] [place] [address], [place] [address] Dec, [facility] [place] [facility] [address] [id number] [address] [place] [address], [place] [address] 19 Nov, 2013 [facility] [place] [facility] [address] [id number] [address] [place] [address], [place] [address] 19 Nov, 2013 [facility] [place] [facility] [address] [id number] [address] [place] [address], [place] [address] 08 Nov, 2013 [facility] [place] [facility] [address] [id number] [address] [place] [address], [place] [address] 08 Nov, 2013 [facility] [place] [facility] [address] [id number] [address] [place] [address], [place] [address] Nov, [facility] [address] [id number] [facility] [place] [address] Nov, [facility] [place] [facility] [address] [id number] [address] [place] [address], [place] [address] Oct, [facility] [address] [id number] [address] [place] [address], [place] [address] Oct, [facility] [place] [facility] [address] [id number] [address] [place] [address], [place] [address] Oct, [facility] [address] [id number] [address] [place] [address], [place] [address] Oct, [facility] [place] [facility] [address] [id number] [address] [place] [address], [place] [address] Oct, [facility] [address] [id number] [address] [place] [address], [place] [address] Oct, [facility] [place] [facility] [address] [id number] [address] [place] [address], [place] [address] Oct, [facility] [address] [id number] [address] [place] [address], [place] [address] Oct, [facility] [place] [facility] [address] [id number] [address] [place] [address], [place] [address] Oct, [facility] [place] [facility] [address] [id number] [address] [place] [address], [place] [address] Oct, [facility] [place] [facility] [address] [id number] [address] [place] [address], [place] [address] Oct, [facility] [place] [facility] [address] [id number] [address] [place] [address], [place] [address] Sep, [facility] [place] [facility] [address] [id number] [address] [place] [address], [place] [address] Sep, [facility] [place] [facility] [address] [id number] [address] [place] [address], [place] [address] July, [facility] [place] [facility] [address] [id number] [address] [place] [address] July, [facility] [address] [id number] [address] [place] [address], [place] [address] Feb, [facility] [address] [id number] [address] [place] [address], [place] [address] Feb, [facility] [address] [id number] [address] [place] [address], [place] [address] Dec, [facility] [address] [id number] [address] [place] [address], [place] [address] Nov, [facility] [address] [id number] [address] [place] [address], [place] [address] Oct, [facility] [address] [id number] [address] [place] [address], [place] [address] Oct, [facility] [address] [id number] [address] [place] [address], [place] [address] Oct, [facility] [address] [id number] [address] [place] [address], [place] [address] Sep, [facility] [address] [id number] [address] [place] [address], [place] [address] Sep, [facility] [address] [id number] [address] [place] [address], [place] [address] Aug, [facility] [address] [id number] [address] [place] [address], [place] [address] July, [facility] [address] [id number] [address] [place] [address], [place] [address] Mar, [facility] [address] [id number] [address] [place] [address], [place] [address] Jan, [facility] [address] [id number] [address] [place] [address], [place] [address] Jan, [facility] [address] [id number] [address] [place] [address], [place] [address] Jan, [facility] [address] [id number] [address] [place] [address], [place] [address] Jan, [facility] [address] [id number] [address] [place] [address], [place] [address] Dec, [facility] [address] [id number] [address] [place] [address], [place] [address] Dec, [facility] [address] [id number] [address] [place] [address], [place] [address] Dec, [facility] [address] [id number] [address] [place] [address], [place] [address] Dec, [facility] [address] [id number] [address] [place] [address], [place] [address] Dec, [facility] [address] [id number] [address] [place] [address], [place] [address] Dec, [facility] [address] [id number] [address] [place] [address], [place] [address] Oct, [facility] [address] [id number] [address] [place] [address], [place] [address] Oct, [facility] [address] [id number] [address] [place] [address], [place] [address] Sep, [facility] [address] [id number] [address] [place] [address], [place] [address] Aug, [facility] [address] [id number] [address] [place] [address], [place] [address] Aug, [facility] [address] [id number] [address] [place] [address], [place] [address] July, [facility] [address] [id number] [address] [place] [address], [place] [address] July, [facility] [address] [id number] [address] [place] [address], [place] [address] July, [facility] [address] [id number] [address] [place] [address], [place] [address] July, [facility] [address] [id number] [address] [place] [address], [place] [address] July, [facility] [address] [id number] [address] [place] [address], [place] [address] Jun, [facility] [address] [id number] [address] [place] [address], [place] [address] May, [facility] [address] [id number] [address] [place] [address], [place] [address] May, [facility] [address] [id number] [address] [place] [address], [place] [address] Apr, [facility] [address] [id number] [address] [place] [address], [place] [address] Apr, [facility] [address] [id number] [address] [place] [address], [place] [address] Apr, [facility] [address] [id number] [address] [place] [address], [place] [address] Apr, [facility] [address] [id number] [address] [place] [address], [place] [address] Apr, [facility] [address] [id number] [address] [place] [address], [place] [address] Apr, [facility] [address] [id number] [address] [place] [address], [place] [address] Mar, [facility] [address] [id number] [address] [place] [address], [place] [address] Mar, [facility] [address] [id number] [address] [place] [address], [place] [address] Mar, [facility] [address] [id number] [address] [place] [address], [place] [address] Mar, [facility] [address] [id number] [address] [place] [address], [place] [address] Mar, [facility] [address] [id number] [address] [place] [address] Jan, [facility] [address] [id number] [address] [place] [address] Dec, [facility] [address] [id number] [address] [place] [address] Dec, [facility] [address] [id number] [address] [place] [address] Feb, [facility] [address] [id number] [address] [place] [address] Jan, [facility] [address] [id number] [address] [place] [address] Jan, [facility] [address] [id number] [address] [place] [address] Jan, [facility] [address] [id number] [address] [place] [address] Jan, [facility] [address] [id number] [address] [place] [address] Dec, [facility] [address] [id number] [address] [place] [address] Sep, [facility] [address] [id number] [address] [place] [address] Oct, IMMUNIZATIONS No Known Immunizations SOCIAL HISTORY [...]
--- OUTSIDE RECORDS SUMMARY | 2019-08-06 05:39 | XMS REPORT ---
Author Author Annabella Victoria Doctor Organization [facility] Address Unknown Phone Unavailable Care Team Providers Care Glove Operator Name Role Phone Migration, Doctor Unavailable Unavailable PROBLEMS Type Condition ICD9-CM Code [id number] Code Onset Dates Condition S tatus SNOMED Code Problem Counseling on substance use and abuse V65.42 Active 802050349 Problem Screening for malignant neoplasm of the cervix V76.2 Active 477319338 Problem Personal history of tobacco use, presenting hazards to health V15.82 Active 4017537404234 Problem Unspecified contraceptive management V25.9 Active 145437197 Problem VARICELLA DX V05.4 Active Problem Routine general medical examination at [facility] y V70.0 Active 057561470 Problem Lumbar sprain and strain 847.2 Activ e 347729656 Problem Need for prophylactic vaccination and inoculation, Influen za V04.81 Active 211359128 Problem Cough 786.2 Active 19663556 Problem Degeneration of lumbar or lumbosacral intervertebral disc 722.52 Active 45568194 Problem Other dyschromia 709.09 Active 325 3007 Problem Major depressive disorder, single episode, moderate 296.22 Active 12262085 Problem Unspecified abnormal mammogram 793.80 Active 148006320 Problem Hypoglycemia, unspecified 251.2 Acti ve 630860111 Problem Mammographic microcalcification 793.81 Active 70200089601598 Problem Personal history of underimmunization status V15.83 Active 814503476 Problem Contact dermatitis and other eczema, due to unspecified ca use 692.9 Active 85736760 Problem Lumbago 724.2 Active 143504509 Problem Irregular menstrual cycle 626.4 Acti ve 81718857 Problem Attention deficit disorder o f childhood without mention of hyperactivity 314.00 Active 07735665 ALLERGIES No Information ENCOUNTERS Encounter Location Date Diagnosis [facility] [address] [facility] [id number] [address] [place] [address] Apr, Gastroenteritis K52.9 [facility] [address] [id number] [address] [place] [address] Oct, [facility] [address] [id number] [address] [place] [address] Oct, [facility] [address] [id number] [address] [place] [address] July, Status post partial hysterec shivani V88.02 ; Back pain 724.5 ; Arthralgia 719.40 and Nicotine addiction 305.1 [facility] [address] [id number] [address] [place] [address] Jun, [facility] [address] [id number] [address] [place] [address] Jun, [facility] [address] [id number] [address] [place] [address] Feb, [facility] [address] [id number] [address] [place] [address] Feb, [facility] [address] [id number] [address] [place] [id number] Feb, [facility] [address] [id number] [address] [place] [address] Jan, [facility] [address] [id number] [address] [place] [address] Jan, [facility] [address] [id number] [address] [place] [address] Jan, [facility] [address] [id number] [address] [place] [address] Jan, [facility] [address] [id number] [address] [place] [address] Jan, [facility] [address] [id number] [address] [place] [address] Jan, [facility] [address] [id number] [address] [place] [address] Jan, [facility] [place] [facility] [address] [id number] [address] [place] [address], [place] [address] Jan, [facility] [place] [facility] [address] [id number] [address] [place] [address], [place] [address] Dec, [facility] [place] [facility] [address] [id number] [address] [place] [address], [place] [address] Dec, [facility] [place] [facility] [address] [id number] [address] [place] [address], [place] [address] Dec, [facility] [place] [facility] [address] [id number] [address] [place] [address], [place] [address] Dec, [facility] [place] [facility] [address] [id number] [address] [place] [address], [place] [address] Dec, [facility] [place] [facility] [address] [id number] [address] [place] [address], [place] [address] Dec, [facility] [place] [facility] [address] [id number] [address] [place] [address], [place] [address] Dec, [facility] [place] [facility] [address] [id number] [address] [place] [address], [place] [address] Dec, [facility] [place] [facility] [address] [id number] [address] [place] [address], [place] [address] Dec, [facility] [place] [facility] [address] [id number] [address] [place] [address], [place] [address] Dec, [facility] [place] [facility] [address] [id number] [address] [place] [address], [place] [address] 19 Nov, 2013 [facility] [place] [facility] [address] [id number] [address] [place] [address], [place] [address] 19 Nov, 2013 [facility] [place] [facility] [address] [id number] [address] [place] [address], [place] [address] 08 Nov, 2013 [facility] [place] [facility] [address] [id number] [address] [place] [address], [place] [address] 08 Nov, 2013 [facility] [place] [facility] [address] [id number] [address] [place] [address], [place] [address] Nov, [facility] [address] [id number] [facility] [place] [address] Nov, [facility] [place] [facility] [address] [id number] [address] [place] [address], [place] [address] Oct, [facility] [address] [id number] [address] [place] [address], [place] [address] Oct, [facility] [place] [facility] [address] [id number] [address] [place] [address], [place] [address] Oct, [facility] [address] [id number] [address] [place] [address], [place] [address] Oct, [facility] [place] [facility] [address] [id number] [address] [place] [address], [place] [address] Oct, [facility] [address] [id number] [address] [place] [address], [place] [address] Oct, [facility] [place] [facility] [address] [id number] [address] [place] [address], [place] [address] Oct, [facility] [address] [id number] [address] [place] [address], [place] [address] Oct, [facility] [place] [facility] [address] [id number] [address] [place] [address], [place] [address] Oct, [facility] [place] [facility] [address] [id number] [address] [place] [address], [place] [address] Oct, [facility] [place] [facility] [address] [id number] [address] [place] [address], [place] [address] Oct, [facility] [place] [facility] [address] [id number] [address] [place] [address], [place] [address] Sep, [facility] [place] [facility] [address] [id number] [address] [place] [address], [place] [address] Sep, [facility] [place] [facility] [address] [id number] [address] [place] [address], [place] [address] July, [facility] [place] [facility] [address] [id number] [address] [place] [address] July, [facility] [address] [id number] [address] [place] [address], [place] [address] Feb, [facility] [address] [id number] [address] [place] [address], [place] [address] Feb, [facility] [address] [id number] [address] [place] [address], [place] [address] Dec, [facility] [address] [id number] [address] [place] [address], [place] [address] Nov, [facility] [address] [id number] [address] [place] [address], [place] [address] Oct, [facility] [address] [id number] [address] [place] [address], [place] [address] Oct, [facility] [address] [id number] [address] [place] [address], [place] [address] Oct, [facility] [address] [id number] [address] [place] [address], [place] [address] Sep, [facility] [address] [id number] [address] [place] [address], [place] [address] Sep, [facility] [address] [id number] [address] [place] [address], [place] [address] Aug, [facility] [address] [id number] [address] [place] [address], [place] [address] July, [facility] [address] [id number] [address] [place] [address], [place] [address] Mar, [facility] [address] [id number] [address] [place] [address], [place] [address] Jan, [facility] [address] [id number] [address] [place] [address], [place] [address] Jan, [facility] [address] [id number] [address] [place] [address], [place] [address] Jan, [facility] [address] [id number] [address] [place] [address], [place] [address] Jan, [facility] [address] [id number] [address] [place] [address], [place] [address] Dec, [facility] [address] [id number] [address] [place] [address], [place] [address] Dec, [facility] [address] [id number] [address] [place] [address], [place] [address] Dec, [facility] [address] [id number] [address] [place] [address], [place] [address] Dec, [facility] [address] [id number] [address] [place] [address], [place] [address] Dec, [facility] [address] [id number] [address] [place] [address], [place] [address] Dec, [facility] [address] [id number] [address] [place] [address], [place] [address] Oct, [facility] [address] [id number] [address] [place] [address], [place] [address] Oct, [facility] [address] [id number] [address] [place] [address], [place] [address] Sep, [facility] [address] [id number] [address] [place] [address], [place] [address] Aug, [facility] [address] [id number] [address] [place] [address], [place] [address] Aug, [facility] [address] [id number] [address] [place] [address], [place] [address] July, [facility] [address] [id number] [address] [place] [address], [place] [address] July, [facility] [address] [id number] [address] [place] [address], [place] [address] July, [facility] [address] [id number] [address] [place] [address], [place] [address] July, [facility] [address] [id number] [address] [place] [address], [place] [address] July, [facility] [address] [id number] [address] [place] [address], [place] [address] Jun, [facility] [address] [id number] [address] [place] [address], [place] [address] May, [facility] [address] [id number] [address] [place] [address], [place] [address] May, [facility] [address] [id number] [address] [place] [address], [place] [address] Apr, [facility] [address] [id number] [address] [place] [address], [place] [address] Apr, [facility] [address] [id number] [address] [place] [address], [place] [address] Apr, [facility] [address] [id number] [address] [place] [address], [place] [address] Apr, [facility] [address] [id number] [address] [place] [address], [place] [address] Apr, [facility] [address] [id number] [address] [place] [address], [place] [address] Apr, [facility] [address] [id number] [address] [place] [address], [place] [address] Mar, [facility] [address] [id number] [address] [place] [address], [place] [address] Mar, [facility] [address] [id number] [address] [place] [address], [place] [address] Mar, [facility] [address] [id number] [address] [place] [address], [place] [address] Mar, [facility] [address] [id number] [address] [place] [address], [place] [address] Mar, [facility] [address] [id number] [address] [place] [address] Jan, [facility] [address] [id number] [address] [place] [address] Dec, [facility] [address] [id number] [address] [place] [address] Dec, [facility] [address] [id number] [address] [place] [address] Feb, [facility] [address] [id number] [address] [place] [address] Jan, [facility] [address] [id number] [address] [place] [address] Jan, [facility] [address] [id number] [address] [place] [address] Jan, [facility] [address] [id number] [address] [place] [address] Jan, [facility] [address] [id number] [address] [place] [address] Dec, [facility] [address] [id number] [address] [place] [address] Sep, [facility] [address] [id number] [address] [place] [address] Oct, IMMUNIZATIONS No Known Immunizations SOCIAL HISTORY [...]
--- OUTSIDE RECORDS SUMMARY | 2019-08-06 05:39 | XMS REPORT ---
Author Author Annabella DUFFY [facility] Address [address] [place] [address] Care Team Providers Care Ticker Wirer Name Role Phone JORDIN DUFFY Unavailable PROBLEMS Type Condition ICD9-CM Code OLI12-SU Code Onset Dates Condition S tatus SNOMED Code Problem Counseling on substance use and abuse V65.42 Active 381282861 Problem Screening for malignant neoplasm of the cervix V76.2 Active 945062789 Problem Personal history of tobacco use, presenting hazards to health V15.82 Active 2580173716976 Problem Unspecified contraceptive management V25.9 Active 133008915 Problem VARICELLA DX V05.4 Active Problem Routine general medical examination at [facility] V70.0 Active 449113642 Problem Lumbar sprain and strain 847.2 Activ e 523894633 Problem Need for prophylactic vaccination and inoculation, Influen za V04.81 Active 133467505 Problem Cough 786.2 Active 94906116 Problem Degeneration of lumbar or lumbosacral intervertebral disc 722.52 Active 55631503 Problem Other dyschromia 709.09 Active 325 3007 Problem Major depressive disorder, single episode, moderate 296.22 Active 43916072 Problem Unspecified abnormal mammogram 793.80 Active 208506369 Problem Hypoglycemia, unspecified 251.2 Acti ve 541556718 Problem Mammographic microcalcification 793.81 Active 12708332034501 Problem Personal history of underimmunization status V15.83 Active 509410206 Problem Contact dermatitis and other eczema, due to unspecified ca use 692.9 Active 63599496 Problem Lumbago 724.2 Active 429053777 Problem Irregular menstrual cycle 626.4 Acti ve 66715027 Problem Attention deficit disorder o f childhood without mention of hyperactivity 314.00 Active 26803693 ALLERGIES No Information ENCOUNTERS Encounter Location Date Diagnosis [facility] [address] [facility] [id number] [address] [place] [address] Apr, Gastroenteritis K52.9 [facility] [address] [id number] [address] [place] [address] Oct, [facility] [address] [id number] [address] [place] [address] Oct, [facility] [address] [id number] [address] [place] [address] July, Status post partial hysterec shivani V88.02 ; Back pain 724.5 ; Arthralgia 719.40 and Nicotine addiction 305.1 [facility] [address] [id number] [address] [place] [address] Jun, [facility] [address] [id number] [address] [place] [address] Jun, [facility] [address] [id number] [address] [place] [address] Feb, [facility] [address] [id number] [address] [place] [address] Feb, [facility] [address] [id number] [address] [place] [address] Feb, [facility] [address] [id number] [address] [place] [address] Jan, [facility] [address] [id number] [address] [place] [address] Jan, [facility] [address] [id number] [address] [place] [address] Jan, [facility] [address] [id number] [address] [place] [address] Jan, [facility] [address] [id number] [address] [place] [address] Jan, [facility] [address] [id number] [address] [place] [address] Jan, [facility] [address] [id number] [address] [place] [address], [place] [address] Jan, [facility] [address] [id number] [address] [place] [address], [place] [address] Jan, [facility] [address] [id number] [address] [place] [address], [place] [address] Dec, [facility] [address] [id number] [address] [place] [address], [place] [address] Dec, [facility] [address] [id number] [address] [place] [address], [place] [address] Dec, [facility] [address] [id number] [address] [place] [address], [place] [address] Dec, [facility] [address] [id number] [address] [place] [address], [place] [address] Dec, [facility] [address] [id number] [address] [place] [address], [place] [address] Dec, [facility] [address] [id number] [address] [place] [address], [place] [address] Dec, [facility] [address] [id number] [address] [place] [address], [place] [address] Dec, [facility] [address] [id number] [address] [place] [address], [place] [address] Dec, [facility] [address] [id number] [address] [place] [address], [place] [address] Dec, [facility] [address] [id number] [address] [place] [address], [place] [address] 19 Nov, 2013 [facility] [address] [id number] [address] [place] [address], [place] [address] 19 Nov, 2013 [facility] [address] [id number] [address] [place] [address], [place] [address] 08 Nov, 2013 [facility] [address] [id number] [address] [place] [address], [place] [address] Nov, [facility] [address] [id number] [facility] [place] [address] Nov, [facility] [address] [id number] [facility] [place] [address] Nov, [facility] [address] [id number] [facility] [place] [address] Oct, [facility] [address] [id number] [address] [place] [address], [place] [address] Oct, [facility] [address] [id number] [address] [place] [address], [place] [address] Oct, [facility] [address] [id number] [address] [place] [address], [place] [address] Oct, [facility] [address] [id number] [address] [place] [address], [place] [address] Oct, [facility] [address] [id number] [address] [place] [address], [place] [address] Oct, [facility] [address] [id number] [address] [place] [address], [place] [address] Oct, [facility] [address] [id number] [address] [place] [address], [place] [address] Oct, [facility] [address] [id number] [address] [place] [address], [place] [address] Oct, [facility] [address] [id number] [address] [place] [address], [place] [address] Oct, [facility] [address] [id number] [address] [place] [address], [place] [address] Oct, [facility] [address] [id number] [address] [place] [address], [place] [address] Sep, [facility] [address] [id number] [address] [place] [address], [place] [address] Sep, [facility] [address] [id number] [address] [place] [address], [place] [address] July, [facility] [address] [id number] [address] [place] [address], [place] [address] July, [facility] [address] [id number] [address] [place] [address], [place] [address] Feb, [facility] [address] [id number] [address] [place] [address], [place] [address] Feb, [facility] [address] [id number] [address] [place] [address], [place] [address] Dec, [facility] [address] [id number] [address] [place] [address], [place] [address] Nov, [facility] [address] [id number] [address] [place] [address], [place] [address] Oct, [facility] [address] [id number] [address] [place] [address], [place] [address] Oct, [facility] [address] [id number] [address] [place] [address], [place] [address] Oct, [facility] [address] [id number] [address] [place] [address], [place] [address] Sep, [facility] [address] [id number] [address] [place] [address], [place] [address] Sep, [facility] [address] [id number] [address] [place] [address], [place] [address] Aug, [facility] [address] [id number] [address] [place] [address], [place] [address] July, [facility] [address] [id number] [address] [place] [address], [place] [address] Mar, [facility] [address] [id number] [address] [place] [address], [place] [address] Jan, [facility] [address] [id number] [address] [place] [address], [place] [address] Jan, [facility] [address] [id number] [address] [place] [address], [place] [address] Jan, [facility] [address] [id number] [address] [place] [address], [place] [address] Jan, [facility] [address] [id number] [address] [place] [address], [place] [address] Dec, [facility] [address] [id number] [address] [place] [address], [place] [address] Dec, [facility] [address] [id number] [address] [place] [address], [place] [address] Dec, [facility] [address] [id number] [address] [place] [address], [place] [address] Dec, [facility] [address] [id number] [address] [place] [address], [place] [address] Dec, [facility] [address] [id number] [address] [place] [address], [place] [address] Dec, [facility] [address] [id number] [address] [place] [address], [place] [address] Oct, [facility] [address] [id number] [address] [place] [address], [place] [address] Oct, [facility] [address] [id number] [address] [place] [address], [place] [address] Sep, [facility] [address] [id number] [address] [place] [address], [place] [address] Aug, [facility] [address] [id number] [address] [place] [address], [place] [address] Aug, [facility] [address] [id number] [address] [place] [address], [place] [address] July, [facility] [address] [id number] [address] [place] [address], [place] [address] July, [facility] [address] [id number] [place] [address] July, [facility] [address] [id number] [address] [place] [address], [place] [address] July, [facility] [address] [id number] [address] [place] [address], [place] [address] July, [facility] [address] [id number] [address] [place] [address], [place] [address] Jun, [facility] [address] [id number] [address] [place] [address], [place] [address] May, [facility] [address] [id number] [address] [place] [address], [place] [address] May, [facility] [address] [id number] [address] [place] [address], [place] [address] Apr, [facility] [address] [id number] [address] [place] [address], [place] [address] Apr, [facility] [address] [id number] [address] [place] [address], [place] [address] Apr, [facility] [address] [id number] [address] [place] [address], [place] [address] Apr, [facility] [address] [id number] [address] [place] [address], [place] [address] Apr, [facility] [address] [id number] [address] [place] [address], [place] [address] Apr, [facility] [address] [id number] [address] [place] [address], [place] [address] Mar, [facility] [address] [id number] [address] [place] [address], [place] [address] Mar, [facility] [address] [id number] [address] [place] [address], [place] [address] Mar, [facility] [address] [id number] [address] [place] [address], [place] [address] Mar, [facility] [address] [id number] [address] [place] [address] Mar, [facility] [address] [id number] [address] [place] [address] Jan, [facility] [address] [id number] [address] [place] [address] Dec, [facility] [address] [id number] [address] [place] [address] Dec, [facility] [address] [id number] [address] [place] [address] Feb, [facility] [address] [id number] [address] [place] [address] Jan, [facility] [address] [id number] [address] [place] [address] Jan, [facility] [address] [id number] [address] [place] [address] Jan, [facility] [address] [id number] [address] [place] [address] Jan, [facility] [address] [id number] [address] [place] [address] Dec, [facility] [address] [id number] [address] [place] [address] Sep, [facility] [address] [id number] [address] [place] [address] Oct, IMMUNIZATIONS No Known Immunizations SOCIAL HISTORY Never Assessed REASON FOR VISIT PLAN OF CARE VITAL SIGNS Height 62 in 2014-01-24 Weight 134.44 lbs 2014-01-24 Temperature 99.2 degrees Fahrenheit 2014-01-24 Heart Rate 80 bpm 2014-01-24 Respiratory Rate 18 2014-01-24 Blood pressure systolic 124 mmHg 2014-01-24 Blood pressure diastolic 76 mmHg 2014-01-24 MEDICATIONS No Known Medications RESULTS No Results [...]
--- OUTSIDE RECORDS SUMMARY | 2019-08-06 05:39 | XMS REPORT ---
Author Author Annabella BARRIGA [facility] Address [address] [place] [address] Care Team Providers Care Filler Room Attendant Name Role Phone NITHYA ALLY Unavailable PROBLEMS Type Condition ICD9-CM Code [id number] Code Onset Dates Condition S tatus SNOMED Code Problem Counseling on substance use and abuse V65.42 Active 704094066 Problem Screening for malignant neoplasm of the cervix V76.2 Active 727685985 Problem Personal history of tobacco use, presenting hazards to health V15.82 Active 2552396340187 Problem Unspecified contraceptive management V25.9 Active 094175515 Problem VARICELLA DX V05.4 Active Problem Routine general medical examination at [facility] y V70.0 Active 060409804 Problem Lumbar sprain and strain 847.2 Activ e 770241089 Problem Need for prophylactic vaccination and inoculation, Influen za V04.81 Active 136458538 Problem Cough 786.2 Active 89210762 Problem Degeneration of lumbar or lumbosacral intervertebral disc 722.52 Active 24821328 Problem Other dyschromia 709.09 Active 325 3007 Problem Major depressive disorder, single episode, moderate 296.22 Active 99744722 Problem Unspecified abnormal mammogram 793.80 Active 248207047 Problem Hypoglycemia, unspecified 251.2 Acti ve 700054612 Problem Mammographic microcalcification 793.81 Active [id number] Problem Personal history of underimmunization status V15.83 Active 316984911 Problem Contact dermatitis and other eczema, due to unspecified ca use 692.9 Active 56205271 Problem Lumbago 724.2 Active 622018303 Problem Irregular menstrual cycle 626.4 Acti ve 74872498 Problem Attention deficit disorder o f childhood without mention of hyperactivity 314.00 Active 96963728 ALLERGIES No Information ENCOUNTERS Encounter Location Date Diagnosis [facility] [address] [facility] [id number] [address] [place] [address] Apr, Gastroenteritis K52.9 [facility] [address] [id number] [address] [place] [address] Oct, [facility] [address] [id number] [address] [place] [address] Oct, [facility] [address] [id number] [address] [place] [address] July, Status post partial hysterec shivani V88.02 ; Back pain 724.5 ; Arthralgia 719.40 and Nicotine addiction 305.1 [facility] [address] [id number] [address] [place] [address] Jun, [facility] [address] [id number] [address] [place] [address] Jun, [facility] [address] [id number] [address] [place] [address] Feb, [facility] [address] [id number] [address] [place] [address] Feb, [facility] [address] [id number] [address] [place] [address] Feb, [facility] [address] [id number] [address] [place] [address] Jan, [facility] [address] [id number] [address] [place] [address] Jan, [facility] [address] [id number] [address] [place] [address] Jan, [facility] [address] [id number] [address] [place] [address] Jan, [facility] [address] [id number] [address] [place] [address] Jan, [facility] [address] [id number] [address] [place] [address] Jan, [facility] [address] [id number] [address] [place] [address], [place] [address] Jan, [facility] [address] [id number] [address] [place] [address], [place] [address] Jan, [facility] [address] [id number] [address] [place] [address], [place] [address] Dec, [facility] [address] [id number] [address] [place] [address], [place] [address] Dec, [facility] [address] [id number] [address] [place] [address], [place] [address] Dec, [facility] [address] [id number] [address] [place] [address], [place] [address] Dec, [facility] [address] [id number] [address] [place] [address], [place] [address] Dec, [facility] [address] [id number] [address] [place] [address], [place] [address] Dec, [facility] [address] [id number] [address] [place] [address], [place] [address] Dec, [facility] [address] [id number] [address] [place] [address], [place] [address] Dec, [facility] [address] [id number] [address] [place] [address], [place] [address] Dec, [facility] [address] [id number] [address] [place] [address], [place] [address] Dec, [facility] [address] [id number] [address] [place] [address], [place] [address] 19 Nov, 2013 [facility] [address] [id number] [address] [place] [address], [place] [address] 19 Nov, 2013 [facility] [address] [id number] [address] [place] [address], [place] [address] 08 Nov, 2013 [facility] [address] [id number] [address] [place] [address], [place] [address] Nov, [facility] [address] [id number] [facility] [place] [address] Nov, [facility] [address] [id number] [facility] [place] [address] Nov, [facility] [address] [id number] [facility] [place] [address] Oct, [facility] [address] [id number] [address] [place] [address], [place] [address] Oct, [facility] [address] [id number] [address] [place] [address], [place] [address] Oct, [facility] [address] [id number] [address] [place] [address], [place] [address] Oct, [facility] [address] [id number] [address] [place] [address], [place] [address] Oct, [facility] [address] [id number] [address] [place] [address], [place] [address] Oct, [facility] [address] [id number] [address] [place] [address], [place] [address] Oct, [facility] [address] [id number] [address] [place] [address], [place] [address] Oct, [facility] [address] [id number] [address] [place] [address], [place] [address] Oct, [facility] [address] [id number] [address] [place] [address], [place] [address] Oct, [facility] [address] [id number] [address] [place] [address], [place] [address] Oct, [facility] [address] [id number] [address] [place] [address], [place] [address] Sep, [facility] [address] [id number] [address] [place] [address], [place] [address] Sep, [facility] [address] [id number] [address] [place] [address], [place] [address] July, [facility] [address] [id number] [address] [place] [address], [place] [address] July, [facility] [address] [id number] [address] [place] [address], [place] [address] Feb, [facility] [address] [id number] [address] [place] [address], [place] [address] Feb, [facility] [address] [id number] [address] [place] [address], [place] [address] Dec, [facility] [address] [id number] [address] [place] [address], [place] [address] Nov, [facility] [address] [id number] [address] [place] [address], [place] [address] Oct, [facility] [address] [id number] [address] [place] [address], [place] [address] Oct, [facility] [address] [id number] [address] [place] [address], [place] [address] Oct, [facility] [address] [id number] [address] [place] [address], [place] [address] Sep, [facility] [address] [id number] [address] [place] [address], [place] [address] Sep, [facility] [address] [id number] [address] [place] [address], [place] [address] Aug, [facility] [address] [id number] [address] [place] [address], [place] [address] July, [facility] [address] [id number] [address] [place] [address], [place] [address] Mar, [facility] [address] [id number] [address] [place] [address], [place] [address] Jan, [facility] [address] [id number] [address] [place] [address], [place] [address] Jan, [facility] [address] [id number] [address] [place] [address], [place] [address] Jan, [facility] [address] [id number] [address] [place] [address], [place] [address] Jan, [facility] [address] [id number] [address] [place] [address], [place] [address] Dec, [facility] [address] [id number] [address] [place] [address], [place] [address] Dec, [facility] [address] [id number] [address] [place] [address], [place] [address] Dec, [facility] [address] [id number] [address] [place] [address], [place] [address] Dec, [facility] [address] [id number] [address] [place] [address], [place] [address] Dec, [facility] [address] [id number] [address] [place] [address], [place] [address] Dec, [facility] [address] [id number] [address] [place] [address], [place] [address] Oct, [facility] [address] [id number] [address] [place] [address], [place] [address] Oct, [facility] [address] [id number] [address] [place] [address], [place] [address] Sep, [facility] [address] [id number] [address] [place] [address], [place] [address] Aug, [facility] [address] [id number] [address] [place] [address], [place] [address] Aug, [facility] [address] [id number] [address] [place] [address], [place] [address] July, [facility] [address] [id number] [address] [place] [address], [place] [address] July, [facility] [address] [id number] [address] [address] July, [facility] [address] [id number] [address] [place] [address], [place] [address] July, [facility] [address] [id number] [address] [place] [address], [place] [address] July, [facility] [address] [id number] [address] [place] [address], [place] [address] Jun, [facility] [address] [id number] [address] [place] [address], [place] [address] May, [facility] [address] [id number] [address] [place] [address], [place] [address] May, [facility] [address] [id number] [address] [place] [address], [place] [address] Apr, [facility] [address] [id number] [address] [place] [address], [place] [address] Apr, [facility] [address] [id number] [address] [place] [address], [place] [address] Apr, [facility] [address] [id number] [address] [place] [address], [place] [address] Apr, [facility] [address] [id number] [address] [place] [address], [place] [address] Apr, [facility] [address] [id number] [address] [place] [address], [place] [address] Apr, [facility] [address] [id number] [address] [place] [address], [place] [address] Mar, [facility] [address] [id number] [address] [place] [address], [place] [address] Mar, [facility] [address] [id number] [address] [place] [address], [place] [address] Mar, [facility] [address] [id number] [address] [place] [address], [place] [address] Mar, [facility] [address] [id number] [address] [place] [address] Mar, [facility] [address] [id number] [address] [place] [address] Jan, [facility] [address] [id number] [address] [place] [address] Dec, [facility] [address] [id number] [address] [place] [address] Dec, [facility] [address] [id number] [address] [place] [address] Feb, [facility] [address] [id number] [address] [place] [address] Jan, [facility] [address] [id number] [address] [place] [address] Jan, [facility] [address] [id number] [address] [place] [address] Jan, [facility] [address] [id number] [address] [place] [address] Jan, [facility] [address] [id number] [address] [place] [address] Dec, [facility] [address] [id number] [address] [place] [address] Sep, [facility] [address] [id number] [address] [place] [address] Oct, IMMUNIZATIONS No Known Immunizations SOCIAL HISTORY [...]
--- OUTSIDE RECORDS SUMMARY | 2019-08-06 05:39 | XMS REPORT ---
Author Author Annabella BARRIGA [facility] Address [address] [place] [address] Care Team Providers Care Collar Band Creaser Name Role Phone NITHYA ALLY Unavailable PROBLEMS Type Condition ICD9-CM Code KYH93-LM Code Onset Dates Condition S tatus SNOMED Code Problem Counseling on substance use and abuse V65.42 Active 699448672 Problem Screening for malignant neoplasm of the cervix V76.2 Active 746565418 Problem Personal history of tobacco use, presenting hazards to health V15.82 Active [id number] Problem Unspecified contraceptive management V25.9 Active 168773796 Problem VARICELLA DX V05.4 Active Problem Routine general medical examination at [facility] y V70.0 Active 032017641 Problem Lumbar sprain and strain 847.2 Activ e 026196723 Problem Need for prophylactic vaccination and inoculation, Influen za V04.81 Active 946263496 Problem Cough 786.2 Active 63706420 Problem Degeneration of lumbar or lumbosacral intervertebral disc 722.52 Active 63454069 Problem Other dyschromia 709.09 Active 325 3007 Problem Major depressive disorder, single episode, moderate 296.22 Active 43523079 Problem Unspecified abnormal mammogram 793.80 Active 063146673 Problem Hypoglycemia, unspecified 251.2 Acti ve 593976927 Problem Mammographic microcalcification 793.81 Active [id number] Problem Personal history of underimmunization status V15.83 Active 049802023 Problem Contact dermatitis and other eczema, due to unspecified ca use 692.9 Active 48101427 Problem Lumbago 724.2 Active 813278168 Problem Irregular menstrual cycle 626.4 Acti ve 55403345 Problem Attention deficit disorder o f childhood without mention of hyperactivity 314.00 Active 12017359 ALLERGIES No Information ENCOUNTERS Encounter Location Date Diagnosis [facility] [address] [facility] [place] [id number] [address] [place] [address] Apr, Gastroenteritis K52.9 [facility] [address] [id number] [address] [place] [id number] Oct, [facility] [address] [id number] [address] [place] [address] Oct, [facility] [address] [id number] [address] [place] [phone] July, Status post partial hysterec shivani V88.02 ; Back pain 724.5 ; Arthralgia 719.40 [address] [facility] [address] [id number] [address] [place] [phone] Jun, [facility] [address] [id number] [address] [place] [phone] Jun, [facility] [address] [id number] [address] [place] [phone] Feb, [facility] [address] [id number] [address] [place] [phone] Feb, [facility] [address] [id number] [address] [place] [id number] Feb, [facility] [address] [id number] [address] [place] [phone] Jan, [facility] [address] [id number] [address] [place] [phone] Jan, [facility] [address] [id number] [address] [place] [phone] Jan, [facility] [address] [id number] [address] [place] [phone] Jan, [facility] [address] [id number] [address] [place] [phone] Jan, [facility] [address] [id number] [address] [place] [phone] Jan, [facility] [address] [id number] [address] [place] [address], [place] [address] Jan, [facility] [address] [id number] [address] [place] [address], [place] [address] Jan, [facility] [address] [id number] [address] [place] [address], [place] [address] Dec, [facility] [address] [id number] [address] [place] [address], [place] [address] Dec, [facility] [address] [id number] [address] [place] [address], [place] [address] Dec, [facility] [address] [id number] [address] [place] [address], [place] [address] Dec, [facility] [address] [id number] [address] [place] [address], [place] [address] Dec, [facility] [address] [id number] [address] [place] [address], [place] [address] Dec, [facility] [address] [id number] [address] [place] [address], [place] [address] Dec, [facility] [address] [id number] [address] [place] [address], [place] [address] Dec, [facility] [address] [id number] [address] [place] [address], [place] [address] Dec, [facility] [address] [id number] [address] [place] [address], [place] [address] Dec, [facility] [address] [id number] [address] [place] [address], [place] [address] 19 Nov, 2013 [facility] [address] [id number] [address] [place] [address], [place] [address] 19 Nov, 2013 [facility] [address] [id number] [address] [place] [address], [place] [address] 08 Nov, 2013 [facility] [address] [id number] [address] [place] [address], [place] [address] Nov, [facility] [address] [id number] [address] [place] [address] Nov, [facility] [address] [id number] [facility] [place] [address] Nov, [facility] [address] [id number] [facility] [place] [address] Oct, [facility] [address] [id number] [address] [place] [address], [place] [address] Oct, [facility] [address] [id number] [address] [place] [address], [place] [address] Oct, [facility] [address] [id number] [address] [place] [address], [place] [address] Oct, [facility] [address] [id number] [address] [place] [address], [place] [address] Oct, [facility] [address] [id number] [address] [place] [address], [place] [address] Oct, [facility] [address] [id number] [address] [place] [address], [place] [address] Oct, [facility] [address] [id number] [address] [place] [address], [place] [address] Oct, [facility] [address] [id number] [address] [place] [address], [place] [address] Oct, [facility] [address] [id number] [address] [place] [address], [place] [address] Oct, [facility] [address] [id number] [address] [place] [address], [place] [address] Oct, [facility] [address] [id number] [address] [place] [address], [place] [address] Sep, [facility] [address] [id number] [address] [place] [address], [place] [address] Sep, [facility] [address] [id number] [address] [place] [address], [place] [address] July, [facility] [address] [id number] [address] [place] [address], [place] [address] July, [facility] [address] [id number] [address] [place] [address], [place] [address] Feb, [facility] [address] [id number] [address] [place] [address], [place] [address] Feb, [facility] [address] [id number] [address] [place] [address], [place] [address] Dec, [facility] [address] [id number] [address] [place] [address], [place] [address] Nov, [facility] [address] [id number] [address] [place] [address], [place] [address] Oct, [facility] [address] [id number] [address] [place] [address], [place] [address] Oct, [facility] [address] [id number] [address] [place] [address], [place] [address] Oct, [facility] [address] [id number] [address] [place] [address], [place] [address] Sep, [facility] [address] [id number] [address] [place] [address], [place] [address] Sep, [facility] [address] [id number] [address] [place] [address], [place] [address] Aug, [facility] [address] [id number] [address] [place] [address], [place] [address] July, [facility] [address] [id number] [address] [place] [address], [place] [address] Mar, [facility] [address] [id number] [address] [place] [address], [place] [address] Jan, [facility] [address] [id number] [address] [place] [address], [place] [address] Jan, [facility] [address] [id number] [address] [place] [address], [place] [address] Jan, [facility] [address] [id number] [address] [place] [address], [place] [address] Jan, [facility] [address] [id number] [address] [place] [address], [place] [address] Dec, [facility] [address] [id number] [address] [place] [address], [place] [address] Dec, [facility] [address] [id number] [address] [place] [address], [place] [address] Dec, [facility] [address] [id number] [address] [place] [address], [place] [address] Dec, [facility] [address] [id number] [address] [place] [address], [place] [address] Dec, [facility] [address] [id number] [address] [place] [address], [place] [address] Dec, [facility] [address] [id number] [address] [place] [address], [place] [address] Oct, [facility] [address] [id number] [address] [place] [address], [place] [address] Oct, [facility] [address] [id number] [address] [place] [address], [place] [address] Sep, [facility] [address] [id number] [address] [place] [address], [place] [address] Aug, [facility] [address] [id number] [address] [place] [address], [place] [address] Aug, [facility] [address] [id number] [address] [place] [address], [place] [address] July, [facility] [address] [id number] [address] [place] [address], [place] [address] July, [facility] [address] [id number] [address] [address] July, [facility] [address] [id number] [address] [place] [address], [place] [address] July, [facility] [address] [id number] [address] [place] [address], [place] [address] July, [facility] [address] [id number] [address] [place] [address], [place] [address] Jun, [facility] [address] [id number] [address] [place] [address], [place] [address] May, [facility] [address] [id number] [address] [place] [address], [place] [address] May, [facility] [address] [id number] [address] [place] [address], [place] [address] Apr, [facility] [address] [id number] [address] [place] [address], [place] [address] Apr, [facility] [address] [id number] [address] [place] [address], [place] [address] Apr, [facility] [address] [id number] [address] [place] [address], [place] [address] Apr, [facility] [address] [id number] [address] [place] [address], [place] [address] Apr, [facility] [address] [id number] [address] [place] [address], [place] [address] Apr, [facility] [address] [id number] [address] [place] [address], [place] [address] Mar, [facility] [address] [id number] [address] [place] [address], [place] [address] Mar, [facility] [address] [id number] [address] [place] [address], [place] [address] Mar, [facility] [address] [id number] [address] [place] [address], [place] [address] Mar, [facility] [address] [id number] [address] [place] [id number] Mar, [facility] [address] [id number] [address] [place] [id number] Jan, [facility] [address] [id number] [address] [place] [id number] Dec, [facility] [address] [id number] [address] [place] [id number] Dec, [facility] [address] [id number] [address] [place] [id number] Feb, [facility] [address] [id number] [address] [place] [id number] Jan, [facility] [address] [id number] [address] [place] [id number] Jan, [facility] [address] [id number] [address] [place] [id number] Jan, [facility] [address] [id number] [address] [place] [address] Jan, [facility] [address] [id number] [address] [place] [phone] Dec, [facility] [address] [id number] [address] [place] [id number] Sep, [facility] [address] [id number] [address] [place] [id number] Oct, IMMUNIZATIONS No Known Immunizations SOCIAL HISTORY Never Assessed REASON FOR VISIT PLAN OF CARE VITAL SIGNS Height 62 in 2013-11-06 Temperature 97.5 degrees Fahrenheit 2013-11-06 Heart Rate 78 bpm 2013-11-06 Respiratory Rate 18 2013-11-06 Blood pressure systolic 116 mmHg 2013-11-06 Blood pressure diastolic 70 mmHg 2013-11-06 MEDICATIONS No Known Medications RESULTS No Results PROCEDURES Procedure Date Ordered Result Body Site MRI LUMBAR SPINE W/O DYE Nov 06, 2013 INSTRUCTIONS MEDICATIONS ADMINISTERED No Known Medications MEDICAL [...]
--- OUTSIDE RECORDS SUMMARY | 2019-08-06 05:39 | XMS REPORT ---
Author Author Annabella Victoria Doctor Organization [facility] Address Unknown Phone Unavailable Care Team Providers Care Planned Giving Officer Name Role Phone Migration, Doctor Unavailable Unavailable PROBLEMS Type Condition ICD9-CM Code HBS15-IC Code Onset Dates Condition S tatus SNOMED Code Problem Counseling on substance use and abuse V65.42 Active 912106783 Problem Screening for malignant neoplasm of the cervix V76.2 Active 976243896 Problem Personal history of tobacco use, presenting hazards to health V15.82 Active 7330383165578 Problem Unspecified contraceptive management V25.9 Active 991390123 Problem VARICELLA DX V05.4 Active Problem Routine general medical examination at [facility] y V70.0 Active 119097503 Problem Lumbar sprain and strain 847.2 Activ e 695605878 Problem Need for prophylactic vaccination and inoculation, Influen za V04.81 Active 459227538 Problem Cough 786.2 Active 38124647 Problem Degeneration of lumbar or lumbosacral intervertebral disc 722.52 Active 49839648 Problem Other dyschromia 709.09 Active 325 3007 Problem Major depressive disorder, single episode, moderate 296.22 Active 88653565 Problem Unspecified abnormal mammogram 793.80 Active 019129218 Problem Hypoglycemia, unspecified 251.2 Acti ve 805224788 Problem Mammographic microcalcification 793.81 Active 28898201590745 Problem Personal history of underimmunization status V15.83 Active 814379212 Problem Contact dermatitis and other eczema, due to unspecified ca use 692.9 Active 52969371 Problem Lumbago 724.2 Active 049279474 Problem Irregular menstrual cycle 626.4 Acti ve 46004878 Problem Attention deficit disorder o f childhood without mention of hyperactivity 314.00 Active 76659889 ALLERGIES No Information ENCOUNTERS Encounter Location Date Diagnosis [facility] [address] [facility] [id number] [place] [address] Apr, Gastroenteritis K52.9 [facility] [address] [facility] [id number] [place] [address] Oct, [facility] [id number] [place] [address] Oct, [facility] [id number] [place] [address] July, Status post partial hysterectomy V88.02 ; Back pain 724.5 ; Arthralgia 719.40 and Nicotine addiction 305.1 [facility] [id number] [place] [address] Jun, [facility] [id number] [place] [address] Jun, [facility] [id number] [place] [address] Feb, [facility] [id number] [place] [address] Feb, [facility] [id number] [place] [address] Feb, [facility] [id number] [place] [address] Jan, [facility] [id number] [place] [address] Jan, [facility] [id number] [place] [address] Jan, [facility] [id number] [place] [address] Jan, [facility] [id number] [place] [address] Jan, [facility] [id number] [place] [address] Jan, [facility] [id number] [place] [address] Jan, [facility] [id number] [place] [address] Jan, [facility] [address] [facility] [id number] [place] [address] Dec, 2013 [facility] [address] [facility] [id number] [place] [address] Dec, 2013 [facility] [address] [facility] [id number] [place] [address] Dec, 2013 [facility] [address] [id number] [place] [address] Dec, 2013 [facility] [address] [id number] [place] [address] Dec, 2013 [facility] [address] [id number] [place] [address] Dec, [facility] [address] [id number] [place] [address] Dec, 2013 [facility] [address] [id number] [place] [address] Dec, 2013 [facility] [address] [id number] [place] [address] Dec, [facility] [address] [id number] [place] [address] Dec, [facility] [address] [id number] [place] [address] Nov, 2013 [facility] [address] [id number] [place] [address] Nov, 2013 [facility] [address] [id number] [place] [address] 08 Nov, 2013 [facility] [address] [id number] [place] [address] 08 Sep, 2013 [facility] [address] [id number] [place] [address] Nov, 2013 [facility] [address] [id number] [place] [address] Nov, 2013 [facility] [address] [id number] [place] [address] Oct, [facility] [address] [facility] [id number] [place] [address] Oct, [facility] [address] [facility] [id number] [place] [address] Oct, [facility] [address] [id number] [place] [address] Oct, [facility] [address] [id number] [place] [address] Oct, [facility] [address] [facility] [id number] [place] [address] Oct, [facility] [address] [id number] [place] [address] Oct, [facility] [address] [id number] [place] [address] Oct, [facility] [address] [id number] [place] [address] Oct, [facility] [address] [id number] [place] [address] Oct, [facility] [address] [id number] [place] [address] Oct, [facility] [address] [id number] [place] [address] Sep, [facility] [address] [id number] [place] [address] Sep, [facility] [address] [id number] [place] [address] July, [facility] [address] [id number] [place] [address] July, [facility] [address] [id number] [place] [address] Feb, [facility] [address] [id number] [place] [address] Feb, [facility] [address] [id number] [place] [address] Dec, [facility] [address] [facility] [id number] [place] [address] Nov, [facility] [address] [facility] [id number] [place] [address] Oct, [facility] [address] [id number] [place] [address] Oct, [facility] [address] [id number] [place] [address] Oct, [facility] [address] [facility] [id number] [place] [address] Sep, [facility] [address] [id number] [place] [address] Sep, [facility] [address] [id number] [place] [address] Aug, [facility] [address] [id number] [place] [address] July, [facility] [address] [id number] [place] [address] Mar, [facility] [address] [id number] [place] [address] Jan, [facility] [address] [id number] [place] [address] Jan, [facility] [address] [id number] [place] [address] Jan, [facility] [address] [id number] [place] [address] Jan, [facility] [address] [id number] [place] [address] Dec, [facility] [address] [id number] [place] [address] Dec, [facility] [address] [id number] [place] [address] Dec, [facility] [address] [id number] [place] [address] Dec, [facility] [address] [id number] [place] [address] Dec, [facility] [address] [id number] [place] [address] Dec, [facility] [address] [id number] [place] [address] Oct, [facility] [address] [id number] [place] [address] Oct, [facility] [address] [id number] [place] [address] Sep, [facility] [address] [id number] [place] [address] Aug, [facility] [address] [id number] [place] [address] Aug, [facility] [address] [id number] [place] [address] July, [facility] [address] [id number] [place] [address] July, [facility] [address] [id number] [place] [address] July, [facility] [address] [id number] [place] [address] July, [facility] [address] [id number] [place] [address] July, [facility] [address] [id number] [place] [address] Jun, [facility] [address] [id number] [place] [address] May, [facility] [address] [id number] [place] [address] May, [facility] [address] [id number] [place] [address] Apr, [facility] [address] [id number] [place] [address] Apr, [facility] [address] [id number] [place] [address] Apr, [facility] [address] [id number] [place] [address] Apr, [facility] [address] [id number] [place] [address] Apr, [facility] [address] [id number] [place] [address] Apr, [facility] [address] [id number] [place] [address] Mar, [facility] [address] [id number] [place] [address] Mar, [facility] [address] [id number] [place] [address] Mar, [facility] [address] [id number] [place] [address] Mar, [facility] [address] [id number] [place] [address] Mar, [facility] [address] [id number] [place] [address] Jan, [facility] [address] [id number] [place] [address] Dec, [facility] [address] [id number] [place] [address] Dec, [facility] [address] [id number] [place] [address] Feb, [facility] [address] [id number] [place] [address] Jan, [facility] [address] [id number] [place] [address] Jan, [facility] [address] [id number] [place] [address] Jan, [facility] [address] [id number] [place] [address] Jan, [facility] [address] [id number] [place] [address] Dec, [facility] [address] [id number] [place] [address] Sep, [facility] [address] [id number] [place] [address] Oct, IMMUNIZATIONS No Known Immunizations SOCIAL HISTORY Never Assessed REASON FOR VISIT PLAN OF CARE VITAL SIGNS MEDICATIONS No Known Medications RESULTS No Results PROCEDURES Procedure Date Ordered Result Body Site TB INTRADERMAL TEST August 04, 2013 INSTRUCTIONS MEDICATIONS ADMINISTERED No Known Medications [...]
--- OUTSIDE RECORDS SUMMARY | 2019-08-06 05:39 | XMS REPORT ---
Author Author Annabella DUFFY [facility] Address [address] [place] [address] Care Team Providers Care Steam Conditioning Operator Name Role Phone JORDIN DUFFY Unavailable PROBLEMS Type Condition ICD9-CM Code KLQ97-AI Code Onset Dates Condition S tatus SNOMED Code Problem Counseling on substance use and abuse V65.42 Active 801592940 Problem Screening for malignant neoplasm of the cervix V76.2 Active 403298170 Problem Personal history of tobacco use, presenting hazards to health V15.82 Active 8493182093831 Problem Unspecified contraceptive management V25.9 Active 412517366 Problem VARICELLA DX V05.4 Active Problem Routine general medical examination at [facility] V70.0 Active 900433246 Problem Lumbar sprain and strain 847.2 Activ e 653755684 Problem Need for prophylactic vaccination and inoculation, Influen za V04.81 Active 690534932 Problem Cough 786.2 Active 13567515 Problem Degeneration of lumbar or lumbosacral intervertebral disc 722.52 Active 11002221 Problem Other dyschromia 709.09 Active 325 3007 Problem Major depressive disorder, single episode, moderate 296.22 Active 47727644 Problem Unspecified abnormal mammogram 793.80 Active 477508475 Problem Hypoglycemia, unspecified 251.2 Acti ve 909391446 Problem Mammographic microcalcification 793.81 Active 21713418972845 Problem Personal history of underimmunization status V15.83 Active 998681931 Problem Contact dermatitis and other eczema, due to unspecified ca use 692.9 Active 94451798 Problem Lumbago 724.2 Active 283864241 Problem Irregular menstrual cycle 626.4 Acti ve 51173016 Problem Attention deficit disorder o f childhood without mention of hyperactivity 314.00 Active 77534776 ALLERGIES No Information ENCOUNTERS Encounter Location Date Diagnosis [facility] [address] [facility] [id number] [address] [place] [address] Apr, Gastroenteritis K52.9 [facility] [address] [id number] [address] [place] [address] Oct, [facility] [address] [id number] [address] [place] [address] Oct, [facility] [address] [id number] [address] [place] [address] July, Status post partial hysterec shivani V88.02 ; Back pain 724.5 ; Arthralgia 719.40 and Nicotine addiction 305.1 [facility] [address] [id number] [address] [place] [address] Jun, [facility] [address] [id number] [address] [place] [address] Jun, [facility] [address] [id number] [address] [place] [address] Feb, [facility] [address] [id number] [address] [place] [address] Feb, [facility] [address] [id number] [address] [place] [address] Feb, [facility] [address] [id number] [address] [place] [address] Jan, [facility] [address] [id number] [address] [place] [address] Jan, [facility] [address] [id number] [address] [place] [address] Jan, [facility] [address] [id number] [address] [place] [address] Jan, [facility] [address] [id number] [address] [place] [address] Jan, [facility] [address] [id number] [address] [place] [address] Jan, [facility] [address] [id number] [address] [place] [address], [place] [address] Jan, [facility] [address] [id number] [address] [place] [address], [place] [address] Jan, [facility] [address] [id number] [address] [place] [address], [place] [address] Dec, [facility] [address] [id number] [address] [place] [address], [place] [address] Dec, [facility] [address] [id number] [address] [place] [address], [place] [address] Dec, [facility] [address] [id number] [address] [place] [address], [place] [address] Dec, [facility] [address] [id number] [address] [place] [address], [place] [address] Dec, [facility] [address] [id number] [address] [place] [address], [place] [address] Dec, [facility] [address] [id number] [address] [place] [address], [place] [address] Dec, [facility] [address] [id number] [address] [place] [address], [place] [address] Dec, [facility] [address] [id number] [address] [place] [address], [place] [address] Dec, [facility] [address] [id number] [address] [place] [address], [place] [address] Dec, [facility] [address] [id number] [address] [place] [address], [place] [address] 19 Nov, 2013 [facility] [address] [id number] [address] [place] [address], [place] [address] 19 Nov, 2013 [facility] [address] [id number] [address] [place] [address], [place] [address] 08 Nov, 2013 [facility] [address] [id number] [address] [place] [address], [place] [address] Nov, [facility] [address] [id number] [facility] [place] [address] Nov, [facility] [address] [id number] [facility] [place] [address] Nov, [facility] [address] [id number] [facility] [place] [address] Oct, [facility] [address] [id number] [address] [place] [address], [place] [address] Oct, [facility] [address] [id number] [address] [place] [address], [place] [address] Oct, [facility] [address] [id number] [address] [place] [address], [place] [address] Oct, [facility] [address] [id number] [address] [place] [address], [place] [address] Oct, [facility] [address] [id number] [address] [place] [address], [place] [address] Oct, [facility] [address] [id number] [address] [place] [address], [place] [address] Oct, [facility] [address] [id number] [address] [place] [address], [place] [address] Oct, [facility] [address] [id number] [address] [place] [address], [place] [address] Oct, [facility] [address] [id number] [address] [place] [address], [place] [address] Oct, [facility] [address] [id number] [address] [place] [address], [place] [address] Oct, [facility] [address] [id number] [address] [place] [address], [place] [address] Sep, [facility] [address] [id number] [address] [place] [address], [place] [address] Sep, [facility] [address] [id number] [address] [place] [address], [place] [address] July, [facility] [address] [id number] [address] [place] [address], [place] [address] July, [facility] [address] [id number] [address] [place] [address], [place] [address] Feb, [facility] [address] [id number] [address] [place] [address], [place] [address] Feb, [facility] [address] [id number] [address] [place] [address], [place] [address] Dec, [facility] [address] [id number] [address] [place] [address], [place] [address] Nov, [facility] [address] [id number] [address] [place] [address], [place] [address] Oct, [facility] [address] [id number] [address] [place] [address], [place] [address] Oct, [facility] [address] [id number] [address] [place] [address], [place] [address] Oct, [facility] [address] [id number] [address] [place] [address], [place] [address] Sep, [facility] [address] [id number] [address] [place] [address], [place] [address] Sep, [facility] [address] [id number] [address] [place] [address], [place] [address] Aug, [facility] [address] [id number] [address] [place] [address], [place] [address] July, [facility] [address] [id number] [address] [place] [address], [place] [address] Mar, [facility] [address] [id number] [address] [place] [address], [place] [address] Jan, [facility] [address] [id number] [address] [place] [address], [place] [address] Jan, [facility] [address] [id number] [address] [place] [address], [place] [address] Jan, [facility] [address] [id number] [address] [place] [address], [place] [address] Jan, [facility] [address] [id number] [address] [place] [address], [place] [address] Dec, [facility] [address] [id number] [address] [place] [address], [place] [address] Dec, [facility] [address] [id number] [address] [place] [address], [place] [address] Dec, [facility] [address] [id number] [address] [place] [address], [place] [address] Dec, [facility] [address] [id number] [address] [place] [address], [place] [address] Dec, [facility] [address] [id number] [address] [place] [address], [place] [address] Dec, [facility] [address] [id number] [address] [place] [address], [place] [address] Oct, [facility] [address] [id number] [address] [place] [address], [place] [address] Oct, [facility] [address] [id number] [address] [place] [address], [place] [address] Sep, [facility] [address] [id number] [address] [place] [address], [place] [address] Aug, [facility] [address] [id number] [address] [place] [address], [place] [address] Aug, [facility] [address] [id number] [address] [place] [address], [place] [address] July, [facility] [address] [id number] [address] [place] [address], [place] [address] July, [facility] [address] [id number] [address] [address] July, [facility] [address] [id number] [address] [place] [address], [place] [address] July, [facility] [address] [id number] [address] [place] [address], [place] [address] July, [facility] [address] [id number] [address] [place] [address], [place] [address] Jun, [facility] [address] [id number] [address] [place] [address], [place] [address] May, [facility] [address] [id number] [address] [place] [address], [place] [address] May, [facility] [address] [id number] [address] [place] [address], [place] [address] Apr, [facility] [address] [id number] [address] [place] [address], [place] [address] Apr, [facility] [address] [id number] [address] [place] [address], [place] [address] Apr, [facility] [address] [id number] [address] [place] [address], [place] [address] Apr, [facility] [address] [id number] [address] [place] [address], [place] [address] Apr, [facility] [address] [id number] [address] [place] [address], [place] [address] Apr, [facility] [address] [id number] [address] [place] [address], [place] [address] Mar, [facility] [address] [id number] [address] [place] [address], [place] [address] Mar, [facility] [address] [id number] [address] [place] [address], [place] [address] Mar, [facility] [address] [id number] [address] [place] [address], [place] [address] Mar, [facility] [address] [id number] [address] [place] [address] Mar, [facility] [address] [id number] [address] [place] [address] Jan, [facility] [address] [id number] [address] [place] [address] Dec, [facility] [address] [id number] [address] [place] [address] Dec, [facility] [address] [id number] [address] [place] [address] Feb, [facility] [address] [id number] [address] [place] [address] Jan, [facility] [address] [id number] [address] [place] [address] Jan, [facility] [address] [id number] [address] [place] [address] Jan, [facility] [address] [id number] [address] [place] [address] Jan, [facility] [address] [id number] [address] [place] [address] Dec, [facility] [address] [id number] [address] [place] [address] Sep, [facility] [address] [id number] [address] [place] [address] Oct, IMMUNIZATIONS No Known Immunizations SOCIAL HISTORY [...]
[2019-08-06 05:40] VITALS: BP 115/78
--- OUTSIDE RECORDS SUMMARY | 2019-08-06 05:40 | XMS REPORT ---
Author Author Annabella DUFFY [facility] Address [address] [place] [address] Care Team Providers Care Chemical Unit Operator Name Role Phone JORDIN DUFFY Unavailable PROBLEMS Type Condition ICD9-CM Code [id number] Code Onset Dates Condition S tatus SNOMED Code Problem Counseling on substance use and abuse V65.42 Active 115382659 Problem Screening for malignant neoplasm of the cervix V76.2 Active 739058776 Problem Personal history of tobacco use, presenting hazards to health V15.82 Active 6926313381182 Problem Unspecified contraceptive management V25.9 Active 662385744 Problem VARICELLA DX V05.4 Active Problem Routine general medical examination at [facility] y V70.0 Active 181121634 Problem Lumbar sprain and strain 847.2 Activ e 805617949 Problem Need for prophylactic vaccination and inoculation, Influen za V04.81 Active 146604536 Problem Cough 786.2 Active 11884168 Problem Degeneration of lumbar or lumbosacral intervertebral disc 722.52 Active 71243291 Problem Other dyschromia 709.09 Active 325 3007 Problem Major depressive disorder, single episode, moderate 296.22 Active 33178890 Problem Unspecified abnormal mammogram 793.80 Active 892455952 Problem Hypoglycemia, unspecified 251.2 Acti ve 457407241 Problem Mammographic microcalcification 793.81 Active 05471093927552 Problem Personal history of underimmunization status V15.83 Active 291132901 Problem Contact dermatitis and other eczema, due to unspecified ca use 692.9 Active 33246511 Problem Lumbago 724.2 Active 633218241 Problem Irregular menstrual cycle 626.4 Acti ve 77291532 Problem Attention deficit disorder o f childhood without mention of hyperactivity 314.00 Active 14449560 ALLERGIES No Information ENCOUNTERS Encounter Location Date Diagnosis [facility] [address] [facility] [id number] [address] [place] [address] Apr, Gastroenteritis K52.9 [facility] [address] [id number] [address] [place] [address] Oct, [facility] [address] [id number] [address] [place] [address] Oct, [facility] [address] [id number] [address] [place] [address] July, Status post partial hysterec shivani V88.02 ; Back pain 724.5 ; Arthralgia 719.40 and Nicotine addiction 305.1 [facility] [address] [id number] [address] [place] [address] Jun, [facility] [address] [id number] [address] [place] [address] Jun, [facility] [address] [id number] [address] [place] [address] Feb, [facility] [address] [id number] [address] [place] [address] Feb, [facility] [address] [id number] [address] [place] [address] Feb, [facility] [address] [id number] [address] [place] [address] Jan, [facility] [address] [id number] [address] [place] [address] Jan, [facility] [address] [id number] [address] [place] [address] Jan, [facility] [address] [id number] [address] [place] [address] Jan, [facility] [address] [id number] [address] [place] [address] Jan, [facility] [address] [id number] [address] [place] [address] Jan, [facility] [address] [id number] [address] [place] [address], [place] [address] Jan, [facility] [address] [id number] [address] [place] [address], [place] [address] Jan, [facility] [address] [id number] [address] [place] [address], [place] [address] Dec, [facility] [address] [id number] [address] [place] [address], [place] [address] Dec, [facility] [address] [id number] [address] [place] [address], [place] [address] Dec, [facility] [address] [id number] [address] [place] [address], [place] [address] Dec, [facility] [address] [id number] [address] [place] [address], [place] [address] Dec, [facility] [address] [id number] [address] [place] [address], [place] [address] Dec, [facility] [address] [id number] [address] [place] [address], [place] [address] Dec, [facility] [address] [id number] [address] [place] [address], [place] [address] Dec, [facility] [address] [id number] [address] [place] [address], [place] [address] Dec, [facility] [address] [id number] [address] [place] [address], [place] [address] Dec, [facility] [address] [id number] [address] [place] [address], [place] [address] 19 Nov, 2013 [facility] [address] [id number] [address] [place] [address], [place] [address] 19 Nov, 2013 [facility] [address] [id number] [address] [place] [address], [place] [address] 08 Nov, 2013 [facility] [address] [id number] [address] [place] [address], [place] [address] Nov, [facility] [address] [id number] [facility] [address] Nov, [facility] [address] [id number] [facility] [address] Nov, [facility] [address] [id number] [facility] [address] Oct, [facility] [address] [id number] [address] [place] [address], [place] [address] Oct, [facility] [address] [id number] [address] [place] [address], [place] [address] Oct, [facility] [address] [id number] [address] [place] [address], [place] [address] Oct, [facility] [address] [id number] [address] [place] [address], [place] [address] Oct, [facility] [address] [id number] [address] [place] [address], [place] [address] Oct, [facility] [address] [id number] [address] [place] [address], [place] [address] Oct, [facility] [address] [id number] [address] [place] [address], [place] [address] Oct, [facility] [address] [id number] [address] [place] [address], [place] [address] Oct, [facility] [address] [id number] [address] [place] [address], [place] [address] Oct, [facility] [address] [id number] [address] [place] [address], [place] [address] Oct, [facility] [address] [id number] [address] [place] [address], [place] [address] Sep, [facility] [address] [id number] [address] [place] [address], [place] [address] Sep, [facility] [address] [id number] [address] [place] [address], [place] [address] July, [facility] [address] [id number] [address] [place] [address], [place] [address] July, [facility] [address] [id number] [address] [place] [address], [place] [address] Feb, [facility] [address] [id number] [address] [place] [address], [place] [address] Feb, [facility] [address] [id number] [address] [place] [address], [place] [address] Dec, [facility] [address] [id number] [address] [place] [address], [place] [address] Nov, [facility] [address] [id number] [address] [place] [address], [place] [address] Oct, [facility] [address] [id number] [address] [place] [address], [place] [address] Oct, [facility] [address] [id number] [address] [place] [address], [place] [address] Oct, [facility] [address] [id number] [address] [place] [address], [place] [address] Sep, [facility] [address] [id number] [address] [place] [address], [place] [address] Sep, [facility] [address] [id number] [address] [place] [address], [place] [address] Aug, [facility] [address] [id number] [address] [place] [address], [place] [address] July, [facility] [address] [id number] [address] [place] [address], [place] [address] Mar, [facility] [address] [id number] [address] [place] [address], [place] [address] Jan, [facility] [address] [id number] [address] [place] [address], [place] [address] Jan, [facility] [address] [id number] [address] [place] [address], [place] [address] Jan, [facility] [address] [id number] [address] [place] [address], [place] [address] Jan, [facility] [address] [id number] [address] [place] [address], [place] [address] Dec, [facility] [address] [id number] [address] [place] [address], [place] [address] Dec, [facility] [address] [id number] [address] [place] [address], [place] [address] Dec, [facility] [address] [id number] [address] [place] [address], [place] [address] Dec, [facility] [address] [id number] [address] [place] [address], [place] [address] Dec, [facility] [address] [id number] [address] [place] [address], [place] [address] Dec, [facility] [address] [id number] [address] [place] [address], [place] [address] Oct, [facility] [address] [id number] [address] [place] [address], [place] [address] Oct, [facility] [address] [id number] [address] [place] [address], [place] [address] Sep, [facility] [address] [id number] [address] [place] [address], [place] [address] Aug, [facility] [address] [id number] [address] [place] [address], [place] [address] Aug, [facility] [address] [id number] [address] [place] [address], [place] [address] July, [facility] [address] [id number] [address] [place] [address], [place] [address] July, [facility] [address] [id number] [address], [place] [address] July, [facility] [address] [id number] [address] [place] [address], [place] [address] July, [facility] [address] [id number] [address] [place] [address], [place] [address] July, [facility] [address] [id number] [address] [place] [address], [place] [address] Jun, [facility] [address] [id number] [address] [place] [address], [place] [address] May, [facility] [address] [id number] [address] [place] [address], [place] [address] May, [facility] [address] [id number] [address] [place] [address], [place] [address] Apr, [facility] [address] [id number] [address] [place] [address], [place] [address] Apr, [facility] [address] [id number] [address] [place] [address], [place] [address] Apr, [facility] [address] [id number] [address] [place] [address], [place] [address] Apr, [facility] [address] [id number] [address] [place] [address], [place] [address] Apr, [facility] [address] [id number] [address] [place] [address], [place] [address] Apr, [facility] [address] [id number] [address] [place] [address], [place] [address] Mar, [facility] [address] [id number] [address] [place] [address], [place] [address] Mar, [facility] [address] [id number] [address] [place] [address], [place] [address] Mar, [facility] [address] [id number] [address] [place] [address], [place] [address] Mar, [facility] [address] [id number] [address] [place] [address] Mar, [facility] [address] [id number] [address] [place] [address] Jan, [facility] [address] [id number] [address] [place] [address] Dec, [facility] [address] [id number] [address] [place] [address] Dec, [facility] [address] [id number] [address] [place] [address] Feb, [facility] [address] [id number] [address] [place] [address] Jan, [facility] [address] [id number] [address] [place] [address] Jan, [facility] [address] [id number] [address] [place] [address] Jan, [facility] [address] [id number] [address] [place] [address] Jan, [facility] [address] [id number] [address] [place] [address] Dec, [facility] [address] [id number] [address] [place] [address] Sep, [facility] [address] [id number] [address] [place] [address] Oct, IMMUNIZATIONS No Known Immunizations SOCIAL HISTORY [...]
--- OUTSIDE RECORDS SUMMARY | 2019-08-06 05:40 | XMS REPORT ---
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 Name Role Phone JORDIN DUFFY Unavailable PROBLEMS Type Condition ICD9-CM Code FMJ11-HQ Code Onset Dates Condition S tatus SNOMED Code Problem Counseling on substance use and abuse V65.42 Active 493500776 Problem Screening for malignant neoplasm of the cervix V76.2 Active 995818931 Problem Personal history of tobacco use, presenting hazards to health V15.82 Active 4925275214732 Problem Unspecified contraceptive management V25.9 Active 708086715 Problem VARICELLA DX V05.4 Active Problem Routine general medical examination at [facility] y V70.0 Active 587064015 Problem Lumbar sprain and strain 847.2 Activ e 006742231 Problem Need for prophylactic vaccination and inoculation, Influen za V04.81 Active 581393442 Problem Cough 786.2 Active 21426031 Problem Degeneration of lumbar or lumbosacral intervertebral disc 722.52 Active 81466030 Problem Other dyschromia 709.09 Active 325 3007 Problem Major depressive disorder, single episode, moderate 296.22 Active 89299776 Problem Unspecified abnormal mammogram 793.80 Active 685009508 Problem Hypoglycemia, unspecified 251.2 Acti ve 731813523 Problem Mammographic microcalcification 793.81 Active [id number] Problem Personal history of underimmunization status V15.83 Active 624575225 Problem Contact dermatitis and other eczema, due to unspecified ca use 692.9 Active 93967822 Problem Lumbago 724.2 Active 262438873 Problem Irregular menstrual cycle 626.4 Acti ve 51147745 Problem Attention deficit disorder o f childhood without mention of hyperactivity 314.00 Active 02884731 ALLERGIES No Information ENCOUNTERS Encounter Location Date Diagnosis [facility] [address] [facility] [id number] [address] [place] [address] Apr, Gastroenteritis K52.9 [facility] [address] [id number] [address] [place] [address] Oct, [facility] [address] [id number] [address] [place] [address] Oct, [facility] [address] [id number] [address] [place] [address] July, Status post partial hysterec shivani V88.02 ; Back pain 724.5 ; Arthralgia 719.40 and Nicotine addiction 305.1 [facility] [address] [id number] [address] [place] [address] Jun, [facility] [address] [id number] [address] [place] [address] Jun, [facility] [address] [id number] [address] [place] [address] Feb, [facility] [address] [id number] [address] [place] [address] Feb, [facility] [address] [id number] [address] [place] [address] Feb, [facility] [address] [id number] [address] [place] [address] Jan, [facility] [address] [id number] [address] [place] [address] Jan, [facility] [address] [id number] [address] [place] [address] Jan, [facility] [address] [id number] [address] [place] [address] Jan, [facility] [address] [id number] [address] [place] [address] Jan, [facility] [address] [id number] [address] [place] [address] Jan, [facility] [address] [id number] [address] [place] [address], [place] [address] Jan, [facility] [address] [id number] [address] [place] [address], [place] [address] Jan, [facility] [address] [id number] [address] [place] [address], [place] [address] Dec, [facility] [address] [id number] [address] [place] [address], [place] [address] Dec, [facility] [address] [id number] [address] [place] [address], [place] [address] Dec, [facility] [address] [id number] [address] [place] [address], [place] [address] Dec, [facility] [address] [id number] [address] [place] [address], [place] [address] Dec, [facility] [address] [id number] [address] [place] [address], [place] [address] Dec, [facility] [address] [id number] [address] [place] [address], [place] [address] Dec, [facility] [address] [id number] [address] [place] [address], [place] [address] Dec, [facility] [address] [id number] [address] [place] [address], [place] [address] Dec, [facility] [address] [id number] [address] [place] [address], [place] [address] Dec, [facility] [address] [id number] [address] [place] [address], [place] [address] 19 Nov, 2013 [facility] [address] [id number] [address] [place] [address], [place] [address] 19 Nov, 2013 [facility] [address] [id number] [address] [place] [address], [place] [address] 08 Nov, 2013 [facility] [address] [id number] [address] [place] [address], [place] [address] Nov, [facility] [address] [id number] [address] [place] [address] Nov, [facility] [address] [id number] [facility] [place] [address] Nov, [facility] [address] [id number] [facility] [place] [address] Oct, [facility] [address] [id number] [address] [place] [address], [place] [address] Oct, [facility] [address] [id number] [address] [place] [address], [place] [address] Oct, [facility] [address] [id number] [address] [place] [address], [place] [address] Oct, [facility] [address] [id number] [address] [place] [address], [place] [address] Oct, [facility] [address] [id number] [address] [place] [address], [place] [address] Oct, [facility] [address] [id number] [address] [place] [address], [place] [address] Oct, [facility] [address] [id number] [address] [place] [address], [place] [address] Oct, [facility] [address] [id number] [address] [place] [address], [place] [address] Oct, [facility] [address] [id number] [address] [place] [address], [place] [address] Oct, [facility] [address] [id number] [address] [place] [address], [place] [address] Oct, [facility] [address] [id number] [address] [place] [address], [place] [address] Sep, [facility] [address] [id number] [address] [place] [address], [place] [address] Sep, [facility] [address] [id number] [address] [place] [address], [place] [address] July, [facility] [address] [id number] [address] [place] [address], [place] [address] July, [facility] [address] [id number] [address] [place] [address], [place] [address] Feb, [facility] [address] [id number] [address] [place] [address], [place] [address] Feb, [facility] [address] [id number] [address] [place] [address], [place] [address] Dec, [facility] [address] [id number] [address] [place] [address], [place] [address] Nov, [facility] [address] [id number] [address] [place] [address], [place] [address] Oct, [facility] [address] [id number] [address] [place] [address], [place] [address] Oct, [facility] [address] [id number] [address] [place] [address], [place] [address] Oct, [facility] [address] [id number] [address] [place] [address], [place] [address] Sep, [facility] [address] [id number] [address] [place] [address], [place] [address] Sep, [facility] [address] [id number] [address] [place] [address], [place] [address] Aug, [facility] [address] [id number] [address] [place] [address], [place] [address] July, [facility] [address] [id number] [address] [place] [address], [place] [address] Mar, [facility] [address] [id number] [address] [place] [address], [place] [address] Jan, [facility] [address] [id number] [address] [place] [address], [place] [address] Jan, [facility] [address] [id number] [address] [place] [address], [place] [address] Jan, [facility] [address] [id number] [address] [place] [address], [place] [address] Jan, [facility] [address] [id number] [address] [place] [address], [place] [address] Dec, [facility] [address] [id number] [address] [place] [address], [place] [address] Dec, [facility] [address] [id number] [address] [place] [address], [place] [address] Dec, [facility] [address] [id number] [address] [place] [address], [place] [address] Dec, [facility] [address] [id number] [address] [place] [address], [place] [address] Dec, [facility] [address] [id number] [address] [place] [address], [place] [address] Dec, [facility] [address] [id number] [address] [place] [address], [place] [address] Oct, [facility] [address] [id number] [address] [place] [address], [place] [address] Oct, [facility] [address] [id number] [address] [place] [address], [place] [address] Sep, [facility] [address] [id number] [address] [place] [address], [place] [address] Aug, [facility] [address] [id number] [address] [place] [address], [place] [address] Aug, [facility] [address] [id number] [address] [place] [address], [place] [address] July, [facility] [address] [id number] [address] [place] [address], [place] [address] July, [facility] [address] [id number] [address] [address] July, [facility] [address] [id number] [address] [place] [address], [place] [address] July, [facility] [address] [id number] [address] [place] [address], [place] [address] July, [facility] [address] [id number] [address] [place] [address], [place] [address] Jun, [facility] [address] [id number] [address] [place] [address], [place] [address] May, [facility] [address] [id number] [address] [place] [address], [place] [address] May, [facility] [address] [id number] [address] [place] [address], [place] [address] Apr, [facility] [address] [id number] [address] [place] [address], [place] [address] Apr, [facility] [address] [id number] [address] [place] [address], [place] [address] Apr, [facility] [address] [id number] [address] [place] [address], [place] [address] Apr, [facility] [address] [id number] [address] [place] [address], [place] [address] Apr, [facility] [address] [id number] [address] [place] [address], [place] [address] Apr, [facility] [address] [id number] [address] [place] [address], [place] [address] Mar, [facility] [address] [id number] [address] [place] [address], [place] [address] Mar, [facility] [address] [id number] [address] [place] [address], [place] [address] Mar, [facility] [address] [id number] [address] [place] [address], [place] [address] Mar, [facility] [address] [id number] [address] [place] [address] Mar, [facility] [address] [id number] [address] [place] [address] Jan, [facility] [address] [id number] [address] [place] [address] Dec, [facility] [address] [id number] [address] [place] [address] Dec, [facility] [address] [id number] [address] [place] [address] Feb, [facility] [address] [id number] [address] [place] [address] Jan, [facility] [address] [id number] [address] [place] [address] Jan, [facility] [address] [id number] [address] [place] [address] Jan, [facility] [address] [id number] [address] [place] [address] Jan, [facility] [address] [id number] [address] [place] [address] Dec, [facility] [address] [id number] [address] [place] [address] Sep, [facility] [address] [id number] [address] [place] [address] Oct, IMMUNIZATIONS No Known Immunizations SOCIAL HISTORY Never Assessed REASON FOR VISIT PLAN OF CARE VITAL SIGNS MEDICATIONS No Known Medications RESULTS No Results PROCEDURES Procedure Date Ordered Result Body Site MAMMOGRAM, SCREENING Jan 29, 2014 COMPUTER DX MAMMOGRAM ADD-ON Jan 29, 2014 INSTRUCTIONS MEDICATIONS ADMINISTERED No Known Medications MEDICAL [...]
--- OUTSIDE RECORDS SUMMARY | 2019-08-06 05:40 | XMS REPORT ---
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 Name Role Phone NITHYA ALLY Unavailable PROBLEMS Type Condition ICD9-CM Code QSM94-XG Code Onset Dates Condition S tatus SNOMED Code Problem Counseling on substance use and abuse V65.42 Active 128301699 Problem Screening for malignant neoplasm of the cervix V76.2 Active 318930478 Problem Personal history of tobacco use, presenting hazards to health V15.82 Active 3140422691902 Problem Unspecified contraceptive management V25.9 Active 998685592 Problem VARICELLA DX V05.4 Active Problem Routine general medical examination at [facility] y V70.0 Active 324085680 Problem Lumbar sprain and strain 847.2 Activ e 759502989 Problem Need for prophylactic vaccination and inoculation, Influen za V04.81 Active 492911675 Problem Cough 786.2 Active 27194827 Problem Degeneration of lumbar or lumbosacral intervertebral disc 722.52 Active 33463618 Problem Other dyschromia 709.09 Active 325 3007 Problem Major depressive disorder, single episode, moderate 296.22 Active 29615125 Problem Unspecified abnormal mammogram 793.80 Active 006284108 Problem Hypoglycemia, unspecified 251.2 Acti ve 606506709 Problem Mammographic microcalcification 793.81 Active 03734813321940 Problem Personal history of underimmunization status V15.83 Active 488540378 Problem Contact dermatitis and other eczema, due to unspecified ca use 692.9 Active 86923573 Problem Lumbago 724.2 Active 341887082 Problem Irregular menstrual cycle 626.4 Acti ve 40831625 Problem Attention deficit disorder o f childhood without mention of hyperactivity 314.00 Active 36662711 ALLERGIES No Information ENCOUNTERS Encounter Location Date Diagnosis [facility] [address] [facility] [id number] [address] [place] [address] Apr, Gastroenteritis K52.9 [facility] [address] [id number] [address] [place] [address] Oct, [facility] [address] [id number] [address] [place] [address] Oct, [facility] [address] [id number] [address] [place] [address] July, Status post partial hysterec shivani V88.02 ; Back pain 724.5 ; Arthralgia 719.40 [address] [facility] [address] [id number] [address] [place] [address] Jun, [facility] [address] [id number] [address] [place] [address] Jun, [facility] [address] [id number] [address] [place] [address] Feb, [facility] [address] [id number] [address] [place] [address] Feb, [facility] [address] [id number] [address] [place] [address] Feb, [facility] [address] [id number] [address] [place] [address] Jan, [facility] [address] [id number] [address] [place] [address] Jan, [facility] [address] [id number] [address] [place] [address] Jan, [facility] [address] [id number] [address] [place] [address] Jan, [facility] [address] [id number] [address] [place] [address] Jan, [facility] [address] [id number] [address] [place] [address] Jan, [facility] [address] [id number] [address] [place] [address], [place] [address] Jan, [facility] [address] [id number] [address] [place] [address], [place] [address] Jan, [facility] [address] [id number] [address] [place] [address], [place] [address] Dec, [facility] [address] [id number] [address] [place] [address], [place] [address] Dec, [facility] [address] [id number] [address] [place] [address], [place] [address] Dec, [facility] [address] [id number] [address] [place] [address], [place] [address] Dec, [facility] [address] [id number] [address] [place] [address], [place] [address] Dec, [facility] [address] [id number] [address] [place] [address], [place] [address] Dec, [facility] [address] [id number] [address] [place] [address], [place] [address] Dec, [facility] [address] [id number] [address] [place] [address], [place] [address] Dec, [facility] [address] [id number] [address] [place] [address], [place] [address] Dec, [facility] [address] [id number] [address] [place] [address], [place] [address] Dec, [facility] [address] [id number] [address] [place] [address], [place] [address] 19 Nov, 2013 [facility] [address] [id number] [address] [place] [address], [place] [address] 19 Nov, 2013 [facility] [address] [id number] [address] [place] [address], [place] [address] 08 Nov, 2013 [facility] [address] [id number] [address] [place] [address], [place] [address] Nov, [facility] [address] [id number] [address] [place] [address] Nov, [facility] [address] [id number] [facility] [place] [address] Nov, [facility] [address] [id number] [facility] [place] [address] Oct, [facility] [address] [id number] [address] [place] [address], [place] [address] Oct, [facility] [address] [id number] [address] [place] [address], [place] [address] Oct, [facility] [address] [id number] [address] [place] [address], [place] [address] Oct, [facility] [address] [id number] [address] [place] [address], [place] [address] Oct, [facility] [address] [id number] [address] [place] [address], [place] [address] Oct, [facility] [address] [id number] [address] [place] [address], [place] [address] Oct, [facility] [address] [id number] [address] [place] [address], [place] [address] Oct, [facility] [address] [id number] [address] [place] [address], [place] [address] Oct, [facility] [address] [id number] [address] [place] [address], [place] [address] Oct, [facility] [address] [id number] [address] [place] [address], [place] [address] Oct, [facility] [address] [id number] [address] [place] [address], [place] [address] Sep, [facility] [address] [id number] [address] [place] [address], [place] [address] Sep, [facility] [address] [id number] [address] [place] [address], [place] [address] July, [facility] [address] [id number] [address] [place] [address], [place] [address] July, [facility] [address] [id number] [address] [place] [address], [place] [address] Feb, [facility] [address] [id number] [address] [place] [address], [place] [address] Feb, [facility] [address] [id number] [address] [place] [address], [place] [address] Dec, [facility] [address] [id number] [address] [place] [address], [place] [address] Nov, [facility] [address] [id number] [address] [place] [address], [place] [address] Oct, [facility] [address] [id number] [address] [place] [address], [place] [address] Oct, [facility] [address] [id number] [address] [place] [address], [place] [address] Oct, [facility] [address] [id number] [address] [place] [address], [place] [address] Sep, [facility] [address] [id number] [address] [place] [address], [place] [address] Sep, [facility] [address] [id number] [address] [place] [address], [place] [address] Aug, [facility] [address] [id number] [address] [place] [address], [place] [address] July, [facility] [address] [id number] [address] [place] [address], [place] [address] Mar, [facility] [address] [id number] [address] [place] [address], [place] [address] Jan, [facility] [address] [id number] [address] [place] [address], [place] [address] Jan, [facility] [address] [id number] [address] [place] [address], [place] [address] Jan, [facility] [address] [id number] [address] [place] [address], [place] [address] Jan, [facility] [address] [id number] [address] [place] [address], [place] [address] Dec, [facility] [address] [id number] [address] [place] [address], [place] [address] Dec, [facility] [address] [id number] [address] [place] [address], [place] [address] Dec, [facility] [address] [id number] [address] [place] [address], [place] [address] Dec, [facility] [address] [id number] [address] [place] [address], [place] [address] Dec, [facility] [address] [id number] [address] [place] [address], [place] [address] Dec, [facility] [address] [id number] [address] [place] [address], [place] [address] Oct, [facility] [address] [id number] [address] [place] [address], [place] [address] Oct, [facility] [address] [id number] [address] [place] [address], [place] [address] Sep, [facility] [address] [id number] [address] [place] [address], [place] [address] Aug, [facility] [address] [id number] [address] [place] [address], [place] [address] Aug, [facility] [address] [id number] [address] [place] [address], [place] [address] July, [facility] [address] [id number] [address] [place] [address], [place] [address] July, [facility] [address] [id number] [address] [address] July, [facility] [address] [id number] [address] [place] [address], [place] [address] July, [facility] [address] [id number] [address] [place] [address], [place] [address] July, [facility] [address] [id number] [address] [place] [address], [place] [address] Jun, [facility] [address] [id number] [address] [place] [address], [place] [address] May, [facility] [address] [id number] [address] [place] [address], [place] [address] May, [facility] [address] [id number] [address] [place] [address], [place] [address] Apr, [facility] [address] [id number] [address] [place] [address], [place] [address] Apr, [facility] [address] [id number] [address] [place] [address], [place] [address] Apr, [facility] [address] [id number] [address] [place] [address], [place] [address] Apr, [facility] [address] [id number] [address] [place] [address], [place] [address] Apr, [facility] [address] [id number] [address] [place] [address], [place] [address] Apr, [facility] [address] [id number] [address] [place] [address], [place] [address] Mar, [facility] [address] [id number] [address] [place] [address], [place] [address] Mar, [facility] [address] [id number] [address] [place] [address], [place] [address] Mar, [facility] [address] [id number] [address] [place] [address], [place] [address] Mar, [facility] [address] [id number] [address] [place] [address] Mar, [facility] [address] [id number] [address] [place] [address] Jan, [facility] [address] [id number] [address] [place] [address] Dec, [facility] [address] [id number] [address] [place] [address] Dec, [facility] [address] [id number] [address] [place] [address] Feb, [facility] [address] [id number] [address] [place] [address] Jan, [facility] [address] [id number] [address] [place] [address] Jan, [facility] [address] [id number] [address] [place] [address] Jan, [facility] [address] [id number] [address] [place] [address] Jan, [facility] [address] [id number] [address] [place] [address] Dec, [facility] [address] [id number] [address] [place] [address] Sep, [facility] [address] [id number] [address] [place] [address] Oct, IMMUNIZATIONS No Known Immunizations SOCIAL HISTORY [...] (LEEP) & cryo Surgical History uterine ablation ([facility]) 2012 Surgical History breast biopsy (L) calcifications/benign ([facility]) 04/2011 Surgical History hysterectomy 02/21/2014 Hospitalization History child x2 Hospitalization History Migraine
--- OUTSIDE RECORDS SUMMARY | 2019-08-06 05:40 | XMS REPORT ---
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 Role Phone NISHANT BENSON Unavailable PROBLEMS Type Condition ICD9-CM Code IZI01-PH Code Onset Dates Condition S tatus SNOMED Code Problem Counseling on substance use and abuse V65.42 Active 237499518 Problem Screening for malignant neoplasm of the cervix V76.2 Active 180034955 Problem Personal history of tobacco use, presenting hazards to health V15.82 Active 4052240408151 Problem Unspecified contraceptive management V25.9 Active 715271850 Problem VARICELLA DX V05.4 Active Problem Routine general medical examination at [facility] V70.0 Active 256748909 Problem Lumbar sprain and strain 847.2 Activ e 159203078 Problem Need for prophylactic vaccination and inoculation, Influen za V04.81 Active 116555720 Problem Cough 786.2 Active 45689466 Problem Degeneration of lumbar or lumbosacral intervertebral disc 722.52 Active 85693329 Problem Other dyschromia 709.09 Active 325 3007 Problem Major depressive disorder, single episode, moderate 296.22 Active 62689873 Problem Unspecified abnormal mammogram 793.80 Active 846301461 Problem Hypoglycemia, unspecified 251.2 Acti ve 643660746 Problem Mammographic microcalcification 793.81 Active 57510608062564 Problem Personal history of underimmunization status V15.83 Active 005205836 Problem Contact dermatitis and other eczema, due to unspecified ca use 692.9 Active 95526193 Problem Lumbago 724.2 Active 665765177 Problem Irregular menstrual cycle 626.4 Acti ve 94874600 Problem Attention deficit disorder o f childhood without mention of hyperactivity 314.00 Active 89712675 ALLERGIES No Information ENCOUNTERS Encounter Location Date Diagnosis [facility] [address] [facility] [id number] [address] [place] [address] Apr, Gastroenteritis K52.9 [facility] [address] [id number] [address] [place] [address] Oct, [facility] [address] [id number] [address] [place] [address] Oct, [facility] [address] [id number] [address] [place] [address] July, Status post partial hysterec shivani V88.02 ; Back pain 724.5 ; Arthralgia 719.40 and Nicotine addiction 305.1 [facility] [address] [id number] [address] [place] [address] Jun, [facility] [address] [id number] [address] [place] [address] Jun, [facility] [address] [id number] [address] [place] [address] Feb, [facility] [address] [id number] [address] [place] [address] Feb, [facility] [address] [id number] [address] [place] [address] Feb, [facility] [address] [id number] [address] [place] [address] Jan, [facility] [address] [id number] [address] [place] [address] Jan, [facility] [address] [id number] [address] [place] [address] Jan, [facility] [address] [id number] [address] [place] [address] Jan, [facility] [address] [id number] [address] [place] [address] Jan, [facility] [address] [id number] [address] [place] [address] Jan, [facility] [address] [id number] [address] [place] [address], [place] [address] Jan, [facility] [address] [id number] [address] [place] [address], [place] [address] Jan, [facility] [address] [id number] [address] [place] [address], [place] [address] Dec, [facility] [address] [id number] [address] [place] [address], [place] [address] Dec, [facility] [address] [id number] [address] [place] [address], [place] [address] Dec, [facility] [address] [id number] [address] [place] [address], [place] [address] Dec, [facility] [address] [id number] [address] [place] [address], [place] [address] Dec, [facility] [address] [id number] [address] [place] [address], [place] [address] Dec, [facility] [address] [id number] [address] [place] [address], [place] [address] Dec, [facility] [address] [id number] [address] [place] [address], [place] [address] Dec, [facility] [address] [id number] [address] [place] [address], [place] [address] Dec, [facility] [address] [id number] [address] [place] [address], [place] [address] Dec, [facility] [address] [id number] [address] [place] [address], [place] [address] Nov, [facility] [address] [id number] [address] [place] [address], [place] [address] 19 Nov, 2013 [facility] [address] [id number] [address] [place] [address], [place] [address] 08 Nov, 2013 [facility] [address] [id number] [address] [place] [address], [place] [address] Nov, [facility] [address] [id number] [address] [place] [address], [place] [address] Nov, [facility] [address] [id number] [address] [place] [address], [place] [address] Nov, [facility] [address] [id number] [address] [place] [address], [place] [address] Oct, [facility] [address] [id number] [address] [place] [address], [place] [address] Oct, [facility] [address] [id number] [address] [place] [address], [place] [address] Oct, [facility] [address] [id number] [address] [place] [address], [place] [address] Oct, [facility] [address] [id number] [address] [place] [address], [place] [address] Oct, [facility] [address] [id number] [address] [place] [address], [place] [address] Oct, [facility] [address] [id number] [address] [place] [address], [place] [address] Oct, [facility] [address] [id number] [address] [place] [address], [place] [address] Oct, [facility] [address] [id number] [address] [place] [address], [place] [address] Oct, [facility] [address] [id number] [address] [place] [address], [place] [address] Oct, [facility] [address] [id number] [address] [place] [address], [place] [address] Oct, [facility] [address] [id number] [address] [place] [address], [place] [address] Sep, [facility] [address] [id number] [address] [place] [address], [place] [address] Sep, [facility] [address] [id number] [address] [place] [address], [place] [address] July, [facility] [address] [id number] [address] [place] [address], [place] [address] July, [facility] [address] [id number] [address] [place] [address], [place] [address] Feb, [facility] [address] [id number] [address] [place] [address], [place] [address] Feb, [facility] [address] [id number] [address] [place] [address], [place] [address] Dec, [facility] [address] [id number] [address] [place] [address], [place] [address] Nov, [facility] [address] [id number] [address] [place] [address], [place] [address] Oct, [facility] [address] [id number] [address] [place] [address], [place] [address] Oct, [facility] [address] [id number] [address] [place] [address], [place] [address] Oct, [facility] [address] [id number] [address] [place] [address], [place] [address] Sep, [facility] [address] [id number] [address] [place] [address], [place] [address] Sep, [facility] [address] [id number] [address] [place] [address], [place] [address] Aug, [facility] [address] [id number] [address] [place] [address], [place] [address] July, [facility] [address] [id number] [address] [place] [address], [place] [address] Mar, [facility] [address] [id number] [address] [place] [address], [place] [address] Jan, [facility] [address] [id number] [address] [place] [address], [place] [address] Jan, [facility] [address] [id number] [address] [place] [address], [place] [address] Jan, [facility] [address] [id number] [address] [place] [address], [place] [address] Jan, [facility] [address] [id number] [address] [place] [address], [place] [address] Dec, [facility] [address] [id number] [address] [place] [address], [place] [address] Dec, [facility] [address] [id number] [address] [place] [address], [place] [address] Dec, [facility] [address] [id number] [address] [place] [address], [place] [address] Dec, [facility] [address] [id number] [address] [place] [address], [place] [address] Dec, [facility] [address] [id number] [address] [place] [address], [place] [address] Dec, [facility] [address] [id number] [address] [place] [address], [place] [address] Oct, [facility] [address] [id number] [address] [place] [address], [place] [address] Oct, [facility] [address] [id number] [address] [place] [address], [place] [address] Sep, [facility] [address] [id number] [address] [place] [address], [place] [address] Aug, [facility] [address] [id number] [address] [place] [address], [place] [address] Aug, [facility] [address] [id number] [address] [place] [address], [place] [address] July, [facility] [address] [id number] [address] [place] [address], [place] [address] July, [facility] [address] [id number] [address] [place] [address], [place] [address] July, [facility] [address] [id number] [address] [place] [address], [place] [address] July, [facility] [address] [id number] [address] [place] [address], [place] [address] July, [facility] [address] [id number] [address] [place] [address], [place] [address] Jun, [facility] [address] [id number] [address] [place] [address], [place] [address] May, [facility] [address] [id number] [address] [place] [address], [place] [address] May, [facility] [address] [id number] [address] [place] [address], [place] [address] Apr, [facility] [address] [id number] [address] [place] [address], [place] [address] Apr, [facility] [address] [id number] [address] [place] [address], [place] [address] Apr, [facility] [address] [id number] [address] [place] [address], [place] [address] Apr, [facility] [address] [id number] [address] [place] [address], [place] [address] Apr, [facility] [address] [id number] [address] [place] [address], [place] [address] Apr, [facility] [address] [id number] [address] [place] [address], [place] [address] Mar, [facility] [address] [id number] [address] [place] [address], [place] [address] Mar, [facility] [address] [id number] [address] [place] [address], [place] [address] Mar, [facility] [address] [id number] [address] [place] [address], [place] [address] Mar, [facility] [address] [id number] [address] [place] [address] Mar, [facility] [address] [id number] [address] [place] [address] Jan, [facility] [address] [id number] [address] [place] [address] Dec, [facility] [address] [id number] [address] [place] [address] Dec, [facility] [address] [id number] [address] [place] [address] Feb, [facility] [address] [id number] [address] [place] [address] Jan, [facility] [address] [id number] [address] [place] [address] Jan, [facility] [address] [id number] [address] [place] [address] Jan, [facility] [address] [id number] [address] [place] [address] Jan, [facility] [address] [id number] [address] [place] [address] Dec, [facility] [address] [id number] [address] [place] [address] Sep, [facility] [address] [id number] [address] [place] [address] Oct, IMMUNIZATIONS No Known Immunizations SOCIAL HISTORY Never Assessed REASON FOR VISIT PLAN OF CARE VITAL SIGNS Height 62 in 2013-09-21 Weight 132.5 lbs 2013-09-21 Temperature 98.4 degrees Fahrenheit 2013-09-21 Heart Rate 84 bpm 2013-09-21 Respiratory Rate 16 2013-09-21 Blood pressure systolic 110 mmHg 2013-09-21 Blood pressure diastolic 64 mmHg 2013-09-21 MEDICATIONS No Known Medications RESULTS No Results [...]
--- OUTSIDE RECORDS SUMMARY | 2019-08-06 05:40 | XMS REPORT ---
Author Author Annabella DUFFY [facility] Address [address] [place] [address] Care Team Providers Care Cherry Sorter Name Role Phone JORDIN DUFFY Unavailable PROBLEMS Type Condition ICD9-CM Code EHM43-CU Code Onset Dates Condition S tatus SNOMED Code Problem Counseling on substance use and abuse V65.42 Active 618441494 Problem Screening for malignant neoplasm of the cervix V76.2 Active 105651266 Problem Personal history of tobacco use, presenting hazards to health V15.82 Active 2649400392082 Problem Unspecified contraceptive management V25.9 Active 144650846 Problem VARICELLA DX V05.4 Active Problem Routine general medical examination at [facility] y V70.0 Active 665294694 Problem Lumbar sprain and strain 847.2 Activ e 109983678 Problem Need for prophylactic vaccination and inoculation, Influen za V04.81 Active 812669988 Problem Cough 786.2 Active 52904917 Problem Degeneration of lumbar or lumbosacral intervertebral disc 722.52 Active 17761951 Problem Other dyschromia 709.09 Active 325 3007 Problem Major depressive disorder, single episode, moderate 296.22 Active 36708428 Problem Unspecified abnormal mammogram 793.80 Active 323034066 Problem Hypoglycemia, unspecified 251.2 Acti ve 655034426 Problem Mammographic microcalcification 793.81 Active 81905229800752 Problem Personal history of underimmunization status V15.83 Active 237646791 Problem Contact dermatitis and other eczema, due to unspecified ca use 692.9 Active 98533806 Problem Lumbago 724.2 Active 451599085 Problem Irregular menstrual cycle 626.4 Acti ve 73835460 Problem Attention deficit disorder o f childhood without mention of hyperactivity 314.00 Active [id number] ALLERGIES No Information ENCOUNTERS Encounter Location Date Diagnosis [facility] [address] [facility] [id number] [address] [place] [address] Apr, Gastroenteritis K52.9 [facility] [address] [id number] [address] [place] [address] Oct, [facility] [address] [id number] [address] [place] [address] Oct, [facility] [address] [id number] [address] [place] [address] July, Status post partial hysterec shivani V88.02 ; Back pain 724.5 ; Arthralgia 719.40 and Nicotine addiction 305.1 [facility] [address] [id number] [address] [place] [address] Jun, [facility] [address] [id number] [address] [place] [phone] Jun, [facility] [address] [id number] [address] [place] [phone] Feb, [facility] [address] [id number] [address] [place] [address] Feb, [facility] [address] [id number] [address] [place] [phone] Feb, [facility] [address] [id number] [address] [place] [phone] Jan, [facility] [address] [id number] [address] [place] [phone] Jan, [facility] [address] [id number] [address] [place] [phone] Jan, [facility] [address] [id number] [address] [place] [phone] Jan, [facility] [address] [id number] [address] [place] [phone] Jan, [facility] [address] [id number] [address] [place] [phone] Jan, [facility] [address] [id number] [address] [place] [address], [place] [address] Jan, [facility] [address] [id number] [address] [place] [address], [place] [address] Jan, [facility] [address] [id number] [address] [place] [address], [place] [address] Dec, [facility] [address] [id number] [address] [place] [address], [place] [address] Dec, [facility] [address] [id number] [address] [place] [address], [place] [address] Dec, [facility] [address] [id number] [address] [place] [address], [place] [address] Dec, [facility] [address] [id number] [address] [place] [address], [place] [address] Dec, [facility] [address] [id number] [address] [place] [address], [place] [address] Dec, [facility] [address] [id number] [address] [place] [address], [place] [address] Dec, [facility] [address] [id number] [address] [place] [address], [place] [address] Dec, [facility] [address] [id number] [address] [place] [address], [place] [address] Dec, [facility] [address] [id number] [address] [place] [address], [place] [address] Dec, [facility] [address] [id number] [address] [place] [address], [place] [address] 19 Nov, 2013 [facility] [address] [id number] [address] [place] [address], [place] [address] 19 Nov, 2013 [facility] [address] [id number] [address] [place] [address], [place] [address] 08 Nov, 2013 [facility] [address] [id number] [address] [place] [address], [place] [address] Nov, [facility] [address] [id number] [facility] [place] [address] Nov, [facility] [address] [id number] [facility] [place] [address] Nov, [facility] [address] [id number] [facility] [place] [address] Oct, [facility] [address] [id number] [address] [place] [address], [place] [address] Oct, [facility] [address] [id number] [address] [place] [address], [place] [address] Oct, [facility] [address] [id number] [address] [place] [address], [place] [address] Oct, [facility] [address] [id number] [address] [place] [address], [place] [address] Oct, [facility] [address] [id number] [address] [place] [address], [place] [address] Oct, [facility] [address] [id number] [address] [place] [address], [place] [address] Oct, [facility] [address] [id number] [address] [place] [address], [place] [address] Oct, [facility] [address] [id number] [address] [place] [address], [place] [address] Oct, [facility] [address] [id number] [address] [place] [address], [place] [address] Oct, [facility] [address] [id number] [address] [place] [address], [place] [address] Oct, [facility] [address] [id number] [address] [place] [address], [place] [address] Sep, [facility] [address] [id number] [address] [place] [address], [place] [address] Sep, [facility] [address] [id number] [address] [place] [address], [place] [address] July, [facility] [address] [id number] [address] [place] [address], [place] [address] July, [facility] [address] [id number] [address] [place] [address], [place] [address] Feb, [facility] [address] [id number] [address] [place] [address], [place] [address] Feb, [facility] [address] [id number] [address] [place] [address], [place] [address] Dec, [facility] [address] [id number] [address] [place] [address], [place] [address] Nov, [facility] [address] [id number] [address] [place] [address], [place] [address] Oct, [facility] [address] [id number] [address] [place] [address], [place] [address] Oct, [facility] [address] [id number] [address] [place] [address], [place] [address] Oct, [facility] [address] [id number] [address] [place] [address], [place] [address] Sep, [facility] [address] [id number] [address] [place] [address], [place] [address] Sep, [facility] [address] [id number] [address] [place] [address], [place] [address] Aug, [facility] [address] [id number] [address] [place] [address], [place] [address] July, [facility] [address] [id number] [address] [place] [address], [place] [address] Mar, [facility] [address] [id number] [address] [place] [address], [place] [address] Jan, [facility] [address] [id number] [address] [place] [address], [place] [address] Jan, [facility] [address] [id number] [address] [place] [address], [place] [address] Jan, [facility] [address] [id number] [address] [place] [address], [place] [address] Jan, [facility] [address] [id number] [address] [place] [address], [place] [address] Dec, [facility] [address] [id number] [address] [place] [address], [place] [address] Dec, [facility] [address] [id number] [address] [place] [address], [place] [address] Dec, [facility] [address] [id number] [address] [place] [address], [place] [address] Dec, [facility] [address] [id number] [address] [place] [address], [place] [address] Dec, [facility] [address] [id number] [address] [place] [address], [place] [address] Dec, [facility] [address] [id number] [address] [place] [address], [place] [address] Oct, [facility] [address] [id number] [address] [place] [address], [place] [address] Oct, [facility] [address] [id number] [address] [place] [address], [place] [address] Sep, [facility] [address] [id number] [address] [place] [address], [place] [address] Aug, [facility] [address] [id number] [address] [place] [address], [place] [address] Aug, [facility] [address] [id number] [address] [place] [address], [place] [address] July, [facility] [address] [id number] [address] [place] [address], [place] [address] July, [facility] [address] [id number] [address] [address] July, [facility] [address] [id number] [address] [place] [address], [place] [address] July, [facility] [address] [id number] [address] [place] [address], [place] [address] July, [facility] [address] [id number] [address] [place] [address], [place] [address] Jun, [facility] [address] [id number] [address] [place] [address], [place] [address] May, [facility] [address] [id number] [address] [place] [address], [place] [address] May, [facility] [address] [id number] [address] [place] [address], [place] [address] Apr, [facility] [address] [id number] [address] [place] [address], [place] [address] Apr, [facility] [address] [id number] [address] [place] [address], [place] [address] Apr, [facility] [address] [id number] [address] [place] [address], [place] [address] Apr, [facility] [address] [id number] [address] [place] [address], [place] [address] Apr, [facility] [address] [id number] [address] [place] [address], [place] [address] Apr, [facility] [address] [id number] [address] [place] [address], [place] [address] Mar, [facility] [address] [id number] [address] [place] [address], [place] [address] Mar, [facility] [address] [id number] [address] [place] [address], [place] [address] Mar, [facility] [address] [id number] [address] [place] [address], [place] [address] Mar, [facility] [address] [id number] [address] [place] [address] Mar, [facility] [address] [id number] [address] [place] [id number] Jan, [facility] [address] [id number] [address] [place] [id number] Dec, [facility] [address] [id number] [address] [place] [address] Dec, [facility] [address] [id number] [address] [place] [address] Feb, [facility] [address] [id number] [address] [place] [id number] Jan, [facility] [address] [id number] [address] [place] [address] Jan, [facility] [address] [id number] [address] [place] [address] Jan, [facility] [address] [id number] [address] [place] [address] Jan, [facility] [address] [id number] [address] [place] [address] Dec, [facility] [address] [id number] [address] [place] [address] Sep, [facility] [address] [id number] [address] [place] [address] Oct, IMMUNIZATIONS No Known Immunizations SOCIAL HISTORY [...]
--- OUTSIDE RECORDS SUMMARY | 2019-08-06 05:40 | XMS REPORT ---
Author Author Annabella Victoria Doctor Organization [facility] Address Unknown Phone Unavailable Care Team Providers Care Road Freight Brake Coupler Name Role Phone Migration, Doctor Unavailable Unavailable PROBLEMS Type Condition ICD9-CM Code [id number] Code Onset Dates Condition S tatus SNOMED Code Problem Counseling on substance use and abuse V65.42 Active 741817301 Problem Screening for malignant neoplasm of the cervix V76.2 Active 802510478 Problem Personal history of tobacco use, presenting hazards to health V15.82 Active 6962594361953 Problem Unspecified contraceptive management V25.9 Active 007898745 Problem VARICELLA DX V05.4 Active Problem Routine general medical examination at [facility] y V70.0 Active 486359373 Problem Lumbar sprain and strain 847.2 Activ e 094175011 Problem Need for prophylactic vaccination and inoculation, Influen za V04.81 Active 930939698 Problem Cough 786.2 Active 57015955 Problem Degeneration of lumbar or lumbosacral intervertebral disc 722.52 Active 18492512 Problem Other dyschromia 709.09 Active 325 3007 Problem Major depressive disorder, single episode, moderate 296.22 Active 11000256 Problem Unspecified abnormal mammogram 793.80 Active 164968751 Problem Hypoglycemia, unspecified 251.2 Acti ve 041561039 Problem Mammographic microcalcification 793.81 Active [id number] Problem Personal history of underimmunization status V15.83 Active 874173356 Problem Contact dermatitis and other eczema, due to unspecified ca use 692.9 Active 98118596 Problem Lumbago 724.2 Active 660862565 Problem Irregular menstrual cycle 626.4 Acti ve 03354530 Problem Attention deficit disorder o f childhood without mention of hyperactivity 314.00 Active 99326688 ALLERGIES No Information ENCOUNTERS Encounter Location Date Diagnosis [facility] [address] [facility] [id number] [address] [place] [id number] Apr, Gastroenteritis K52.9 [facility] [address] [id number] [address] [place] [id number] Oct, [facility] [address] [id number] [address] [place] [phone] Oct, [facility] [address] [id number] [address] [place] [id number] July, Status post partial hysterec shivani V88.02 ; Back pain 724.5 ; Arthralgia 719.40 and Nicotine addiction 305.1 [facility] [address] [id number] [address] [place] [phone] Jun, [facility] [address] [id number] [address] [place] [id number] Jun, [facility] [address] [id number] [address] [place] [id number] Feb, [facility] [address] [id number] [address] [place] [phone] Feb, [facility] [address] [id number] [address] [place] [phone] Feb, [facility] [address] [id number] [address] [place] [phone] Jan, [facility] [address] [id number] [address] [place] [phone] Jan, [facility] [address] [id number] [address] [place] [phone] Jan, [facility] [address] [id number] [address] [place] [phone] Jan, [facility] [address] [id number] [address] [place] [id number] Jan, [facility] [address] [id number] [address] [place] [phone] Jan, [facility] [address] [id number] [address] [place] [phone] Jan, [facility] [place] [facility] [address] [id number] [address] [place] [address], [place] [address] Jan, [facility] [place] [facility] [address] [id number] [address] [place] [address], [place] [address] Dec, [facility] [place] [facility] [address] [id number] [address] [place] [address], [place] [address] Dec, [facility] [place] [facility] [address] [id number] [address] [place] [address], [place] [address] Dec, [facility] [place] [facility] [address] [id number] [address] [place] [address], [place] [address] Dec, [facility] [place] [facility] [address] [id number] [address] [place] [address], [place] [address] Dec, [facility] [place] [facility] [address] [id number] [address] [place] [address], [place] [address] Dec, [facility] [place] [facility] [address] [id number] [address] [place] [address], [place] [address] Dec, [facility] [place] [facility] [address] [id number] [address] [place] [address], [place] [address] Dec, [facility] [place] [facility] [address] [id number] [address] [place] [address], [place] [address] Dec, [facility] [place] [facility] [address] [id number] [address] [place] [address], [place] [address] Dec, [facility] [place] [facility] [address] [id number] [address] [place] [address], [place] [address] 19 Nov, 2013 [facility] [place] [facility] [address] [id number] [address] [place] [address], [place] [address] 19 Nov, 2013 [facility] [place] [facility] [address] [id number] [address] [place] [address], [place] [address] 08 Nov, 2013 [facility] [place] [facility] [address] [id number] [address] [place] [address], [place] [address] 08 Nov, 2013 [facility] [place] [facility] [address] [id number] [address] [place] [address], [place] [address] Nov, [facility] [address] [id number] [facility] [place] [address] Nov, [facility] [place] [facility] [address] [id number] [address] [place] [address], [place] [address] Oct, [facility] [address] [id number] [address] [place] [address], [place] [address] Oct, [facility] [place] [facility] [address] [id number] [address] [place] [address], [place] [address] Oct, [facility] [address] [id number] [address] [place] [address], [place] [address] Oct, [facility] [place] [facility] [address] [id number] [address] [place] [address], [place] [address] Oct, [facility] [address] [id number] [address] [place] [address], [place] [address] Oct, [facility] [place] [facility] [address] [id number] [address] [place] [address], [place] [address] Oct, [facility] [address] [id number] [address] [place] [address], [place] [address] Oct, [facility] [place] [facility] [address] [id number] [address] [place] [address], [place] [address] Oct, [facility] [place] [facility] [address] [id number] [address] [place] [address], [place] [address] Oct, [facility] [place] [facility] [address] [id number] [address] [place] [address], [place] [address] Oct, [facility] [place] [facility] [address] [id number] [address] [place] [address], [place] [address] Sep, [facility] [place] [facility] [address] [id number] [address] [place] [address], [place] [address] Sep, [facility] [place] [facility] [address] [id number] [address] [place] [address], [place] [address] July, [facility] [place] [facility] [address] [id number] [address] [place] [address] July, [facility] [address] [id number] [address] [place] [address], [place] [address] Feb, [facility] [address] [id number] [address] [place] [address], [place] [address] Feb, [facility] [address] [id number] [address] [place] [address], [place] [address] Dec, [facility] [address] [id number] [address] [place] [address], [place] [address] Nov, [facility] [address] [id number] [address] [place] [address], [place] [address] Oct, [facility] [address] [id number] [address] [place] [address], [place] [address] Oct, [facility] [address] [id number] [address] [place] [address], [place] [address] Oct, [facility] [address] [id number] [address] [place] [address], [place] [address] Sep, [facility] [address] [id number] [address] [place] [address], [place] [address] Sep, [facility] [address] [id number] [address] [place] [address], [place] [address] Aug, [facility] [address] [id number] [address] [place] [address], [place] [address] July, [facility] [address] [id number] [address] [place] [address], [place] [address] Mar, [facility] [address] [id number] [address] [place] [address], [place] [address] Jan, [facility] [address] [id number] [address] [place] [address], [place] [address] Jan, [facility] [address] [id number] [address] [place] [address], [place] [address] Jan, [facility] [address] [id number] [address] [place] [address], [place] [address] Jan, [facility] [address] [id number] [address] [place] [address], [place] [address] Dec, [facility] [address] [id number] [address] [place] [address], [place] [address] Dec, [facility] [address] [id number] [address] [place] [address], [place] [address] Dec, [facility] [address] [id number] [address] [place] [address], [place] [address] Dec, [facility] [address] [id number] [address] [place] [address], [place] [address] Dec, [facility] [address] [id number] [address] [place] [address], [place] [address] Dec, [facility] [address] [id number] [address] [place] [address], [place] [address] Oct, [facility] [address] [id number] [address] [place] [address], [place] [address] Oct, [facility] [address] [id number] [address] [place] [address], [place] [address] Sep, [facility] [address] [id number] [address] [place] [address], [place] [address] Aug, [facility] [address] [id number] [address] [place] [address], [place] [address] Aug, [facility] [address] [id number] [address] [place] [address], [place] [address] July, [facility] [address] [id number] [address] [place] [address], [place] [address] July, [facility] [address] [id number] [address] [place] [address], [place] [address] July, [facility] [address] [id number] [address] [place] [address], [place] [address] July, [facility] [address] [id number] [address] [place] [address], [place] [address] July, [facility] [address] [id number] [address] [place] [address], [place] [address] Jun, [facility] [address] [id number] [address] [place] [address], [place] [address] May, [facility] [address] [id number] [address] [place] [address], [place] [address] May, [facility] [address] [id number] [address] [place] [address], [place] [address] Apr, [facility] [address] [id number] [address] [place] [address], [place] [address] Apr, [facility] [address] [id number] [address] [place] [address], [place] [address] Apr, [facility] [address] [id number] [address] [place] [address], [place] [address] Apr, [facility] [address] [id number] [address] [place] [address], [place] [address] Apr, [facility] [address] [id number] [address] [place] [address], [place] [address] Apr, [facility] [address] [id number] [address] [place] [address], [place] [address] Mar, [facility] [address] [id number] [address] [place] [address], [place] [address] Mar, [facility] [address] [id number] [address] [place] [address], [place] [address] Mar, [facility] [address] [id number] [address] [place] [address], [place] [address] Mar, [facility] [address] [id number] [address] [place] [address], [place] [address] Mar, [facility] [address] [id number] [address] [place] [id number] Jan, [facility] [address] [id number] [address] [place] [id number] Dec, [facility] [address] [id number] [address] [place] [phone] Dec, [facility] [address] [id number] [address] [place] [id number] Feb, [facility] [address] [id number] [address] [place] [phone] Jan, [facility] [address] [id number] [address] [place] [phone] Jan, [facility] [address] [id number] [address] [place] [phone] Jan, [facility] [address] [id number] [address] [place] [phone] Jan, [facility] [address] [id number] [address] [place] [id number] Dec, [facility] [address] [id number] [address] [place] [phone] Sep, [facility] [address] [id number] [address] [place] [phone] Oct, IMMUNIZATIONS No Known Immunizations SOCIAL HISTORY [...]
--- OUTSIDE RECORDS SUMMARY | 2019-08-06 05:40 | XMS REPORT ---
Author Author Annabella BARRIGA [facility] Address [address] [place] [address] Care Team Providers Care Explosive Ordnance Handler Name Role Phone NITHYA ALLY Unavailable PROBLEMS Type Condition ICD9-CM Code [id number] Code Onset Dates Condition S tatus SNOMED Code Problem Counseling on substance use and abuse V65.42 Active 344925212 Problem Screening for malignant neoplasm of the cervix V76.2 Active 406441074 Problem Personal history of tobacco use, presenting hazards to health V15.82 Active 0310708953856 Problem Unspecified contraceptive management V25.9 Active 674711899 Problem VARICELLA DX V05.4 Active Problem Routine general medical examination at [facility] y V70.0 Active 728106792 Problem Lumbar sprain and strain 847.2 Activ e 571290685 Problem Need for prophylactic vaccination and inoculation, Influen za V04.81 Active 224135377 Problem Cough 786.2 Active 83316523 Problem Degeneration of lumbar or lumbosacral intervertebral disc 722.52 Active 92003451 Problem Other dyschromia 709.09 Active 325 3007 Problem Major depressive disorder, single episode, moderate 296.22 Active 25535997 Problem Unspecified abnormal mammogram 793.80 Active 616298006 Problem Hypoglycemia, unspecified 251.2 Acti ve 086053760 Problem Mammographic microcalcification 793.81 Active 53058650833011 Problem Personal history of underimmunization status V15.83 Active 515722857 Problem Contact dermatitis and other eczema, due to unspecified ca use 692.9 Active 35811421 Problem Lumbago 724.2 Active 749086280 Problem Irregular menstrual cycle 626.4 Acti ve 86276761 Problem Attention deficit disorder o f childhood without mention of hyperactivity 314.00 Active 62863381 ALLERGIES No Information ENCOUNTERS Encounter Location Date Diagnosis [facility] [address] [facility] [id number] [address] [place] [address] Apr, Gastroenteritis K52.9 [facility] [address] [id number] [address] [place] [address] Oct, [facility] [address] [id number] [address] [place] [address] Oct, [facility] [address] [id number] [address] [place] [address] July, Status post partial hysterec shivani V88.02 ; Back pain 724.5 ; Arthralgia 719.40 and Nicotine addiction 305.1 [facility] [address] [id number] [address] [place] [address] Jun, [facility] [address] [id number] [address] [place] [address] Jun, [facility] [address] [id number] [address] [place] [id number] Feb, [facility] [address] [id number] [address] [place] [address] Feb, [facility] [address] [id number] [address] [place] [phone] Feb, [facility] [address] [id number] [address] [place] [phone] Jan, [facility] [address] [id number] [address] [place] [phone] Jan, [facility] [address] [id number] [address] [place] [phone] Jan, [facility] [address] [id number] [address] [place] [address] Jan, [facility] [address] [id number] [address] [place] [phone] Jan, [facility] [address] [id number] [address] [place] [phone] Jan, [facility] [address] [id number] [address] [place] [address], [place] [address] Jan, [facility] [address] [id number] [address] [place] [address], [place] [address] Jan, [facility] [address] [id number] [address] [place] [address], [place] [address] Dec, [facility] [address] [id number] [address] [place] [address], [place] [address] Dec, [facility] [address] [id number] [address] [place] [address], [place] [address] Dec, [facility] [address] [id number] [address] [place] [address], [place] [address] Dec, [facility] [address] [id number] [address] [place] [address], [place] [address] Dec, [facility] [address] [id number] [address] [place] [address], [place] [address] Dec, [facility] [address] [id number] [address] [place] [address], [place] [address] Dec, [facility] [address] [id number] [address] [place] [address], [place] [address] Dec, [facility] [address] [id number] [address] [place] [address], [place] [address] Dec, [facility] [address] [id number] [address] [place] [address], [place] [address] Dec, [facility] [address] [id number] [address] [place] [address], [place] [address] 19 Nov, 2013 [facility] [address] [id number] [address] [place] [address], [place] [address] 19 Nov, 2013 [facility] [address] [id number] [address] [place] [address], [place] [address] 08 Nov, 2013 [facility] [address] [id number] [address] [place] [address], [place] [address] Nov, [facility] [address] [id number] [facility] [place] [address] Nov, [facility] [address] [id number] [facility] [place] [address] Nov, [facility] [address] [id number] [facility] [place] [address] Oct, [facility] [address] [id number] [address] [place] [address], [place] [address] Oct, [facility] [address] [id number] [address] [place] [address], [place] [address] Oct, [facility] [address] [id number] [address] [place] [address], [place] [address] Oct, [facility] [address] [id number] [address] [place] [address], [place] [address] Oct, [facility] [address] [id number] [address] [place] [address], [place] [address] Oct, [facility] [address] [id number] [address] [place] [address], [place] [address] Oct, [facility] [address] [id number] [address] [place] [address], [place] [address] Oct, [facility] [address] [id number] [address] [place] [address], [place] [address] Oct, [facility] [address] [id number] [address] [place] [address], [place] [address] Oct, [facility] [address] [id number] [address] [place] [address], [place] [address] Oct, [facility] [address] [id number] [address] [place] [address], [place] [address] Sep, [facility] [address] [id number] [address] [place] [address], [place] [address] Sep, [facility] [address] [id number] [address] [place] [address], [place] [address] July, [facility] [address] [id number] [address] [place] [address], [place] [address] July, [facility] [address] [id number] [address] [place] [address], [place] [address] Feb, [facility] [address] [id number] [address] [place] [address], [place] [address] Feb, [facility] [address] [id number] [address] [place] [address], [place] [address] Dec, [facility] [address] [id number] [address] [place] [address], [place] [address] Nov, [facility] [address] [id number] [address] [place] [address], [place] [address] Oct, [facility] [address] [id number] [address] [place] [address], [place] [address] Oct, [facility] [address] [id number] [address] [place] [address], [place] [address] Oct, [facility] [address] [id number] [address] [place] [address], [place] [address] Sep, [facility] [address] [id number] [address] [place] [address], [place] [address] Sep, [facility] [address] [id number] [address] [place] [address], [place] [address] Aug, [facility] [address] [id number] [address] [place] [address], [place] [address] July, [facility] [address] [id number] [address] [place] [address], [place] [address] Mar, [facility] [address] [id number] [address] [place] [address], [place] [address] Jan, [facility] [address] [id number] [address] [place] [address], [place] [address] Jan, [facility] [address] [id number] [address] [place] [address], [place] [address] Jan, [facility] [address] [id number] [address] [place] [address], [place] [address] Jan, [facility] [address] [id number] [address] [place] [address], [place] [address] Dec, [facility] [address] [id number] [address] [place] [address], [place] [address] Dec, [facility] [address] [id number] [address] [place] [address], [place] [address] Dec, [facility] [address] [id number] [address] [place] [address], [place] [address] Dec, [facility] [address] [id number] [address] [place] [address], [place] [address] Dec, [facility] [address] [id number] [address] [place] [address], [place] [address] Dec, [facility] [address] [id number] [address] [place] [address], [place] [address] Oct, [facility] [address] [id number] [address] [place] [address], [place] [address] Oct, [facility] [address] [id number] [address] [place] [address], [place] [address] Sep, [facility] [address] [id number] [address] [place] [address], [place] [address] Aug, [facility] [address] [id number] [address] [place] [address], [place] [address] Aug, [facility] [address] [id number] [address] [place] [address], [place] [address] July, [facility] [address] [id number] [address] [place] [address], [place] [address] July, [facility] [address] [id number] [address] [address] July, [facility] [address] [id number] [address] [place] [address], [place] [address] July, [facility] [address] [id number] [address] [place] [address], [place] [address] July, [facility] [address] [id number] [address] [place] [address], [place] [address] Jun, [facility] [address] [id number] [address] [place] [address], [place] [address] May, [facility] [address] [id number] [address] [place] [address], [place] [address] May, [facility] [address] [id number] [address] [place] [address], [place] [address] Apr, [facility] [address] [id number] [address] [place] [address], [place] [address] Apr, [facility] [address] [id number] [address] [place] [address], [place] [address] Apr, [facility] [address] [id number] [address] [place] [address], [place] [address] Apr, [facility] [address] [id number] [address] [place] [address], [place] [address] Apr, [facility] [address] [id number] [address] [place] [address], [place] [address] Apr, [facility] [address] [id number] [address] [place] [address], [place] [address] Mar, [facility] [address] [id number] [address] [place] [address], [place] [address] Mar, [facility] [address] [id number] [address] [place] [address], [place] [address] Mar, [facility] [address] [id number] [address] [place] [address], [place] [address] Mar, [facility] [address] [id number] [address] [place] [address] Mar, [facility] [address] [id number] [address] [place] [address] Jan, [facility] [address] [id number] [address] [place] [address] Dec, [facility] [address] [id number] [address] [place] [address] Dec, [facility] [address] [id number] [address] [place] [address] Feb, [facility] [address] [id number] [address] [place] [address] Jan, [facility] [address] [id number] [address] [place] [address] Jan, [facility] [address] [id number] [address] [place] [address] Jan, [facility] [address] [id number] [address] [place] [address] Jan, [facility] [address] [id number] [address] [place] [address] Dec, [facility] [address] [id number] [address] [place] [address] Sep, [facility] [address] [id number] [address] [place] [address] Oct, IMMUNIZATIONS No Known Immunizations SOCIAL HISTORY Never Assessed REASON FOR VISIT PLAN OF CARE VITAL SIGNS MEDICATIONS No Known Medications RESULTS No Results PROCEDURES Procedure Date Ordered Result Body Site X-RAY EXAM OF LOWER SPINE Nov 07, 2013 INSTRUCTIONS MEDICATIONS ADMINISTERED No Known Medications [...]
--- OUTSIDE RECORDS SUMMARY | 2019-08-06 05:41 | XMS REPORT ---
Author Author Annabella Sommers Organization [facility] Address [address] [place] [address] Care Team Providers Care Historical Records Administrator Name Role Phone ARY Sommers Unavailable PROBLEMS Type Condition ICD9-CM Code VPV46-EX Code Onset Dates Condition S tatus SNOMED Code Problem Counseling on substance use and abuse V65.42 Active 461492299 Problem Screening for malignant neoplasm of the cervix V76.2 Active 269334897 Problem Personal history of tobacco use, presenting hazards to health V15.82 Active 2122731595892 Problem Unspecified contraceptive management V25.9 Active 091404609 Problem VARICELLA DX V05.4 Active Problem Routine general medical examination at [facility] y V70.0 Active 510457758 Problem Lumbar sprain and strain 847.2 Activ e 649800281 Problem Need for prophylactic vaccination and inoculation, Influen za V04.81 Active 834070611 Problem Cough 786.2 Active 55264354 Problem Degeneration of lumbar or lumbosacral intervertebral disc 722.52 Active 18167885 Problem Other dyschromia 709.09 Active 325 3007 Problem Major depressive disorder, single episode, moderate 296.22 Active 69156914 Problem Unspecified abnormal mammogram 793.80 Active 662801258 Problem Hypoglycemia, unspecified 251.2 Acti ve 282476588 Problem Mammographic microcalcification 793.81 Active [id number] Problem Personal history of underimmunization status V15.83 Active 740596049 Problem Contact dermatitis and other eczema, due to unspecified ca use 692.9 Active 92412238 Problem Lumbago 724.2 Active 915020939 Problem Irregular menstrual cycle 626.4 Acti ve 56268592 Problem Attention deficit disorder o f childhood without mention of hyperactivity 314.00 Active 62730973 ALLERGIES No Information ENCOUNTERS Encounter Location Date Diagnosis [facility] [address] [facility] [id number] [address] [place] [id number] Apr, Gastroenteritis K52.9 [facility] [address] [id number] [address] [place] [address] Oct, [facility] [address] [id number] [address] [place] [phone] Oct, [facility] [address] [id number] [address] [place] [address] July, Status post partial hysterec shivani V88.02 ; Back pain 724.5 ; Arthralgia 719.40 and Nicotine addiction 305.1 [facility] [address] [id number] [address] [place] [phone] Jun, [facility] [address] [id number] [address] [place] [phone] Jun, [facility] [address] [id number] [address] [place] [phone] Feb, [facility] [address] [id number] [address] [place] [phone] Feb, [facility] [address] [id number] [address] [place] [phone] Feb, [facility] [address] [id number] [address] [place] [id number] Jan, [facility] [address] [id number] [address] [place] [phone] Jan, [facility] [address] [id number] [address] [place] [phone] Jan, [facility] [address] [id number] [address] [place] [phone] Jan, [facility] [address] [id number] [address] [place] [phone] Jan, [facility] [address] [id number] [address] [place] [phone] Jan, [facility] [address] [id number] [address] [place] [address], [place] [address] Jan, [facility] [address] [id number] [address] [place] [address], [place] [address] Jan, [facility] [address] [id number] [address] [place] [address], [place] [address] Dec, [facility] [address] [id number] [address] [place] [address], [place] [address] Dec, [facility] [address] [id number] [address] [place] [address], [place] [address] Dec, [facility] [address] [id number] [address] [place] [address], [place] [address] Dec, [facility] [address] [id number] [address] [place] [address], [place] [address] Dec, [facility] [address] [id number] [address] [place] [address], [place] [address] Dec, [facility] [address] [id number] [address] [place] [address], [place] [address] Dec, [facility] [address] [id number] [address] [place] [address], [place] [address] Dec, [facility] [address] [id number] [address] [place] [address], [place] [address] Dec, [facility] [address] [id number] [address] [place] [address], [place] [address] Dec, [facility] [address] [id number] [address] [place] [address], [place] [address] Nov, [facility] [address] [id number] [address] [place] [address], [place] [address] 19 Nov, 2013 [facility] [address] [id number] [address] [place] [address], [place] [address] 08 Nov, 2013 [facility] [address] [id number] [address] [place] [address], [place] [address] Nov, [facility] [address] [id number] [address] [place] [address], [place] [address] Nov, [facility] [address] [id number] [address] [place] [address], [place] [address] Nov, [facility] [address] [id number] [address] [place] [address], [place] [address] Oct, [facility] [address] [id number] [address] [place] [address], [place] [address] Oct, [facility] [address] [id number] [address] [place] [address], [place] [address] Oct, [facility] [address] [id number] [address] [place] [address], [place] [address] Oct, [facility] [address] [id number] [address] [place] [address], [place] [address] Oct, [facility] [address] [id number] [address] [place] [address], [place] [address] Oct, [facility] [address] [id number] [address] [place] [address], [place] [address] Oct, [facility] [address] [id number] [address] [place] [address], [place] [address] Oct, [facility] [address] [id number] [address] [place] [address], [place] [address] Oct, [facility] [address] [id number] [address] [place] [address], [place] [address] Oct, [facility] [address] [id number] [address] [place] [address], [place] [address] Oct, [facility] [address] [id number] [address] [place] [address], [place] [address] Sep, [facility] [address] [id number] [address] [place] [address], [place] [address] Sep, [facility] [address] [id number] [address] [place] [address], [place] [address] July, [facility] [address] [id number] [address] [place] [address], [place] [address] July, [facility] [address] [id number] [address] [place] [address], [place] [address] Feb, [facility] [address] [id number] [address] [place] [address], [place] [address] Feb, [facility] [address] [id number] [address] [place] [address], [place] [address] Dec, [facility] [address] [id number] [address] [place] [address], [place] [address] Nov, [facility] [address] [id number] [address] [place] [address], [place] [address] Oct, [facility] [address] [id number] [address] [place] [address], [place] [address] Oct, [facility] [address] [id number] [address] [place] [address], [place] [address] Oct, [facility] [address] [id number] [address] [place] [address], [place] [address] Sep, [facility] [address] [id number] [address] [place] [address], [place] [address] Sep, [facility] [address] [id number] [address] [place] [address], [place] [address] Aug, [facility] [address] [id number] [address] [place] [address], [place] [address] July, [facility] [address] [id number] [address] [place] [address], [place] [address] Mar, [facility] [address] [id number] [address] [place] [address], [place] [address] Jan, [facility] [address] [id number] [address] [place] [address], [place] [address] Jan, [facility] [address] [id number] [address] [place] [address], [place] [address] Jan, [facility] [address] [id number] [address] [place] [address], [place] [address] Jan, [facility] [address] [id number] [address] [place] [address], [place] [address] Dec, [facility] [address] [id number] [address] [place] [address], [place] [address] Dec, [facility] [address] [id number] [address] [place] [address], [place] [address] Dec, [facility] [address] [id number] [address] [place] [address], [place] [address] Dec, [facility] [address] [id number] [address] [place] [address], [place] [address] Dec, [facility] [address] [id number] [address] [place] [address], [place] [address] Dec, [facility] [address] [id number] [address] [place] [address], [place] [address] Oct, [facility] [address] [id number] [address] [place] [address] Oct, [facility] [address] [id number] [address] [place] [address] Sep, [facility] [address] [id number] [address] [place] [phone] Aug, [facility] [address] [id number] [address] [place] [address], [place] [address] Aug, [facility] [address] [id number] [address] [place] [address] July, [facility] [address] [id number] [address] [place] [address] July, [facility] [address] [id number] [address] [place] [address] July, [facility] [address] [id number] [address] [place] [address], [place] [address] July, [facility] [address] [id number] [address] [place] [address], [place] [address] July, [facility] [address] [id number] [address] [place] [address], [place] [address] Jun, [facility] [address] [id number] [address] [place] [address], [place] [address] May, [facility] [address] [id number] [address] [place] [address], [place] [address] May, [facility] [address] [id number] [address] [place] [address], [place] [address] Apr, [facility] [address] [id number] [address] [place] [address], [place] [address] Apr, [facility] [address] [id number] [address] [place] [address], [place] [address] Apr, [facility] [address] [id number] [address] [place] [address], [place] [address] 05 Apr, 2011 [facility] [address] [id number] [address] [place] [address], [place] [address] Apr, [facility] [address] [id number] [address] [place] [address], [place] [address] Apr, [facility] [address] [id number] [address] [place] [address], [place] [address] Mar, [facility] [address] [id number] [address] [place] [address], [place] [address] Mar, [facility] [address] [id number] [address] [place] [address], [place] [address] Mar, [facility] [address] [id number] [address] [place] [address], [place] [address] Mar, [facility] [address] [id number] [address] [place] [address] Mar, [facility] [address] [id number] [address] [place] [address] Jan, [facility] [address] [id number] [address] [place] [address] Dec, [facility] [address] [id number] [address] [place] [address] Dec, [facility] [address] [id number] [address] [place] [address] Feb, [facility] [address] [id number] [address] [place] [address] Jan, [facility] [address] [id number] [address] [place] [address] Jan, [facility] [address] [id number] [address] [place] [address] Jan, [facility] [address] [id number] [address] [place] [address] Jan, [facility] [address] [id number] [address] [place] [address] Dec, [facility] [address] [id number] [address] [place] [phone] Sep, [facility] [address] [id number] [address] [place] [address] Oct, IMMUNIZATIONS No Known Immunizations SOCIAL HISTORY [...]
--- OUTSIDE RECORDS SUMMARY | 2019-08-06 05:41 | XMS REPORT ---
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 Name Role Phone JORDIN DUFFY Unavailable PROBLEMS Type Condition ICD9-CM Code VXQ15-LJ Code Onset Dates Condition S tatus SNOMED Code Problem Counseling on substance use and abuse V65.42 Active 507396609 Problem Screening for malignant neoplasm of the cervix V76.2 Active 050329901 Problem Personal history of tobacco use, presenting hazards to health V15.82 Active 7189793195370 Problem Unspecified contraceptive management V25.9 Active 663948229 Problem VARICELLA DX V05.4 Active Problem Routine general medical examination at [facility] y V70.0 Active 053808854 Problem Lumbar sprain and strain 847.2 Activ e 732103669 Problem Need for prophylactic vaccination and inoculation, Influen za V04.81 Active 820788936 Problem Cough 786.2 Active 89124658 Problem Degeneration of lumbar or lumbosacral intervertebral disc 722.52 Active 71042823 Problem Other dyschromia 709.09 Active 325 3007 Problem Major depressive disorder, single episode, moderate 296.22 Active 02584807 Problem Unspecified abnormal mammogram 793.80 Active 892000786 Problem Hypoglycemia, unspecified 251.2 Acti ve 324553362 Problem Mammographic microcalcification 793.81 Active 90292324701098 Problem Personal history of underimmunization status V15.83 Active 083292390 Problem Contact dermatitis and other eczema, due to unspecified ca use 692.9 Active 95465061 Problem Lumbago 724.2 Active 807728122 Problem Irregular menstrual cycle 626.4 Acti ve 93983007 Problem Attention deficit disorder o f childhood without mention of hyperactivity 314.00 Active 39796245 ALLERGIES No Information ENCOUNTERS Encounter Location Date Diagnosis [facility] [address] [facility] [id number] [address] [place] [address] Apr, Gastroenteritis K52.9 [facility] [address] [id number] [address] [place] [address] Oct, [facility] [address] [id number] [address] [place] [address] Oct, [facility] [address] [id number] [address] [place] [address] July, Status post partial hysterec shivani V88.02 ; Back pain 724.5 ; Arthralgia 719.40 and Nicotine addiction 305.1 [facility] [address] [id number] [address] [place] [address] Jun, [facility] [address] [id number] [address] [place] [address] Jun, [facility] [address] [id number] [address] [place] [address] Feb, [facility] [address] [id number] [address] [place] [address] Feb, [facility] [address] [id number] [address] [place] [address] Feb, [facility] [address] [id number] [address] [place] [address] Jan, [facility] [address] [id number] [address] [place] [address] Jan, [facility] [address] [id number] [address] [place] [address] Jan, [facility] [address] [id number] [address] [place] [address] Jan, [facility] [address] [id number] [address] [place] [address] Jan, [facility] [address] [id number] [address] [place] [address] Jan, [facility] [address] [id number] [address] [place] [address], [place] [address] Jan, [facility] [address] [id number] [address] [place] [address], [place] [address] Jan, [facility] [address] [id number] [address] [place] [address], [place] [address] Dec, [facility] [address] [id number] [address] [place] [address], [place] [address] Dec, [facility] [address] [id number] [address] [place] [address], [place] [address] Dec, [facility] [address] [id number] [address] [place] [address], [place] [address] Dec, [facility] [address] [id number] [address] [place] [address], [place] [address] Dec, [facility] [address] [id number] [address] [place] [address], [place] [address] Dec, [facility] [address] [id number] [address] [place] [address], [place] [address] Dec, [facility] [address] [id number] [address] [place] [address], [place] [address] Dec, [facility] [address] [id number] [address] [place] [address], [place] [address] Dec, [facility] [address] [id number] [address] [place] [address], [place] [address] Dec, [facility] [address] [id number] [address] [place] [address], [place] [address] 19 Nov, 2013 [facility] [address] [id number] [address] [place] [address], [place] [address] 19 Nov, 2013 [facility] [address] [id number] [address] [place] [address], [place] [address] 08 Nov, 2013 [facility] [address] [id number] [address] [place] [address], [place] [address] Nov, [facility] [address] [id number] [facility] [address] Nov, [facility] [address] [id number] [facility] [address] Nov, [facility] [address] [id number] [facility] [place] [address] Oct, [facility] [address] [id number] [address] [place] [address], [place] [address] Oct, [facility] [address] [id number] [address] [place] [address], [place] [address] Oct, [facility] [address] [id number] [address] [place] [address], [place] [address] Oct, [facility] [address] [id number] [address] [place] [address], [place] [address] Oct, [facility] [address] [id number] [address] [place] [address], [place] [address] Oct, [facility] [address] [id number] [address] [place] [address], [place] [address] Oct, [facility] [address] [id number] [address] [place] [address], [place] [address] Oct, [facility] [address] [id number] [address] [place] [address], [place] [address] Oct, [facility] [address] [id number] [address] [place] [address], [place] [address] Oct, [facility] [address] [id number] [address] [place] [address], [place] [address] Oct, [facility] [address] [id number] [address] [place] [address], [place] [address] Sep, [facility] [address] [id number] [address] [place] [address], [place] [address] Sep, [facility] [address] [id number] [address] [place] [address], [place] [address] July, [facility] [address] [id number] [address] [place] [address], [place] [address] July, [facility] [address] [id number] [address] [place] [address], [place] [address] Feb, [facility] [address] [id number] [address] [place] [address], [place] [address] Feb, [facility] [address] [id number] [address] [place] [address], [place] [address] Dec, [facility] [address] [id number] [address] [place] [address], [place] [address] Nov, [facility] [address] [id number] [address] [place] [address], [place] [address] Oct, [facility] [address] [id number] [address] [place] [address], [place] [address] Oct, [facility] [address] [id number] [address] [place] [address], [place] [address] Oct, [facility] [address] [id number] [address] [place] [address], [place] [address] Sep, [facility] [address] [id number] [address] [place] [address], [place] [address] Sep, [facility] [address] [id number] [address] [place] [address], [place] [address] Aug, [facility] [address] [id number] [address] [place] [address], [place] [address] July, [facility] [address] [id number] [address] [place] [address], [place] [address] Mar, [facility] [address] [id number] [address] [place] [address], [place] [address] Jan, [facility] [address] [id number] [address] [place] [address], [place] [address] Jan, [facility] [address] [id number] [address] [place] [address], [place] [address] Jan, [facility] [address] [id number] [address] [place] [address], [place] [address] Jan, [facility] [address] [id number] [address] [place] [address], [place] [address] Dec, [facility] [address] [id number] [address] [place] [address], [place] [address] Dec, [facility] [address] [id number] [address] [place] [address], [place] [address] Dec, [facility] [address] [id number] [address] [place] [address], [place] [address] Dec, [facility] [address] [id number] [address] [place] [address], [place] [address] Dec, [facility] [address] [id number] [address] [place] [address], [place] [address] Dec, [facility] [address] [id number] [address] [place] [address], [place] [address] Oct, [facility] [address] [id number] [address] [place] [address], [place] [address] Oct, [facility] [address] [id number] [address] [place] [address], [place] [address] Sep, [facility] [address] [id number] [address] [place] [address], [place] [address] Aug, [facility] [address] [id number] [address] [place] [address], [place] [address] Aug, [facility] [address] [id number] [address] [place] [address], [place] [address] July, [facility] [address] [id number] [address] [place] [address], [place] [address] July, [facility] [address] [id number] [address] [address] July, [facility] [address] [id number] [address] [place] [address], [place] [address] July, [facility] [address] [id number] [address] [place] [address], [place] [address] July, [facility] [address] [id number] [address] [place] [address], [place] [address] Jun, [facility] [address] [id number] [address] [place] [address], [place] [address] May, [facility] [address] [id number] [address] [place] [address], [place] [address] May, [facility] [address] [id number] [address] [place] [address], [place] [address] Apr, [facility] [address] [id number] [address] [place] [address], [place] [address] Apr, [facility] [address] [id number] [address] [place] [address], [place] [address] Apr, [facility] [address] [id number] [address] [place] [address], [place] [address] Apr, [facility] [address] [id number] [address] [place] [address], [place] [address] Apr, [facility] [address] [id number] [address] [place] [address], [place] [address] Apr, [facility] [address] [id number] [address] [place] [address], [place] [address] Mar, [facility] [address] [id number] [address] [place] [address], [place] [address] Mar, [facility] [address] [id number] [address] [place] [address], [place] [address] Mar, [facility] [address] [id number] [address] [place] [address], [place] [address] Mar, [facility] [address] [id number] [address] [place] [address] Mar, [facility] [address] [id number] [address] [place] [address] Jan, [facility] [address] [id number] [address] [place] [address] Dec, [facility] [address] [id number] [address] [place] [address] Dec, [facility] [address] [id number] [address] [place] [address] Feb, [facility] [address] [id number] [address] [place] [address] Jan, [facility] [address] [id number] [address] [place] [address] Jan, [facility] [address] [id number] [address] [place] [address] Jan, [facility] [address] [id number] [address] [place] [address] Jan, [facility] [address] [id number] [address] [place] [address] Dec, [facility] [address] [id number] [address] [place] [address] Sep, [facility] [address] [id number] [address] [place] [address] Oct, IMMUNIZATIONS No Known Immunizations SOCIAL HISTORY Never Assessed REASON FOR VISIT PLAN OF CARE VITAL SIGNS MEDICATIONS No Known Medications RESULTS No Results PROCEDURES Procedure Date Ordered Result Body Site COMPLETE CBC W/AUTO DIFF WBC Feb 13, 2014 ASSAY THYROID STIM HORMONE Feb 13, 2014 ASSAY OF FREE THYROXINE Feb 13, 2014 VENIPUNCT, ROUTINE* Feb 13, 2014 INSTRUCTIONS MEDICATIONS ADMINISTERED No Known Medications [...]
--- OUTSIDE RECORDS SUMMARY | 2019-08-06 05:41 | XMS REPORT ---
Author Author Annabella Victoria Doctor Organization [facility] Address Unknown Phone Unavailable Care Team Providers Care Field Assessor Name Role Phone Migration, Doctor Unavailable Unavailable PROBLEMS Type Condition ICD9-CM Code HIB58-ET Code Onset Dates Condition S tatus SNOMED Code Problem Counseling on substance use and abuse V65.42 Active 999159300 Problem Screening for malignant neoplasm of the cervix V76.2 Active 168410798 Problem Personal history of tobacco use, presenting hazards to health V15.82 Active 3074461711597 Problem Unspecified contraceptive management V25.9 Active 934041189 Problem VARICELLA DX V05.4 Active Problem Routine general medical examination at [facility] y V70.0 Active 854007592 Problem Lumbar sprain and strain 847.2 Activ e 173029344 Problem Need for prophylactic vaccination and inoculation, Influen za V04.81 Active 722212664 Problem Cough 786.2 Active 32992082 Problem Degeneration of lumbar or lumbosacral intervertebral disc 722.52 Active 93822984 Problem Other dyschromia 709.09 Active 325 3007 Problem Major depressive disorder, single episode, moderate 296.22 Active 05144875 Problem Unspecified abnormal mammogram 793.80 Active 846757250 Problem Hypoglycemia, unspecified 251.2 Acti ve 892462851 Problem Mammographic microcalcification 793.81 Active 96470644910928 Problem Personal history of underimmunization status V15.83 Active 947736303 Problem Contact dermatitis and other eczema, due to unspecified ca use 692.9 Active 87772826 Problem Lumbago 724.2 Active 351601660 Problem Irregular menstrual cycle 626.4 Acti ve 45149004 Problem Attention deficit disorder o f childhood without mention of hyperactivity 314.00 Active 77033261 ALLERGIES No Information ENCOUNTERS Encounter Location Date Diagnosis [facility] [address] [facility] [id number] [address] [place] [address] Apr, Gastroenteritis K52.9 [facility] [address] [id number] [address] [place] [id number] Oct, [facility] [place] [address] [id number] [address] [place] [address] Oct, [facility] [place] [address] [id number] [address] [place] [address] July, Status post partial hysterec shivani V88.02 ; Back pain 724.5 ; Arthralgia 719.40 and Nicotine addiction 305.1 [facility] [place] [address] [id number] [address] [place] [address] Jun, [facility] [place] [address] [id number] [address] [place] [address] Jun, [facility] [place] [address] [id number] [address] [place] [address] Feb, [facility] [place] [address] [id number] [address] [place] [phone] Feb, [facility] [place] [address] [id number] [address] [place] [id number] Feb, [facility] [place] [address] [id number] [address] [place] [id number] Jan, [facility] [place] [address] [id number] [address] [place] [phone] Jan, [facility] [place] [address] [id number] [address] [place] [phone] Jan, [facility] [place] [address] [id number] [address] [place] [id number] Jan, [facility] [place] [address] [id number] [address] [place] [id number] Jan, [facility] [place] [address] [id number] [address] [place] [phone] Jan, [facility] [place] [address] [id number] [address] [place] [id number] Jan, [facility] [place] [facility] [address] [id number] [address] [place] [address], [place] [address] Jan, [facility] [place] [facility] [address] [id number] [address] [place] [address], [place] [address] Dec, [facility] [place] [facility] [address] [id number] [address] [place] [address], [place] [address] Dec, [facility] [place] [facility] [address] [id number] [address] [place] [address], [place] [address] Dec, [facility] [place] [facility] [address] [id number] [address] [place] [address], [place] [address] Dec, [facility] [place] [facility] [address] [id number] [address] [place] [address], [place] [address] Dec, [facility] [place] [facility] [address] [id number] [address] [place] [address], [place] [address] Dec, [facility] [place] [facility] [address] [id number] [address] [place] [address], [place] [address] Dec, [facility] [place] [facility] [address] [id number] [address] [place] [address], [place] [address] Dec, [facility] [place] [facility] [address] [id number] [address] [place] [address], [place] [address] Dec, [facility] [place] [facility] [address] [id number] [address] [place] [address], [place] [address] Dec, [facility] [place] [facility] [address] [id number] [address] [place] [address], [place] [address] 19 Nov, 2013 [facility] [place] [facility] [address] [id number] [address] [place] [address], [place] [address] 19 Nov, 2013 [facility] [place] [facility] [address] [id number] [address] [place] [address], [place] [address] 08 Nov, 2013 [facility] [place] [facility] [address] [id number] [address] [place] [address], [place] [address] 08 Nov, 2013 [facility] [place] [facility] [address] [id number] [address] [place] [address], [place] [address] Nov, [facility] [address] [id number] [facility] [address] Nov, [facility] [place] [facility] [address] [id number] [address] [place] [address], [place] [address] Oct, [facility] [address] [id number] [address] [place] [address], [place] [address] Oct, [facility] [place] [facility] [address] [id number] [address] [place] [address], [place] [address] Oct, [facility] [address] [id number] [address] [place] [address], [place] [address] Oct, [facility] [place] [facility] [address] [id number] [address] [place] [address], [place] [address] Oct, [facility] [address] [id number] [address] [place] [address], [place] [address] Oct, [facility] [place] [facility] [address] [id number] [address] [place] [address], [place] [address] Oct, [facility] [address] [id number] [address] [place] [address], [place] [address] Oct, [facility] [place] [facility] [address] [id number] [address] [place] [address], [place] [address] Oct, [facility] [place] [address] [id number] [address] [place] [address], [place] [address] Oct, [facility] [place] [facility] [address] [id number] [address] [place] [address], [place] [address] Oct, [facility] [place] [facility] [address] [id number] [address] [place] [address], [place] [address] Sep, [facility] [place] [facility] [address] [id number] [address] [place] [address], [place] [address] Sep, [facility] [place] [facility] [address] [id number] [address] [place] [address], [place] [address] July, [facility] [place] [facility] [address] [id number] [address] [place] [address] July, [facility] [address] [id number] [address] [place] [address], [place] [address] Feb, [facility] [address] [id number] [address] [place] [address], [place] [address] Feb, [facility] [address] [id number] [address] [place] [address], [place] [address] Dec, [facility] [address] [id number] [address] [place] [address], [place] [address] Nov, [facility] [address] [id number] [address] [place] [address], [place] [address] Oct, [facility] [address] [id number] [address] [place] [address], [place] [address] Oct, [facility] [address] [id number] [address] [place] [address], [place] [address] Oct, [facility] [address] [id number] [address] [place] [address], [place] [address] Sep, [facility] [address] [id number] [address] [place] [address], [place] [address] Sep, [facility] [address] [id number] [address] [place] [address], [place] [address] Aug, [facility] [address] [id number] [address] [place] [address], [place] [address] July, [facility] [address] [id number] [address] [place] [address], [place] [address] Mar, [facility] [address] [id number] [address] [place] [address], [place] [address] Jan, [facility] [address] [id number] [address] [place] [address], [place] [address] Jan, [facility] [address] [id number] [address] [place] [address], [place] [address] Jan, [facility] [address] [id number] [address] [place] [address], [place] [address] Jan, [facility] [address] [id number] [address] [place] [address], [place] [address] Dec, [facility] [address] [id number] [address] [place] [address], [place] [address] Dec, [facility] [address] [id number] [address] [place] [address], [place] [address] Dec, [facility] [address] [id number] [address] [place] [address], [place] [address] Dec, [facility] [address] [id number] [address] [place] [address], [place] [address] Dec, [facility] [address] [id number] [address] [place] [address], [place] [address] Dec, [facility] [address] [id number] [address] [place] [address], [place] [address] Oct, [facility] [address] [id number] [address] [place] [address], [place] [address] Oct, [facility] [address] [id number] [address] [place] [address], [place] [address] Sep, [facility] [address] [id number] [address] [place] [address], [place] [address] Aug, [facility] [address] [id number] [address] [place] [address], [place] [address] Aug, [facility] [address] [id number] [address] [place] [address], [place] [address] July, [facility] [address] [id number] [address] [place] [address], [place] [address] July, [facility] [address] [id number] [address] [place] [address], [place] [address] July, [facility] [address] [id number] [address] [place] [address], [place] [address] July, [facility] [address] [id number] [address] [place] [address], [place] [address] July, [facility] [address] [id number] [address] [place] [address], [place] [address] Jun, [facility] [address] [id number] [address] [place] [address], [place] [address] May, [facility] [address] [id number] [address] [place] [address], [place] [address] May, [facility] [address] [id number] [address] [place] [address], [place] [address] Apr, [facility] [address] [id number] [address] [place] [address], [place] [address] Apr, [facility] [address] [id number] [address] [place] [address], [place] [address] Apr, [facility] [address] [id number] [address] [place] [address], [place] [address] Apr, [facility] [address] [id number] [address] [place] [address], [place] [address] Apr, [facility] [address] [id number] [address] [place] [address], [place] [address] Apr, [facility] [address] [id number] [address] [place] [address], [place] [address] Mar, [facility] [address] [id number] [address] [place] [address], [place] [address] Mar, [facility] [address] [id number] [address] [place] [address], [place] [address] Mar, [facility] [address] [id number] [address] [place] [address], [place] [address] Mar, [facility] [address] [id number] [address] [place] [address], [place] [address] Mar, [facility] [address] [id number] [address] [place] [id number] Jan, [facility] [address] [id number] [address] [place] [address] Dec, [facility] [address] [id number] [address] [place] [address] Dec, [facility] [address] [id number] [address] [place] [address] Feb, [facility] [address] [id number] [address] [place] [address] Jan, [facility] [address] [id number] [address] [place] [address] Jan, [facility] [address] [id number] [address] [place] [address] Jan, [facility] [address] [id number] [address] [place] [address] Jan, [facility] [address] [id number] [address] [place] [address] Dec, [facility] [address] [id number] [address] [place] [address] Sep, [facility] [address] [id number] [address] [place] [address] Oct, IMMUNIZATIONS No Known Immunizations SOCIAL HISTORY [...]
--- OUTSIDE RECORDS SUMMARY | 2019-08-06 05:41 | XMS REPORT ---
Author Author Annabella BARRIGA [facility] Address [address] [place] [address] Care Team Providers Care Forestry Pilot Name Role Phone NITHYA ALLY Unavailable PROBLEMS Type Condition ICD9-CM Code ELN25-SN Code Onset Dates Condition S tatus SNOMED Code Problem Counseling on substance use and abuse V65.42 Active 338695646 Problem Screening for malignant neoplasm of the cervix V76.2 Active 771535866 Problem Personal history of tobacco use, presenting hazards to health V15.82 Active 0740030160407 Problem Unspecified contraceptive management V25.9 Active 101027512 Problem VARICELLA DX V05.4 Active Problem Routine general medical examination at [facility] y V70.0 Active 733077299 Problem Lumbar sprain and strain 847.2 Activ e 350408534 Problem Need for prophylactic vaccination and inoculation, Influen za V04.81 Active 144123545 Problem Cough 786.2 Active 02701495 Problem Degeneration of lumbar or lumbosacral intervertebral disc 722.52 Active 43825124 Problem Other dyschromia 709.09 Active 325 3007 Problem Major depressive disorder, single episode, moderate 296.22 Active 82172745 Problem Unspecified abnormal mammogram 793.80 Active 075839724 Problem Hypoglycemia, unspecified 251.2 Acti ve 758750752 Problem Mammographic microcalcification 793.81 Active [id number] Problem Personal history of underimmunization status V15.83 Active 701762903 Problem Contact dermatitis and other eczema, due to unspecified ca use 692.9 Active 83589432 Problem Lumbago 724.2 Active 700520281 Problem Irregular menstrual cycle 626.4 Acti ve 85080626 Problem Attention deficit disorder o f childhood without mention of hyperactivity 314.00 Active [id number] ALLERGIES No Information ENCOUNTERS Encounter Location Date Diagnosis [facility] [address] [facility] [id number] [address] [place] [address] Apr, Gastroenteritis K52.9 [facility] [address] [id number] [address] [place] [phone] Oct, [facility] [address] [id number] [address] [place] [address] Oct, [facility] [address] [id number] [address] [place] [address] July, Status post partial hysterec shivani V88.02 ; Back pain 724.5 ; Arthralgia 719.40 and Nicotine addiction 305.1 [facility] [address] [id number] [address] [place] [phone] Jun, [facility] [address] [id number] [address] [place] [phone] Jun, [facility] [address] [id number] [address] [place] [phone] Feb, [facility] [address] [id number] [address] [place] [phone] Feb, [facility] [address] [id number] [address] [place] [phone] Feb, [facility] [address] [id number] [address] [place] [phone] Jan, [facility] [address] [id number] [address] [place] [id number] Jan, [facility] [address] [id number] [address] [place] [id number] Jan, [facility] [address] [id number] [address] [place] [phone] Jan, [facility] [address] [id number] [address] [place] [id number] Jan, [facility] [address] [id number] [address] [place] [phone] Jan, [facility] [address] [id number] [address] [place] [address], [place] [address] Jan, [facility] [address] [id number] [address] [place] [address], [place] [address] Jan, [facility] [address] [id number] [address] [place] [address], [place] [address] Dec, [facility] [address] [id number] [address] [place] [address], [place] [address] Dec, [facility] [address] [id number] [address] [place] [address], [place] [address] Dec, [facility] [address] [id number] [address] [place] [address], [place] [address] Dec, [facility] [address] [id number] [address] [place] [address], [place] [address] Dec, [facility] [address] [id number] [address] [place] [address], [place] [address] Dec, [facility] [address] [id number] [address] [place] [address], [place] [address] Dec, [facility] [address] [id number] [address] [place] [address], [place] [address] Dec, [facility] [address] [id number] [address] [place] [address], [place] [address] Dec, [facility] [address] [id number] [address] [place] [address], [place] [address] Dec, [facility] [address] [id number] [address] [place] [address], [place] [address] 19 Nov, 2013 [facility] [address] [id number] [address] [place] [address], [place] [address] 19 Nov, 2013 [facility] [address] [id number] [address] [place] [address], [place] [address] 08 Nov, 2013 [facility] [address] [id number] [address] [place] [address], [place] [address] Nov, [facility] [address] [id number] [address] [place] [address] Nov, [facility] [address] [id number] [facility] [place] [address] Nov, [facility] [address] [id number] [facility] [place] [address] Oct, [facility] [address] [id number] [address] [place] [address], [place] [address] Oct, [facility] [address] [id number] [address] [place] [address], [place] [address] Oct, [facility] [address] [id number] [address] [place] [address], [place] [address] Oct, [facility] [address] [id number] [address] [place] [address], [place] [address] Oct, [facility] [address] [id number] [address] [place] [address], [place] [address] Oct, [facility] [address] [id number] [address] [place] [address], [place] [address] Oct, [facility] [address] [id number] [address] [place] [address], [place] [address] Oct, [facility] [address] [id number] [address] [place] [address], [place] [address] Oct, [facility] [address] [id number] [address] [place] [address], [place] [address] Oct, [facility] [address] [id number] [address] [place] [address], [place] [address] Oct, [facility] [address] [id number] [address] [place] [address], [place] [address] Sep, [facility] [address] [id number] [address] [place] [address], [place] [address] Sep, [facility] [address] [id number] [address] [place] [address], [place] [address] July, [facility] [address] [id number] [address] [place] [address], [place] [address] July, [facility] [address] [id number] [address] [place] [address], [place] [address] Feb, [facility] [address] [id number] [address] [place] [address], [place] [address] Feb, [facility] [address] [id number] [address] [place] [address], [place] [address] Dec, [facility] [address] [id number] [address] [place] [address], [place] [address] Nov, [facility] [address] [id number] [address] [place] [address], [place] [address] Oct, [facility] [address] [id number] [address] [place] [address], [place] [address] Oct, [facility] [address] [id number] [address] [place] [address], [place] [address] Oct, [facility] [address] [id number] [address] [place] [address], [place] [address] Sep, [facility] [address] [id number] [address] [place] [address], [place] [address] Sep, [facility] [address] [id number] [address] [place] [address], [place] [address] Aug, [facility] [address] [id number] [address] [place] [address], [place] [address] July, [facility] [address] [id number] [address] [place] [address], [place] [address] Mar, [facility] [address] [id number] [address] [place] [address], [place] [address] Jan, [facility] [address] [id number] [address] [place] [address], [place] [address] Jan, [facility] [address] [id number] [address] [place] [address], [place] [address] Jan, [facility] [address] [id number] [address] [place] [address], [place] [address] Jan, [facility] [address] [id number] [address] [place] [address], [place] [address] Dec, [facility] [address] [id number] [address] [place] [address], [place] [address] Dec, [facility] [address] [id number] [address] [place] [address], [place] [address] Dec, [facility] [address] [id number] [address] [place] [address], [place] [address] Dec, [facility] [address] [id number] [address] [place] [address], [place] [address] Dec, [facility] [address] [id number] [address] [place] [address], [place] [address] Dec, [facility] [address] [id number] [address] [place] [address], [place] [address] Oct, [facility] [address] [id number] [address] [place] [address], [place] [address] Oct, [facility] [address] [id number] [address] [place] [address], [place] [address] Sep, [facility] [address] [id number] [address] [place] [address], [place] [address] Aug, [facility] [address] [id number] [address] [place] [address], [place] [address] Aug, [facility] [address] [id number] [address] [place] [address], [place] [address] July, [facility] [address] [id number] [address] [place] [address], [place] [address] July, [facility] [address] [id number] [address] [address] July, [facility] [address] [id number] [address] [place] [address], [place] [address] July, [facility] [address] [id number] [address] [place] [address], [place] [address] July, [facility] [address] [id number] [address] [place] [address], [place] [address] Jun, [facility] [address] [id number] [address] [place] [address], [place] [address] May, [facility] [address] [id number] [address] [place] [address], [place] [address] May, [facility] [address] [id number] [address] [place] [address], [place] [address] Apr, [facility] [address] [id number] [address] [place] [address], [place] [address] Apr, [facility] [address] [id number] [address] [place] [address], [place] [address] Apr, [facility] [address] [id number] [address] [place] [address], [place] [address] Apr, [facility] [address] [id number] [address] [place] [address], [place] [address] Apr, [facility] [address] [id number] [address] [place] [address], [place] [address] Apr, [facility] [address] [id number] [address] [place] [address], [place] [address] Mar, [facility] [address] [id number] [address] [place] [address], [place] [address] Mar, [facility] [address] [id number] [address] [place] [address], [place] [address] Mar, [facility] [address] [id number] [address] [place] [address], [place] [address] Mar, [facility] [address] [id number] [address] [place] [address] Mar, [facility] [address] [id number] [address] [place] [address] Jan, [facility] [address] [id number] [address] [place] [address] Dec, [facility] [address] [id number] [address] [place] [address] Dec, [facility] [address] [id number] [address] [place] [address] Feb, [facility] [address] [id number] [address] [place] [address] Jan, [facility] [address] [id number] [address] [place] [address] Jan, [facility] [address] [id number] [address] [place] [id number] Jan, [facility] [address] [id number] [address] [place] [address] Jan, [facility] [address] [id number] [address] [place] [address] Dec, [facility] [address] [id number] [address] [place] [address] Sep, [facility] [address] [id number] [address] [place] [address] Oct, IMMUNIZATIONS No Known Immunizations SOCIAL HISTORY [...]
--- OUTSIDE RECORDS SUMMARY | 2019-08-06 05:41 | XMS REPORT ---
Author Author Annabella CRUZ Organization [facility] Address [address] [place] [address] Care Team Providers Care Railroad Engineer Name Role Phone TIERNEY CRUZ Unavailable PROBLEMS Type Condition ICD9-CM Code GRB84-SP Code Onset Dates Condition S tatus SNOMED Code Problem Counseling on substance use and abuse V65.42 Active 422586297 Problem Screening for malignant neoplasm of the cervix V76.2 Active 626225163 Problem Personal history of tobacco use, presenting hazards to health V15.82 Active 3290083767892 Problem Unspecified contraceptive management V25.9 Active 138110471 Problem VARICELLA DX V05.4 Active Problem Routine general medical examination at [facility] V70.0 Active 002837117 Problem Lumbar sprain and strain 847.2 Activ e 497892713 Problem Need for prophylactic vaccination and inoculation, Influen za V04.81 Active 344837064 Problem Cough 786.2 Active 53106287 Problem Degeneration of lumbar or lumbosacral intervertebral disc 722.52 Active 85627619 Problem Other dyschromia 709.09 Active 325 3007 Problem Major depressive disorder, single episode, moderate 296.22 Active 73439083 Problem Unspecified abnormal mammogram 793.80 Active 972022768 Problem Hypoglycemia, unspecified 251.2 Acti ve 566262710 Problem Mammographic microcalcification 793.81 Active [id number] Problem Personal history of underimmunization status V15.83 Active 217876997 Problem Contact dermatitis and other eczema, due to unspecified ca use 692.9 Active 27912051 Problem Lumbago 724.2 Active 992021688 Problem Irregular menstrual cycle 626.4 Acti ve 26335405 Problem Attention deficit disorder o f childhood without mention of hyperactivity 314.00 Active 97002056 ALLERGIES No Information ENCOUNTERS Encounter Location Date Diagnosis [facility] [address] [facility] [id number] [address] [place] [address] Apr, Gastroenteritis K52.9 [facility] [address] [id number] [address] [place] [address] Oct, [facility] [address] [id number] [address] [place] [address] Oct, [facility] [address] [id number] [address] [place] [address] July, Status post partial hysterec shivani V88.02 ; Back pain 724.5 ; Arthralgia 719.40 and Nicotine addiction 305.1 [facility] [address] [id number] [address] [place] [address] Jun, [facility] [address] [id number] [address] [place] [address] Jun, [facility] [address] [id number] [address] [place] [address] Feb, [facility] [address] [id number] [address] [place] [address] Feb, [facility] [address] [id number] [address] [place] [address] Feb, [facility] [address] [id number] [address] [place] [address] Jan, [facility] [address] [id number] [address] [place] [address] Jan, [facility] [address] [id number] [address] [place] [address] Jan, [facility] [address] [id number] [address] [place] [address] Jan, [facility] [address] [id number] [address] [place] [address] Jan, [facility] [address] [id number] [address] [place] [address] Jan, [facility] [address] [id number] [address] [place] [address], [place] [address] Jan, [facility] [address] [id number] [address] [place] [address], [place] [address] Jan, [facility] [address] [id number] [address] [place] [address], [place] [address] Dec, [facility] [address] [id number] [address] [place] [address], [place] [address] Dec, [facility] [address] [id number] [address] [place] [address], [place] [address] Dec, [facility] [address] [id number] [address] [place] [address], [place] [address] Dec, [facility] [address] [id number] [address] [place] [address], [place] [address] Dec, [facility] [address] [id number] [address] [place] [address], [place] [address] Dec, [facility] [address] [id number] [address] [place] [address], [place] [address] Dec, [facility] [address] [id number] [address] [place] [address], [place] [address] Dec, [facility] [address] [id number] [address] [place] [address], [place] [address] Dec, [facility] [address] [id number] [address] [place] [address], [place] [address] Dec, [facility] [address] [id number] [address] [place] [address], [place] [address] Nov, [facility] [address] [id number] [address] [place] [address], [place] [address] 19 Nov, 2013 [facility] [address] [id number] [address] [place] [address], [place] [address] 08 Nov, 2013 [facility] [address] [id number] [address] [place] [address], [place] [address] Nov, [facility] [address] [id number] [address] [place] [address], [place] [address] Nov, [facility] [address] [id number] [address] [place] [address], [place] [address] Nov, [facility] [address] [id number] [address] [place] [address], [place] [address] Oct, [facility] [address] [id number] [address] [place] [address], [place] [address] Oct, [facility] [address] [id number] [address] [place] [address], [place] [address] Oct, [facility] [address] [id number] [address] [place] [address], [place] [address] Oct, [facility] [address] [id number] [address] [place] [address], [place] [address] Oct, [facility] [address] [id number] [address] [place] [address], [place] [address] Oct, [facility] [address] [id number] [address] [place] [address], [place] [address] Oct, [facility] [address] [id number] [address] [place] [address], [place] [address] Oct, [facility] [address] [id number] [address] [place] [address], [place] [address] Oct, [facility] [address] [id number] [address] [place] [address], [place] [address] Oct, [facility] [address] [id number] [address] [place] [address], [place] [address] Oct, [facility] [address] [id number] [address] [place] [address], [place] [address] Sep, [facility] [address] [id number] [address] [place] [address], [place] [address] Sep, [facility] [address] [id number] [address] [place] [address], [place] [address] July, [facility] [address] [id number] [address] [place] [address], [place] [address] July, [facility] [address] [id number] [address] [place] [address], [place] [address] Feb, [facility] [address] [id number] [address] [place] [address], [place] [address] Feb, [facility] [address] [id number] [address] [place] [address], [place] [address] Dec, [facility] [address] [id number] [address] [place] [address], [place] [address] Nov, [facility] [address] [id number] [address] [place] [address], [place] [address] Oct, [facility] [address] [id number] [address] [place] [address], [place] [address] Oct, [facility] [address] [id number] [address] [place] [address], [place] [address] Oct, [facility] [address] [id number] [address] [place] [address], [place] [address] Sep, [facility] [address] [id number] [address] [place] [address], [place] [address] Sep, [facility] [address] [id number] [address] [place] [address], [place] [address] Aug, [facility] [address] [id number] [address] [place] [address], [place] [address] July, [facility] [address] [id number] [address] [place] [address], [place] [address] Mar, [facility] [address] [id number] [address] [place] [address], [place] [address] Jan, [facility] [address] [id number] [address] [place] [address], [place] [address] Jan, [facility] [address] [id number] [address] [place] [address], [place] [address] Jan, [facility] [address] [id number] [address] [place] [address], [place] [address] Jan, [facility] [address] [id number] [address] [place] [address], [place] [address] Dec, [facility] [address] [id number] [address] [place] [address], [place] [address] Dec, [facility] [address] [id number] [address] [place] [address], [place] [address] Dec, [facility] [address] [id number] [address] [place] [address], [place] [address] Dec, [facility] [address] [id number] [address] [place] [address], [place] [address] Dec, [facility] [address] [id number] [address] [place] [address], [place] [address] Dec, [facility] [address] [id number] [address] [place] [address], [place] [address] Oct, [facility] [address] [id number] [address] [place] [address], [place] [address] Oct, [facility] [address] [id number] [address] [place] [address], [place] [address] Sep, [facility] [address] [id number] [address] [place] [address], [place] [address] Aug, [facility] [address] [id number] [address] [place] [address], [place] [address] Aug, [facility] [address] [id number] [address] [place] [address], [place] [address] July, [facility] [address] [id number] [address] [place] [address], [place] [address] July, [facility] [address] [id number] [address] [place] [address], [place] [address] July, [facility] [address] [id number] [address] [place] [address], [place] [address] July, [facility] [address] [id number] [address] [place] [address], [place] [address] July, [facility] [address] [id number] [address] [place] [address], [place] [address] Jun, [facility] [address] [id number] [address] [place] [address], [place] [address] May, [facility] [address] [id number] [address] [place] [address], [place] [address] May, [facility] [address] [id number] [address] [place] [address], [place] [address] Apr, [facility] [address] [id number] [address] [place] [address], [place] [address] Apr, [facility] [address] [id number] [address] [place] [address], [place] [address] Apr, [facility] [address] [id number] [address] [place] [address], [place] [address] Apr, [facility] [address] [id number] [address] [place] [address], [place] [address] Apr, [facility] [address] [id number] [address] [place] [address], [place] [address] Apr, [facility] [address] [id number] [address] [place] [address], [place] [address] Mar, [facility] [address] [id number] [address] [place] [address], [place] [address] Mar, [facility] [address] [id number] [address] [place] [address], [place] [address] Mar, [facility] [address] [id number] [address] [place] [address], [place] [address] Mar, [facility] [address] [id number] [address] [place] [address] Mar, [facility] [address] [id number] [address] [place] [address] Jan, [facility] [address] [id number] [address] [place] [address] Dec, [facility] [address] [id number] [address] [place] [address] Dec, [facility] [address] [id number] [address] [place] [address] Feb, [facility] [address] [id number] [address] [place] [address] Jan, [facility] [address] [id number] [address] [place] [address] Jan, [facility] [address] [id number] [address] [place] [address] Jan, [facility] [address] [id number] [address] [place] [address] Jan, [facility] [address] [id number] [address] [place] [address] Dec, [facility] [address] [id number] [address] [place] [address] Sep, [facility] [address] [id number] [address] [place] [address] Oct, IMMUNIZATIONS No Known Immunizations SOCIAL HISTORY Never Assessed REASON FOR VISIT PLAN OF CARE VITAL SIGNS Height 62 in 2013-10-26 Temperature 98 degrees Fahrenheit 2013-10-26 Heart Rate 88 bpm 2013-10-26 Respiratory Rate 18 2013-10-26 Blood pressure systolic 120 mmHg 2013-10-26 Blood pressure diastolic 76 mmHg 2013-10-26 MEDICATIONS No Known Medications RESULTS No Results [...]
--- OUTSIDE RECORDS SUMMARY | 2019-08-06 05:41 | XMS REPORT ---
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 Name Role Phone TIERNEY CRUZ Unavailable PROBLEMS Type Condition ICD9-CM Code XLY40-KH Code Onset Dates Condition S tatus SNOMED Code Problem Counseling on substance use and abuse V65.42 Active 932470765 Problem Screening for malignant neoplasm of the cervix V76.2 Active 521888938 Problem Personal history of tobacco use, presenting hazards to health V15.82 Active 6435149491358 Problem Unspecified contraceptive management V25.9 Active 712399593 Problem VARICELLA DX V05.4 Active Problem Routine general medical examination at [facility] V70.0 Active 097340309 Problem Lumbar sprain and strain 847.2 Activ e 706272224 Problem Need for prophylactic vaccination and inoculation, Influen za V04.81 Active 861922213 Problem Cough 786.2 Active 56430284 Problem Degeneration of lumbar or lumbosacral intervertebral disc 722.52 Active 64838340 Problem Other dyschromia 709.09 Active 325 3007 Problem Major depressive disorder, single episode, moderate 296.22 Active 74520598 Problem Unspecified abnormal mammogram 793.80 Active 557310239 Problem Hypoglycemia, unspecified 251.2 Acti ve 275389129 Problem Mammographic microcalcification 793.81 Active 26564247116566 Problem Personal history of underimmunization status V15.83 Active 008467436 Problem Contact dermatitis and other eczema, due to unspecified ca use 692.9 Active 07455539 Problem Lumbago 724.2 Active 772160580 Problem Irregular menstrual cycle 626.4 Acti ve 57880281 Problem Attention deficit disorder o f childhood without mention of hyperactivity 314.00 Active [id number] ALLERGIES No Information ENCOUNTERS Encounter Location Date Diagnosis [facility] [address] [facility] [id number] [address] [place] [address] Apr, Gastroenteritis K52.9 [facility] [address] [id number] [address] [place] [phone] Oct, [facility] [address] [id number] [address] [place] [phone] Oct, [facility] [address] [id number] [address] [place] [address] July, Status post partial hysterec shivani V88.02 ; Back pain 724.5 ; Arthralgia 719.40 and Nicotine addiction 305.1 [facility] [address] [id number] [address] [place] [address] Jun, [facility] [address] [id number] [address] [place] [address] Jun, [facility] [address] [id number] [address] [place] [address] Feb, [facility] [address] [id number] [address] [place] [address] Feb, [facility] [address] [id number] [address] [place] [address] Feb, [facility] [address] [id number] [address] [place] [phone] Jan, [facility] [address] [id number] [address] [place] [phone] Jan, [facility] [address] [id number] [address] [place] [phone] Jan, [facility] [address] [id number] [address] [place] [address] Jan, [facility] [address] [id number] [address] [place] [phone] Jan, [facility] [address] [id number] [address] [place] [phone] Jan, [facility] [address] [id number] [address] [place] [address], [place] [address] Jan, [facility] [address] [id number] [address] [place] [address], [place] [address] Jan, [facility] [address] [id number] [address] [place] [address], [place] [address] Dec, [facility] [address] [id number] [address] [place] [address], [place] [address] Dec, [facility] [address] [id number] [address] [place] [address], [place] [address] Dec, [facility] [address] [id number] [address] [place] [address], [place] [address] Dec, [facility] [address] [id number] [address] [place] [address], [place] [address] Dec, [facility] [address] [id number] [address] [place] [address], [place] [address] Dec, [facility] [address] [id number] [address] [place] [address], [place] [address] Dec, [facility] [address] [id number] [address] [place] [address], [place] [address] Dec, [facility] [address] [id number] [address] [place] [address], [place] [address] Dec, [facility] [address] [id number] [address] [place] [address], [place] [address] Dec, [facility] [address] [id number] [address] [place] [address], [place] [address] Nov, [facility] [address] [id number] [address] [place] [address], [place] [address] 19 Nov, 2013 [facility] [address] [id number] [address] [place] [address], [place] [address] 08 Nov, 2013 [facility] [address] [id number] [address] [place] [address], [place] [address] Nov, [facility] [address] [id number] [address] [place] [address], [place] [address] Nov, [facility] [address] [id number] [address] [place] [address], [place] [address] Nov, [facility] [address] [id number] [address] [place] [address], [place] [address] Oct, [facility] [address] [id number] [address] [place] [address], [place] [address] Oct, [facility] [address] [id number] [address] [place] [address], [place] [address] Oct, [facility] [address] [id number] [address] [place] [address], [place] [address] Oct, [facility] [address] [id number] [address] [place] [address], [place] [address] Oct, [facility] [address] [id number] [address] [place] [address], [place] [address] Oct, [facility] [address] [id number] [address] [place] [address], [place] [address] Oct, [facility] [address] [id number] [address] [place] [address], [place] [address] Oct, [facility] [address] [id number] [address] [place] [address], [place] [address] Oct, [facility] [address] [id number] [address] [place] [address], [place] [address] Oct, [facility] [address] [id number] [address] [place] [address], [place] [address] Oct, [facility] [address] [id number] [address] [place] [address], [place] [address] Sep, [facility] [address] [id number] [address] [place] [address], [place] [address] Sep, [facility] [address] [id number] [address] [place] [address], [place] [address] July, [facility] [address] [id number] [address] [place] [address], [place] [address] July, [facility] [address] [id number] [address] [place] [address], [place] [address] Feb, [facility] [address] [id number] [address] [place] [address], [place] [address] Feb, [facility] [address] [id number] [address] [place] [address], [place] [address] Dec, [facility] [address] [id number] [address] [place] [address], [place] [address] Nov, [facility] [address] [id number] [address] [place] [address], [place] [address] Oct, [facility] [address] [id number] [address] [place] [address], [place] [address] Oct, [facility] [address] [id number] [address] [place] [address], [place] [address] Oct, [facility] [address] [id number] [address] [place] [address], [place] [address] Sep, [facility] [address] [id number] [address] [place] [address], [place] [address] Sep, [facility] [address] [id number] [address] [place] [address], [place] [address] Aug, [facility] [address] [id number] [address] [place] [address], [place] [address] July, [facility] [address] [id number] [address] [place] [address], [place] [address] Mar, [facility] [address] [id number] [address] [place] [address], [place] [address] Jan, [facility] [address] [id number] [address] [place] [address], [place] [address] Jan, [facility] [address] [id number] [address] [place] [address], [place] [address] Jan, [facility] [address] [id number] [address] [place] [address], [place] [address] Jan, [facility] [address] [id number] [address] [place] [address], [place] [address] Dec, [facility] [address] [id number] [address] [place] [address], [place] [address] Dec, [facility] [address] [id number] [address] [place] [address], [place] [address] Dec, [facility] [address] [id number] [address] [place] [address], [place] [address] Dec, [facility] [address] [id number] [address] [place] [address], [place] [address] Dec, [facility] [address] [id number] [address] [place] [address], [place] [address] Dec, [facility] [address] [id number] [address] [place] [address], [place] [address] Oct, [facility] [address] [id number] [address] [place] [address], [place] [address] Oct, [facility] [address] [id number] [address] [place] [address], [place] [address] Sep, [facility] [address] [id number] [address] [place] [address], [place] [address] Aug, [facility] [address] [id number] [address] [place] [address], [place] [address] Aug, [facility] [address] [id number] [address] [place] [address], [place] [address] July, [facility] [address] [id number] [address] [place] [address], [place] [address] July, [facility] [address] [id number] [address] [place] [address], [place] [address] July, [facility] [address] [id number] [address] [place] [address], [place] [address] July, [facility] [address] [id number] [address] [place] [address], [place] [address] July, [facility] [address] [id number] [address] [place] [address], [place] [address] Jun, [facility] [address] [id number] [address] [place] [address], [place] [address] May, [facility] [address] [id number] [address] [place] [address], [place] [address] May, [facility] [address] [id number] [address] [place] [address], [place] [address] Apr, [facility] [address] [id number] [address] [place] [address], [place] [address] Apr, [facility] [address] [id number] [address] [place] [address], [place] [address] Apr, [facility] [address] [id number] [address] [place] [address], [place] [address] Apr, [facility] [address] [id number] [address] [place] [address], [place] [address] Apr, [facility] [address] [id number] [address] [place] [address], [place] [address] Apr, [facility] [address] [id number] [address] [place] [address], [place] [address] Mar, [facility] [address] [id number] [address] [place] [address], [place] [address] Mar, [facility] [address] [id number] [address] [place] [address], [place] [address] Mar, [facility] [address] [id number] [address] [place] [address], [place] [address] Mar, [facility] [address] [id number] [address] [place] [address] Mar, [facility] [address] [id number] [address] [place] [address] Jan, [facility] [address] [id number] [address] [place] [address] Dec, [facility] [address] [id number] [address] [place] [address] Dec, [facility] [address] [id number] [address] [place] [address] Feb, [facility] [address] [id number] [address] [place] [address] Jan, [facility] [address] [id number] [address] [place] [address] Jan, [facility] [address] [id number] [address] [place] [address] Jan, [facility] [address] [id number] [address] [place] [phone] Jan, [facility] [address] [id number] [address] [place] [address] Dec, [facility] [address] [id number] [address] [place] [address] Sep, [facility] [address] [id number] [address] [place] [address] Oct, IMMUNIZATIONS No Known Immunizations SOCIAL HISTORY [...]
--- OUTSIDE RECORDS SUMMARY | 2019-08-06 05:41 | XMS REPORT ---
Author Author Annabella DUFFY [facility] Address [address] [place] [address] Care Team Providers Care [employer] Name Role Phone JORDIN DUFFY Unavailable PROBLEMS Type Condition ICD9-CM Code HUD76-XG Code Onset Dates Condition S tatus SNOMED Code Problem Counseling on substance use and abuse V65.42 Active 261493100 Problem Screening for malignant neoplasm of the cervix V76.2 Active 006112245 Problem Personal history of tobacco use, presenting hazards to health V15.82 Active 6524980654523 Problem Unspecified contraceptive management V25.9 Active 472294008 Problem VARICELLA DX V05.4 Active Problem Routine general medical examination at [facility] y V70.0 Active 285950096 Problem Lumbar sprain and strain 847.2 Activ e 554433395 Problem Need for prophylactic vaccination and inoculation, Influen za V04.81 Active 971499076 Problem Cough 786.2 Active 26752473 Problem Degeneration of lumbar or lumbosacral intervertebral disc 722.52 Active 36532492 Problem Other dyschromia 709.09 Active 325 3007 Problem Major depressive disorder, single episode, moderate 296.22 Active 01493032 Problem Unspecified abnormal mammogram 793.80 Active 189018591 Problem Hypoglycemia, unspecified 251.2 Acti ve 993181332 Problem Mammographic microcalcification 793.81 Active 87436384673915 Problem Personal history of underimmunization status V15.83 Active 694655355 Problem Contact dermatitis and other eczema, due to unspecified ca use 692.9 Active 04870631 Problem Lumbago 724.2 Active 459004142 Problem Irregular menstrual cycle 626.4 Acti ve 53616410 Problem Attention deficit disorder o f childhood without mention of hyperactivity 314.00 Active [id number] ALLERGIES No Information ENCOUNTERS Encounter Location Date Diagnosis [facility] [address] [facility] [id number] [address] [place] [address] Apr, Gastroenteritis K52.9 [facility] [address] [id number] [address] [place] [id number] Oct, [facility] [address] [id number] [address] [place] [phone] Oct, [facility] [address] [id number] [address] [place] [phone] July, Status post partial hysterec shivani V88.02 ; Back pain 724.5 ; Arthralgia 719.40 and Nicotine addiction 305.1 [facility] [address] [id number] [address] [place] [phone] Jun, [facility] [address] [id number] [address] [place] [id number] Jun, [facility] [address] [id number] [address] [place] [id number] Feb, [facility] [address] [id number] [address] [place] [id number] Feb, [facility] [address] [id number] [address] [place] [id number] Feb, [facility] [address] [id number] [address] [place] [phone] Jan, [facility] [address] [id number] [address] [place] [phone] Jan, [facility] [address] [id number] [address] [place] [id number] Jan, [facility] [address] [id number] [address] [place] [phone] Jan, [facility] [address] [id number] [address] [place] [id number] Jan, [facility] [address] [id number] [address] [place] [phone] Jan, [facility] [address] [id number] [address] [place] [address], [place] [id number] Jan, [facility] [address] [id number] [address] [place] [address], [place] [address] Jan, [facility] [address] [id number] [address] [place] [address], [place] [address] Dec, [facility] [address] [id number] [address] [place] [address], [place] [address] Dec, [facility] [address] [id number] [address] [place] [address], [place] [address] Dec, [facility] [address] [id number] [address] [place] [address], [place] [address] Dec, [facility] [address] [id number] [address] [place] [address], [place] [address] Dec, [facility] [address] [id number] [address] [place] [address], [place] [address] Dec, [facility] [address] [id number] [address] [place] [address], [place] [address] Dec, [facility] [address] [id number] [address] [place] [address], [place] [address] Dec, [facility] [address] [id number] [address] [place] [address], [place] [address] Dec, [facility] [address] [id number] [address] [place] [address], [place] [address] Dec, [facility] [address] [id number] [address] [place] [address], [place] [id number] 19 Nov, 2013 [facility] [address] [id number] [address] [place] [address], [place] [address] 19 Nov, 2013 [facility] [address] [id number] [address] [place] [address], [place] [address] 08 Nov, 2013 [facility] [address] [id number] [address] [place] [address], [place] [address] Nov, [facility] [address] [id number] [facility] [place] [address] Nov, [facility] [address] [id number] [facility] [place] [address] Nov, [facility] [address] [id number] [facility] [place] [address] Oct, [facility] [address] [id number] [address] [place] [address], [place] [address] Oct, [facility] [address] [id number] [address] [place] [address], [place] [address] Oct, [facility] [address] [id number] [address] [place] [address], [place] [address] Oct, [facility] [address] [id number] [address] [place] [address], [place] [address] Oct, [facility] [address] [id number] [address] [place] [address], [place] [address] Oct, [facility] [address] [id number] [address] [place] [address], [place] [address] Oct, [facility] [address] [id number] [address] [place] [address], [place] [address] Oct, [facility] [address] [id number] [address] [place] [address], [place] [address] Oct, [facility] [address] [id number] [address] [place] [address], [place] [address] Oct, [facility] [address] [id number] [address] [place] [address], [place] [address] Oct, [facility] [address] [id number] [address] [place] [address], [place] [address] Sep, [facility] [address] [id number] [address] [place] [address], [place] [address] Sep, [facility] [address] [id number] [address] [place] [address], [place] [address] July, [facility] [address] [id number] [address] [place] [address], [place] [address] July, [facility] [address] [id number] [address] [place] [address], [place] [address] Feb, [facility] [address] [id number] [address] [place] [address], [place] [address] Feb, [facility] [address] [id number] [address] [place] [address], [place] [address] Dec, [facility] [address] [id number] [address] [place] [address], [place] [address] Nov, [facility] [address] [id number] [address] [place] [address], [place] [address] Oct, [facility] [address] [id number] [address] [place] [address], [place] [address] Oct, [facility] [address] [id number] [address] [place] [address], [place] [address] Oct, [facility] [address] [id number] [address] [place] [address], [place] [address] Sep, [facility] [address] [id number] [address] [place] [address], [place] [address] Sep, [facility] [address] [id number] [address] [place] [address], [place] [address] Aug, [facility] [address] [id number] [address] [place] [address], [place] [address] July, [facility] [address] [id number] [address] [place] [address], [place] [address] Mar, [facility] [address] [id number] [address] [place] [address], [place] [address] Jan, [facility] [address] [id number] [address] [place] [address], [place] [address] Jan, [facility] [address] [id number] [address] [place] [address], [place] [address] Jan, [facility] [address] [id number] [address] [place] [address], [place] [address] Jan, [facility] [address] [id number] [address] [place] [address], [place] [address] Dec, [facility] [address] [id number] [address] [place] [address], [place] [address] Dec, [facility] [address] [id number] [address] [place] [address], [place] [address] Dec, [facility] [address] [id number] [address] [place] [address], [place] [address] Dec, [facility] [address] [id number] [address] [place] [address], [place] [address] Dec, [facility] [address] [id number] [address] [place] [address], [place] [address] Dec, [facility] [address] [id number] [address] [place] [address], [place] [address] Oct, [facility] [address] [id number] [address] [place] [address], [place] [address] Oct, [facility] [address] [id number] [address] [place] [address], [place] [address] Sep, [facility] [address] [id number] [address] [place] [address], [place] [address] Aug, [facility] [address] [id number] [address] [place] [address], [place] [address] Aug, [facility] [address] [id number] [address] [place] [address], [place] [address] July, [facility] [address] [id number] [address] [place] [address], [place] [address] July, [facility] [address] [id number] [address] [address] July, [facility] [address] [id number] [address] [place] [address], [place] [address] July, [facility] [address] [id number] [address] [place] [address], [place] [address] July, [facility] [address] [id number] [address] [place] [address], [place] [address] Jun, [facility] [address] [id number] [address] [place] [address], [place] [address] May, [facility] [address] [id number] [address] [place] [address], [place] [address] May, [facility] [address] [id number] [address] [place] [address], [place] [address] Apr, [facility] [address] [id number] [address] [place] [address], [place] [address] Apr, [facility] [address] [id number] [address] [place] [address], [place] [address] Apr, [facility] [address] [id number] [address] [place] [address], [place] [address] Apr, [facility] [address] [id number] [address] [place] [address], [place] [address] Apr, [facility] [address] [id number] [address] [place] [address], [place] [address] Apr, [facility] [address] [id number] [address] [place] [address], [place] [address] Mar, [facility] [address] [id number] [address] [place] [address], [place] [address] Mar, [facility] [address] [id number] [address] [place] [address], [place] [address] Mar, [facility] [address] [id number] [address] [place] [address], [place] [address] Mar, [facility] [address] [id number] [address] [place] [phone] Mar, [facility] [address] [id number] [address] [place] [phone] Jan, [facility] [address] [id number] [address] [place] [phone] Dec, [facility] [address] [id number] [address] [place] [phone] Dec, [facility] [address] [id number] [address] [place] [phone] Feb, [facility] [address] [id number] [address] [place] [address] Jan, [facility] [address] [id number] [address] [place] [phone] Jan, [facility] [address] [id number] [address] [place] [phone] Jan, [facility] [address] [id number] [address] [place] [phone] Jan, [facility] [address] [id number] [address] [place] [phone] Dec, [facility] [address] [id number] [address] [place] [id number] Sep, [facility] [address] [id number] [address] [place] [id number] Oct, IMMUNIZATIONS No Known Immunizations SOCIAL HISTORY [...]
--- OUTSIDE RECORDS SUMMARY | 2019-08-06 05:41 | XMS REPORT ---
Author Author Annabella DUFFY [facility] Address [address] [place] [address] Care Team Providers Care Wildlife Photographer Name Role Phone JORDIN DUFFY Unavailable PROBLEMS Type Condition ICD9-CM Code PSK40-HP Code Onset Dates Condition S tatus SNOMED Code Problem Counseling on substance use and abuse V65.42 Active 678963640 Problem Screening for malignant neoplasm of the cervix V76.2 Active 073210758 Problem Personal history of tobacco use, presenting hazards to health V15.82 Active [id number] Problem Unspecified contraceptive management V25.9 Active 271358270 Problem VARICELLA DX V05.4 Active Problem Routine general medical examination at rust y V70.0 Active 050109807 Problem Lumbar sprain and strain 847.2 Activ e 309140046 Problem Need for prophylactic vaccination and inoculation, Influen za V04.81 Active 795323468 Problem Cough 786.2 Active 18935752 Problem Degeneration of lumbar or lumbosacral intervertebral disc 722.52 Active 12725594 Problem Other dyschromia 709.09 Active 325 3007 Problem Major depressive disorder, single episode, moderate 296.22 Active 46879024 Problem Unspecified abnormal mammogram 793.80 Active 964997488 Problem Hypoglycemia, unspecified 251.2 Acti ve 038973496 Problem Mammographic microcalcification 793.81 Active 46604598511950 Problem Personal history of underimmunization status V15.83 Active 332464906 Problem Contact dermatitis and other eczema, due to unspecified ca use 692.9 Active 29325745 Problem Lumbago 724.2 Active 932625131 Problem Irregular menstrual cycle 626.4 Acti ve 12169474 Problem Attention deficit disorder o f childhood without mention of hyperactivity 314.00 Active [id number] ALLERGIES No Information ENCOUNTERS Encounter Location Date Diagnosis [facility] [address] [facility] [id number] [address] [place] [address] Apr, Gastroenteritis K52.9 [facility] [address] [id number] [address] [place] [address] Oct, [facility] [address] [id number] [address] [place] [address] Oct, [facility] [address] [id number] [address] [place] [address] July, Status post partial hysterec shivani V88.02 ; Back pain 724.5 ; Arthralgia 719.40 and Nicotine addiction 305.1 [facility] [address] [id number] [address] [place] [address] Jun, [facility] [address] [id number] [address] [place] [phone] Jun, [facility] [address] [id number] [address] [place] [address] Feb, [facility] [address] [id number] [address] [place] [phone] Feb, [facility] [address] [id number] [address] [place] [address] Feb, [facility] [address] [id number] [address] [place] [phone] Jan, [facility] [address] [id number] [address] [place] [phone] Jan, [facility] [address] [id number] [address] [place] [address] Jan, [facility] [address] [id number] [address] [place] [address] Jan, [facility] [address] [id number] [address] [place] [address] Jan, [facility] [address] [id number] [address] [place] [phone] Jan, [facility] [address] [id number] [address] [place] [address], [place] [address] Jan, [facility] [address] [id number] [address] [place] [address], [place] [address] Jan, [facility] [address] [id number] [address] [place] [address], [place] [address] Dec, [facility] [address] [id number] [address] [place] [address], [place] [address] Dec, [facility] [address] [id number] [address] [place] [address], [place] [address] Dec, [facility] [address] [id number] [address] [place] [address], [place] [address] Dec, [facility] [address] [id number] [address] [place] [address], [place] [address] Dec, [facility] [address] [id number] [address] [place] [address], [place] [address] Dec, [facility] [address] [id number] [address] [place] [address], [place] [address] Dec, [facility] [address] [id number] [address] [place] [address], [place] [address] Dec, [facility] [address] [id number] [address] [place] [address], [place] [address] Dec, [facility] [address] [id number] [address] [place] [address], [place] [address] Dec, [facility] [address] [id number] [address] [place] [address], [place] [address] 19 Nov, 2013 [facility] [address] [id number] [address] [place] [address], [place] [address] 19 Nov, 2013 [facility] [address] [id number] [address] [place] [address], [place] [address] 08 Nov, 2013 [facility] [address] [id number] [address] [place] [address], [place] [address] Nov, [facility] [address] [id number] [facility] [place] [address] Nov, [facility] [address] [id number] [facility] [place] [address] Nov, [facility] [address] [id number] [facility] [place] [address] Oct, [facility] [address] [id number] [address] [place] [address], [place] [address] Oct, [facility] [address] [id number] [address] [place] [address], [place] [address] Oct, [facility] [address] [id number] [address] [place] [address], [place] [address] Oct, [facility] [address] [id number] [address] [place] [address], [place] [address] Oct, [facility] [address] [id number] [address] [place] [address], [place] [address] Oct, [facility] [address] [id number] [address] [place] [address], [place] [address] Oct, [facility] [address] [id number] [address] [place] [address], [place] [address] Oct, [facility] [address] [id number] [address] [place] [address], [place] [address] Oct, [facility] [address] [id number] [address] [place] [address], [place] [address] Oct, [facility] [address] [id number] [address] [place] [address], [place] [address] Oct, [facility] [address] [id number] [address] [place] [address], [place] [address] Sep, [facility] [address] [id number] [address] [place] [address], [place] [address] Sep, [facility] [address] [id number] [address] [place] [address], [place] [address] July, [facility] [address] [id number] [address] [place] [address], [place] [address] July, [facility] [address] [id number] [address] [place] [address], [place] [address] Feb, [facility] [address] [id number] [address] [place] [address], [place] [address] Feb, [facility] [address] [id number] [address] [place] [address], [place] [address] Dec, [facility] [address] [id number] [address] [place] [address], [place] [address] Nov, [facility] [address] [id number] [address] [place] [address], [place] [address] Oct, [facility] [address] [id number] [address] [place] [address], [place] [address] Oct, [facility] [address] [id number] [address] [place] [address], [place] [address] Oct, [facility] [address] [id number] [address] [place] [address], [place] [address] Sep, [facility] [address] [id number] [address] [place] [address], [place] [address] Sep, [facility] [address] [id number] [address] [place] [address], [place] [address] Aug, [facility] [address] [id number] [address] [place] [address], [place] [address] July, [facility] [address] [id number] [address] [place] [address], [place] [address] Mar, [facility] [address] [id number] [address] [place] [address], [place] [address] Jan, [facility] [address] [id number] [address] [place] [address], [place] [address] Jan, [facility] [address] [id number] [address] [place] [address], [place] [address] Jan, [facility] [address] [id number] [address] [place] [address], [place] [address] Jan, [facility] [address] [id number] [address] [place] [address], [place] [address] Dec, [facility] [address] [id number] [address] [place] [address], [place] [address] Dec, [facility] [address] [id number] [address] [place] [address], [place] [address] Dec, [facility] [address] [id number] [address] [place] [address], [place] [address] Dec, [facility] [address] [id number] [address] [place] [address], [place] [address] Dec, [facility] [address] [id number] [address] [place] [address], [place] [address] Dec, [facility] [address] [id number] [address] [place] [address], [place] [address] Oct, [facility] [address] [id number] [address] [place] [address], [place] [address] Oct, [facility] [address] [id number] [address] [place] [address], [place] [address] Sep, [facility] [address] [id number] [address] [place] [address], [place] [address] Aug, [facility] [address] [id number] [address] [place] [address], [place] [address] Aug, [facility] [address] [id number] [address] [place] [address], [place] [address] July, [facility] [address] [id number] [address] [place] [address], [place] [address] July, [facility] [address] [id number] [address] [address] July, [facility] [address] [id number] [address] [place] [address], [place] [address] July, [facility] [address] [id number] [address] [place] [address], [place] [address] July, [facility] [address] [id number] [address] [place] [address], [place] [address] Jun, [facility] [address] [id number] [address] [place] [address], [place] [address] May, [facility] [address] [id number] [address] [place] [address], [place] [address] May, [facility] [address] [id number] [address] [place] [address], [place] [address] Apr, [facility] [address] [id number] [address] [place] [address], [place] [address] Apr, [facility] [address] [id number] [address] [place] [address], [place] [address] Apr, [facility] [address] [id number] [address] [place] [address], [place] [address] Apr, [facility] [address] [id number] [address] [place] [address], [place] [address] Apr, [facility] [address] [id number] [address] [place] [address], [place] [address] Apr, [facility] [address] [id number] [address] [place] [address], [place] [address] Mar, [facility] [address] [id number] [address] [place] [address], [place] [address] Mar, [facility] [address] [id number] [address] [place] [address], [place] [address] Mar, [facility] [address] [id number] [address] [place] [address], [place] [address] Mar, [facility] [address] [id number] [address] [place] [address] Mar, [facility] [address] [id number] [address] [place] [address] Jan, [facility] [address] [id number] [address] [place] [address] Dec, [facility] [address] [id number] [address] [place] [address] Dec, [facility] [address] [id number] [address] [place] [address] Feb, [facility] [address] [id number] [address] [place] [address] Jan, [facility] [address] [id number] [address] [place] [address] Jan, [facility] [address] [id number] [address] [place] [address] Jan, [facility] [address] [id number] [address] [place] [address] Jan, [facility] [address] [id number] [address] [place] [address] Dec, [facility] [address] [id number] [address] [place] [address] Sep, [facility] [address] [id number] [address] [place] [address] Oct, IMMUNIZATIONS No Known Immunizations SOCIAL HISTORY [...]
--- OUTSIDE RECORDS SUMMARY | 2019-08-06 05:42 | XMS REPORT ---
Author Author Annabella Victoria Doctor Organization [facility] [address] Address Unknown Phone Unavailable Care Team Providers Care Machine Set Up Operator Paper Goods Name Role Phone Migration, Doctor Unavailable Unavailable PROBLEMS Type Condition ICD9-CM Code [id number] Code Onset Dates Condition S tatus SNOMED Code Problem Counseling on substance use and abuse V65.42 Active 369944683 Problem Screening for malignant neoplasm of the cervix V76.2 Active 368637006 Problem Personal history of tobacco use, presenting hazards to health V15.82 Active 7873089843437 Problem Unspecified contraceptive management V25.9 Active 322232139 Problem VARICELLA DX V05.4 Active Problem Routine general medical examination at [facility] y V70.0 Active 595891249 Problem Lumbar sprain and strain 847.2 Activ e 608866947 Problem Need for prophylactic vaccination and inoculation, Influen za V04.81 Active 904962812 Problem Cough 786.2 Active 11122820 Problem Degeneration of lumbar or lumbosacral intervertebral disc 722.52 Active 31894701 Problem Other dyschromia 709.09 Active 325 3007 Problem Major depressive disorder, single episode, moderate 296.22 Active 61139906 Problem Unspecified abnormal mammogram 793.80 Active 312949485 Problem Hypoglycemia, unspecified 251.2 Acti ve 149859214 Problem Mammographic microcalcification 793.81 Active 31671933662707 Problem Personal history of underimmunization status V15.83 Active 777953106 Problem Contact dermatitis and other eczema, due to unspecified ca use 692.9 Active 15420671 Problem Lumbago 724.2 Active 925600471 Problem Irregular menstrual cycle 626.4 Acti ve 84929866 Problem Attention deficit disorder o f childhood without mention of hyperactivity 314.00 Active 63248112 ALLERGIES No Information ENCOUNTERS Encounter Location Date Diagnosis [facility] [address] [facility] [id number] [address] [place] [address] Apr, Gastroenteritis K52.9 [facility] [address] [id number] [address] [place] [address] Oct, [facility] [address] [id number] [address] [place] [address] Oct, [facility] [address] [id number] [address] [place] [address] July, Status post partial hysterec shivani V88.02 ; Back pain 724.5 ; Arthralgia 719.40 and Nicotine addiction 305.1 [facility] [address] [id number] [address] [place] [address] Jun, [facility] [address] [id number] [address] [place] [address] Jun, [facility] [address] [id number] [address] [place] [address] Feb, [facility] [address] [id number] [address] [place] [address] Feb, [facility] [address] [id number] [address] [place] [address] Feb, [facility] [address] [id number] [address] [place] [address] Jan, [facility] [address] [id number] [address] [place] [address] Jan, [facility] [address] [id number] [address] [place] [address] Jan, [facility] [address] [id number] [address] [place] [address] Jan, [facility] [address] [id number] [address] [place] [address] Jan, [facility] [address] [id number] [address] [place] [address] Jan, [facility] [address] [id number] [address] [place] [address] Jan, [facility] [place] [facility] [address] [id number] [address] [place] [address], [place] [address] Jan, [facility] [place] [facility] [address] [id number] [address] [place] [address], [place] [address] Dec, [facility] [place] [facility] [address] [id number] [address] [place] [address], [place] [address] Dec, [facility] [place] [facility] [address] [id number] [address] [place] [address], [place] [address] Dec, [facility] [place] [facility] [address] [id number] [address] [place] [address], [place] [address] Dec, [facility] [place] [facility] [address] [id number] [address] [place] [address], [place] [address] Dec, [facility] [place] [facility] [address] [id number] [address] [place] [address], [place] [address] Dec, [facility] [place] [facility] [address] [id number] [address] [place] [address], [place] [address] Dec, [facility] [place] [facility] [address] [id number] [address] [place] [address], [place] [address] Dec, [facility] [place] [facility] [address] [id number] [address] [place] [address], [place] [address] Dec, [facility] [place] [facility] [address] [id number] [address] [place] [address], [place] [address] Dec, [facility] [place] [facility] [address] [id number] [address] [place] [address], [place] [address] 19 Nov, 2013 [facility] [place] [facility] [address] [id number] [address] [place] [address], [place] [address] 19 Nov, 2013 [facility] [place] [facility] [address] [id number] [address] [place] [address], [place] [address] 08 Nov, 2013 [facility] [place] [facility] [address] [id number] [address] [place] [address], [place] [address] 08 Nov, 2013 [facility] [place] [facility] [address] [id number] [address] [place] [address], [place] [address] Nov, [facility] [address] [id number] [facility] [place] [address] Nov, [facility] [place] [facility] [address] [id number] [address] [place] [address], [place] [address] Oct, [facility] [address] [id number] [address] [place] [address], [place] [address] Oct, [facility] [place] [facility] [address] [id number] [address] [place] [address], [place] [address] Oct, [facility] [address] [id number] [address] [place] [address], [place] [address] Oct, [facility] [place] [facility] [address] [id number] [address] [place] [address], [place] [address] Oct, [facility] [address] [id number] [address] [place] [address], [place] [address] Oct, [facility] [place] [facility] [address] [id number] [address] [place] [address], [place] [address] Oct, [facility] [address] [id number] [address] [place] [address], [place] [address] Oct, [facility] [place] [facility] [address] [id number] [address] [place] [address], [place] [address] Oct, [facility] [place] [facility] [address] [id number] [address] [place] [address], [place] [address] Oct, [facility] [place] [facility] [address] [id number] [address] [place] [address], [place] [address] Oct, [facility] [place] [facility] [address] [id number] [address] [place] [address], [place] [address] Sep, [facility] [place] [facility] [address] [id number] [address] [place] [address], [place] [address] Sep, [facility] [place] [facility] [address] [id number] [address] [place] [address], [place] [address] July, [facility] [place] [facility] [address] [id number] [address] [place] [address] July, [facility] [address] [id number] [address] [place] [address], [place] [address] Feb, [facility] [address] [id number] [address] [place] [address], [place] [address] Feb, [facility] [address] [id number] [address] [place] [address], [place] [address] Dec, [facility] [address] [id number] [address] [place] [address], [place] [address] Nov, [facility] [address] [id number] [address] [place] [address], [place] [address] Oct, [facility] [address] [id number] [address] [place] [address], [place] [address] Oct, [facility] [address] [id number] [address] [place] [address], [place] [address] Oct, [facility] [address] [id number] [address] [place] [address], [place] [address] Sep, [facility] [address] [id number] [address] [place] [address], [place] [address] Sep, [facility] [address] [id number] [address] [place] [address], [place] [address] Aug, [facility] [address] [id number] [address] [place] [address], [place] [address] July, [facility] [address] [id number] [address] [place] [address], [place] [address] Mar, [facility] [address] [id number] [address] [place] [address], [place] [address] Jan, [facility] [address] [id number] [address] [place] [address], [place] [address] Jan, [facility] [address] [id number] [address] [place] [address], [place] [address] Jan, [facility] [address] [id number] [address] [place] [address], [place] [address] Jan, [facility] [address] [id number] [address] [place] [address], [place] [address] Dec, [facility] [address] [id number] [address] [place] [address], [place] [address] Dec, [facility] [address] [id number] [address] [place] [address], [place] [address] Dec, [facility] [address] [id number] [address] [place] [address], [place] [address] Dec, [facility] [address] [id number] [address] [place] [address], [place] [address] Dec, [facility] [address] [id number] [address] [place] [address], [place] [address] Dec, [facility] [address] [id number] [address] [place] [address], [place] [address] Oct, [facility] [address] [id number] [address] [place] [address], [place] [address] Oct, [facility] [address] [id number] [address] [place] [address], [place] [address] Sep, [facility] [address] [id number] [address] [place] [address], [place] [address] Aug, [facility] [address] [id number] [address] [place] [address], [place] [address] Aug, [facility] [address] [id number] [address] [place] [address], [place] [address] July, [facility] [address] [id number] [address] [place] [address], [place] [address] July, [facility] [address] [id number] [address] [place] [address], [place] [address] July, [facility] [address] [id number] [address] [place] [address], [place] [address] July, [facility] [address] [id number] [address] [place] [address], [place] [address] July, [facility] [address] [id number] [address] [place] [address], [place] [address] Jun, [facility] [address] [id number] [address] [place] [address], [place] [address] May, [facility] [address] [id number] [address] [place] [address], [place] [address] May, [facility] [address] [id number] [address] [place] [address], [place] [address] Apr, [facility] [address] [id number] [address] [place] [address], [place] [address] Apr, [facility] [address] [id number] [address] [place] [address], [place] [address] Apr, [facility] [address] [id number] [address] [place] [address], [place] [address] Apr, [facility] [address] [id number] [address] [place] [address], [place] [address] Apr, [facility] [address] [id number] [address] [place] [address], [place] [address] Apr, [facility] [address] [id number] [address] [place] [address], [place] [address] Mar, [facility] [address] [id number] [address] [place] [address], [place] [address] Mar, [facility] [address] [id number] [address] [place] [address], [place] [address] Mar, [facility] [address] [id number] [address] [place] [address], [place] [address] Mar, [facility] [address] [id number] [address] [place] [address], [place] [address] Mar, [facility] [address] [id number] [address] [place] [address] Jan, [facility] [address] [id number] [address] [place] [address] Dec, [facility] [address] [id number] [address] [place] [address] Dec, [facility] [address] [id number] [address] [place] [address] Feb, [facility] [address] [id number] [address] [place] [address] Jan, [facility] [address] [id number] [address] [place] [address] Jan, [facility] [address] [id number] [address] [place] [address] Jan, [facility] [address] [id number] [address] [place] [address] Jan, [facility] [address] [id number] [address] [place] [address] Dec, [facility] [address] [id number] [address] [place] [address] Sep, [facility] [address] [id number] [address] [place] [address] Oct, IMMUNIZATIONS No Known Immunizations SOCIAL HISTORY [...]
--- OUTSIDE RECORDS SUMMARY | 2019-08-06 05:42 | XMS REPORT ---
Author Author Annabella Victoria Doctor Organization [facility] Address Unknown Phone Unavailable Care Team Providers Care Laminator Name Role Phone Migration, Doctor Unavailable Unavailable PROBLEMS Type Condition ICD9-CM Code FGX09-IQ Code Onset Dates Condition S tatus SNOMED Code Problem Counseling on substance use and abuse V65.42 Active 962288510 Problem Screening for malignant neoplasm of the cervix V76.2 Active 003232980 Problem Personal history of tobacco use, presenting hazards to health V15.82 Active 9403365508655 Problem Unspecified contraceptive management V25.9 Active 544905807 Problem VARICELLA DX V05.4 Active Problem Routine general medical examination at [facility] y V70.0 Active 513711743 Problem Lumbar sprain and strain 847.2 Activ e 537414927 Problem Need for prophylactic vaccination and inoculation, Influen za V04.81 Active 145169034 Problem Cough 786.2 Active 97709413 Problem Degeneration of lumbar or lumbosacral intervertebral disc 722.52 Active 20951065 Problem Other dyschromia 709.09 Active 325 3007 Problem Major depressive disorder, single episode, moderate 296.22 Active 18924478 Problem Unspecified abnormal mammogram 793.80 Active 859116394 Problem Hypoglycemia, unspecified 251.2 Acti ve 465114805 Problem Mammographic microcalcification 793.81 Active 30457993999528 Problem Personal history of underimmunization status V15.83 Active 487716151 Problem Contact dermatitis and other eczema, due to unspecified ca use 692.9 Active 42103098 Problem Lumbago 724.2 Active 799529612 Problem Irregular menstrual cycle 626.4 Acti ve 67647827 Problem Attention deficit disorder o f childhood without mention of hyperactivity 314.00 Active 22391113 ALLERGIES No Information ENCOUNTERS Encounter Location Date Diagnosis [facility] [address] [facility] [id number] [address] [place] [id number] Apr, Gastroenteritis K52.9 [facility] [address] [id number] [address] [place] [id number] Oct, [facility] [address] [id number] [address] [place] [id number] Oct, [facility] [address] [id number] [address] [place] [address] July, Status post partial hysterec shivani V88.02 ; Back pain 724.5 ; Arthralgia 719.40 and Nicotine addiction 305.1 [facility] [address] [id number] [address] [place] [id number] Jun, [facility] [address] [id number] [address] [place] [id number] Jun, [facility] [address] [id number] [address] [place] [phone] Feb, [facility] [address] [id number] [address] [place] [id number] Feb, [facility] [address] [id number] [address] [place] [id number] Feb, [facility] [address] [id number] [address] [place] [phone] Jan, [facility] [address] [id number] [address] [place] [phone] Jan, [facility] [address] [id number] [address] [place] [id number] Jan, [facility] [address] [id number] [address] [place] [phone] Jan, [facility] [address] [id number] [address] [place] [id number] Jan, [facility] [address] [id number] [address] [place] [id number] Jan, [facility] [address] [id number] [address] [place] [id number] Jan, [facility] [place] [facility] [address] [id number] [address] [place] [address], [place] [address] Jan, [facility] [place] [facility] [address] [id number] [address] [place] [address], [place] [address] Dec, [facility] [place] [facility] [address] [id number] [address] [place] [address], [place] [address] Dec, [facility] [place] [facility] [address] [id number] [address] [place] [address], [place] [address] Dec, [facility] [place] [facility] [address] [id number] [address] [place] [address], [place] [address] Dec, [facility] [place] [facility] [address] [id number] [address] [place] [address], [place] [address] Dec, [facility] [place] [facility] [address] [id number] [address] [place] [address], [place] [address] Dec, [facility] [place] [facility] [address] [id number] [address] [place] [address], [place] [address] Dec, [facility] [place] [facility] [address] [id number] [address] [place] [address], [place] [address] Dec, [facility] [place] [facility] [address] [id number] [address] [place] [address], [place] [address] Dec, [facility] [place] [facility] [address] [id number] [address] [place] [address], [place] [address] Dec, [facility] [place] [facility] [address] [id number] [address] [place] [address], [place] [address] 19 Nov, 2013 [facility] [place] [facility] [address] [id number] [address] [place] [address], [place] [address] 19 Nov, 2013 [facility] [place] [facility] [address] [id number] [address] [place] [address], [place] [address] 08 Nov, 2013 [facility] [place] [facility] [address] [id number] [address] [place] [address], [place] [address] 08 Nov, 2013 [facility] [place] [facility] [address] [id number] [address] [place] [address], [place] [address] Nov, [facility] [address] [id number] [facility] [place] [address] Nov, [facility] [place] [facility] [address] [id number] [address] [place] [address], [place] [address] Oct, [facility] [address] [id number] [address] [place] [address], [place] [address] Oct, [facility] [place] [facility] [address] [id number] [address] [place] [address], [place] [address] Oct, [facility] [address] [id number] [address] [place] [address], [place] [address] Oct, [facility] [place] [facility] [address] [id number] [address] [place] [address], [place] [address] Oct, [facility] [address] [id number] [address] [place] [address], [place] [address] Oct, [facility] [place] [facility] [address] [id number] [address] [place] [address], [place] [address] Oct, [facility] [address] [id number] [address] [place] [address], [place] [address] Oct, [facility] [place] [address] [id number] [address] [place] [address], [place] [address] Oct, [facility] [place] [facility] [address] [id number] [address] [place] [address], [place] [address] Oct, [facility] [place] [address] [id number] [address] [place] [address], [place] [address] Oct, [facility] [place] [facility] [address] [id number] [address] [place] [address], [place] [address] Sep, [facility] [place] [facility] [address] [id number] [address] [place] [address], [place] [address] Sep, [facility] [place] [facility] [address] [id number] [address] [place] [address], [place] [address] July, [facility] [place] [facility] [address] [id number] [address] [place] [address] July, [facility] [address] [id number] [address] [place] [address], [place] [address] Feb, [facility] [address] [id number] [address] [place] [address], [place] [address] Feb, [facility] [address] [id number] [address] [place] [address], [place] [address] Dec, [facility] [address] [id number] [address] [place] [address], [place] [address] Nov, [facility] [address] [id number] [address] [place] [address], [place] [address] Oct, [facility] [address] [id number] [address] [place] [address], [place] [address] Oct, [facility] [address] [id number] [address] [place] [address], [place] [address] Oct, [facility] [address] [id number] [address] [place] [address], [place] [address] Sep, [facility] [address] [id number] [address] [place] [address], [place] [address] Sep, [facility] [address] [id number] [address] [place] [address], [place] [address] Aug, [facility] [address] [id number] [address] [place] [address], [place] [address] July, [facility] [address] [id number] [address] [place] [address], [place] [address] Mar, [facility] [address] [id number] [address] [place] [address], [place] [address] Jan, [facility] [address] [id number] [address] [place] [address], [place] [address] Jan, [facility] [address] [id number] [address] [place] [address], [place] [address] Jan, [facility] [address] [id number] [address] [place] [address], [place] [address] Jan, [facility] [address] [id number] [address] [place] [address], [place] [address] Dec, [facility] [address] [id number] [address] [place] [address], [place] [address] Dec, [facility] [address] [id number] [address] [place] [address], [place] [address] Dec, [facility] [address] [id number] [address] [place] [address], [place] [address] Dec, [facility] [address] [id number] [address] [place] [address], [place] [address] Dec, [facility] [address] [id number] [address] [place] [address], [place] [address] Dec, [facility] [address] [id number] [address] [place] [address], [place] [address] Oct, [facility] [address] [id number] [address] [place] [address], [place] [address] Oct, [facility] [address] [id number] [address] [place] [address], [place] [address] Sep, [facility] [address] [id number] [address] [place] [address], [place] [address] Aug, [facility] [address] [id number] [address] [place] [address], [place] [address] Aug, [facility] [address] [id number] [address] [place] [address], [place] [address] July, [facility] [address] [id number] [address] [place] [address], [place] [address] July, [facility] [address] [id number] [address] [place] [address], [place] [address] July, [facility] [address] [id number] [address] [place] [address], [place] [address] July, [facility] [address] [id number] [address] [place] [address], [place] [address] July, [facility] [address] [id number] [address] [place] [address], [place] [address] Jun, [facility] [address] [id number] [address] [place] [address], [place] [address] May, [facility] [address] [id number] [address] [place] [address], [place] [address] May, [facility] [address] [id number] [address] [place] [address], [place] [address] Apr, [facility] [address] [id number] [address] [place] [address], [place] [address] Apr, [facility] [address] [id number] [address] [place] [address], [place] [address] Apr, [facility] [address] [id number] [address] [place] [address], [place] [address] Apr, [facility] [address] [id number] [address] [place] [address], [place] [address] Apr, [facility] [address] [id number] [address] [place] [address], [place] [address] Apr, [facility] [address] [id number] [address] [place] [address], [place] [address] Mar, [facility] [address] [id number] [address] [place] [address], [place] [address] Mar, [facility] [address] [id number] [address] [place] [address], [place] [address] Mar, [facility] [address] [id number] [address] [place] [address], [place] [address] Mar, [facility] [address] [id number] [address] [place] [address], [place] [address] Mar, [facility] [address] [id number] [address] [place] [address] Jan, [facility] [address] [id number] [address] [place] [address] Dec, [facility] [address] [id number] [address] [place] [address] Dec, [facility] [address] [id number] [address] [place] [address] Feb, [facility] [address] [id number] [address] [place] [address] Jan, [facility] [address] [id number] [address] [place] [address] Jan, [facility] [address] [id number] [address] [place] [address] Jan, [facility] [address] [id number] [address] [place] [address] Jan, [facility] [address] [id number] [address] [place] [address] Dec, [facility] [address] [id number] [address] [place] [address] Sep, [facility] [address] [id number] [address] [place] [address] Oct, IMMUNIZATIONS No Known Immunizations SOCIAL HISTORY Never Assessed REASON FOR VISIT [facility] PLAN OF CARE VITAL SIGNS MEDICATIONS No [...]
--- OUTSIDE RECORDS SUMMARY | 2019-08-06 05:42 | XMS REPORT ---
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 Name Role Phone Migration, Doctor Unavailable Unavailable PROBLEMS Type Condition ICD9-CM Code MNL17-SN Code Onset Dates Condition S tatus SNOMED Code Problem Counseling on substance use and abuse V65.42 Active 036807694 Problem Screening for malignant neoplasm of the cervix V76.2 Active 037767254 Problem Personal history of tobacco use, presenting hazards to health V15.82 Active [id number] Problem Unspecified contraceptive management V25.9 Active 867481390 Problem VARICELLA DX V05.4 Active Problem Routine general medical examination at [facility] y V70.0 Active 039957234 Problem Lumbar sprain and strain 847.2 Activ e 729241825 Problem Need for prophylactic vaccination and inoculation, Influen za V04.81 Active 274127618 Problem Cough 786.2 Active 43570453 Problem Degeneration of lumbar or lumbosacral intervertebral disc 722.52 Active 39789998 Problem Other dyschromia 709.09 Active 325 3007 Problem Major depressive disorder, single episode, moderate 296.22 Active 41636895 Problem Unspecified abnormal mammogram 793.80 Active 917492266 Problem Hypoglycemia, unspecified 251.2 Acti ve 937885928 Problem Mammographic microcalcification 793.81 Active [id number] Problem Personal history of underimmunization status V15.83 Active 915918578 Problem Contact dermatitis and other eczema, due to unspecified ca use 692.9 Active 70281352 Problem Lumbago 724.2 Active 924575832 Problem Irregular menstrual cycle 626.4 Acti ve 83985643 Problem Attention deficit disorder o f childhood without mention of hyperactivity 314.00 Active 00887373 ALLERGIES No Information ENCOUNTERS Encounter Location Date Diagnosis [facility] [address] [facility] [id number] [address] [place] [id number] Apr, Gastroenteritis K52.9 [facility] [address] [id number] [address] [place] [phone] Oct, [facility] [address] [id number] [address] [place] [phone] Oct, [facility] [address] [id number] [address] [place] [phone] July, Status post partial hysterec shivani V88.02 ; Back pain 724.5 ; Arthralgia 719.40 and Nicotine addiction 305.1 [facility] [address] [id number] [address] [place] [phone] Jun, [facility] [address] [id number] [address] [place] [phone] Jun, [facility] [address] [id number] [address] [place] [phone] Feb, [facility] [address] [id number] [address] [place] [phone] Feb, [facility] [address] [id number] [address] [place] [phone] Feb, [facility] [address] [id number] [address] [place] [phone] Jan, [facility] [address] [id number] [address] [place] [phone] Jan, [facility] [address] [id number] [address] [place] [phone] Jan, [facility] [address] [id number] [address] [place] [phone] Jan, [facility] [address] [id number] [address] [place] [phone] Jan, [facility] [address] [id number] [address] [place] [phone] Jan, [facility] [address] [id number] [address] [place] [phone] Jan, [facility] [place] [facility] [address] [id number] [address] [place] [address], [place] [address] Jan, [facility] [place] [facility] [address] [id number] [address] [place] [address], [place] [address] Dec, [facility] [place] [facility] [address] [id number] [address] [place] [address], [place] [address] Dec, [facility] [place] [facility] [address] [id number] [address] [place] [address], [place] [address] Dec, [facility] [place] [facility] [address] [id number] [address] [place] [address], [place] [address] Dec, [facility] [place] [facility] [address] [id number] [address] [place] [address], [place] [address] Dec, [facility] [place] [facility] [address] [id number] [address] [place] [address], [place] [address] Dec, [facility] [place] [facility] [address] [id number] [address] [place] [address], [place] [address] Dec, [facility] [place] [facility] [address] [id number] [address] [place] [address], [place] [address] Dec, [facility] [place] [facility] [address] [id number] [address] [place] [address], [place] [address] Dec, [facility] [place] [facility] [address] [id number] [address] [place] [address], [place] [address] Dec, [facility] [place] [facility] [address] [id number] [address] [place] [address], [place] [address] 19 Nov, 2013 [facility] [place] [facility] [address] [id number] [address] [place] [address], [place] [address] 19 Nov, 2013 [facility] [place] [facility] [address] [id number] [address] [place] [address], [place] [address] 08 Nov, 2013 [facility] [place] [facility] [address] [id number] [address] [place] [address], [place] [address] 08 Nov, 2013 [facility] [place] [facility] [address] [id number] [address] [place] [address], [place] [address] Nov, [facility] [address] [id number] [facility] [place] [address] Nov, [facility] [place] [facility] [address] [id number] [address] [place] [address], [place] [address] Oct, [facility] [address] [id number] [address] [place] [address], [place] [address] Oct, [facility] [place] [facility] [address] [id number] [address] [place] [address], [place] [address] Oct, [facility] [address] [id number] [address] [place] [address], [place] [address] Oct, [facility] [place] [facility] [address] [id number] [address] [place] [address], [place] [address] Oct, [facility] [address] [id number] [address] [place] [address], [place] [address] Oct, [facility] [place] [facility] [address] [id number] [address] [place] [address], [place] [address] Oct, [facility] [address] [id number] [address] [place] [address], [place] [address] Oct, [facility] [place] [facility] [address] [id number] [address] [place] [address], [place] [address] Oct, [facility] [place] [facility] [address] [id number] [address] [place] [address], [place] [address] Oct, [facility] [place] [facility] [address] [id number] [address] [place] [address], [place] [address] Oct, [facility] [place] [facility] [address] [id number] [address] [place] [address], [place] [address] Sep, [facility] [place] [facility] [address] [id number] [address] [place] [address], [place] [address] Sep, [facility] [place] [facility] [address] [id number] [address] [place] [address], [place] [address] July, [facility] [place] [facility] [address] [id number] [address] [place] [address] July, [facility] [address] [id number] [address] [place] [address], [place] [address] Feb, [facility] [address] [id number] [address] [place] [address], [place] [address] Feb, [facility] [address] [id number] [address] [place] [address], [place] [address] Dec, [facility] [address] [id number] [address] [place] [address], [place] [address] Nov, [facility] [address] [id number] [address] [place] [address], [place] [address] Oct, [facility] [address] [id number] [address] [place] [address], [place] [address] Oct, [facility] [address] [id number] [address] [place] [address], [place] [address] Oct, [facility] [address] [id number] [address] [place] [address], [place] [address] Sep, [facility] [address] [id number] [address] [place] [address], [place] [address] Sep, [facility] [address] [id number] [address] [place] [address], [place] [address] Aug, [facility] [address] [id number] [address] [place] [address], [place] [address] July, [facility] [address] [id number] [address] [place] [address], [place] [address] Mar, [facility] [address] [id number] [address] [place] [address], [place] [address] Jan, [facility] [address] [id number] [address] [place] [address], [place] [address] Jan, [facility] [address] [id number] [address] [place] [address], [place] [address] Jan, [facility] [address] [id number] [address] [place] [address], [place] [address] Jan, [facility] [address] [id number] [address] [place] [address], [place] [address] Dec, [facility] [address] [id number] [address] [place] [address], [place] [address] Dec, [facility] [address] [id number] [address] [place] [address], [place] [address] Dec, [facility] [address] [id number] [address] [place] [address], [place] [address] Dec, [facility] [address] [id number] [address] [place] [address], [place] [address] Dec, [facility] [address] [id number] [address] [place] [address], [place] [address] Dec, [facility] [address] [id number] [address] [place] [address], [place] [address] Oct, [facility] [address] [id number] [address] [place] [address], [place] [address] Oct, [facility] [address] [id number] [address] [place] [address], [place] [address] Sep, [facility] [address] [id number] [address] [place] [address], [place] [address] Aug, [facility] [address] [id number] [address] [place] [address], [place] [address] Aug, [facility] [address] [id number] [address] [place] [address], [place] [address] July, [facility] [address] [id number] [address] [place] [address], [place] [address] July, [facility] [address] [id number] [address] [place] [address], [place] [address] July, [facility] [address] [id number] [address] [place] [address], [place] [address] July, [facility] [address] [id number] [address] [place] [address], [place] [address] July, [facility] [address] [id number] [address] [place] [address], [place] [address] Jun, [facility] [address] [id number] [address] [place] [address], [place] [address] May, [facility] [address] [id number] [address] [place] [address], [place] [address] May, [facility] [address] [id number] [address] [place] [address], [place] [address] Apr, [facility] [address] [id number] [address] [place] [address], [place] [address] Apr, [facility] [address] [id number] [address] [place] [address], [place] [address] Apr, [facility] [address] [id number] [address] [place] [address], [place] [address] Apr, [facility] [address] [id number] [address] [place] [address], [place] [address] Apr, [facility] [address] [id number] [address] [place] [address], [place] [address] Apr, [facility] [address] [id number] [address] [place] [address], [place] [address] Mar, [facility] [address] [id number] [address] [place] [address], [place] [address] Mar, [facility] [address] [id number] [address] [place] [address], [place] [address] Mar, [facility] [address] [id number] [address] [place] [address], [place] [address] Mar, [facility] [address] [id number] [address] [place] [address], [place] [address] Mar, [facility] [address] [id number] [address] [place] [phone] Jan, [facility] [address] [id number] [address] [place] [id number] Dec, [facility] [address] [id number] [address] [place] [phone] Dec, [facility] [address] [id number] [address] [place] [phone] Feb, [facility] [address] [id number] [address] [place] [id number] Jan, [facility] [address] [id number] [address] [place] [id number] Jan, [facility] [address] [id number] [address] [place] [id number] Jan, [facility] [address] [id number] [address] [place] [phone] Jan, [facility] [address] [id number] [address] [place] [address] Dec, [facility] [address] [id number] [address] [place] [phone] Sep, [facility] [address] [id number] [address] [place] [address] Oct, IMMUNIZATIONS No Known Immunizations SOCIAL HISTORY Never Assessed REASON FOR VISIT [facility] PLAN OF CARE VITAL SIGNS MEDICATIONS No [...]
--- OUTSIDE RECORDS SUMMARY | 2019-08-06 05:42 | XMS REPORT ---
Author Author Annabella Victoria Doctor Organization [facility] Address Unknown Phone Unavailable Care Team Providers Care Novelty Worker Name Role Phone Migration, Doctor Unavailable Unavailable PROBLEMS Type Condition ICD9-CM Code PPQ74-HW Code Onset Dates Condition S tatus SNOMED Code Problem Counseling on substance use and abuse V65.42 Active 694043930 Problem Screening for malignant neoplasm of the cervix V76.2 Active 704082857 Problem Personal history of tobacco use, presenting hazards to health V15.82 Active 7188185386350 Problem Unspecified contraceptive management V25.9 Active 981988359 Problem VARICELLA DX V05.4 Active Problem Routine general medical examination at [facility] y V70.0 Active 778961515 Problem Lumbar sprain and strain 847.2 Activ e 824210769 Problem Need for prophylactic vaccination and inoculation, Influen za V04.81 Active 509847336 Problem Cough 786.2 Active 79093174 Problem Degeneration of lumbar or lumbosacral intervertebral disc 722.52 Active 06330718 Problem Other dyschromia 709.09 Active 325 3007 Problem Major depressive disorder, single episode, moderate 296.22 Active 74307311 Problem Unspecified abnormal mammogram 793.80 Active 295578948 Problem Hypoglycemia, unspecified 251.2 Acti ve 425799081 Problem Mammographic microcalcification 793.81 Active 30453016782967 Problem Personal history of underimmunization status V15.83 Active 128971600 Problem Contact dermatitis and other eczema, due to unspecified ca use 692.9 Active 35812495 Problem Lumbago 724.2 Active 148346409 Problem Irregular menstrual cycle 626.4 Acti ve 80130469 Problem Attention deficit disorder o f childhood without mention of hyperactivity 314.00 Active 91258909 ALLERGIES No Information ENCOUNTERS Encounter Location Date Diagnosis [facility] [address] [facility] [id number] [address] [place] [address] Apr, Gastroenteritis K52.9 [facility] [address] [id number] [address] [place] [address] Oct, [facility] [address] [id number] [address] [place] [address] Oct, [facility] [address] [id number] [address] [place] [address] July, Status post partial hysterec shivani V88.02 ; Back pain 724.5 ; Arthralgia 719.40 and Nicotine addiction 305.1 [facility] [address] [id number] [address] [place] [address] Jun, [facility] [address] [id number] [address] [place] [address] Jun, [facility] [address] [id number] [address] [place] [address] Feb, [facility] [address] [id number] [address] [place] [address] Feb, [facility] [address] [id number] [address] [place] [phone] Feb, [facility] [address] [id number] [address] [place] [id number] Jan, [facility] [address] [id number] [address] [place] [id number] Jan, [facility] [address] [id number] [address] [place] [address] Jan, [facility] [address] [id number] [address] [place] [phone] Jan, [facility] [address] [id number] [address] [place] [address] Jan, [facility] [address] [id number] [address] [place] [address] Jan, [facility] [address] [id number] [address] [place] [address] Jan, [facility] [place] [facility] [address] [id number] [address] [place] [address], [place] [address] Jan, [facility] [place] [facility] [address] [id number] [address] [place] [address], [place] [address] Dec, [facility] [place] [facility] [address] [id number] [address] [place] [address], [place] [address] Dec, [facility] [place] [facility] [address] [id number] [address] [place] [address], [place] [address] Dec, [facility] [place] [facility] [address] [id number] [address] [place] [address], [place] [address] Dec, [facility] [place] [facility] [address] [id number] [address] [place] [address], [place] [address] Dec, [facility] [place] [facility] [address] [id number] [address] [place] [address], [place] [address] Dec, [facility] [place] [facility] [address] [id number] [address] [place] [address], [place] [address] Dec, [facility] [place] [facility] [address] [id number] [address] [place] [address], [place] [address] Dec, [facility] [place] [facility] [address] [id number] [address] [place] [address], [place] [address] Dec, [facility] [place] [facility] [address] [id number] [address] [place] [address], [place] [address] Dec, [facility] [place] [facility] [address] [id number] [address] [place] [address], [place] [address] 19 Nov, 2013 [facility] [place] [facility] [address] [id number] [address] [place] [address], [place] [address] 19 Nov, 2013 [facility] [place] [facility] [address] [id number] [address] [place] [address], [place] [address] 08 Nov, 2013 [facility] [place] [facility] [address] [id number] [address] [place] [address], [place] [address] 08 Nov, 2013 [facility] [place] [facility] [address] [id number] [address] [place] [address], [place] [address] Nov, [facility] [address] [id number] [facility] [place] [address] Nov, [facility] [place] [facility] [address] [id number] [address] [place] [address], [place] [address] Oct, [facility] [address] [id number] [address] [place] [address], [place] [address] Oct, [facility] [place] [address] [id number] [address] [place] [address], [place] [address] Oct, [facility] [address] [id number] [address] [place] [address], [place] [address] Oct, [facility] [place] [address] [id number] [address] [place] [address], [place] [address] Oct, [facility] [address] [id number] [address] [place] [address], [place] [address] Oct, [facility] [address] [id number] [address] [place] [address], [place] [address] Oct, [facility] [address] [id number] [address] [place] [address], [place] [address] Oct, [facility] [place] [address] [id number] [address] [place] [address], [place] [address] Oct, [facility] [place] [facility] [address] [id number] [address] [place] [address], [place] [address] Oct, [facility] [place] [facility] [address] [id number] [address] [place] [address], [place] [address] Oct, [facility] [address] [id number] [address] [place] [address], [place] [address] Sep, [facility] [place] [address] [id number] [address] [place] [address], [place] [address] Sep, [facility] [place] [facility] [address] [id number] [address] [place] [address], [place] [address] July, [facility] [place] [facility] [address] [id number] [address] [place] [address] July, [facility] [address] [id number] [address] [place] [address], [place] [address] Feb, [facility] [address] [id number] [address] [place] [address], [place] [address] Feb, [facility] [address] [id number] [address] [place] [address], [place] [address] Dec, [facility] [address] [id number] [address] [place] [address], [place] [address] Nov, [facility] [address] [id number] [address] [place] [address], [place] [address] Oct, [facility] [address] [id number] [address] [place] [address], [place] [address] Oct, [facility] [address] [id number] [address] [place] [address], [place] [address] Oct, [facility] [address] [id number] [address] [place] [address], [place] [address] Sep, [facility] [address] [id number] [address] [place] [address], [place] [address] Sep, [facility] [address] [id number] [address] [place] [address], [place] [address] Aug, [facility] [address] [id number] [address] [place] [address], [place] [address] July, [facility] [address] [id number] [address] [place] [address], [place] [address] Mar, [facility] [address] [id number] [address] [place] [address], [place] [address] Jan, [facility] [address] [id number] [address] [place] [address], [place] [address] Jan, [facility] [address] [id number] [address] [place] [address], [place] [address] Jan, [facility] [address] [id number] [address] [place] [address], [place] [address] Jan, [facility] [address] [id number] [address] [place] [address], [place] [address] Dec, [facility] [address] [id number] [address] [place] [address], [place] [address] Dec, [facility] [address] [id number] [address] [place] [address], [place] [address] Dec, [facility] [address] [id number] [address] [place] [address], [place] [address] Dec, [facility] [address] [id number] [address] [place] [address], [place] [address] Dec, [facility] [address] [id number] [address] [place] [address], [place] [address] Dec, [facility] [address] [id number] [address] [place] [address], [place] [address] Oct, [facility] [address] [id number] [address] [place] [address], [place] [address] Oct, [facility] [address] [id number] [address] [place] [address], [place] [address] Sep, [facility] [address] [id number] [address] [place] [address], [place] [address] Aug, [facility] [address] [id number] [address] [place] [address], [place] [address] Aug, [facility] [address] [id number] [address] [place] [address], [place] [address] July, [facility] [address] [id number] [address] [place] [address], [place] [address] July, [facility] [address] [id number] [address] [place] [address], [place] [address] July, [facility] [address] [id number] [address] [place] [address], [place] [address] July, [facility] [address] [id number] [address] [place] [address], [place] [address] July, [facility] [address] [id number] [address] [place] [address], [place] [address] Jun, [facility] [address] [id number] [address] [place] [address], [place] [address] May, [facility] [address] [id number] [address] [place] [address], [place] [address] May, [facility] [address] [id number] [address] [place] [address], [place] [address] Apr, [facility] [address] [id number] [address] [place] [address], [place] [address] Apr, [facility] [address] [id number] [address] [place] [address], [place] [address] Apr, [facility] [address] [id number] [address] [place] [address], [place] [address] Apr, [facility] [address] [id number] [address] [place] [address], [place] [address] Apr, [facility] [address] [id number] [address] [place] [address], [place] [address] Apr, [facility] [address] [id number] [address] [place] [address], [place] [address] Mar, [facility] [address] [id number] [address] [place] [address], [place] [address] Mar, [facility] [address] [id number] [address] [place] [address], [place] [address] Mar, [facility] [address] [id number] [address] [place] [address], [place] [address] Mar, [facility] [address] [id number] [address] [place] [address], [place] [address] Mar, [facility] [address] [id number] [address] [place] [address] Jan, [facility] [address] [id number] [address] [place] [address] Dec, [facility] [address] [id number] [address] [place] [address] Dec, [facility] [address] [id number] [address] [place] [address] Feb, [facility] [address] [id number] [address] [place] [address] Jan, [facility] [address] [id number] [address] [place] [address] Jan, [facility] [address] [id number] [address] [place] [address] Jan, [facility] [address] [id number] [address] [place] [address] Jan, [facility] [address] [id number] [address] [place] [phone] Dec, [facility] [address] [id number] [address] [place] [address] Sep, [facility] [address] [id number] [address] [place] [address] Oct, IMMUNIZATIONS No Known Immunizations SOCIAL HISTORY Never Assessed REASON FOR VISIT [facility] PLAN OF CARE VITAL SIGNS MEDICATIONS No [...]
--- OUTSIDE RECORDS SUMMARY | 2019-08-06 05:42 | XMS REPORT ---
Author Author Annabella Victoria Doctor Organization [facility] Address Unknown Phone Unavailable Care Team Providers Care Branding Machine Operator Name Role Phone Migration, Doctor Unavailable Unavailable PROBLEMS Type Condition ICD9-CM Code [id number] Code Onset Dates Condition S tatus SNOMED Code Problem Counseling on substance use and abuse V65.42 Active 801330252 Problem Screening for malignant neoplasm of the cervix V76.2 Active 646074410 Problem Personal history of tobacco use, presenting hazards to health V15.82 Active 8428224690096 Problem Unspecified contraceptive management V25.9 Active 588889720 Problem VARICELLA DX V05.4 Active Problem Routine general medical examination at [facility] [place] V70.0 Active 624957239 Problem Lumbar sprain and strain 847.2 Activ e 421706623 Problem Need for prophylactic vaccination and inoculation, Influen za V04.81 Active 701060508 Problem Cough 786.2 Active 37054695 Problem Degeneration of lumbar or lumbosacral intervertebral disc 722.52 Active 40794427 Problem Other dyschromia 709.09 Active 325 3007 Problem Major depressive disorder, single episode, moderate 296.22 Active 29767675 Problem Unspecified abnormal mammogram 793.80 Active 270361389 Problem Hypoglycemia, unspecified 251.2 Acti ve 881290525 Problem Mammographic microcalcification 793.81 Active 73084839858777 Problem Personal history of underimmunization status V15.83 Active 026634334 Problem Contact dermatitis and other eczema, due to unspecified ca use 692.9 Active 67164222 Problem Lumbago 724.2 Active 503936170 Problem Irregular menstrual cycle 626.4 Acti ve 34702259 Problem Attention deficit disorder o f childhood without mention of hyperactivity 314.00 Active 08837599 ALLERGIES No Information ENCOUNTERS Encounter Location Date Diagnosis [facility] [address] [facility] [id number] [address] [place] [address] Apr, Gastroenteritis K52.9 [facility] [address] [id number] [address] [place] [address] Oct, [facility] [address] [id number] [address] [place] [address] Oct, [facility] [address] [id number] [address] [place] [address] July, Status post partial hysterec shivani V88.02 ; Back pain 724.5 ; Arthralgia 719.40 and Nicotine addiction 305.1 [facility] [address] [id number] [address] [place] [address] Jun, [facility] [address] [id number] [address] [place] [address] Jun, [facility] [address] [id number] [address] [place] [address] Feb, [facility] [address] [id number] [address] [place] [address] Feb, [facility] [address] [id number] [address] [place] [address] Feb, [facility] [address] [id number] [address] [place] [address] Jan, [facility] [address] [id number] [address] [place] [address] Jan, [facility] [address] [id number] [address] [place] [address] Jan, [facility] [address] [id number] [address] [place] [address] Jan, [facility] [address] [id number] [address] [place] [address] Jan, [facility] [address] [id number] [address] [place] [address] Jan, [facility] [address] [id number] [address] [place] [address] Jan, [facility] [place] [facility] [address] [id number] [address] [place] [address], [place] [address] Jan, [facility] [place] [facility] [address] [id number] [address] [place] [address], [place] [address] Dec, [facility] [place] [facility] [address] [id number] [address] [place] [address], [place] [address] Dec, [facility] [place] [facility] [address] [id number] [address] [place] [address], [place] [address] Dec, [facility] [place] [facility] [address] [id number] [address] [place] [address], [place] [address] Dec, [facility] [place] [facility] [address] [id number] [address] [place] [address], [place] [address] Dec, [facility] [place] [facility] [address] [id number] [address] [place] [address], [place] [address] Dec, [facility] [place] [facility] [address] [id number] [address] [place] [address], [place] [address] Dec, [facility] [place] [facility] [address] [id number] [address] [place] [address], [place] [address] Dec, [facility] [place] [facility] [address] [id number] [address] [place] [address], [place] [address] Dec, [facility] [place] [facility] [address] [id number] [address] [place] [address], [place] [address] Dec, [facility] [place] [facility] [address] [id number] [address] [place] [address], [place] [address] 19 Nov, 2013 [facility] [place] [facility] [address] [id number] [address] [place] [address], [place] [address] 19 Nov, 2013 [facility] [place] [facility] [address] [id number] [address] [place] [address], [place] [address] 08 Nov, 2013 [facility] [place] [facility] [address] [id number] [address] [place] [address], [place] [address] 08 Nov, 2013 [facility] [place] [facility] [address] [id number] [address] [place] [address], [place] [address] Nov, [facility] [address] [id number] [facility] [place] [address] Nov, [facility] [place] [facility] [address] [id number] [address] [place] [address], [place] [address] Oct, [facility] [address] [id number] [address] [place] [address], [place] [address] Oct, [facility] [place] [facility] [address] [id number] [address] [place] [address], [place] [address] Oct, [facility] [address] [id number] [address] [place] [address], [place] [address] Oct, [facility] [place] [facility] [address] [id number] [address] [place] [address], [place] [address] Oct, [facility] [address] [id number] [address] [place] [address], [place] [address] Oct, [facility] [place] [facility] [address] [id number] [address] [place] [address], [place] [address] Oct, [facility] [address] [id number] [address] [place] [address], [place] [address] Oct, [facility] [place] [facility] [address] [id number] [address] [place] [address], [place] [address] Oct, [facility] [place] [facility] [address] [id number] [address] [place] [address], [place] [address] Oct, [facility] [place] [facility] [address] [id number] [address] [place] [address], [place] [address] Oct, [facility] [place] [facility] [address] [id number] [address] [place] [address], [place] [address] Sep, [facility] [place] [facility] [address] [id number] [address] [place] [address], [place] [address] Sep, [facility] [place] [facility] [address] [id number] [address] [place] [address], [place] [address] July, [facility] [place] [facility] [address] [id number] [address] [place] [address] July, [facility] [address] [id number] [address] [place] [address], [place] [address] Feb, [facility] [address] [id number] [address] [place] [address], [place] [address] Feb, [facility] [address] [id number] [address] [place] [address], [place] [address] Dec, [facility] [address] [id number] [address] [place] [address], [place] [address] Nov, [facility] [address] [id number] [address] [place] [address], [place] [address] Oct, [facility] [address] [id number] [address] [place] [address], [place] [address] Oct, [facility] [address] [id number] [address] [place] [address], [place] [address] Oct, [facility] [address] [id number] [address] [place] [address], [place] [address] Sep, [facility] [address] [id number] [address] [place] [address], [place] [address] Sep, [facility] [address] [id number] [address] [place] [address], [place] [address] Aug, [facility] [address] [id number] [address] [place] [address], [place] [address] July, [facility] [address] [id number] [address] [place] [address], [place] [address] Mar, [facility] [address] [id number] [address] [place] [address], [place] [address] Jan, [facility] [address] [id number] [address] [place] [address], [place] [address] Jan, [facility] [address] [id number] [address] [place] [address], [place] [address] Jan, [facility] [address] [id number] [address] [place] [address], [place] [address] Jan, [facility] [address] [id number] [address] [place] [address], [place] [address] Dec, [facility] [address] [id number] [address] [place] [address], [place] [address] Dec, [facility] [address] [id number] [address] [place] [address], [place] [address] Dec, [facility] [address] [id number] [address] [place] [address], [place] [address] Dec, [facility] [address] [id number] [address] [place] [address], [place] [address] Dec, [facility] [address] [id number] [address] [place] [address], [place] [address] Dec, [facility] [address] [id number] [address] [place] [address], [place] [address] Oct, [facility] [address] [id number] [address] [place] [address], [place] [address] Oct, [facility] [address] [id number] [address] [place] [address], [place] [address] Sep, [facility] [address] [id number] [address] [place] [address], [place] [address] Aug, [facility] [address] [id number] [address] [place] [address], [place] [address] Aug, [facility] [address] [id number] [address] [place] [address], [place] [address] July, [facility] [address] [id number] [address] [place] [address], [place] [address] July, [facility] [address] [id number] [address] [place] [address], [place] [address] July, [facility] [address] [id number] [address] [place] [address], [place] [address] July, [facility] [address] [id number] [address] [place] [address], [place] [address] July, [facility] [address] [id number] [address] [place] [address], [place] [address] Jun, [facility] [address] [id number] [address] [place] [address], [place] [address] May, [facility] [address] [id number] [address] [place] [address], [place] [address] May, [facility] [address] [id number] [address] [place] [address], [place] [address] Apr, [facility] [address] [id number] [address] [place] [address], [place] [address] Apr, [facility] [address] [id number] [address] [place] [address], [place] [address] Apr, [facility] [address] [id number] [address] [place] [address], [place] [address] Apr, [facility] [address] [id number] [address] [place] [address], [place] [address] Apr, [facility] [address] [id number] [address] [place] [address], [place] [address] Apr, [facility] [address] [id number] [address] [place] [address], [place] [address] Mar, [facility] [address] [id number] [address] [place] [address], [place] [address] Mar, [facility] [address] [id number] [address] [place] [address], [place] [address] Mar, [facility] [address] [id number] [address] [place] [address], [place] [address] Mar, [facility] [address] [id number] [address] [place] [address], [place] [address] Mar, [facility] [address] [id number] [address] [place] [address] Jan, [facility] [address] [id number] [address] [place] [address] Dec, [facility] [address] [id number] [address] [place] [address] Dec, [facility] [address] [id number] [address] [place] [address] Feb, [facility] [address] [id number] [address] [place] [address] Jan, [facility] [address] [id number] [address] [place] [address] Jan, [facility] [address] [id number] [address] [place] [address] Jan, [facility] [address] [id number] [address] [place] [address] Jan, [facility] [address] [id number] [address] [place] [address] Dec, [facility] [address] [id number] [address] [place] [address] Sep, [facility] [address] [id number] [address] [place] [address] Oct, IMMUNIZATIONS No Known Immunizations SOCIAL HISTORY Never Assessed REASON FOR VISIT [facility] PLAN OF CARE VITAL SIGNS MEDICATIONS No [...]
--- OUTSIDE RECORDS SUMMARY | 2019-08-06 05:42 | XMS REPORT ---
Author Author Annabella Victoria Doctor Organization [facility] Address Unknown Phone Unavailable Care Team Providers Care Manager Mail Name Role Phone Migration, Doctor Unavailable Unavailable PROBLEMS Type Condition ICD9-CM Code [id number] Code Onset Dates Condition S tatus SNOMED Code Problem Counseling on substance use and abuse V65.42 Active 833608199 Problem Screening for malignant neoplasm of the cervix V76.2 Active 620350113 Problem Personal history of tobacco use, presenting hazards to health V15.82 Active 0405695581205 Problem Unspecified contraceptive management V25.9 Active 982203189 Problem VARICELLA DX V05.4 Active Problem Routine general medical examination at [facility] y V70.0 Active 784581909 Problem Lumbar sprain and strain 847.2 Activ e 409675711 Problem Need for prophylactic vaccination and inoculation, Influen za V04.81 Active 832692054 Problem Cough 786.2 Active 00515353 Problem Degeneration of lumbar or lumbosacral intervertebral disc 722.52 Active 77855051 Problem Other dyschromia 709.09 Active 325 3007 Problem Major depressive disorder, single episode, moderate 296.22 Active 24190484 Problem Unspecified abnormal mammogram 793.80 Active 229624942 Problem Hypoglycemia, unspecified 251.2 Acti ve 500603750 Problem Mammographic microcalcification 793.81 Active 82035863646076 Problem Personal history of underimmunization status V15.83 Active 140953872 Problem Contact dermatitis and other eczema, due to unspecified ca use 692.9 Active 79264420 Problem Lumbago 724.2 Active 466290644 Problem Irregular menstrual cycle 626.4 Acti ve 51450325 Problem Attention deficit disorder o f childhood without mention of hyperactivity 314.00 Active 85967573 ALLERGIES No Information ENCOUNTERS Encounter Location Date Diagnosis [facility] [address] [facility] [id number] [address] [place] [address] Apr, Gastroenteritis K52.9 [facility] [address] [id number] [address] [place] [id number] Oct, [facility] [address] [id number] [address] [place] [id number] Oct, [facility] [address] [id number] [address] [place] [address] July, Status post partial hysterec shivani V88.02 ; Back pain 724.5 ; Arthralgia 719.40 [address] [facility] [address] [id number] [address] [place] [id number] Jun, [facility] [address] [id number] [address] [place] [id number] Jun, [facility] [address] [id number] [address] [place] [address] Feb, [facility] [address] [id number] [address] [place] [address] Feb, [facility] [address] [id number] [address] [place] [id number] Feb, [facility] [address] [id number] [address] [place] [id number] Jan, [facility] [address] [id number] [address] [place] [address] Jan, [facility] [address] [id number] [address] [place] [address] Jan, [facility] [address] [id number] [address] [place] [id number] Jan, [facility] [address] [id number] [address] [place] [address] Jan, [facility] [address] [id number] [address] [place] [address] Jan, [facility] [address] [id number] [address] [place] [id number] Jan, [facility] [place] [facility] [address] [id number] [address] [place] [address], [place] [address] Jan, [facility] [place] [facility] [address] [id number] [address] [place] [address], [place] [address] Dec, [facility] [place] [facility] [address] [id number] [address] [place] [address], [place] [address] Dec, [facility] [place] [facility] [address] [id number] [address] [place] [address], [place] [address] Dec, [facility] [place] [facility] [address] [id number] [address] [place] [address], [place] [address] Dec, [facility] [place] [facility] [address] [id number] [address] [place] [address], [place] [address] Dec, [facility] [place] [facility] [address] [id number] [address] [place] [address], [place] [id number] Dec, [facility] [place] [facility] [address] [id number] [address] [place] [address], [place] [address] Dec, [facility] [place] [facility] [address] [id number] [address] [place] [address], [place] [address] Dec, [facility] [place] [facility] [address] [id number] [address] [place] [address], [place] [address] Dec, [facility] [place] [facility] [address] [id number] [address] [place] [address], [place] [address] Dec, [facility] [place] [facility] [address] [id number] [address] [place] [address], [place] [address] 19 Nov, 2013 [facility] [place] [facility] [address] [id number] [address] [place] [address], [place] [address] 19 Nov, 2013 [facility] [place] [facility] [address] [id number] [address] [place] [address], [place] [address] 08 Nov, 2013 [facility] [place] [facility] [address] [id number] [address] [place] [address], [place] [address] 08 Nov, 2013 [facility] [place] [facility] [address] [id number] [address] [place] [address], [place] [address] Nov, [facility] [address] [id number] [facility] [place] [address] Nov, [facility] [place] [facility] [address] [id number] [address] [place] [address], [place] [address] Oct, [facility] [address] [id number] [address] [place] [address], [place] [address] Oct, [facility] [place] [facility] [address] [id number] [address] [place] [address], [place] [address] Oct, [facility] [address] [id number] [address] [place] [address], [place] [address] Oct, [facility] [place] [facility] [address] [id number] [address] [place] [address], [place] [address] Oct, [facility] [address] [id number] [address] [place] [address], [place] [address] Oct, [facility] [place] [facility] [address] [id number] [address] [place] [address], [place] [address] Oct, [facility] [address] [id number] [address] [place] [address], [place] [address] Oct, [facility] [place] [facility] [address] [id number] [address] [place] [address], [place] [address] Oct, [facility] [place] [facility] [address] [id number] [address] [place] [address], [place] [address] Oct, [facility] [place] [facility] [address] [id number] [address] [place] [address], [place] [address] Oct, [facility] [place] [facility] [address] [id number] [address] [place] [address], [place] [address] Sep, [facility] [place] [facility] [address] [id number] [address] [place] [address], [place] [address] Sep, [facility] [place] [facility] [address] [id number] [address] [place] [address], [place] [address] July, [facility] [place] [facility] [address] [id number] [address] [place] [address] July, [facility] [address] [id number] [address] [place] [address], [place] [address] Feb, [facility] [address] [id number] [address] [place] [address], [place] [address] Feb, [facility] [address] [id number] [address] [place] [address], [place] [address] Dec, [facility] [address] [id number] [address] [place] [address], [place] [address] Nov, [facility] [address] [id number] [address] [place] [address], [place] [address] Oct, [facility] [address] [id number] [address] [place] [address], [place] [address] Oct, [facility] [address] [id number] [address] [place] [address], [place] [address] Oct, [facility] [address] [id number] [address] [place] [address], [place] [address] Sep, [facility] [address] [id number] [address] [place] [address], [place] [address] Sep, [facility] [address] [id number] [address] [place] [address], [place] [address] Aug, [facility] [address] [id number] [address] [place] [address], [place] [address] July, [facility] [address] [id number] [address] [place] [address], [place] [address] Mar, [facility] [address] [id number] [address] [place] [address], [place] [address] Jan, [facility] [address] [id number] [address] [place] [address], [place] [address] Jan, [facility] [address] [id number] [address] [place] [address], [place] [address] Jan, [facility] [address] [id number] [address] [place] [address], [place] [address] Jan, [facility] [address] [id number] [address] [place] [address], [place] [address] Dec, [facility] [address] [id number] [address] [place] [address], [place] [address] Dec, [facility] [address] [id number] [address] [place] [address], [place] [address] Dec, [facility] [address] [id number] [address] [place] [address], [place] [address] Dec, [facility] [address] [id number] [address] [place] [address], [place] [address] Dec, [facility] [address] [id number] [address] [place] [address], [place] [address] Dec, [facility] [address] [id number] [address] [place] [address], [place] [address] Oct, [facility] [address] [id number] [address] [place] [address], [place] [address] Oct, [facility] [address] [id number] [address] [place] [address], [place] [address] Sep, [facility] [address] [id number] [address] [place] [address], [place] [address] Aug, [facility] [address] [id number] [address] [place] [address], [place] [address] Aug, [facility] [address] [id number] [address] [place] [address], [place] [address] July, [facility] [address] [id number] [address] [place] [address], [place] [address] July, [facility] [address] [id number] [address] [place] [address], [place] [address] July, [facility] [address] [id number] [address] [place] [address], [place] [address] July, [facility] [address] [id number] [address] [place] [address], [place] [address] July, [facility] [address] [id number] [address] [place] [address], [place] [address] Jun, [facility] [address] [id number] [address] [place] [address], [place] [address] May, [facility] [address] [id number] [address] [place] [address], [place] [address] May, [facility] [address] [id number] [address] [place] [address], [place] [address] Apr, [facility] [address] [id number] [address] [place] [address], [place] [address] Apr, [facility] [address] [id number] [address] [place] [address], [place] [address] Apr, [facility] [address] [id number] [address] [place] [address], [place] [address] Apr, [facility] [address] [id number] [address] [place] [address], [place] [address] Apr, [facility] [address] [id number] [address] [place] [address], [place] [address] Apr, [facility] [address] [id number] [address] [place] [address], [place] [address] Mar, [facility] [address] [id number] [address] [place] [address], [place] [address] Mar, [facility] [address] [id number] [address] [place] [address], [place] [address] Mar, [facility] [address] [id number] [address] [place] [address], [place] [address] Mar, [facility] [address] [id number] [address] [place] [address], [place] [address] Mar, [facility] [address] [id number] [address] [place] [address] Jan, [facility] [address] [id number] [address] [place] [address] Dec, [facility] [address] [id number] [address] [place] [address] Dec, [facility] [address] [id number] [address] [place] [address] Feb, [facility] [address] [id number] [address] [place] [address] Jan, [facility] [address] [id number] [address] [place] [address] Jan, [facility] [address] [id number] [address] [place] [address] Jan, [facility] [address] [id number] [address] [place] [id number] Jan, [facility] [address] [id number] [address] [place] [address] Dec, [facility] [address] [id number] [address] [place] [id number] Sep, [facility] [address] [id number] [address] [place] [address] Oct, IMMUNIZATIONS No Known Immunizations SOCIAL HISTORY Never Assessed REASON FOR VISIT [facility] PLAN OF CARE VITAL SIGNS MEDICATIONS Medication Instructions Dosage Frequency Start Date End Date Duration S tatus Xanax 0.5 mg 1 tablet by Oral route 2 times per day SC N anxiety July, Active Ibuprofen 800 mg take 1 tablet (800 m g) by oral route 3 times per day with food Jan, Active Azithromycin 250 mg 2 Tablet by Oral rou te on day 1 then take 1 daily for 4 days Feb, Active Nystatin-Triamcinolone 100,000-0.1 unit/g-% 1 alexia by Topical route 2 times per day for 7 day(s) PRN apply to affected area Sep, Active Chantix 1 mg 0.5 mg by Oral route 1 time per day for 3 d, then take 0.5 mg BID for 3 d, then take 1mg BID thereafter Jan, Active Vitamin D2 50,000 unit take 1 capsule by Oral route 2 times per week for 12 weeks Oct, Active citalopram 10 mg take 1 tablet by Oral route 1 time per day Sep, Active Vyvanse 50 mg 1 capsule by Oral route 1 time per day For A DHD Oct, Active Zanaflex 4 mg 1 capsule by Oral route 3 times per day Dec, Active Hydrocodone-Acetaminophen 5-325 mg 1 tablet by Oral ro chelle every 4 hours PRN Dec, Active PredniSONE 10 mg 1 Tablet 2 times per day for 5 days Take at 8 am and noon. Do not take after 3 pm Oct, Active Lamictal 100 mg 1 Tablet(s) by Oral route 1 time per day Oct, Active Depo-Provera 150 mg/mL inject 150 mg by intramuscular route every 3 months Nov, Active Ambien 10 mg take 0.5 tablet by O ral route at bedtime 1 time per day PRN insomnia Aug, Active RESULTS No Results PROCEDURES No Known procedures [...]
--- OUTSIDE RECORDS SUMMARY | 2019-08-06 05:42 | XMS REPORT ---
Author Author Annabella Vicotria Doctor Organization [facility] Address Unknown Phone Unavailable Care Team Providers Care Certified Court Interpreter Name Role Phone Migration, Doctor Unavailable Unavailable PROBLEMS Type Condition ICD9-CM Code VRF62-OP Code Onset Dates Condition S tatus SNOMED Code Problem Counseling on substance use and abuse V65.42 Active 497323018 Problem Screening for malignant neoplasm of the cervix V76.2 Active 533217236 Problem Personal history of tobacco use, presenting hazards to health V15.82 Active 9097084624572 Problem Unspecified contraceptive management V25.9 Active 627784649 Problem VARICELLA DX V05.4 Active Problem Routine general medical examination at [facility] y V70.0 Active 118362284 Problem Lumbar sprain and strain 847.2 Activ e 653821017 Problem Need for prophylactic vaccination and inoculation, Influen za V04.81 Active 875858595 Problem Cough 786.2 Active 56616238 Problem Degeneration of lumbar or lumbosacral intervertebral disc 722.52 Active 25514692 Problem Other dyschromia 709.09 Active 325 3007 Problem Major depressive disorder, single episode, moderate 296.22 Active 86373818 Problem Unspecified abnormal mammogram 793.80 Active 845448185 Problem Hypoglycemia, unspecified 251.2 Acti ve 748172686 Problem Mammographic microcalcification 793.81 Active 12253467135878 Problem Personal history of underimmunization status V15.83 Active 911194068 Problem Contact dermatitis and other eczema, due to unspecified ca use 692.9 Active 77743652 Problem Lumbago 724.2 Active 079206422 Problem Irregular menstrual cycle 626.4 Acti ve 43677774 Problem Attention deficit disorder o f childhood without mention of hyperactivity 314.00 Active 21331380 ALLERGIES No Information ENCOUNTERS Encounter Location Date Diagnosis [facility] [address] [facility] [id number] [address] [place] [address] Apr, Gastroenteritis K52.9 [facility] [address] [id number] [address] [place] [address] Oct, [facility] [address] [id number] [address] [place] [address] Oct, [facility] [address] [id number] [address] [place] [address] July, Status post partial hysterec shivani V88.02 ; Back pain 724.5 ; Arthralgia 719.40 and Nicotine addiction 305.1 [facility] [address] [id number] [address] [place] [address] Jun, [facility] [address] [id number] [address] [place] [address] Jun, [facility] [address] [id number] [address] [place] [address] Feb, [facility] [address] [id number] [address] [place] [address] Feb, [facility] [address] [id number] [address] [place] [address] Feb, [facility] [address] [id number] [address] [place] [address] Jan, [facility] [address] [id number] [address] [place] [address] Jan, [facility] [address] [id number] [address] [place] [address] Jan, [facility] [address] [id number] [address] [place] [address] Jan, [facility] [address] [id number] [address] [place] [address] Jan, [facility] [address] [id number] [address] [place] [address] Jan, [facility] [address] [id number] [address] [place] [address] Jan, [facility] [place] [facility] [address] [id number] [address] [place] [address], [place] [address] Jan, [facility] [place] [facility] [address] [id number] [address] [place] [address], [place] [address] Dec, [facility] [place] [facility] [address] [id number] [address] [place] [address], [place] [address] Dec, [facility] [place] [facility] [address] [id number] [address] [place] [address], [place] [address] Dec, [facility] [place] [facility] [address] [id number] [address] [place] [address], [place] [address] Dec, [facility] [place] [facility] [address] [id number] [address] [place] [address], [place] [address] Dec, [facility] [place] [facility] [address] [id number] [address] [place] [address], [place] [address] Dec, [facility] [place] [facility] [address] [id number] [address] [place] [address], [place] [address] Dec, [facility] [place] [facility] [address] [id number] [address] [place] [address], [place] [address] Dec, [facility] [place] [facility] [address] [id number] [address] [place] [address], [place] [address] Dec, [facility] [place] [facility] [address] [id number] [address] [place] [address], [place] [address] Dec, [facility] [place] [facility] [address] [id number] [address] [place] [address], [place] [address] 19 Nov, 2013 [facility] [place] [facility] [address] [id number] [address] [place] [address], [place] [address] 19 Nov, 2013 [facility] [place] [facility] [address] [id number] [address] [place] [address], [place] [address] 08 Nov, 2013 [facility] [place] [facility] [address] [id number] [address] [place] [address], [place] [address] 08 Nov, 2013 [facility] [place] [facility] [address] [id number] [address] [place] [address], [place] [address] Nov, [facility] [address] [id number] [facility] [place] [address] Nov, [facility] [place] [facility] [address] [id number] [address] [place] [address], [place] [address] Oct, [facility] [address] [id number] [address] [place] [address], [place] [address] Oct, [facility] [place] [facility] [address] [id number] [address] [place] [address], [place] [address] Oct, [facility] [address] [id number] [address] [place] [address], [place] [address] Oct, [facility] [place] [facility] [address] [id number] [address] [place] [address], [place] [address] Oct, [facility] [address] [id number] [address] [place] [address], [place] [address] Oct, [facility] [place] [facility] [address] [id number] [address] [place] [address], [place] [address] Oct, [facility] [address] [id number] [address] [place] [address], [place] [address] Oct, [facility] [place] [facility] [address] [id number] [address] [place] [address], [place] [address] Oct, [facility] [place] [facility] [address] [id number] [address] [place] [address], [place] [address] Oct, [facility] [place] [facility] [address] [id number] [address] [place] [address], [place] [address] Oct, [facility] [place] [facility] [address] [id number] [address] [place] [address], [place] [address] Sep, [facility] [place] [facility] [address] [id number] [address] [place] [address], [place] [address] Sep, [facility] [place] [facility] [address] [id number] [address] [place] [address], [place] [address] July, [facility] [place] [facility] [address] [id number] [address] [place] [address] July, [facility] [address] [id number] [address] [place] [address], [place] [address] Feb, [facility] [address] [id number] [address] [place] [address], [place] [address] Feb, [facility] [address] [id number] [address] [place] [address], [place] [address] Dec, [facility] [address] [id number] [address] [place] [address], [place] [address] Nov, [facility] [address] [id number] [address] [place] [address], [place] [address] Oct, [facility] [address] [id number] [address] [place] [address], [place] [address] Oct, [facility] [address] [id number] [address] [place] [address], [place] [address] Oct, [facility] [address] [id number] [address] [place] [address], [place] [address] Sep, [facility] [address] [id number] [address] [place] [address], [place] [address] Sep, [facility] [address] [id number] [address] [place] [address], [place] [address] Aug, [facility] [address] [id number] [address] [place] [address], [place] [address] July, [facility] [address] [id number] [address] [place] [address], [place] [address] Mar, [facility] [address] [id number] [address] [place] [address], [place] [address] Jan, [facility] [address] [id number] [address] [place] [address], [place] [address] Jan, [facility] [address] [id number] [address] [place] [address], [place] [address] Jan, [facility] [address] [id number] [address] [place] [address], [place] [address] Jan, [facility] [address] [id number] [address] [place] [address], [place] [address] Dec, [facility] [address] [id number] [address] [place] [address], [place] [address] Dec, [facility] [address] [id number] [address] [place] [address], [place] [address] Dec, [facility] [address] [id number] [address] [place] [address], [place] [address] Dec, [facility] [address] [id number] [address] [place] [address], [place] [address] Dec, [facility] [address] [id number] [address] [place] [address], [place] [address] Dec, [facility] [address] [id number] [address] [place] [address], [place] [address] Oct, [facility] [address] [id number] [address] [place] [address], [place] [address] Oct, [facility] [address] [id number] [address] [place] [address], [place] [address] Sep, [facility] [address] [id number] [address] [place] [address], [place] [address] Aug, [facility] [address] [id number] [address] [place] [address], [place] [address] Aug, [facility] [address] [id number] [address] [place] [address], [place] [address] July, [facility] [address] [id number] [address] [place] [address], [place] [address] July, [facility] [address] [id number] [address] [place] [address], [place] [address] July, [facility] [address] [id number] [address] [place] [address], [place] [address] July, [facility] [address] [id number] [address] [place] [address], [place] [address] July, [facility] [address] [id number] [address] [place] [address], [place] [address] Jun, [facility] [address] [id number] [address] [place] [address], [place] [address] May, [facility] [address] [id number] [address] [place] [address], [place] [address] May, [facility] [address] [id number] [address] [place] [address], [place] [address] Apr, [facility] [address] [id number] [address] [place] [address], [place] [address] Apr, [facility] [address] [id number] [address] [place] [address], [place] [address] Apr, [facility] [address] [id number] [address] [place] [address], [place] [address] Apr, [facility] [address] [id number] [address] [place] [address], [place] [address] Apr, [facility] [address] [id number] [address] [place] [address], [place] [address] Apr, [facility] [address] [id number] [address] [place] [address], [place] [address] Mar, [facility] [address] [id number] [address] [place] [address], [place] [address] Mar, [facility] [address] [id number] [address] [place] [address], [place] [address] Mar, [facility] [address] [id number] [address] [place] [address], [place] [address] Mar, [facility] [address] [id number] [address] [place] [address], [place] [address] Mar, [facility] [address] [id number] [address] [place] [address] Jan, [facility] [address] [id number] [address] [place] [address] Dec, [facility] [address] [id number] [address] [place] [address] Dec, [facility] [address] [id number] [address] [place] [address] Feb, [facility] [address] [id number] [address] [place] [address] Jan, [facility] [address] [id number] [address] [place] [address] Jan, [facility] [address] [id number] [address] [place] [address] Jan, [facility] [address] [id number] [address] [place] [address] Jan, [facility] [address] [id number] [address] [place] [address] Dec, [facility] [address] [id number] [address] [place] [address] Sep, [facility] [address] [id number] [address] [place] [address] Oct, IMMUNIZATIONS No Known Immunizations SOCIAL HISTORY Never Assessed REASON FOR VISIT [facility] PLAN OF CARE VITAL SIGNS MEDICATIONS [...] 2012 Surgical History breast biopsy (L) calcifications/benign (Myaer) 04/2011 Surgical History hysterectomy 02/21/2014 Hospitalization History child x2 Hospitalization History Migraine
--- OUTSIDE RECORDS SUMMARY | 2019-08-06 05:43 | XMS REPORT ---
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 Name Role Phone Migration, Doctor Unavailable Unavailable PROBLEMS Type Condition ICD9-CM Code [id number] Code Onset Dates Condition S tatus SNOMED Code Problem Counseling on substance use and abuse V65.42 Active 901740274 Problem Screening for malignant neoplasm of the cervix V76.2 Active 359815123 Problem Personal history of tobacco use, presenting hazards to health V15.82 Active 6703210573347 Problem Unspecified contraceptive management V25.9 Active 266692364 Problem VARICELLA DX V05.4 Active Problem Routine general medical examination at [facility] y V70.0 Active 451231163 Problem Lumbar sprain and strain 847.2 Activ e 581257877 Problem Need for prophylactic vaccination and inoculation, Influen za V04.81 Active 126554128 Problem Cough 786.2 Active 21060138 Problem Degeneration of lumbar or lumbosacral intervertebral disc 722.52 Active 26132736 Problem Other dyschromia 709.09 Active 325 3007 Problem Major depressive disorder, single episode, moderate 296.22 Active 43823897 Problem Unspecified abnormal mammogram 793.80 Active 863694418 Problem Hypoglycemia, unspecified 251.2 Acti ve 090829253 Problem Mammographic microcalcification 793.81 Active [id number] Problem Personal history of underimmunization status V15.83 Active 695702115 Problem Contact dermatitis and other eczema, due to unspecified ca use 692.9 Active 23379482 Problem Lumbago 724.2 Active 543814025 Problem Irregular menstrual cycle 626.4 Acti ve 15978569 Problem Attention deficit disorder o f childhood without mention of hyperactivity 314.00 Active 49840114 ALLERGIES No Information ENCOUNTERS Encounter Location Date Diagnosis [facility] [address] [facility] [id number] [address] [place] [phone] Apr, Gastroenteritis K52.9 [facility] [address] [id number] [address] [place] [phone] Oct, [facility] [address] [id number] [address] [place] [phone] Oct, [facility] [address] [id number] [address] [place] [id number] July, Status post partial hysterec shivani V88.02 ; Back pain 724.5 ; Arthralgia 719.40 and Nicotine addiction 305.1 [facility] [address] [id number] [address] [place] [phone] Jun, [facility] [address] [id number] [address] [place] [address] Jun, [facility] [address] [id number] [address] [place] [phone] Feb, [facility] [address] [id number] [address] [place] [phone] Feb, [facility] [address] [id number] [address] [place] [phone] Feb, [facility] [address] [id number] [address] [place] [phone] Jan, [facility] [address] [id number] [address] [place] [phone] Jan, [facility] [address] [id number] [address] [place] [phone] Jan, [facility] [address] [id number] [address] [place] [phone] Jan, [facility] [address] [id number] [address] [place] [phone] Jan, [facility] [address] [id number] [address] [place] [phone] Jan, [facility] [address] [id number] [address] [place] [phone] Jan, [facility] [place] [facility] [address] [id number] [address] [place] [address], [place] [address] Jan, [facility] [place] [facility] [address] [id number] [address] [place] [address], [place] [address] Dec, [facility] [place] [facility] [address] [id number] [address] [place] [address], [place] [address] Dec, [facility] [place] [facility] [address] [id number] [address] [place] [address], [place] [address] Dec, [facility] [place] [facility] [address] [id number] [address] [place] [address], [place] [address] Dec, [facility] [place] [facility] [address] [id number] [address] [place] [address], [place] [address] Dec, [facility] [place] [facility] [address] [id number] [address] [place] [address], [place] [address] Dec, [facility] [place] [facility] [address] [id number] [address] [place] [address], [place] [address] Dec, [facility] [place] [facility] [address] [id number] [address] [place] [address], [place] [address] Dec, [facility] [place] [facility] [address] [id number] [address] [place] [address], [place] [address] Dec, [facility] [place] [facility] [address] [id number] [address] [place] [address], [place] [address] Dec, [facility] [place] [facility] [address] [id number] [address] [place] [address], [place] [address] 19 Nov, 2013 [facility] [place] [facility] [address] [id number] [address] [place] [address], [place] [address] 19 Nov, 2013 [facility] [place] [facility] [address] [id number] [address] [place] [address], [place] [address] 08 Nov, 2013 [facility] [place] [facility] [address] [id number] [address] [place] [address], [place] [address] 08 Nov, 2013 [facility] [place] [facility] [address] [id number] [address] [place] [address], [place] [address] Nov, [facility] [address] [id number] [facility] [place] [address] Nov, [facility] [place] [facility] [address] [id number] [address] [place] [address], [place] [address] Oct, [facility] [address] [id number] [address] [place] [address], [place] [address] Oct, [facility] [place] [facility] [address] [id number] [address] [place] [address], [place] [address] Oct, [facility] [address] [id number] [address] [place] [address], [place] [address] Oct, [facility] [place] [facility] [address] [id number] [address] [place] [address], [place] [address] Oct, [facility] [address] [id number] [address] [place] [address], [place] [address] Oct, [facility] [place] [facility] [address] [id number] [address] [place] [address], [place] [address] Oct, [facility] [address] [id number] [address] [place] [address], [place] [address] Oct, [facility] [place] [facility] [address] [id number] [address] [place] [address], [place] [address] Oct, [facility] [place] [facility] [address] [id number] [address] [place] [address], [place] [address] Oct, [facility] [place] [facility] [address] [id number] [address] [place] [address], [place] [address] Oct, [facility] [place] [facility] [address] [id number] [address] [place] [address], [place] [address] Sep, [facility] [place] [facility] [address] [id number] [address] [place] [address], [place] [address] Sep, [facility] [place] [facility] [address] [id number] [address] [place] [address], [place] [address] July, [facility] [place] [facility] [address] [id number] [address] [place] [address] July, [facility] [address] [id number] [address] [place] [address], [place] [address] Feb, [facility] [address] [id number] [address] [place] [address], [place] [address] Feb, [facility] [address] [id number] [address] [place] [address], [place] [address] Dec, [facility] [address] [id number] [address] [place] [address], [place] [address] Nov, [facility] [address] [id number] [address] [place] [address], [place] [address] Oct, [facility] [address] [id number] [address] [place] [address], [place] [address] Oct, [facility] [address] [id number] [address] [place] [address], [place] [address] Oct, [facility] [address] [id number] [address] [place] [address], [place] [address] Sep, [facility] [address] [id number] [address] [place] [address], [place] [address] Sep, [facility] [address] [id number] [address] [place] [address], [place] [address] Aug, [facility] [address] [id number] [address] [place] [address], [place] [address] July, [facility] [address] [id number] [address] [place] [address], [place] [address] Mar, [facility] [address] [id number] [address] [place] [address], [place] [address] Jan, [facility] [address] [id number] [address] [place] [address], [place] [address] Jan, [facility] [address] [id number] [address] [place] [address], [place] [address] Jan, [facility] [address] [id number] [address] [place] [address], [place] [address] Jan, [facility] [address] [id number] [address] [place] [address], [place] [address] Dec, [facility] [address] [id number] [address] [place] [address], [place] [address] Dec, [facility] [address] [id number] [address] [place] [address], [place] [address] Dec, [facility] [address] [id number] [address] [place] [address], [place] [address] Dec, [facility] [address] [id number] [address] [place] [address], [place] [address] Dec, [facility] [address] [id number] [address] [place] [address], [place] [address] Dec, [facility] [address] [id number] [address] [place] [address], [place] [address] Oct, [facility] [address] [id number] [address] [place] [address], [place] [address] Oct, [facility] [address] [id number] [address] [place] [address], [place] [address] Sep, [facility] [address] [id number] [address] [place] [address], [place] [address] Aug, [facility] [address] [id number] [address] [place] [address], [place] [address] Aug, [facility] [address] [id number] [address] [place] [address], [place] [address] July, [facility] [address] [id number] [address] [place] [address], [place] [address] July, [facility] [address] [id number] [address] [place] [address], [place] [address] July, [facility] [address] [id number] [address] [place] [address], [place] [address] July, [facility] [address] [id number] [address] [place] [address], [place] [address] July, [facility] [address] [id number] [address] [place] [address], [place] [address] Jun, [facility] [address] [id number] [address] [place] [address], [place] [address] May, [facility] [address] [id number] [address] [place] [address], [place] [address] May, [facility] [address] [id number] [address] [place] [address], [place] [address] Apr, [facility] [address] [id number] [address] [place] [address], [place] [address] Apr, [facility] [address] [id number] [address] [place] [address], [place] [address] Apr, [facility] [address] [id number] [address] [place] [address], [place] [address] Apr, [facility] [address] [id number] [address] [place] [address], [place] [address] Apr, [facility] [address] [id number] [address] [place] [address], [place] [address] Apr, [facility] [address] [id number] [address] [place] [address], [place] [address] Mar, [facility] [address] [id number] [address] [place] [address], [place] [address] Mar, [facility] [address] [id number] [address] [place] [address], [place] [address] Mar, [facility] [address] [id number] [address] [place] [address], [place] [address] Mar, [facility] [address] [id number] [address] [place] [address], [place] [address] Mar, [facility] [address] [id number] [address] [place] [address] Jan, [facility] [address] [id number] [address] [place] [address] Dec, [facility] [address] [id number] [address] [place] [address] Dec, [facility] [address] [id number] [address] [place] [address] Feb, [facility] [address] [id number] [address] [place] [address] Jan, [facility] [address] [id number] [address] [place] [address] Jan, [facility] [address] [id number] [address] [place] [address] Jan, [facility] [address] [id number] [address] [place] [address] Jan, [facility] [address] [id number] [address] [place] [address] Dec, [facility] [address] [id number] [address] [place] [address] Sep, [facility] [address] [id number] [address] [place] [address] Oct, IMMUNIZATIONS No Known Immunizations SOCIAL HISTORY Never Assessed REASON FOR VISIT [facility] PLAN OF CARE VITAL SIGNS MEDICATIONS No [...]
[2019-08-06] MEDS ORDERED: AMOX500C2 PO (05:44)
--- OUTSIDE RECORDS SUMMARY | 2019-08-06 05:44 | XMS REPORT | Continuity of Care Document ---
Author Organization Unknown Address Unknown Phone Unavailable Allergies Active Description Code Type Severity Reaction Onset Reported/Identified Relationship to Patient Clinical Status Yes codeine [id number] Drug Allergy Unknown N/A 03/05/2017 Yes No Known Drug Allergies [id number] Drug Allergy Unknown N/A 12/07/2017 Medications There is no data. Problems Date Dx Coded Attending Type Code Diagnosis Diagnosed By 11/12/2007 LEVAR OVALLES DO V05.3 Hepatitis Viral/all 11/12/2007 LEVAR OVALLES DO V05.3 Hepatitis Viral/all 11/12/2007 V05.3 Hepa titis Viral/all 11/12/2007 V05.3 Hepa titis Viral/all 11/12/2007 LEVAR OVALLES DO V05.3 Hepatitis Viral/all 11/12/2007 LEVAR OVALLES DO V05.3 Hepatitis Viral/all 11/12/2007 CAITLYN BARRON, PEPPER James V0 5.3 Hepatitis Viral/all 11/12/2007 NISHANT BENSON APRN V05.3 Hepatitis Viral/all 11/12/2007 TIERNEY CRUZ MD V05.3 Hepatitis Viral/all 11/12/2007 LEVAR OVALLES DO V05.3 Hepatitis Viral/all 11/12/2007 JORDIN DUFFY APRN S V05.3 Hepatitis Viral/all 11/12/2007 RUBI HAWKINS DDS V0 5.3 Hepatitis Viral/all 11/12/2007 LEVAR OVALLES DO V05.3 Hepatitis Viral/all 11/12/2007 JORDIN DUFFY APRN V05.3 Hepatitis Viral/all 11/12/2007 LEVAR OVALLES DO V05.3 Hepatitis Viral/all 11/12/2007 GERARDO SCHNEIDER APRN V05.3 Hepatitis Viral/all 03/22/2008 LEVAR OVALLES DO 346.90 Migraine Unspecified Without Intractable Migraine 03/22/2008 LEVAR OVALLES DO V58.69 MEDICATION HIGH RISK 03/22/2008 JOSR RUFFIN LEVAR K 346.90 Migraine Unspecified Without Intractable Migraine 03/22/2008 OVALLES DO, LEVAR K V58.69 MEDICATION HIGH RISK 03/22/2008 346.90 Gary manish Unspecified Without Intractable Migraine 03/22/2008 V58.69 MED ICATION HIGH RISK 03/22/2008 346.90 Gary manish Unspecified Without Intractable Migraine 03/22/2008 V58.69 MED ICATION HIGH RISK 03/22/2008 OVALLES DO LEVAR K 346.90 Migraine Unspecified Without Intractable Migraine 03/22/2008 OVALLES DO, LEVAR K V58.69 MEDICATION HIGH RISK 03/22/2008 OVALLES DO, LEVAR K 346.90 Migraine Unspecified Without Intractable Migraine 03/22/2008 OVALLES DO LEVAR K V58.69 MEDICATION HIGH RISK 03/22/2008 WHITE DDS, PEPPER J 346.90 Migraine Unspecified Without Intractable Migraine 03/22/2008 WHITE DDS, PEPPER J V58.69 MEDICATION HIGH RISK 03/22/2008 NISHANT BENSON APRN R 346.90 Migraine Unspecified Without Intractable Migraine 03/22/2008 MARCELINO FITZGERALD NISHANT R V58.69 MEDICATION HIGH RISK 03/22/2008 TIERNEY CRUZ MD 346.9 0 Migraine Unspecified Without Intractable Migraine 03/22/2008 TIERNEY CRUZ MD V58.6 9 MEDICATION HIGH RISK 03/22/2008 OVALLES DO LEVAR K 346.90 Migraine Unspecified Without Intractable Migraine 03/22/2008 OVALLES DO LEVAR K V58.69 MEDICATION HIGH RISK 03/22/2008 MISSAEL DUFFY APRNA S 346.90 Migraine Unspecified Without Intractable Migraine 03/22/2008 TATI GRAYSONN JORDIN S V58.69 MEDICATION HIGH RISK 03/22/2008 HAWKINS DDSRUBI 346.90 Migraine Unspecified Without Intractable Migraine 03/22/2008 HAWKINS DDS, RUBI V58.69 MEDICATION HIGH RISK 03/22/2008 OVALLES DO LEVAR K 346.90 Migraine Unspecified Without Intractable Migraine 03/22/2008 OVALLES DO LEVAR K V58.69 MEDICATION HIGH RISK 03/22/2008 TATI SWAT TEAM MEMBER, JORDIN S 346.90 Migraine Unspecified Without Intractable Migraine 03/22/2008 TATI GRAYSONN JORDIN S V58.69 MEDICATION HIGH RISK 03/22/2008 JOSR RUFFIN LEVAR K 346.90 Migraine Unspecified Without Intractable Migraine 03/22/2008 JOSR RUFFIN LEVAR K V58.69 MEDICATION HIGH RISK 03/22/2008 GERARDO SCHNEIDER APRN R 346.90 Migraine Unspecified Without Intractable Migraine 03/22/2008 GERARDO SCHNEIDER APRN R V58.69 MEDICATION HIGH RISK 10/23/2008 JOSR RUFFIN LEVAR K V74.1 SCREENING EXAMINATION FOR PULMONARY TUBERCULOSIS 10/23/2008 OVALLES DO LEVAR K V74.1 SCREENING EXAMINATION FOR PULMONARY TUBERCULOSIS 10/23/2008 V74.1 SCRE ENING EXAMINATION FOR PULMONARY TUBERCULOSIS 10/23/2008 V74.1 SCRE ENING EXAMINATION FOR PULMONARY TUBERCULOSIS 10/23/2008 JOSR RUFFIN LEVAR K V74.1 SCREENING EXAMINATION FOR PULMONARY TUBERCULOSIS 10/23/2008 OVALLES DO LEVAR K V74.1 SCREENING EXAMINATION FOR PULMONARY TUBERCULOSIS 10/23/2008 CAITLYN BARRON, PEPPER James V7 4.1 SCREENING EXAMINATION FOR PULMONARY TUBERCULOSIS 10/23/2008 NISHANT BENSON APRN V74.1 SCREENING EXAMINATION FOR PULMONARY TUBERCULOSIS 10/23/2008 TIERNEY CRUZ MD V74.1 SCREENING EXAMINATION FOR PULMONARY TUBERCULOSIS 10/23/2008 OVALLES DO LEVAR K V74.1 SCREENING EXAMINATION FOR PULMONARY TUBERCULOSIS 10/23/2008 JORDIN DUFFY APRN V74.1 SCREENING EXAMINATION FOR PULMONARY TUBERCULOSIS 10/23/2008 RUBI HAWKINS DDS V7 4.1 SCREENING EXAMINATION FOR PULMONARY TUBERCULOSIS 10/23/2008 OVALLES DO LEVAR K V74.1 SCREENING EXAMINATION FOR PULMONARY TUBERCULOSIS 10/23/2008 JORDIN DUFFY APRN V74.1 SCREENING EXAMINATION FOR PULMONARY TUBERCULOSIS 10/23/2008 OVALLES DO LEVAR K V74.1 SCREENING EXAMINATION FOR PULMONARY TUBERCULOSIS 10/23/2008 ROBSON SCHNEIDER APRNINA R V74.1 SCREENING EXAMINATION FOR PULMONARY TUBERCULOSIS 11/01/2008 OVALLES DO LEVAR K 300.00 anxiety 11/01/2008 OVALLES DO LEVAR K 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 11/01/2008 OVALLES DO LEVAR K 300.00 anxiety 11/01/2008 OVALLES DO, LEVAR K 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 11/01/2008 300.00 anxiety 11/01/2008 307.40 NON ORGANIC SLEEP DISORDERS 11/01/2008 300.00 anxiety 11/01/2008 307.40 NON ORGANIC SLEEP DISORDERS 11/01/2008 OVALLES DO, LEVAR K 300.00 anxiety 11/01/2008 OVALLES DO, LEVAR K 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 11/01/2008 OVALLES DO, LEVAR K 300.00 anxiety 11/01/2008 OVALLES DO, LEVAR K 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 11/01/2008 WHITE DDS, PEPPER J 300.00 anxiety 11/01/2008 WHITE DDS, PEPPER J 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 11/01/2008 MARCELINO FITZGERALD NISHANT R 300.00 anxiety 11/01/2008 MARCELINO FITZGERALD NISHANT R 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 11/01/2008 TIERNEY CRUZ MD 300.0 0 anxiety 11/01/2008 TIERNEY CRUZ MD 307.4 0 NONORGANIC SLEEP DISORDERS 11/01/2008 OVALLES DO LEVAR K 300.00 anxiety 11/01/2008 OVALLES DO LEVAR K 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 11/01/2008 MISSAEL DUFFY APRNA S 300.00 anxiety 11/01/2008 DARCY DUFFY APRNNDA S 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 11/01/2008 HAWKINS DDS, RUBI 300.00 anxiety 11/01/2008 HAWKINS DDS, RUBI 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 11/01/2008 OVALLES DO LEVAR K 300.00 anxiety 11/01/2008 OVALLES DO, LEVAR K 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 11/01/2008 DARCY DUFFY APRNNDA S 300.00 anxiety 11/01/2008 DARCY DUFFY APRNNDA S 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 11/01/2008 OVALLES DO, LEVAR K 300.00 anxiety 11/01/2008 OVALLES DO, LEVAR K 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 11/01/2008 JENNIE FITZGERALD GERARDO R 300.00 anxiety 11/01/2008 JENNIE GRAYSONN GERARDO R 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 10/01/2009 OVALLES DO LEVAR K 305.1 NONDEPENDENT ABUSE OF DRUGS, TOBACCO USE DISORDER 10/01/2009 OVALLES DO LEVAR K 780.8 Generalized Hyperhidrosis 10/01/2009 OVALLES DO LEVAR K V25.40 Contraceptive Surveillance Unspecified 10/01/2009 OVALLES DO LEVAR K V72.31 HOME THEATER INSTALLER EXAM, ROUTINE 10/01/2009 OVALLES DO LEVAR K V74.5 Std Screen 10/01/2009 OVALLES DO LEVAR K 305.1 NONDEPENDENT ABUSE OF DRUGS, TOBACCO USE DISORDER 10/01/2009 OVALLES DO LEVAR K 780.8 Generalized Hyperhidrosis 10/01/2009 OVALLES DO LEVAR K V25.40 Contraceptive Surveillance Unspecified 10/01/2009 OVALLES DO LEVAR K V72.31 HOME THEATER INSTALLER EXAM, ROUTINE 10/01/2009 OVALLES DO LEVAR K V74.5 Std Screen 10/01/2009 305.1 NOND EPENDENT ABUSE OF DRUGS, TOBACCO USE DISORDER 10/01/2009 780.8 Gene ralized Hyperhidrosis 10/01/2009 V25.40 Con traceptive Surveillance Unspecified 10/01/2009 V72.31 HOME THEATER INSTALLER EXAM, ROUTINE 10/01/2009 V74.5 Std Screen 10/01/2009 305.1 NOND EPENDENT ABUSE OF DRUGS, TOBACCO USE DISORDER 10/01/2009 780.8 Gene ralized Hyperhidrosis 10/01/2009 V25.40 Con traceptive Surveillance Unspecified 10/01/2009 V72.31 HOME THEATER INSTALLER EXAM, ROUTINE 10/01/2009 V74.5 Std Screen 10/01/2009 OVALLES DO LEVAR K 305.1 NONDEPENDENT ABUSE OF DRUGS, TOBACCO USE DISORDER 10/01/2009 OVALLES DO LEVAR K 780.8 Generalized Hyperhidrosis 10/01/2009 OVALLES DO LEVAR K V25.40 Contraceptive Surveillance Unspecified 10/01/2009 JOSR RUFFIN LEVAR K V72.31 HOME THEATER INSTALLER EXAM, ROUTINE 10/01/2009 OVALLES DO LEVAR K V74.5 Std Screen 10/01/2009 OVALLES DO LEVAR K 305.1 NONDEPENDENT ABUSE OF DRUGS, TOBACCO USE DISORDER 10/01/2009 OVALLES DO LEVAR K 780.8 Generalized Hyperhidrosis 10/01/2009 OVALLES DO LEVAR K V25.40 Contraceptive Surveillance Unspecified 10/01/2009 OVALLES DO LEVAR K V72.31 HOME THEATER INSTALLER EXAM, ROUTINE 10/01/2009 OVALLES DO LEVAR K V74.5 Std Screen 10/01/2009 WHITE DDS, PEPPER J 30 5.1 NONDEPENDENT ABUSE OF DRUGS, TOBACCO USE DISORDER 10/01/2009 WHITE DDS, PEPPER J 78 0.8 Generalized Hyperhidrosis 10/01/2009 WHITE DDS, PEPPER J V25.40 Contraceptive Surveillance Unspecified 10/01/2009 WHITE DDS, PEPPER J V72.31 HOME THEATER INSTALLER EXAM, ROUTINE 10/01/2009 WHITE DDS, PEPPER J V7 4.5 Std Screen 10/01/2009 VIC BENSON APRNRICIA R 305.1 NONDEPENDENT ABUSE OF DRUGS, TOBACCO USE DISORDER 10/01/2009 MARCELINO SWAT TEAM MEMBER, NISHANT R 780.8 Generalized Hyperhidrosis 10/01/2009 MARCELINO SWAT TEAM MEMBER, NISHANT R V25.40 Contraceptive Surveillance Unspecified 10/01/2009 VIC BENSON APRNRICIA R V72.31 HOME THEATER INSTALLER EXAM, ROUTINE 10/01/2009 VIC BENSON APRNRICIA R V74.5 Std Screen 10/01/2009 TIERNEY CRUZ MD 305.1 NONDEPENDENT ABUSE OF DRUGS, TOBACCO USE DISORDER 10/01/2009 TIERNEY CRUZ MD 780.8 Generalized Hyperhidrosis 10/01/2009 TIERNEY CRUZ MD V25.4 0 Contraceptive Surveillance Unspecified 10/01/2009 TIERNEY CRUZ MD V72.3 1 HOME THEATER INSTALLER EXAM, ROUTINE 10/01/2009 TIERNEY CRUZ MD V74.5 Std Screen 10/01/2009 LEVAR OVALLES DO K 305.1 NONDEPENDENT ABUSE OF DRUGS, TOBACCO USE DISORDER 10/01/2009 LEVAR OVALLES DO K 780.8 Generalized Hyperhidrosis 10/01/2009 LEVAR OVALLES DO K V25.40 Contraceptive Surveillance Unspecified 10/01/2009 MIAN OVALLES DOA K V72.31 HOME THEATER INSTALLER EXAM, ROUTINE 10/01/2009 MIAN OVALLES DOA K V74.5 Std Screen 10/01/2009 DARCY DUFFY APRNNDA S 305.1 NONDEPENDENT ABUSE OF DRUGS, TOBACCO USE DISORDER 10/01/2009 DARCY DUFFY APRNNDA S 780.8 Generalized Hyperhidrosis 10/01/2009 DARCY DUFFY APRNNDA S V25.40 Contraceptive Surveillance Unspecified 10/01/2009 DARCY DUFFY APRNNDA S V72.31 HOME THEATER INSTALLER EXAM, ROUTINE 10/01/2009 DARCY DUFFY APRNNDA S V74.5 Std Screen 10/01/2009 HAWKINS DDS, RUBI 30 5.1 NONDEPENDENT ABUSE OF DRUGS, TOBACCO USE DISORDER 10/01/2009 HAWKINS DDS, RUBI 78 0.8 Generalized Hyperhidrosis 10/01/2009 HAWKINS DDS, RUBI V25.40 Contraceptive Surveillance Unspecified 10/01/2009 HAWKINS DDS, RUBI V72.31 HOME THEATER INSTALLER EXAM, ROUTINE 10/01/2009 HAWKINS DDS, RUBI V7 4.5 Std Screen 10/01/2009 OVALLES DO LEVAR K 305.1 NONDEPENDENT ABUSE OF DRUGS, TOBACCO USE DISORDER 10/01/2009 OVALLES DO LEVAR K 780.8 Generalized Hyperhidrosis 10/01/2009 OVALLES DO, LEVAR K V25.40 Contraceptive Surveillance Unspecified 10/01/2009 JOSR RUFFIN LEVAR K V72.31 HOME THEATER INSTALLER EXAM, ROUTINE 10/01/2009 OVALLES DO LEVAR K V74.5 Std Screen 10/01/2009 JORDIN DUFFY APRN S 305.1 NONDEPENDENT ABUSE OF DRUGS, TOBACCO USE DISORDER 10/01/2009 DARCY DUFFY APRNNDA S 780.8 Generalized Hyperhidrosis 10/01/2009 DARCY DUFFY APRNNDA S V25.40 Contraceptive Surveillance Unspecified 10/01/2009 DARCY DUFFY APRNNDA S V72.31 HOME THEATER INSTALLER EXAM, ROUTINE 10/01/2009 DARCY DUFFY APRNNDA S V74.5 Std Screen 10/01/2009 JOSR DO LEVAR K 305.1 NONDEPENDENT ABUSE OF DRUGS, TOBACCO USE DISORDER 10/01/2009 OVALLES DO LEVAR K 780.8 Generalized Hyperhidrosis 10/01/2009 OVALLES DO, LEVAR K V25.40 Contraceptive Surveillance Unspecified 10/01/2009 OVALLES DO LEVAR K V72.31 HOME THEATER INSTALLER EXAM, ROUTINE 10/01/2009 OVALLES DO LEVAR K V74.5 Std Screen 10/01/2009 JENNIE SWAT TEAM MEMBER, GERARDO R 305.1 NONDEPENDENT ABUSE OF DRUGS, TOBACCO USE DISORDER 10/01/2009 JENNIE FITZGERALD GERARDO R 780.8 Generalized Hyperhidrosis 10/01/2009 JENNIE FITZGERALD GERARDO R V25.40 Contraceptive Surveillance Unspecified 10/01/2009 GERARDO SCHNEIDER APRN V72.31 HOME THEATER INSTALLER EXAM, ROUTINE 10/01/2009 GERARDO SCHNEIDER APRN V74.5 Std Screen 11/11/2009 LEVAR OVALLES DO 719.47 Pain In Joint Involving Ankle And Foot 11/11/2009 LEVAR OVALLES DO 719.47 Pain In Joint Involving Ankle And Foot 11/11/2009 719.47 Rosalina n In Joint Involving Ankle And Foot 11/11/2009 719.47 Rosalina n In Joint Involving Ankle And Foot 11/11/2009 LEVAR OVALLES DO 719.47 Pain In Joint Involving Ankle And Foot 11/11/2009 LEVAR OVALLES DO 719.47 Pain In Joint Involving Ankle And Foot 11/11/2009 PEPPER BRADY DDS 719.47 Pain In Joint Involving Ankle And Foot 11/11/2009 NISHANT BENSON APRN 719.47 Pain In Joint Involving Ankle And Foot 11/11/2009 TIERNEY CRUZ MD 719.4 7 Pain In Joint Involving Ankle And Foot [...] Ankle And Foot 11/11/2009 GERARDO SCHNEIDER APRN R 719.47 Pain In Joint Involving Ankle And Foot 12/13/2009 MIAN OVALLES DOA Ewa 735.0 Hallux Valgus (acquired) 12/13/2009 LEVAR OVALLES DO K 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 12/13/2009 MIAN OVALLES DOA K 735.0 Hallux Valgus (acquired) 12/13/2009 MIAN OVALLES DOA K 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 12/13/2009 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) 12/13/2009 754.52 Met atarsus Primus Varus 12/13/2009 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) 12/13/2009 754.52 Met atarsus Primus Varus 12/13/2009 OVALLES DO, LEVAR K 735.0 Hallux Valgus (acquired) 12/13/2009 OVALLES DO, LEVAR K 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 12/13/2009 OVALLES DO, LEVAR K 735.0 Hallux Valgus (acquired) 12/13/2009 OVALLES DO, LEVAR K 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 12/13/2009 CAITLYN LEMOSS, PEPPER J 73 5.0 Hallux Valgus (acquired) 12/13/2009 CAITLYN LEMOSS, PEPPER James 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 12/13/2009 MARCELINO FITZGERALD, NISHANT R 735.0 Hallux Valgus (acquired) 12/13/2009 MARCELINO FITZGERALD NISHANT R 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 12/13/2009 TIERNEY CRUZ MD 735.0 Hallux Valgus (acquired) 12/13/2009 TIERNEY CRUZ MD 754.5 2 Metatarsus Primus Varus 12/13/2009 JOSR RUFFIN, LEVAR K 735.0 Hallux Valgus (acquired) 12/13/2009 OVALLES DO, LEVAR K 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 12/13/2009 MISSAEL DUFFY APRNA S 735.0 Hallux Valgus (acquired) 12/13/2009 MISSAEL DUFFY APRNA S 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 12/13/2009 RUBI HAWKINS DDS 73 5.0 Hallux Valgus (acquired) 12/13/2009 RUBI HAWKINS DDS 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 12/13/2009 OVALLES DO LEVAR K 735.0 Hallux Valgus (acquired) 12/13/2009 OVALLES DO, LEVAR K 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 12/13/2009 MISSAEL DUFFY APRNA S 735.0 Hallux Valgus (acquired) 12/13/2009 TATI SWAT TEAM MEMBER, JORDIN S 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 12/13/2009 OVALLES DO, LEVAR K 735.0 Hallux Valgus (acquired) 12/13/2009 OVALLES DO, LEVAR K 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 12/13/2009 JENNIE SWAT TEAM MEMBER, GERARDO R 735.0 Hallux Valgus (acquired) 12/13/2009 JENNIE SWAT TEAM MEMBER, GERARDO R 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 02/12/2010 OVALLES DO, LEVAR K 462 Pharyngitis Acute 02/12/2010 OVALLES DO, LEVAR K 477.9 Rhinitis 02/12/2010 OVALLES DO, LEVAR K 462 Pharyngitis Acute 02/12/2010 OVALLES DO, LEVAR K 477.9 Rhinitis 02/12/2010 462 Pharyn gitis Acute 02/12/2010 477.9 Rhinitis 02/12/2010 462 Pharyn gitis Acute 02/12/2010 477.9 Rhinitis 02/12/2010 OVALLES DO, LEVAR K 462 Pharyngitis Acute 02/12/2010 OVALLES DO, LEVAR K 477.9 Rhinitis 02/12/2010 OVALLES DO, LEVAR K 462 Pharyngitis Acute 02/12/2010 OVALLES DO, LEVAR K 477.9 Rhinitis 02/12/2010 CAITLYN LEMOSS, PEPPER J 46 2 Pharyngitis Acute 02/12/2010 WHITE CANELOS, PEPPER J 47 7.9 Rhinitis 02/12/2010 MARCELINO FITZGERALD, NISHANT R 462 Pharyngitis Acute 02/12/2010 MARCELION FITZGERALD, NISHANT R 477.9 Rhinitis 02/12/2010 TIERNEY CRUZ MD 462 Pharyngitis Acute 02/12/2010 TIERNEY CRUZ MD 477.9 Rhinitis 02/12/2010 OVALLES DO, LEVAR K 462 Pharyngitis Acute 02/12/2010 OVALLES DO, LEVAR K 477.9 Rhinitis 02/12/2010 TATI SWAT TEAM MEMBER, JORDIN S 462 Pharyngitis Acute 02/12/2010 TATI SWAT TEAM MEMBER, JORDIN S 477.9 Rhinitis 02/12/2010 RUBI HAWKINS DDS 46 2 Pharyngitis Acute 02/12/2010 RUBI HAWKINS DDS 47 7.9 Rhinitis 02/12/2010 LEVAR OVALLES DO K 462 Pharyngitis Acute 02/12/2010 OVALLES LEVAR RUFFIN K 477.9 Rhinitis 02/12/2010 TATI FITZGERALD JORDIN S 462 Pharyngitis Acute 02/12/2010 TATI SWAT TEAM MEMBER, JORDIN S 477.9 Rhinitis 02/12/2010 OVALLES DOMIANA K 462 Pharyngitis Acute 02/12/2010 OVALLES DOMIANA K 477.9 Rhinitis 02/12/2010 JENNIE SWAT TEAM MEMBER, GERARDO R 4 62 Pharyngitis Acute 02/12/2010 JENNIE SWAT TEAM MEMBER, GERARDO R 477.9 Rhinitis 03/28/2010 LEVAR OVALLES DO K V25.49 SURVEILLANCE OF OTHER CONTRACEPTIVE METHOD 03/28/2010 LEVAR OVALLES DO K V25.49 SURVEILLANCE OF OTHER CONTRACEPTIVE METHOD 03/28/2010 V25.49 DAVID VEILLANCE OF OTHER CONTRACEPTIVE METHOD 03/28/2010 V25.49 DAVID VEILLANCE OF OTHER CONTRACEPTIVE METHOD 03/28/2010 LEVAR OVALLES DO K V25.49 SURVEILLANCE OF OTHER CONTRACEPTIVE METHOD 03/28/2010 OVALLES LEVAR RUFFIN K V25.49 SURVEILLANCE OF OTHER CONTRACEPTIVE METHOD 03/28/2010 CAITLYN BARRON, PEPPER James V25.49 SURVEILLANCE OF OTHER CONTRACEPTIVE METHOD 03/28/2010 NISHANT BENSON APRN V25.49 SURVEILLANCE OF OTHER CONTRACEPTIVE METHOD 03/28/2010 TIERNEY CRUZ MD V25.4 9 SURVEILLANCE OF OTHER CONTRACEPTIVE METHOD 03/28/2010 LEVAR OVALLES DO K V25.49 SURVEILLANCE OF OTHER CONTRACEPTIVE METHOD 03/28/2010 JORDIN DUFFY APRN S V25.49 SURVEILLANCE OF OTHER CONTRACEPTIVE METHOD 03/28/2010 RUBI HAWKINS DDS V25.49 SURVEILLANCE OF OTHER CONTRACEPTIVE METHOD 03/28/2010 OVALLES LEVAR RUFFIN K V25.49 SURVEILLANCE OF OTHER CONTRACEPTIVE METHOD 03/28/2010 JORDIN DUFFY APRN S V25.49 SURVEILLANCE OF OTHER CONTRACEPTIVE METHOD 03/28/2010 OVALLES LEVAR RUFFIN K V25.49 SURVEILLANCE OF OTHER CONTRACEPTIVE METHOD 03/28/2010 GERARDO SCHNEIDER APRN R V25.49 SURVEILLANCE OF OTHER CONTRACEPTIVE METHOD 10/03/2010 LEVAR OVALLES DO V72.41 TEST NEGATIVE RESULT 10/03/2010 OVALLES DO, LEVAR K V72.41 TEST NEGATIVE RESULT 10/03/2010 V72.41 PRE GNANCY TEST NEGATIVE RESULT 10/03/2010 V72.41 PRE GNANCY TEST NEGATIVE RESULT 10/03/2010 OVALLES DO, LEVAR K V72.41 TEST NEGATIVE RESULT 10/03/2010 OVALLES DO, LEVAR K V72.41 TEST NEGATIVE RESULT 10/03/2010 PEPPER BRADY DDS V72.41 TEST NEGATIVE RESULT 10/03/2010 NISHANT BENSON APRN V72.41 TEST NEGATIVE RESULT 10/03/2010 TIERNEY CRUZ MD V72.4 1 TEST NEGATIVE RESULT 10/03/2010 OVALLES DO, LEVAR K V72.41 TEST NEGATIVE RESULT 10/03/2010 MISSAEL DUFFY APRNA S V72.41 TEST NEGATIVE RESULT 10/03/2010 RUBI HAWKINS DDS V72.41 TEST NEGATIVE RESULT 10/03/2010 OVALLES DO, LEVAR K V72.41 TEST NEGATIVE RESULT 10/03/2010 TATI FITZGERALD JORDIN S V72.41 TEST NEGATIVE RESULT 10/03/2010 OVALLES DO, LEVAR K V72.41 TEST NEGATIVE RESULT 10/03/2010 GERARDO SCHNEIDER APRN V72.41 TEST NEGATIVE RESULT 01/02/2011 OVALLES DO, LEVAR K V76.10 BREAST CANCER SCREENING 01/02/2011 OVALLES DO, LEVAR K V76.10 BREAST CANCER SCREENING 01/02/2011 V76.10 DARCY AST CANCER SCREENING 01/02/2011 V76.10 DARCY AST CANCER SCREENING 01/02/2011 OVALLES DO, LEVAR K V76.10 BREAST CANCER SCREENING 01/02/2011 OVALLES DO, LEVAR K V76.10 BREAST CANCER SCREENING 01/02/2011 PEPPER BRADY DDS V76.10 BREAST CANCER SCREENING 01/02/2011 NISHANT BENSON APRN V76.10 BREAST CANCER SCREENING 01/02/2011 TIERNEY CRUZ MD V76.1 0 BREAST CANCER SCREENING 01/02/2011 OVALLES DO, LEVAR K V76.10 BREAST CANCER SCREENING 01/02/2011 MISSAEL DUFFY APRNA S V76.10 BREAST CANCER SCREENING 01/02/2011 RUBI HAWKINS DDS V76.10 BREAST CANCER SCREENING 01/02/2011 JOSR LEVAR RUFFIN K V76.10 BREAST CANCER SCREENING 01/02/2011 JORDIN DUFFY APRN V76.10 BREAST CANCER SCREENING 01/02/2011 JOSR RUFFINLEVAR K V76.10 BREAST CANCER SCREENING 01/02/2011 GERARDO SCHNEIDER APRN V76.10 BREAST CANCER SCREENING 04/10/2011 OVALLES LEVAR RUFFIN K V25.9 CONTRACEPTION MANAGEMENT 04/10/2011 OVALLES LEVAR RUFFIN K V65.42 COUNSELING - SMOKING CESSATION 04/10/2011 OVALLES MIAN RUFFINA K V76.2 CERVICAL CANCER SCREENING (PAP SMEAR) 04/10/2011 LEVAR OVALLES DO K V25.9 CONTRACEPTION MANAGEMENT 04/10/2011 OVALLES LEVAR RUFFIN K V65.42 COUNSELING - SMOKING CESSATION 04/10/2011 OVALLES LEVAR RUFFIN K V76.2 CERVICAL CANCER SCREENING (PAP SMEAR) 04/10/2011 V25.9 CONT RACEPTION MANAGEMENT 04/10/2011 V65.42 COU NSELING - SMOKING CESSATION 04/10/2011 V76.2 CERV ICAL CANCER SCREENING (PAP SMEAR) 04/10/2011 V25.9 CONT RACEPTION MANAGEMENT 04/10/2011 V65.42 COU NSELING - SMOKING CESSATION 04/10/2011 V76.2 CERV ICAL CANCER SCREENING (PAP SMEAR) 04/10/2011 LEVAR OVALLES DO K V25.9 CONTRACEPTION MANAGEMENT 04/10/2011 OVALLES LEVAR RUFFIN K V65.42 COUNSELING - SMOKING CESSATION 04/10/2011 LEVAR OVALLES DO V76.2 CERVICAL CANCER SCREENING (PAP SMEAR) 04/10/2011 LEVAR OVALLES DO K V25.9 CONTRACEPTION MANAGEMENT 04/10/2011 OVALLES LEVAR RUFFIN K V65.42 COUNSELING - SMOKING CESSATION 04/10/2011 OVALLES LEVAR RUFFIN K V76.2 CERVICAL CANCER SCREENING (PAP SMEAR) 04/10/2011 CAITLYN LEMOSSPEPPER V2 5.9 CONTRACEPTION MANAGEMENT 04/10/2011 PEPPRE BRADY DDS V65.42 COUNSELING - SMOKING CESSATION 04/10/2011 CAITLYN LEMOSSPEPPER V7 6.2 CERVICAL CANCER SCREENING (PAP SMEAR) 04/10/2011 NISHANT BENSON APRN V25.9 CONTRACEPTION MANAGEMENT 04/10/2011 NISHANT BENSON APRN R V65.42 COUNSELING - SMOKING CESSATION 04/10/2011 NISHANT BENSON APRN R V76.2 CERVICAL CANCER SCREENING (PAP SMEAR) 04/10/2011 TIERNEY CRUZ MD V25.9 CONTRACEPTION MANAGEMENT 04/10/2011 TIERNEY CRUZ MD V65.4 2 COUNSELING - SMOKING CESSATION 04/10/2011 TIERNEY CRUZ MD V76.2 CERVICAL CANCER SCREENING (PAP SMEAR) 04/10/2011 MIAN OVALLES DOA K V25.9 CONTRACEPTION MANAGEMENT 04/10/2011 MIAN OVALLES DOA K V65.42 COUNSELING - SMOKING CESSATION 04/10/2011 MIAN OVALLES DOA K V76.2 CERVICAL CANCER SCREENING (PAP SMEAR) 04/10/2011 DARCY DUFFY APRNNDA S V25.9 CONTRACEPTION MANAGEMENT 04/10/2011 DARCY DUFFY APRNNDA S V65.42 COUNSELING - SMOKING CESSATION 04/10/2011 MISSAEL DUFFY APRNA S V76.2 CERVICAL CANCER SCREENING (PAP SMEAR) 04/10/2011 HAWKINS DDSRUBI V2 5.9 CONTRACEPTION MANAGEMENT 04/10/2011 HAWKINS CANELOSRUBI V65.42 COUNSELING - SMOKING CESSATION 04/10/2011 SHRUTHI LEMOSSRUBI V7 6.2 CERVICAL CANCER SCREENING (PAP SMEAR) 04/10/2011 MIAN OVALLES DOA K V25.9 CONTRACEPTION MANAGEMENT 04/10/2011 MIAN OVALLES DOA K V65.42 COUNSELING - SMOKING CESSATION 04/10/2011 MIAN OVALLES DOA K V76.2 CERVICAL CANCER SCREENING (PAP SMEAR) 04/10/2011 DARCY DUFFY APRNNDA S V25.9 CONTRACEPTION MANAGEMENT 04/10/2011 DARCY DUFFY APRNNDA S V65.42 COUNSELING - SMOKING CESSATION 04/10/2011 DARCY DUFFY APRNNDA S V76.2 CERVICAL CANCER SCREENING (PAP SMEAR) 04/10/2011 MIAN OVALLES DOA K V25.9 CONTRACEPTION MANAGEMENT 04/10/2011 JOSR RUFFIN LEVAR K V65.42 COUNSELING - SMOKING CESSATION 04/10/2011 MIAN OVALLES DOA K V76.2 CERVICAL CANCER SCREENING (PAP SMEAR) 04/10/2011 GERARDO SCHNEIDER APRN V25.9 CONTRACEPTION MANAGEMENT 04/10/2011 GERARDO SCHNEIDER APRN V65.42 COUNSELING - SMOKING CESSATION 04/10/2011 GERARDO SCHNEIDER APRN V76.2 CERVICAL CANCER SCREENING (PAP SMEAR) 04/27/2011 JOSR RUFFIN LEVAR K 793.81 MAMMOGRAPHIC MICROCALCIFICATION 04/27/2011 OVALLES DO LEVAR K 793.81 MAMMOGRAPHIC MICROCALCIFICATION 04/27/2011 793.81 [place] MOGRAPHIC MICROCALCIFICATION 04/27/2011 793.81 [place] MOGRAPHIC MICROCALCIFICATION 04/27/2011 OVALLES DO, LEVAR K 793.81 MAMMOGRAPHIC MICROCALCIFICATION 04/27/2011 OVALLES DO, LEVAR K 793.81 MAMMOGRAPHIC MICROCALCIFICATION 04/27/2011 PEPPER BRADY DDS 793.81 MAMMOGRAPHIC MICROCALCIFICATION 04/27/2011 NISHANT BENSON APRN R 793.81 MAMMOGRAPHIC MICROCALCIFICATION 04/27/2011 NANCY ZABALA, TIERNEY 793.8 1 MAMMOGRAPHIC MICROCALCIFICATION 04/27/2011 JOSR RUFFIN LEVAR K 793.81 MAMMOGRAPHIC MICROCALCIFICATION 04/27/2011 JORDIN DUFFY APRN S 793.81 MAMMOGRAPHIC MICROCALCIFICATION 04/27/2011 RUBI HAWKINS DDS 793.81 MAMMOGRAPHIC MICROCALCIFICATION 04/27/2011 OVALLES DO LEVAR K 793.81 MAMMOGRAPHIC MICROCALCIFICATION 04/27/2011 JORDIN DUFFY APRN S 793.81 MAMMOGRAPHIC MICROCALCIFICATION 04/27/2011 OVALLES DO LEVAR K 793.81 MAMMOGRAPHIC MICROCALCIFICATION 04/27/2011 GERARDO SCHNEIDER APRN R 793.81 MAMMOGRAPHIC MICROCALCIFICATION 06/26/2011 Ot 626.6 METR ORRHAGIA 07/28/2011 OVALLES DO LEVAR K 724.2 BACK PAIN, LOWER 07/28/2011 OVALLES DO LEVAR K 724.2 BACK PAIN, LOWER 07/28/2011 724.2 BACK PAIN, LOWER 07/28/2011 724.2 BACK PAIN, LOWER 07/28/2011 OVALLES DO LEVAR K 724.2 BACK PAIN, LOWER 07/28/2011 OVALLES DO LEVAR K 724.2 BACK PAIN, LOWER 07/28/2011 PEPPER BRADY DDS 72 4.2 BACK PAIN, LOWER 07/28/2011 MARCELINO FITZGERALD, NISHANT R 724.2 BACK PAIN, LOWER 07/28/2011 TIERNEY CRUZ MD 724.2 BACK PAIN, LOWER 07/28/2011 OVALLES DO, LEVAR K 724.2 BACK PAIN, LOWER 07/28/2011 TATI FITZGERALD, JORDIN S 724.2 BACK PAIN, LOWER 07/28/2011 RUBI HAWKINS DDS 72 4.2 BACK PAIN, LOWER 07/28/2011 OVALLES DO, LEVAR K 724.2 BACK PAIN, LOWER 07/28/2011 TATI FITZGERALD, JORDIN S 724.2 BACK PAIN, LOWER 07/28/2011 OVALLES DO, LEVAR K 724.2 BACK PAIN, LOWER 07/28/2011 GERARDO SCHNEIDER APRN R 724.2 BACK PAIN, LOWER 01/15/2012 OVALLES [...] AND ABOVE, IM) 01/15/2012 CAITLYN BARRON, PEPPER J V04.81 FLU DX (3 YRS AND ABOVE, IM) 01/15/2012 MARCELINO FITZGERALD, NISHANT R V04.81 FLU DX (3 YRS AND ABOVE, IM) 01/15/2012 NANCY ZABALA, TIERNEY V04.8 1 FLU DX (3 YRS AND ABOVE, IM) 01/15/2012 OVALLES DO, LEVAR K V04.81 FLU DX (3 YRS AND ABOVE, IM) 01/15/2012 MISSAEL DUFFY APRNA S V04.81 FLU DX (3 YRS AND ABOVE, IM) 01/15/2012 RUBI HAWKINS DDS V04.81 FLU DX (3 YRS AND ABOVE, IM) 01/15/2012 OVALLES DO, LEVAR K V04.81 FLU DX (3 YRS AND ABOVE, IM) 01/15/2012 MISSAEL DUFFY APRNA S V04.81 FLU DX (3 YRS AND ABOVE, IM) 01/15/2012 OVALLES DO, LEVAR K V04.81 FLU DX (3 YRS AND ABOVE, IM) 01/15/2012 GERARDO SCHNEIDER APRN R V04.81 FLU DX (3 YRS AND ABOVE, IM) 10/06/2012 V05.4 VARI KAYE DX 10/06/2012 V05.4 VARI AKYE DX 10/06/2012 OVALLES DO, LEVAR K V05.4 VARICELLA DX 10/06/2012 OVALLES DO, LEVAR K V05.4 VARICELLA DX 10/06/2012 CAITLYN BARRON, PEPPER J V0 5.4 VARICELLA DX 10/06/2012 NISHANT BENSON APRN R V05.4 VARICELLA DX 10/06/2012 TIERNEY CRUZ MD V05.4 VARICELLA DX 10/06/2012 OVALLES DO, LEVAR K V05.4 VARICELLA DX 10/06/2012 MISSAEL DUFFY APRNA S V05.4 VARICELLA DX 10/06/2012 RUBI HAWKINS DDS V0 5.4 VARICELLA DX 10/06/2012 OVALLES DO, LEVAR K V05.4 VARICELLA DX 10/06/2012 MISSAEL DUFFY APRNA S V05.4 VARICELLA DX 10/06/2012 OVALLES DO, LEVAR K V05.4 VARICELLA DX 10/06/2012 ROBSON SCHNEIDER APRNINA R V05.4 VARICELLA DX 11/02/2012 251.2 HYPO GLYCEMIA 11/02/2012 251.2 HYPO GLYCEMIA 11/02/2012 OVALLES DO, LEVAR K 251.2 HYPOGLYCEMIA 11/02/2012 OVALLES DO, LEVAR K 251.2 HYPOGLYCEMIA 11/02/2012 CAITLYN BARRON, PEPPER J 25 1.2 HYPOGLYCEMIA 11/02/2012 NISHANT BENSON APRN R 251.2 HYPOGLYCEMIA 11/02/2012 TIERNEY CRUZ MD 251.2 HYPOGLYCEMIA 11/02/2012 OVALLES DO, LEVAR K 251.2 HYPOGLYCEMIA 11/02/2012 DARCY DUFFY APRNNDA S 251.2 HYPOGLYCEMIA 11/02/2012 RUBI HAWKINS DDS 25 1.2 HYPOGLYCEMIA 11/02/2012 OVALLES DO, LEVAR K 251.2 HYPOGLYCEMIA 11/02/2012 JORDIN DUFFY APRN S 251.2 HYPOGLYCEMIA 11/02/2012 OVALLES LEVAR K 251.2 HYPOGLYCEMIA 11/02/2012 GERARDO SCHNEIDER APRN R 251.2 HYPOGLYCEMIA 12/13/2012 JOSR RUFFINMIANA K V15.83 IMMUNIZATION- DELINQUENT 12/13/2012 OVALLES LEVAR K V15.83 IMMUNIZATION- DELINQUENT 12/13/2012 PEPPER BRADY DDS V15.83 IMMUNIZATION- DELINQUENT 12/13/2012 NISHANT BENSON APRN R V15.83 IMMUNIZATION- DELINQUENT 12/13/2012 TIERNEY CRUZ MD V15.8 3 IMMUNIZATION- DELINQUENT 12/13/2012 OVALLES LEVAR RUFFIN K V15.83 IMMUNIZATION- DELINQUENT 12/13/2012 JORDIN DUFFY APRN S V15.83 IMMUNIZATION- DELINQUENT 12/13/2012 RUBI HAWKINS DDS V15.83 IMMUNIZATION- DELINQUENT 12/13/2012 OVALLES MIANA K V15.83 IMMUNIZATION- DELINQUENT 12/13/2012 JORDIN DUFFY APRN S V15.83 IMMUNIZATION- DELINQUENT 12/13/2012 OVALLES MIANA K V15.83 IMMUNIZATION- DELINQUENT 12/13/2012 ROBSON SCHNEIDER APRNINA R V15.83 IMMUNIZATION- DELINQUENT 02/16/2013 MIAN OVALLES DOA K 709.09 OTHER DYSCHROMIA 02/16/2013 OVALLES MIAN RUFFINA K 786.2 COUGH 02/16/2013 CAITLYN BARRON, PEPPER J 709.09 OTHER DYSCHROMIA 02/16/2013 WHITE CANELOS, PEPPER James 78 6.2 COUGH 02/16/2013 NISHANT BENSON APRN R 709.09 OTHER DYSCHROMIA 02/16/2013 NISHANT BENSON APRN R 786.2 COUGH 02/16/2013 TIERNEY CRUZ MD 709.0 9 OTHER DYSCHROMIA 02/16/2013 TIERNEY CRUZ MD 786.2 COUGH 02/16/2013 OVALLES MIAN RUFFINA K 709.09 OTHER DYSCHROMIA 02/16/2013 OVALLES LEVAR RUFFIN K 786.2 COUGH 02/16/2013 TATI SWAT TEAM MEMBER, JORDIN S 709.09 OTHER DYSCHROMIA 02/16/2013 TATI SWAT TEAM MEMBER, JORDIN S 786.2 COUGH 02/16/2013 SHRUTHI LEMOSS, RUBI 709.09 OTHER DYSCHROMIA 02/16/2013 SHRUTHI DDS, RUBI 78 6.2 COUGH 02/16/2013 OVALLES DO, LEVAR K 709.09 OTHER DYSCHROMIA 02/16/2013 OVALLES DO, LEVAR K 786.2 COUGH 02/16/2013 TATI SWAT TEAM MEMBER, JORDIN S 709.09 OTHER DYSCHROMIA 02/16/2013 TATI SWAT TEAM MEMBER, JORDIN S 786.2 COUGH 02/16/2013 OVALLES DO, LEVAR K 709.09 OTHER DYSCHROMIA 02/16/2013 OVALLES DO, LEVAR K 786.2 COUGH 02/16/2013 JENNIE GRAYSONN, GERARDO R 709.09 OTHER DYSCHROMIA 02/16/2013 JENNIE GRAYSONN, GERARDO R 786.2 COUGH 09/21/2013 NISHANT BENSON APRN R 692.9 CONTACT DERMATITIS AND OTHER ECZEMA UNSPECIFIED CAUSE 09/21/2013 TIERNEY CRUZ MD 692.9 CONTACT DERMATITIS AND OTHER ECZEMA UNSPECIFIED CAUSE 09/21/2013 OVALLES DO LEVAR K 692.9 CONTACT DERMATITIS AND OTHER ECZEMA UNSPECIFIED CAUSE 09/21/2013 MISSAEL DUFFY APRNA S 692.9 CONTACT DERMATITIS AND OTHER ECZEMA UNSPECIFIED CAUSE 09/21/2013 SHRUTHI BARRON, RUBI 69 2.9 CONTACT DERMATITIS AND OTHER ECZEMA UNSPECIFIED CAUSE [...] LEVAR K 847.2 SPRAIN LUMBAR REGION 10/26/2013 MISSAEL DUFFY APRNA S 847.2 SPRAIN LUMBAR REGION 10/26/2013 RUBI HAWKINS DDS 84 7.2 SPRAIN LUMBAR REGION 10/26/2013 LEVAR OVALLES DO K 847.2 SPRAIN LUMBAR REGION 10/26/2013 JORDIN DUFFY APRN 847.2 SPRAIN LUMBAR REGION 10/26/2013 LEVAR OVALLES DO K 847.2 SPRAIN LUMBAR REGION 10/26/2013 GERARDO SCHNEIDER APRN R 847.2 SPRAIN LUMBAR REGION 10/26/2013 TED ZABALA, KATHIA Clemente Ot 724.5 BACKACHE NOS 11/14/2013 LEVAR OVALLES DO K 722.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 11/14/2013 JORDIN DUFFY APRN 722.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 OF LUMBAR OR LUMBOSACRAL INTERVERTEBRAL D ISC 11/14/2013 RUBI HAWKINS DDS 722.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 OF LUMBAR OR LUMBOSACRAL INTERVERTEBRAL D ISC 11/14/2013 LEVAR OVALLES DO K 722.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 11/14/2013 JORDIN DUFFY APRN S 722.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 OF LUMBAR OR LUMBOSACRAL INTERVERTEBRAL D ISC 11/14/2013 LEVAR OVALLES DO K 722.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 11/14/2013 GERARDO SCHNEIDER APRN R 722.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 OF LUMBAR OR LUMBOSACRAL INTERVERTEBRAL D ISC 11/20/2013 JORDIN DUFFY APRN 296.22 MAJOR DEPRESSIVE AFFECTIVE DISORDER SINGLE EPISODE MOD ERATE DEGREE 11/20/2013 JORDIN DUFFY APRN 314.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 DEFICIT DISORDER OF 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 11/20/2013 JORDIN DUFFY APRN 626.4 IRREGULAR MENSTRUAL CYCLE 11/20/2013 JORDIN DUFFY APRN V25.9 CONTRACEPTION MANAGEMENT 11/20/2013 JORDIN DUFFY APRN V70.0 EXAM - ROUTINE H&P 11/20/2013 RUBI HAWKINS DDS 296.22 MAJOR DEPRESSIVE AFFECTIVE DISORDER SINGLE EPISODE MOD ERATE DEGREE 11/20/2013 RUBI HAWKINS DDS 314.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 DEFICIT DISORDER OF 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 11/20/2013 HAWKINS DDS, RUBI 62 6.4 IRREGULAR MENSTRUAL CYCLE 11/20/2013 HAWKINS DDS, RUBI V2 5.9 CONTRACEPTION MANAGEMENT 11/20/2013 HAWKINS DDS, RUBI V7 0.0 EXAM - ROUTINE H&P 11/20/2013 LEVAR OVALLES DO K 296.22 MAJOR DEPRESSIVE AFFECTIVE DISORDER SINGLE EPISODE MODERATE DEGREE 11/20/2013 LEVAR OVALLES DO K 314.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 DEFICIT DISORDER OF CHILDHOOD WITHOUT HYPERACTIVITY 11/20/2013 LEVAR OVALLES DO K 626.4 IRREGULAR MENSTRUAL CYCLE 11/20/2013 MIAN OVALLES DOA K V25.9 CONTRACEPTION MANAGEMENT 11/20/2013 MIAN OVALLES DOA K V70.0 EXAM - ROUTINE H&P 11/20/2013 JORDIN DUFFY APRN S 296.22 MAJOR DEPRESSIVE AFFECTIVE DISORDER SINGLE EPISODE MOD ERATE DEGREE 11/20/2013 JORDIN DUFFY APRN S 314.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 DEFICIT DISORDER OF 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 11/20/2013 JORDIN DUFFY APRN S 626.4 IRREGULAR MENSTRUAL CYCLE 11/20/2013 JORDIN DUFFY APRN S V25.9 CONTRACEPTION MANAGEMENT 11/20/2013 MISSAEL DUFFY APRNA S V70.0 EXAM - ROUTINE H&P 11/20/2013 LEVAR OVALLES DO K 296.22 MAJOR DEPRESSIVE AFFECTIVE DISORDER SINGLE EPISODE MODERATE DEGREE 11/20/2013 LEVAR OVALLES DO K 314.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 DEFICIT DISORDER OF CHILDHOOD WITHOUT HYPERACTIVITY 11/20/2013 LEVAR OVALLES DO K 626.4 IRREGULAR MENSTRUAL CYCLE 11/20/2013 MIAN OVALLES DOA K V25.9 CONTRACEPTION MANAGEMENT 11/20/2013 MIAN OVALLES DOA K V70.0 EXAM - ROUTINE H&P 11/20/2013 JENNIE FITZGERALD GERARDO R 296.22 MAJOR DEPRESSIVE AFFECTIVE DISORDER SINGLE EPISODE MOD ERATE DEGREE 11/20/2013 JENNIE FITZGERALD GERARDO R 314.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 DEFICIT DISORDER OF 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 11/20/2013 JENNIE FITZGERALD GERARDO R 626.4 IRREGULAR MENSTRUAL CYCLE 11/20/2013 JENNIE FITZGERALD GERARDO R V25.9 CONTRACEPTION MANAGEMENT 11/20/2013 JENNIE FITZGERALD GERARDO R V70.0 EXAM - ROUTINE H&P 12/23/2013 LEVAR OVALLES DO K V04.81 FLU SHOT 12/23/2013 TATI FITZGERALDMISSAELA S V04.81 FLU SHOT 12/23/2013 MIAN OVALLES DOA K V04.81 FLU SHOT 12/23/2013 JENNIE AMILCAR GERARDO R V04.81 FLU SHOT 01/24/2014 TATI GRAYSONMISSAEL QuinonesA S V15.82 NICOTINE ABUSE 01/24/2014 MIAN OVALLES DOA K V15.82 NICOTINE ABUSE 01/24/2014 JENNIE SWAT TEAM MEMBERROBSON QuinonesINA R V15.82 NICOTINE ABUSE 01/26/2014 ALLY BARRIGA DIAGNOSTIC SALES SPECIALIST Ot 722.10 01/29/2014 TATI GRAYSONJORDIN Quinones S 793.80 ABNORMAL MAMMOGRAM 01/29/2014 MIAN OVALLES DOA K 793.80 ABNORMAL MAMMOGRAM 01/29/2014 JENNIE SWAT TEAM MEMBERGERARDO Quinones R 793.80 ABNORMAL MAMMOGRAM 01/30/2014 ALLY BARRIGA Mikaela DIAGNOSTIC SALES SPECIALIST Ot 724 .2 LUMBAGO 01/30/2014 ALLY BARRIGA Mikaela DIAGNOSTIC SALES SPECIALIST Ot V57 .1 PHYSICAL THERAPY NEC 02/14/2014 Ot 611.89 02/14/2014 Ot V16.3 02/14/2014 Ot V76.12 02/14/2014 Ot 793.81 02/14/2014 Ot 793.82 02/14/2014 Ot V71.2 02/14/2014 Ot 793.81 02/14/2014 Ot 610.1 02/14/2014 Ot 793.81 02/14/2014 Ot 626.6 02/14/2014 Ot V72.84 02/14/2014 Ot V74.8 02/14/2014 NITHYAALLY DIAGNOSTIC SALES SPECIALIST Ot 722.10 02/14/2014 MICHAEL ALBARRAN MD Ot 625.8 02/14/2014 JOJO AKINS DO Ot V76.12 02/19/2014 JOJO AKINS DO Ot V76.12 2014 JOJO AKINS DO Ot 218.1 INTRAMURAL LEIOMYOMA 2014 JOJO AKINS DO Ot 218.2 SUBSEROUS LEIOMYOMA 2014 JOJO AKINS DO Ot 617.0 UTERINE ENDOMETRIOSIS 2014 JOJO AKINS DO Ot 621.2 HYPERTROPHY OF UTERUS 2014 JOJO AKINS DO Ot 626.2 EXCESSIVE MENSTRUATION 03/14/2014 JOJO AKINS DO Ot 793.80 06/23/2014 GERARDO SCHNEIDER APRN R 786.2 COUGH 06/23/2014 GERARDO SCHNEIDER APRN R 787.01 NAUSEA WITH VOMITING 06/23/2014 GERARDO SCHNEIDER APRN R 787.91 DIARRHEA 07/05/2015 Ot 793.82 INC ONCLUSIVE MAMMOGRAM 07/05/2015 Ot 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 07/05/2015 Ot 793.81 CHESTER MOGRAPHIC MICROCLACIFICATION 07/05/2015 Ot 610.1 DIFF US CYSTIC MASTOPATHY 07/05/2015 Ot 793.81 CHESTER MOGRAPHIC MICROCLACIFICATION 07/05/2015 Ot 626.6 METR ORRHAGIA 07/05/2015 Ot V72.84 EXA M PRE- OPERATIVE NOS 07/05/2015 Ot V74.8 SCRE EN-BACTERIAL DIS NEC 07/05/2015 ALLY BARRIGA DIAGNOSTIC SALES SPECIALIST Ot 722.10 LUMBAR DISC DISPLACEMENT 07/05/2015 DEION ZABALA, MICHAEL James Ot 625.8 FEM GENITAL SYMPTOMS NEC 07/05/2015 JOJO AKINS DO Ot V76.12 OTH SCREEN MAMMO-MALIGN NEOPLASM OF YOAN 07/05/2015 JOJO AKINS DO Ot 218.9 UTERINE LEIOMYOMA NOS 07/05/2015 JOJO AKINS DO Ot 625.9 FEM GENITAL SYMPTOMS NOS 07/05/2015 JOJO AKINS DO Ot V72.84 EXAM PRE-OPERATIVE NOS 07/05/2015 JOJO AKINS DO Ot V74.8 SCREEN-BACTERIAL DIS NEC 07/05/2015 JOJO AKINS DO Ot 793.80 UNSPEC ABNORMAL MAMMOGRAM 07/05/2015 AMALIA ZABALA, PATRICK Bethea Ot F17.210 NICOTINE DEPENDENCE, CIGARETTES, UNCOMPL 07/05/2015 AMALIA ZABALA, PATRICK Bethea Ot N15. 9 RENAL TUBULO-INTERSTITIAL DISEASE, UNSPE 07/05/2015 AMALIA ZABALA, PATRICK Bethea Ot R11. 2 NAUSEA WITH VOMITING, UNSPECIFIED 07/05/2015 AMALIA ZABALA, PATRICK Bethea Ot R51 HEADACHE 07/05/2015 AMALIA ZABALA, PATRICK Bethea Ot F17.210 NICOTINE DEPENDENCE, CIGARETTES, UNCOMPL 07/05/2015 AMALIA ZABALA, PATRICK Bethea Ot N15. 9 RENAL TUBULO-INTERSTITIAL DISEASE, UNSPE 07/05/2015 AMALIA ZABALA, PATRICK Bethea Ot R11. 2 NAUSEA WITH VOMITING, UNSPECIFIED 07/05/2015 AMALIA ZABALA, PATRICK Bethea Ot R51 HEADACHE 07/06/2015 AMALIA ZABALA, PATRICK Bethea Ot F17.210 NICOTINE DEPENDENCE, CIGARETTES, UNCOMPL 07/06/2015 AMALIA ZABALA, PATRICK Bethea Ot N15. 9 RENAL TUBULO-INTERSTITIAL DISEASE, UNSPE 07/06/2015 AMALIA ZABALA, PATRICK Bethea Ot R11. 2 NAUSEA WITH VOMITING, UNSPECIFIED 07/06/2015 AMALIA ZABALA, PATRICK Bethea Ot R51 HEADACHE 07/16/2015 CAMPBELL PIZANO SWAT TEAM MEMBER Ot K59.00 CONSTIPATION, UNSPECIFIED 07/16/2015 CAMPBELL PIZANO SWAT TEAM MEMBER Ot N28 .1 CYST OF KIDNEY, ACQUIRED 07/16/2015 CAMPBELL PIZANO SWAT TEAM MEMBER Ot N83.20 UNSPECIFIED OVARIAN CYSTS 07/16/2015 CAMPBELL PIZANO SWAT TEAM MEMBER Ot R10.31 RIGHT LOWER QUADRANT PAIN 07/16/2015 CAMPBELL PIZANO SWAT TEAM MEMBER Ot R30 .0 DYSURIA 07/17/2015 CAMPBELL PIZANO SWAT TEAM MEMBER Ot K59.00 CONSTIPATION, UNSPECIFIED 07/17/2015 CAMPBELL PIZANO SWAT TEAM MEMBER Ot N28 .1 CYST OF KIDNEY, ACQUIRED 07/17/2015 CAMPBELL PIZANO SWAT TEAM MEMBER Ot N83.20 UNSPECIFIED OVARIAN CYSTS 07/17/2015 CAMPBELL PIZANO SWAT TEAM MEMBER Ot R10.31 RIGHT LOWER QUADRANT PAIN 07/17/2015 CAMPBELL PIZANO SWAT TEAM MEMBER Ot R30 .0 DYSURIA 08/01/2015 AMALIA ZABALA, PATRICK Bethea Ot F17.210 NICOTINE DEPENDENCE, CIGARETTES, UNCOMPL 08/01/2015 AMALIA ZABALA, PATRICK Bethea Ot N15. 9 RENAL TUBULO-INTERSTITIAL DISEASE, UNSPE 08/01/2015 AMALIA ZABALA, PATRICK Bethea Ot R11. 2 NAUSEA WITH VOMITING, UNSPECIFIED 08/01/2015 AMALIA ZABALA, PATRICK Bethea Ot R51 HEADACHE 08/02/2015 AMALIA ZABALA, PATRICK Bethea Ot F17.210 NICOTINE DEPENDENCE, CIGARETTES, UNCOMPL 08/02/2015 PATRICK HOLLAND MD Ot N15. 9 RENAL TUBULO-INTERSTITIAL DISEASE, UNSPE 08/02/2015 AMALIA ZABALA, PATRICK Bethea Ot R11. 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 05/13/2016 Ot 793.81 CHESTER MOGRAPHIC MICROCLACIFICATION 05/13/2016 Ot 610.1 DIFF US CYSTIC MASTOPATHY 05/13/2016 Ot 793.81 HCESTER MOGRAPHIC MICROCLACIFICATION 05/13/2016 Ot 626.6 METR ORRHAGIA 05/13/2016 Ot V72.84 EXA M PRE- OPERATIVE NOS 05/13/2016 Ot V74.8 SCRE EN-BACTERIAL DIS NEC 05/13/2016 ALLY BARRIGA DIAGNOSTIC SALES SPECIALIST Ot 722.10 LUMBAR DISC DISPLACEMENT 05/13/2016 DEION ZABALA, MICHAEL James Ot 625.8 FEM GENITAL SYMPTOMS NEC 05/13/2016 JOJO AKINS DO Ot V76.12 OTH SCREEN MAMMO-MALIGN NEOPLASM OF YOAN 05/13/2016 JOJO AKINS DO Ot 218.9 UTERINE LEIOMYOMA NOS 05/13/2016 JOJO AKINS DO Ot 625.9 FEM GENITAL SYMPTOMS NOS 05/13/2016 JOJO AKINS DO Ot V72.84 EXAM PRE-OPERATIVE NOS 05/13/2016 JOJO AKINS DO Ot V74.8 SCREEN-BACTERIAL DIS NEC 05/13/2016 JOJO AKINS DO Ot 793.80 UNSPEC ABNORMAL MAMMOGRAM 05/28/2016 CARTER HAND DO Ot Z12.31 ENCNTR SCREEN MAMMOGRAM FOR MALIGNANT NE 06/01/2016 Ot 793.82 INC ONCLUSIVE MAMMOGRAM 06/01/2016 Ot 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 06/01/2016 Ot 793.81 CHESTER MOGRAPHIC MICROCLACIFICATION 06/01/2016 Ot 610.1 DIFF US CYSTIC MASTOPATHY 06/01/2016 Ot 793.81 CHESTER MOGRAPHIC MICROCLACIFICATION 06/01/2016 Ot 626.6 METR ORRHAGIA 06/01/2016 Ot V72.84 EXA M PRE- OPERATIVE NOS 06/01/2016 Ot V74.8 SCRE EN-BACTERIAL DIS NEC 06/01/2016 ALLY BARRIGA DIAGNOSTIC SALES SPECIALIST Ot 722.10 LUMBAR DISC DISPLACEMENT 06/01/2016 MICHAEL ALBARRAN MD Ot 625.8 FEM GENITAL SYMPTOMS NEC 06/01/2016 MABLE JOJO RUFFIN S Ot V76.12 OTH SCREEN MAMMO-MALIGN NEOPLASM OF YOAN 06/01/2016 JOJO AKINS DO S Ot 218.9 UTERINE LEIOMYOMA NOS 06/01/2016 JOJO AKINS DO S Ot 625.9 FEM GENITAL SYMPTOMS NOS 06/01/2016 MABLE JOJO RUFFIN S Ot V72.84 EXAM PRE-OPERATIVE NOS 06/01/2016 JOJO AKINS DO S Ot V74.8 SCREEN-BACTERIAL DIS NEC 06/01/2016 JOJO AKINS DO S Ot 793.80 UNSPEC ABNORMAL MAMMOGRAM 06/01/2016 CARTER HAND DO Ot Z12.31 ENCNTR SCREEN MAMMOGRAM FOR MALIGNANT NE 06/02/2016 CARTER HAND DO Ot R92.0 MAMMOGRAPHIC MICROCALCIFICATION FOUND ON 06/02/2016 ADAN HAND DOI Ot Z90.71 0 ACQUIRED ABSENCE OF BOTH CERVIX AND UTER 06/16/2016 CARTER HAND DO Ot R92.0 MAMMOGRAPHIC MICROCALCIFICATION FOUND ON 06/16/2016 ADAN HAND DOI Ot Z90.71 0 ACQUIRED ABSENCE OF BOTH CERVIX AND UTER 03/05/2017 ALLY BARRIGA DIAGNOSTIC SALES SPECIALIST Ot 722.10 LUMBAR DISC DISPLACEMENT 03/05/2017 DEION ZABALA, MICHAEL James Ot 625.8 FEM GENITAL SYMPTOMS NEC 03/05/2017 JOJO AKINS DO S Ot V76.12 OTH SCREEN MAMMO-MALIGN NEOPLASM OF YOAN 03/05/2017 JOJO AKINS DO S Ot 218.9 UTERINE LEIOMYOMA NOS 03/05/2017 JOJO AKINS DO S Ot 625.9 FEM GENITAL SYMPTOMS NOS 03/05/2017 JOJO AKINS DO S Ot V72.84 EXAM PRE-OPERATIVE NOS 03/05/2017 JOJO AKINS DO S Ot V74.8 SCREEN-BACTERIAL DIS NEC 03/05/2017 JOJO AKINS DO S Ot 793.80 UNSPEC ABNORMAL MAMMOGRAM 03/05/2017 CARTER HAND DO Ot Z12.31 ENCNTR SCREEN MAMMOGRAM FOR MALIGNANT NE 03/05/2017 YAZAN RUFFIN CARTER Ot R92.0 MAMMOGRAPHIC MICROCALCIFICATION FOUND ON 03/05/2017 YAZAN RUFFIN CARTER Ot Z90.71 0 ACQUIRED ABSENCE OF BOTH CERVIX AND UTER 03/05/2017 KATHIA JEAN MD Ot F39 UNSPECIFIED MOOD [AFFECTIVE] DISORDER 03/05/2017 KATHIA JEAN MD Ot G43.909 MIGRAINE, UNSP, NOT INTRACTABLE, WITHOUT 03/05/2017 KATHIA JEAN MD Ot S61.412A LACERATION WITHOUT FOREIGN BODY OF LEFT 03/05/2017 KATHIA JEAN MD Ot W26.0XXA CONTACT WITH KNIFE, INITIAL ENCOUNTER 03/05/2017 KATHIA JEAN MD Ot Z82.49 FAMILY HX [...] BOTH CERVIX AND UTER 06/24/2017 ALLY BARRIGA DIAGNOSTIC SALES SPECIALIST Ot 722.10 LUMBAR DISC DISPLACEMENT 06/24/2017 MICHAEL ALBARRAN MD Ot 625.8 FEM GENITAL SYMPTOMS NEC 06/24/2017 JOJO AKINS DO Ot V76.12 OTH SCREEN MAMMO-MALIGN NEOPLASM OF YOAN 06/24/2017 JOJO AKINS DO Ot 218.9 UTERINE LEIOMYOMA NOS 06/24/2017 JOJO AKINS DO Ot 625.9 FEM GENITAL SYMPTOMS NOS 06/24/2017 JOJO AKINS DO Ot V72.84 EXAM PRE-OPERATIVE NOS 06/24/2017 JOJO AKINS DO Ot V74.8 SCREEN-BACTERIAL DIS NEC 06/24/2017 JOJO AKINS DO Ot 793.80 UNSPEC ABNORMAL MAMMOGRAM 06/24/2017 CARTER HAND DO Ot Z12.31 ENCNTR SCREEN MAMMOGRAM FOR MALIGNANT NE 06/24/2017 CARTER HAND DO Ot R92.0 MAMMOGRAPHIC MICROCALCIFICATION FOUND ON 06/24/2017 CARTER HAND DO Ot Z90.71 0 ACQUIRED ABSENCE OF BOTH CERVIX AND UTER 06/24/2017 TED ZABALA, KATHIA Clemente Ot F17.200 NICOTINE DEPENDENCE, UNSPECIFIED, UNCOMP 06/24/2017 TED ZABALA, KATHIA Clemente Ot G43.909 MIGRAINE, [...] ABSENCE OF BOTH CERVIX AND UTER 06/24/2017 NITHYAALLY Mikaela DIAGNOSTIC SALES SPECIALIST Ot 722.10 LUMBAR DISC DISPLACEMENT 06/24/2017 DEION ZABALA, MICHAEL James Ot 625.8 FEM GENITAL SYMPTOMS NEC 06/24/2017 MABLE RUFFIN JOJO Bethea Ot V76.12 OTH SCREEN MAMMO-MALIGN NEOPLASM OF YOAN 06/24/2017 MABLE RUFFIN JOJO Bethea Ot 218.9 UTERINE LEIOMYOMA NOS 06/24/2017 MABLE RUFFIN JOJO S Ot 625.9 FEM GENITAL SYMPTOMS NOS 06/24/2017 MABLE RUFFIN JOJO Bethea Ot V72.84 EXAM PRE-OPERATIVE NOS 06/24/2017 MABLE RUFFIN JOJO Bethea Ot V74.8 SCREEN-BACTERIAL DIS NEC 06/24/2017 MABLE RUFFIN JOJO S Ot 793.80 UNSPEC ABNORMAL MAMMOGRAM 06/24/2017 CARTER HAND DO Ot Z12.31 ENCNTR SCREEN MAMMOGRAM FOR MALIGNANT NE 06/24/2017 YAZAN RUFFIN CARTER Ot R92.0 MAMMOGRAPHIC MICROCALCIFICATION FOUND ON 06/24/2017 YAZAN RUFFIN CARTER Ot Z90.71 0 ACQUIRED ABSENCE OF BOTH CERVIX AND UTER 06/24/2017 ALLY BARRIGA DIAGNOSTIC SALES SPECIALIST Ot 722.10 LUMBAR DISC DISPLACEMENT 06/24/2017 DEION ZABALA, MICHAEL James Ot 625.8 FEM GENITAL SYMPTOMS NEC 06/24/2017 MABLE DO, JOJO S Ot V76.12 OTH SCREEN MAMMO-MALIGN NEOPLASM OF YOAN 06/24/2017 MABLE DO, JOJO S Ot 218.9 UTERINE LEIOMYOMA NOS 06/24/2017 KAYLAECH DO, JOJO S Ot 625.9 FEM GENITAL SYMPTOMS NOS 06/24/2017 KAYLAECH DO, JOJO S Ot V72.84 EXAM PRE-OPERATIVE NOS 06/24/2017 MABLE DO, JOJO S Ot V74.8 SCREEN-BACTERIAL DIS NEC 06/24/2017 MABLE DO, JOJO S Ot 793.80 UNSPEC ABNORMAL MAMMOGRAM 06/24/2017 HAND DO CARTER Ot Z12.31 ENCNTR SCREEN MAMMOGRAM FOR MALIGNANT NE 06/24/2017 YAZAN RUFFIN CARTER Ot R92.0 MAMMOGRAPHIC MICROCALCIFICATION FOUND ON 06/24/2017 YAZAN RUFFIN CARTER Ot Z90.71 0 ACQUIRED ABSENCE OF BOTH CERVIX AND UTER 06/24/2017 LALY BARRIGA DIAGNOSTIC SALES SPECIALIST Ot 722.10 LUMBAR DISC DISPLACEMENT 06/24/2017 DEION ZABALA, MICHAEL James Ot 625.8 FEM GENITAL SYMPTOMS NEC 06/24/2017 MABLE RUFFIN JOJO S Ot V76.12 OTH SCREEN MAMMO-MALIGN NEOPLASM OF YOAN 06/24/2017 MABLE DO, JOJO S Ot 218.9 UTERINE LEIOMYOMA NOS 06/24/2017 MABLE DO, JOJO S Ot 625.9 FEM GENITAL SYMPTOMS NOS 06/24/2017 KAYLAECH DO, JOJO S Ot V72.84 EXAM PRE-OPERATIVE NOS 06/24/2017 MABLE DO, JOJO S Ot V74.8 SCREEN-BACTERIAL DIS NEC 06/24/2017 KAYLAECH DO, JOJO S Ot 793.80 UNSPEC ABNORMAL MAMMOGRAM 06/24/2017 YAZAN RUFFIN CARTER Ot Z12.31 ENCNTR SCREEN MAMMOGRAM FOR MALIGNANT NE 06/24/2017 YAZAN RUFFIN CARTER Ot R92.0 MAMMOGRAPHIC MICROCALCIFICATION FOUND ON 06/24/2017 HANDJOSE RUFFIN CARTER Ot Z90.71 0 ACQUIRED ABSENCE OF BOTH CERVIX AND UTER 06/25/2017 ALLY BARRIGA DIAGNOSTIC SALES SPECIALIST Ot 722.10 LUMBAR DISC DISPLACEMENT 06/25/2017 DEION ZABALA, MICHAEL James Ot 625.8 FEM GENITAL SYMPTOMS NEC 06/25/2017 JOJO AKINS DO S Ot V76.12 OTH SCREEN MAMMO-MALIGN NEOPLASM OF YOAN 06/25/2017 MABLE RUFFIN JOJO S Ot 218.9 UTERINE LEIOMYOMA NOS 06/25/2017 MABLE RUFFIN, JOJO S Ot 625.9 FEM GENITAL SYMPTOMS NOS 06/25/2017 JOJO AKINS DO S Ot V72.84 EXAM PRE-OPERATIVE NOS 06/25/2017 MABLE RUFFIN JOJO S Ot V74.8 SCREEN-BACTERIAL DIS NEC 06/25/2017 MABLE RUFFIN JOJO S Ot 793.80 UNSPEC ABNORMAL MAMMOGRAM 06/25/2017 CARTER HAND DO Ot Z12.31 ENCNTR SCREEN MAMMOGRAM FOR MALIGNANT NE 06/25/2017 CARTER HAND DO Ot R92.0 MAMMOGRAPHIC MICROCALCIFICATION FOUND ON 06/25/2017 CARTER HAND DO Ot Z90.71 0 ACQUIRED ABSENCE OF BOTH CERVIX AND UTER 06/28/2017 TED ZABALA, KATHIA Cleemnte Ot F17.200 NICOTINE DEPENDENCE, UNSPECIFIED, UNCOMP 06/28/2017 KATHIA JEAN MD Ot G43.909 MIGRAINE, UNSP, NOT INTRACTABLE, WITHOUT 06/28/2017 KATHIA JEAN MD Ot R07.89 OTHER CHEST PAIN 06/28/2017 KATHIA JEAN MD Ot Z82.49 FAMILY HX OF ISCHEM HEART DIS AND OTH DI 06/28/2017 KATHIA JEAN MD Ot Z88.5 ALLERGY STATUS TO NARCOTIC AGENT STATUS 06/28/2017 KATHIA JEAN MD Ot Z90.710 ACQUIRED ABSENCE OF BOTH CERVIX AND UTER 12/07/2017 YULIA ROSADO DO Ot Z01.8 18 ENCOUNTER FOR OTHER PREPROCEDURAL EXAMIN 12/07/2017 YULIA ROSADO DO Ot Z01.8 18 ENCOUNTER FOR OTHER PREPROCEDURAL EXAMIN 12/07/2017 YULIA ROSADO DO Ot Z01.8 18 ENCOUNTER FOR OTHER PREPROCEDURAL EXAMIN 12/07/2017 YULIA ROSADO DO Ot Z01.8 18 ENCOUNTER FOR OTHER PREPROCEDURAL EXAMIN 12/13/2017 YULIA ROSADO DO Ot D12.2 BENIGN NEOPLASM OF ASCENDING COLON 12/13/2017 YULIA ROSADO DO Ot F17.2 10 NICOTINE DEPENDENCE, CIGARETTES, UNCOMPL 12/13/2017 YULIA ROSADO DO Ot F20.9 SCHIZOPHRENIA, UNSPECIFIED 12/13/2017 YULIA ROSADO DO B Ot F31.9 BIPOLAR DISORDER, UNSPECIFIED 12/13/2017 YULIA ROSADO DO B Ot F41.9 ANXIETY DISORDER, UNSPECIFIED 12/13/2017 YULIA ROSADO DO Ot F98.8 OTH BEHAV/EMOTN DISORD W ONSET USLY OCCU 12/13/2017 YULIA ROSADO DO Ot G43.9 09 MIGRAINE, UNSP, NOT INTRACTABLE, WITHOUT 12/13/2017 YULIA ROSADO DO Ot G47.0 0 INSOMNIA, UNSPECIFIED 12/13/2017 YULIA ROSADO DO B Ot K62.1 RECTAL POLYP 12/13/2017 YULIA ROSADO DO B Ot K63.8 9 OTHER SPECIFIED DISEASES OF INTESTINE 12/13/2017 YULIA ROSADO DO Ot K64.8 OTHER HEMORRHOIDS 12/13/2017 YULIA ROSADO DO B Ot M48.0 61 SPINAL STENOSIS, LUMBAR REGION WITHOUT N 12/13/2017 YULIA ROSADO DO Ot R10.1 2 LEFT UPPER QUADRANT PAIN 12/13/2017 YULIA ROSADO DO Ot R19.4 CHANGE IN BOWEL HABIT 12/13/2017 YULIA ROSADO DO B Ot Z79.8 99 OTHER USP (CURRENT) DRUG THERAPY 12/01/2018 DAVID JESUS DO Ot F17.210 NICOTINE DEPENDENCE, CIGARETTES, UNCOMPL 12/01/2018 DAVID JESUS DO Ot F32.9 MAJOR DEPRESSIVE DISORDER, SINGLE EPISOD 12/01/2018 DAVID JESUS DO Ot F41.9 ANXIETY DISORDER, UNSPECIFIED 12/01/2018 DAVID JESUS DO Ot G43.909 MIGRAINE, UNSP, NOT INTRACTABLE, WITHOUT 12/01/2018 DAVID JESUS DO Ot N39.0 URINARY TRACT INFECTION, SITE NOT SPECIF 12/01/2018 EDIN DAVID K Ot R10.31 RIGHT LOWER QUADRANT PAIN 12/01/2018 DAVID JESUS DO Ot Z82.49 FAMILY HX OF ISCHEM HEART DIS AND OTH DI 12/01/2018 EDIN RUFFIN DAVID K Ot Z90.710 ACQUIRED ABSENCE OF BOTH CERVIX AND UTER 12/01/2018 ALLY BARRIGA DIAGNOSTIC SALES SPECIALIST Ot 722.10 LUMBAR DISC DISPLACEMENT 12/01/2018 DEION ZABALA, MICHAEL James Ot 625.8 FEM GENITAL SYMPTOMS NEC 12/01/2018 KAYLAJOJO DIALLO DO Ot V76.12 OTH SCREEN MAMMO-MALIGN NEOPLASM OF YOAN 12/01/2018 JOJO AKINS DO S Ot 218.9 UTERINE LEIOMYOMA NOS 12/01/2018 JOJO AKINS DO Ot 625.9 FEM GENITAL SYMPTOMS NOS 12/01/2018 JOJO AKINS DO Ot V72.84 EXAM PRE-OPERATIVE NOS 12/01/2018 JOJO AKINS DO Ot V74.8 SCREEN-BACTERIAL DIS NEC 12/01/2018 JOJO AKINS DO S Ot 793.80 UNSPEC ABNORMAL MAMMOGRAM 12/01/2018 CARTER HAND DO Ot Z12.31 ENCNTR SCREEN MAMMOGRAM FOR MALIGNANT NE 12/01/2018 CARTER HAND DO Ot R92.0 MAMMOGRAPHIC MICROCALCIFICATION FOUND ON 12/01/2018 CARTER HAND DO Ot Z90.71 0 ACQUIRED ABSENCE OF BOTH CERVIX AND UTER 12/05/2018 DAVID JESUS DO Ot F17.210 NICOTINE DEPENDENCE, CIGARETTES, UNCOMPL 12/05/2018 DAVID JESUS DO Ot F32.9 MAJOR DEPRESSIVE DISORDER, SINGLE EPISOD 12/05/2018 DAVID JESUS DO Ot F41.9 ANXIETY DISORDER, UNSPECIFIED 12/05/2018 DAVID JESUS DO Ot G43.909 MIGRAINE, UNSP, NOT INTRACTABLE, WITHOUT 12/05/2018 MAHSA JESUS DOA Ewa Ot N39.0 URINARY TRACT INFECTION, SITE NOT SPECIF 12/05/2018 MAHSA JESUS DOA Ewa Ot R10.31 RIGHT LOWER QUADRANT PAIN 12/05/2018 DAVID JESUS DO Ot Z82.49 FAMILY HX OF ISCHEM HEART DIS AND OTH DI 12/05/2018 DAVID JESUS DO Ot Z90.710 ACQUIRED ABSENCE OF BOTH CERVIX AND UTER 01/03/2019 CARTER HAND DO Ot R05 COUGH 01/03/2019 CARTER HAND DO Ot Z12.31 ENCNTR SCREEN MAMMOGRAM FOR MALIGNANT NE 01/03/2019 CARTER HAND DO Ot Z87.89 1 PERSONAL HISTORY OF NICOTINE DEPENDENCE Procedures Code [place] [address] GLUC OSE FINGER STICK 11/02/2012 87276 ROUT INE VENIPUNCTURE 11/03/2012 38932 A1C (IN-HOUSE) 11/03/2012 26455 CBC 11/03/2012 21804 CMP 11/03/2012 26064 LIPI D PANEL 11/03/2012 3513264 GF R CALC (RESULT ONLY) 11/03/2012 48975 TSH 11/03/2012 46353 LU MIN D 25-HYDROXY (D2,D3, TOTAL) 11/03/2012 13554 TB T EST INTRADERMAL 08/04/2013 66795 MAMM OGRAM DX, LINNEA 11/07/2013 17606 XRAY LUMBAR SPINE 2 OR 3 VIEWS 11/07/2013 PHYSICAL P HYSICAL THERAPY, VIA VALDEZ 11/08/2013 57404 PREG ANABEL TEST, URINE (IN- HOUSE) 11/20/2013 J1050 DEPO PROVERA 11/20/2013 91459 THER APUTIC INJ SQ/IM 11/20/2013 71246 MAMM OGRAM, SCREENING 01/24/2014 57292 MAMM OGRAM DX, RIGHT 01/24/2014 54664 ROUT INE VENIPUNCTURE 02/13/2014 36094 CBC 02/14/2014 31302 T4 FREE 02/14/2014 32178 TSH 02/14/2014 Results Test Result Range Complete blood count (CBC) with automate d white blood cell (WBC) differential - 06/24/17 09:20 Blood leukocytes automated count (number/volume) 6.2 10*3/uL 4.3-11.0 Blood erythrocytes automated count (number/volume) 4.15 10*6/uL 4.35-5.85 Venous blood hemoglobin measurement (mass/volume) 13.9 g/dL 11.5-16.0 Blood hematocrit (volume fraction) 41 % 35-52 Automated erythrocyte mean corpuscular volume 98 [ foz_us] 80-99 Automated erythrocyte mean corpuscular h emoglobin (mass per erythrocyte) 34 pg 25-34 Automated erythrocyte mean corpuscular h emoglobin concentration measurement (mass/volume) 34 g/dL 32-36 Automated erythrocyte distribution width ratio 12. 4 % 10.0- 14.5 Automated blood platelet count (count/volume) 246 10*3/uL [...] 10*3 1.0-4.0 Blood monocytes automated count (number/volume) 0. 4 10*3 0.0-1.0 Automated eosinophil count 0.1 10*3/uL 0 .0-0.3 Automated blood basophil count (count/volume) 0.0 10*3/uL 0.0-0.1 PT panel in platelet poor plasma by coag ulation assay - 06/24/17 09:20 Prothrombin time (PT) in platelet poor plasma by coagu lation assay 13.8 s 12.2-14.7 INR in platelet poor plasma or blood by coagulation as say 1.1 0.8-1.4 Activated partial thromboplastin time (a PTT) in platelet poor plasma bycoagulation assay - 06/24/17 09:20 Activated partial thromboplastin time (a PTT) in platelet poor plasma bycoagulation assay 31 s 24-35 Comprehensive metabolic panel - 06/24/17 09:20 Serum or plasma sodium measurement (moles/volume) 136 mmol/L 135-145 Serum or plasma potassium measurement (moles/volume) 3.9 mmol/L 3.6-5.0 Serum or plasma chloride measurement (moles/volume) 101 mmol/L 98-107 Carbon dioxide 26 mmol/L 21-32 Serum or plasma anion gap determination (moles/volume) 9 mmol/L 5-14 Serum or plasma urea nitrogen measurement (mass/volume ) 17 mg/dL 7-18 Serum or plasma creatinine measurement (mass/volume) 0.71 mg/dL 0.60-1.30 Serum or plasma urea nitrogen/creatinine mass ratio 24 NRG Serum or plasma creatinine measurement w ith calculation of estimated glomerular filtration rate > NRG Serum or plasma glucose measurement (mass/volume) 85 mg/dL 70-105 Serum or plasma calcium measurement (mass/volume) 9.7 mg/dL 8.5-10.1 Serum or plasma total bilirubin measurement (mass/volu me) 0.4 mg/dL 0.1-1.0 Serum or plasma alkaline phosphatase michelle surement (enzymatic activity/volume) 69 U/L 40-136 Serum or plasma aspartate aminotransfera se measurement (enzymatic activity/volume) 18 U/L 5-34 Serum or plasma alanine aminotransferase measurement (enzymatic activity/volume) 13 U/L 0-55 Serum or plasma protein measurement (mass/volume) 7.0 g/dL 6.4-8.2 Serum or plasma albumin measurement (mass/volume) 4.4 g/dL 3.2-4.5 Magnesium - 06/24/17 09:20 Magnesium 2.1 mg/dL 1.8-2.4 Serum or plasma troponin i.cardiac measu rement (mass/volume) - 06/24/17 09:20 Serum or plasma troponin i.cardiac measurement (mass/v olume) < ng/mL <0.30 Myoglobin, serum - 06/24/17 09:20 Myoglobin, serum 32.3 ng/mL 10.0-92.0 Fibrin D-dimer FEU measurement in platel et poor plasma (mass/volume) - 06/24/17 09:20 Fibrin D-dimer FEU measurement in platelet poor plasma (mass/volume) < ug/mL 0.00-0.49 Serum or plasma troponin i.cardiac measu rement (mass/volume) - 06/24/17 11:42 Serum or plasma troponin i.cardiac measurement (mass/v olume) < ng/mL <0.30 Complete blood count (CBC) with automate d white blood cell (WBC) differential - 12/01/18 18:57 Blood leukocytes automated count (number/volume) 9.5 10*3/uL 4.3-11.0 Blood erythrocytes automated count (number/volume) 3.80 10*6/uL 4.35-5.85 Venous blood hemoglobin measurement (mass/volume) 12.3 g/dL 11.5-16.0 Blood hematocrit (volume fraction) 37 % 35-52 Automated erythrocyte mean corpuscular volume 96 [ foz_us] 80-99 Automated erythrocyte mean corpuscular h emoglobin (mass per erythrocyte) 32 pg 25-34 Automated erythrocyte mean corpuscular h emoglobin concentration measurement (mass/volume) 34 g/dL 32-36 Automated erythrocyte distribution width ratio 12. 8 % 10.0- 14.5 Automated blood platelet count (count/volume) 238 10*3/uL 130-400 Automated blood platelet mean volume measurement 9.8 [foz_us] 7.4-10.4 Automated blood neutrophils/100 leukocytes 76 % 42-75 Automated blood lymphocytes/100 leukocytes 14 % 12-44 Blood monocytes/100 leukocytes 10 % 0-12 Automated blood eosinophils/100 leukocytes 1 % 0-10 Automated blood basophils/100 leukocytes 0 % 0-10 Blood neutrophils automated count (number/volume) 7.2 10*3 1.8-7.8 Blood lymphocytes automated count (number/volume) 1.3 10*3 1.0-4.0 Blood monocytes automated count (number/volume) 0. 9 10*3 0.0-1.0 Automated eosinophil count 0.1 10*3/uL 0 .0-0.3 Automated blood basophil count (count/volume) 0.0 10*3/uL 0.0-0.1 Blood lactic acid measurement (moles/vol ume) - 12/01/18 18:57 Blood lactic acid measurement (moles/volume) 0.45 mmol/L 0.50-2.00 Complete urinalysis with reflex to cultu re - 12/01/18 18:57 Urine color determination ABE NRG Urine clarity determination VERY CLOUDY NRG Urine pH measurement by test strip 6 5-9 Specific gravity of urine by test strip 1.020 1.016-1.022 Urine protein assay by test strip, semi-quantitative 2+ NEGATIVE Urine glucose detection by automated test strip NE GATIVE NEGATIVE Erythrocytes detection in urine sediment by light micr oscopy 5+ NEGATIVE Urine ketones detection by automated test strip 2+ NEGATIVE Urine nitrite detection by test strip POSITIVE NEGATIVE Urine total bilirubin detection by test strip NEGA TIVE NEGATIVE Urine urobilinogen measurement by automated test strip (mass/volume) NORMAL NORMAL Urine leukocyte esterase detection by dipstick 3+ NEGATIVE Automated urine sediment erythrocyte cou nt by microscopy (number/high power field) NONE NRG Automated urine sediment leukocyte count by microscopy (number/high power field) TNTC NRG Bacteria detection in urine sediment by light microsco py LARGE NRG Squamous epithelial cells detection in u rine sediment by light microscopy 2-5 NRG Crystals detection in urine sediment by light microsco py NONE NRG Casts detection in urine sediment by light microscopy NONE NRG Mucus detection in urine sediment by light microscopy SMALL NRG Complete urinalysis with reflex to culture YES NRG Comprehensive metabolic panel - 12/01/18 18:57 Serum or plasma sodium measurement (moles/volume) 135 mmol/L 135-145 Serum or plasma potassium measurement (moles/volume) 4.0 mmol/L 3.6-5.0 Serum or plasma chloride measurement (moles/volume) 100 mmol/L 98-107 Carbon dioxide 26 mmol/L 21-32 Serum or plasma anion gap determination (moles/volume) 9 mmol/L 5-14 Serum or plasma urea nitrogen measurement (mass/volume ) 13 mg/dL 7-18 Serum or plasma creatinine measurement (mass/volume) 0.75 mg/dL 0.60-1.30 Serum or plasma urea nitrogen/creatinine mass ratio 17 NRG Serum or plasma creatinine measurement w ith calculation of estimated glomerular filtration rate > NRG Serum or plasma glucose measurement (mass/volume) 96 mg/dL 70-105 Serum or plasma calcium measurement (mass/volume) 10.0 mg/dL 8.5-10.1 Serum or plasma total bilirubin measurement (mass/volu me) 0.4 mg/dL 0.1-1.0 Serum or plasma alkaline phosphatase michelle surement (enzymatic activity/volume) 72 U/L 40-136 Serum or plasma aspartate aminotransfera se measurement (enzymatic activity/volume) 14 U/L 5-34 Serum or plasma alanine aminotransferase measurement (enzymatic activity/volume) 8 U/L 0-55 Serum or plasma protein measurement (mass/volume) 7.0 g/dL 6.4-8.2 Serum or plasma albumin measurement (mass/volume) 4.4 g/dL 3.2-4.5 CALCIUM CORRECTED 9.7 mg/dL 8.5-10.1 Magnesium - 12/01/18 18:57 Magnesium 2.1 mg/dL 1.6-2.4 Serum or plasma amylase measurement (enz ymatic activity/volume) - 12/01/18 18:57 Serum or plasma amylase measurement (enzymatic activit y/volume) 47 U/L 25-125 Lipase - 12/01/18 18:57 Lipase 10 U/L 8-78 Urine drug screening test - 12/01/18 18: 57 Urine phencyclidine detection by screening method NEGATIVE NEGATIVE Urine benzodiazepines detection by screening method NEGATIVE NEGATIVE Urine cocaine detection NEGATIVE NEGATI VE Urine amphetamines detection by screening method P OSITIVE NEGATIVE Urine methamphetamine detection by screening method NEGATIVE NEGATIVE Urine cannabinoids detection by screening method N EGATIVE NEGATIVE Urine opiates detection by screening method NEGATI VE NEGATIVE Urine barbiturates detection NEGATIVE N EGATIVE Screening urine tricyclic antidepressants detection NEGATIVE NEGATIVE Urine methadone detection by screening method NEGA TIVE NEGATIVE Urine oxycodone detection NEGATIVE NEGA TIVE Urine propoxyphene detection NEGATIVE N EGATIVE Bacterial urine culture - 12/01/18 18:57 Bacterial urine culture [id number] NRG COLONY COUNT >100,000/ML NRG FTX;REPORTABLE SUSCEPTIBILITY REPORTED 12/03 10:15 NRG Bacterial blood culture - 12/01/18 18:57 Bacterial blood culture NG NRG Dirithromycin susceptibility test by dis k diffusion - 12/01/18 18:57 Gentamicin susceptibility test by minimum inhibitory c oncentration <= NRG Trimethoprim/sulfamethoxazole susceptibi lity test by minimum inhibitoryconcentration <= NRG Levofloxacin susceptibility test by minimum inhibitory concentration <= NRG Ampicillin susceptibility test by minimum inhibitory c oncentration > NRG Cefazolin susceptibility test by minimum inhibitory co ncentration 2 NRG Ceftriaxone susceptibility test by minimum inhibitory concentration <= NRG Ciprofloxacin susceptibility test by minimum inhibitor y concentration <= NRG Meropenem susceptibility test by minimum inhibitory co ncentration <= NRG Nitrofurantoin susceptibility test by mi nimum inhibitory concentration <= NRG Amoxicillin and clavulanate potassium susc SANDOVAL = NRG Capillary blood glucose measurement by g lucometer (mass/volume) - 12/01/18 18:59 Capillary blood glucose measurement by glucometer (mas s/volume) 110 mg/dL 70-110 Bacterial blood culture - 12/01/18 19:35 Bacterial blood culture NG NRG Encounters ACCT No. Visit Date/Time Discharge Status Pt. Type Provider Facility Loc./Unit Complaint [id number] 06/23/2014 12:47:00 06/23/2014 23:59: 59 CLS Outpatient GERARDO SCHNEIDER APRN [id number] 02/13/2014 18:02:00 02/13/2014 23:59: 59 CLS Outpatient LEVAR OVALLES DO [id number] 01/24/2014 10:32:00 01/24/2014 23:59: 59 CLS Outpatient JORDIN DUFFY APRN [id number] 12/23/2013 11:07:00 12/23/2013 23:59: 59 CLS Outpatient LEVAR OVALLES DO [id number] 12/13/2013 12:59:00 12/13/2013 23:59: 59 CLS Outpatient RUBI HAWKINS DDS [id number] 11/20/2013 08:41:00 11/20/2013 23:59: 59 CLS Outpatient JORDIN DUFFY APRN [id number] 11/07/2013 07:51:00 11/07/2013 23:59: 59 CLS Outpatient OVALLES DOLEVAR [id number] 10/26/2013 09:41:00 10/26/2013 23:59: 59 CLS Outpatient TIERNEY CRUZ MD [id number] 09/21/2013 14:24:00 09/21/2013 23:59: 59 CLS Outpatient NISHANT BENSON APRN [id number] 07/28/2013 15:55:00 07/28/2013 23:59: 59 CLS Outpatient PEPPER BRADY DDS [id number] 02/16/2013 10:01:00 02/16/2013 23:59: 59 CLS Outpatient LEVAR OVALLES DO [id number] 12/13/2012 10:46:00 12/13/2012 23:59: 59 CLS Outpatient LEVAR OVALLES DO [id number] 01/15/2012 10:55:00 01/15/2012 23:59: 59 [place] [id number] 01/15/2012 10:55:00 01/15/2012 23:59:5 9 CLS Outpatient LEVAR OVALLES DO [id number] 11/03/2012 08:53:00 Document Registration [id number] 11/02/2012 11:49:00 Document Registration [id number] 12/30/2018 07:55:00 23:59:59 CLS Outpatient HAND DO CARTER [facility] RAD SCREENING [id number] 12/01/2018 18:34:00 20:56:00 DIS Emergency DAVID JESUS DO [facility] ER ABD PAIN/PAIN ALL OVER [id number] 05/23/2018 14:34:00 23:59:59 CLS Preadmit HAND DOCARTER Vi a [facility] RAD SCREENING [id number] 12/13/2017 12:04:00 15:50:00 DIS Outpatient YULIA ROSADO DO [facility] ENDO SCREENING [id number] 12/07/2017 15:00:00 15:15:00 DIS Outpatient YULIA ROSADO DO [facility] PREOP COLO [id number] 11/09/2017 07:12:00 23:59:59 CLS Preadmit HAND DO CARTER Vi [facility] RAD SCREENING [id number] 06/24/2017 08:59:00 018 12:45:00 DIS Emergency KATHIA JEAN MD [facility] ER CHEST PAIN [id number] 04/15/2017 14:16:00 23:59:59 CLS Preadmit YAZAN RUFFIN CARTER [facility] RAD SCREENING MAMMO [id number] 03/05/2017 22:23:00 017 23:22:00 DIS Emergency KATHIA JEAN MD [facility] ER LEFT ABA THERAPIST ATION [id number] 06/01/2016 13:01:00 23:59:59 CLS Outpatient YAZAN DO CARTER [facility] RAD R92.0 [id number] 05/13/2016 10:50:00 23:59:59 CLS Outpatient HAND DO, CARTER [facility] RAD Z12.31 [id number] 07/16/2015 12:18:00 15:15:00 DIS Emergency CAMPBELL PIZANO APRN [facility] ER [id number] 07/05/2015 05:24:00 08:01:00 DIS Emergency PATRICK HOLLAND MD [facility] ER [id number] 2014 06:00:00 17:40:00 DIS Outpatient JOJO AKINS DO [facility] SDC PELVIC PAIN; FIBROIDS [id number] 02/14/2014 12:55:00 23:59:59 CLS Outpatient JOJO AKINS DO [facility] RAD ABNORMAL MAMMO [id number] 02/14/2014 09:01:00 23:59:59 CLS Outpatient JOJO AKINS DO [facility] PREOP PELVIC PAIN; FIBROIDS [id number] 12/27/2013 08:26:00 09:54:00 DIS Outpatient ALLY BARRIGA [employer] SAL[employer] SPECIALIST [facility] REHAB LBP [id number] 01/24/2014 08:55:00 23:59:59 CLS Outpatient JOJO KAINS DO [facility] RAD SCREENING [id number] 01/04/2014 09:45:00 23:59:59 CLS Outpatient MICHAEL ALBARRAN MD [facility] RAD PELVIC MASS ON MRI [id number] 12/04/2013 14:27:00 23:59:59 CLS Outpatient ALLY BARRIGA DI[employer] SALES SPECIALIST [facility] RAD LBP [id number] 10/25/2013 20:57:00 00:10:00 DIS Emergency KATHIA JEAN MD [facility] ER BACK PAIN [id number] 06/26/2011 05:37:00 Document Registration [id number] 06/18/2011 08:00:00 Document Registration [id number] 05/06/2011 12:07:00 Document Registration [id number] 04/22/2011 08:02:00 Document Registration [id number] 04/16/2011 09:06:00 Document Registration [id number] 10/22/2009 13:28:00 Document Registration [id number] 10/11/2009 08:49:00 Document Registration
--- NOTE | 2019-08-06 05:45 | ED EENT ---
History of Present Illness General Chief Complaint: Dental Problems/Pain Stated Complaint: TOOTH INFECTION Source: patient Exam Limitations: no limitations History of Present Illness Date Seen by Provider: August 06, 2019 Time Seen by Provider: 05:34 Initial Comments Patient arrives to ER by private conveyance from home with chief complaint of dental infection of the past couple days with today waking up with swelling up around her cheeks and lower eyelid on the right side. She has an area of her gums is draining some purulence. Painful to touch. No fevers chills or difficulty swallowing. No difficulty breathing. Not on antibiotics. Allergies and Home Medications Allergies Coded Allergies: No Known Drug Allergies (Unverified , 12/07/17) Home Medications Alprazolam 1 Mg Tablet, 1 MG PO PRN, (Reported) Amoxicillin 500 Mg Capsule, 500 MG PO TID Prescribed by: ETHEL MARTIN on 08/06/19 0544 Cholecalciferol (Vitamin D3) 2,000 Unit Tablet, 2,000 UNIT PO 3X PER WEEK, (Reported) Citalopram Hydrobromide 40 Mg Tablet, 40 MG PO DAILY, (Reported) Ibuprofen 800 Mg Tablet, 800 MG PO Q8H PRN for PAIN, (Reported) Ketorolac Tromethamine 10 Mg Tablet, 10 MG PO Q6H Prescribed by: DAVID JESUS on 12/01/182040 Lisdexamfetamine Dimesylate 50 Mg Capsule, 50 MG PO DAILY, (Reported) Nitrofurantoin Monohyd/M-Cryst 100 Mg Capsule, 100 MG PO BID Prescribed by: DAVID JESUS on 12/01/182040 Ondansetron 4 Mg Tab.rapdis, 4 MG PO Q4H Prescribed by: DAVID JESUS on 12/01/182040 Phenazopyridine HCl 200 Mg Tablet, 1 TAB PO TID Prescribed by: DAVID JESUS on 12/01/182040 Tizanidine HCl 4 Mg Capsule, 4 MG PO HS PRN for SPASMS, (Reported) Patient Home Medication List Home Medication List Reviewed: Yes Review of Systems Review of Systems Constitutional: No chills, No fever Eyes: Denies Blindness, Denies Blurred Vision Ears: Denies Dizziness, Denies Pain Nose: denies clots, denies congestion Mouth: denies clots, denies pain; swelling, purulent discharge Throat: denies pain, denies swelling Respiratory: No cough, No short of breath All Other Systems Reviewed Negative Unless Noted: Yes Past Srsmcrp-Efvqxw-Krevbe Hx Patient Social History Alcohol Use: Denies Use Recreational Drug Use: No Smoking Status: Current Everyday Smoker Type Used: Cigarettes 2nd Hand Smoke Exposure: No Recent Foreign Travel: No Contact w/Someone Who Travel: No Recent Hopitalizations: No Immunizations Up To Date Tetanus Booster (TDap): More than 5yrs Date of Influenza Vaccine: Dec 14, 2016 Seasonal Allergies Seasonal Allergies: Yes Past Medical History Surgeries: Yes Hysterectomy Respiratory: No Cardiac: No Neurological: Yes Headaches /Migraines Reproductive Disorders: Yes (UTERINE ABLATION AND HYST) Female Reproductive Disorders: Menstrual Problems [employer] History: Hysterectomy Sexually Transmitted Disease: No HIV/AIDS: No Genitourinary: No Gastrointestinal: No Musculoskeletal: Yes (ANKYLOSING SPONDYLITIS; SPINAL STENOSIS) Chronic Back Pain Endocrine: No HEENT: No Loss of Vision: Denies Hearing Impairment: Denies Cancer: No Psychosocial: Yes (MOOD DISORDER) Anxiety, Depression Integumentary: No Blood Disorders: No Adverse Reaction/Blood Tranf: No (N/A) Family Medical History Heart Disease, Cancer, Diabetes, Hypertension Physical Exam Vital Signs Vital Signs - First Documented 08/06/19 05:40 Temp 37.1 Pulse 72 Resp 20 B/P (MAP) 115/78 (90) Pulse Ox 99 O2 Delivery Room Air Height, Weight, BMI Height: 5'2.00" Weight: 127lbs. 0.0oz. 57.587614pc; 10.00 BMI Method:Stated General Appearance: WD/WN, no apparent distress Eyes: bilateral eye normal inspection, bilateral eye PERRL, bilateral eye EOMI Ears: bilateral ear auricle normal, bilateral ear canal normal, bilateral ear TM normal Nose: normal inspection; No active bleeding, No discharge Mouth/Throat: pharynx swelling, pharynx tenderness (right upper gums), other (pointing on the right upper gums laterally with purulence draining from it) Neck: full range of motion, normal inspection Cardiovascular: normal peripheral pulses, regular rate, rhythm Respiratory: no respiratory distress, no accessory muscle use Neurologic/Psychiatric: alert, oriented x 3 Skin: normal color, warm/dry, other (mild swelling of the right face) Procedures/Interventions Dental Procedures: Dental I&D ( right upper or maxillary 22-gauge 1/2 inch needle) Suture Size: 4-0 Progress/Results/Core Measures Results/Orders Vital Signs/I&O 08/06/19 05:40 Temp 37.1 Pulse 72 Resp 20 B/P (MAP) 115/78 (90) Pulse Ox 99 O2 Delivery Room Air Progress Progress Note : Time: 05:43 Progress Note Plan to jolynn the abscess in her gums and put her on antibiotics to follow-up with the dentist. Departure Impression Primary Impression: Dental abscess Disposition: HOME, SELF-CARE Condition: Stable Departure-Patient Inst. Decision time for Depature: 05:43 Referrals: CARTER HAND DO (PCP/Family) Primary Care Physician Patient Instructions: Tooth Abscess (DC) Add. Discharge Instructions: Mouthwash and good oral hygiene with tooth brushing at least twice daily. Amoxicillin one capsule 3 times a day for the next 10 days. Plan on following up with a dentist in 1-2 weeks. All discharge instructions reviewed with patient and/or family. Voiced understanding. Scripts Amoxicillin (Amoxicillin) 500 Mg Capsule 500 MG PO TID for 10 Days, #30 CAP 0 Refills Prov: ETHEL MARTIN 08/06/19 ETHEL MARTIN August 06, 2019 05:45
== END 2019-08-06 05:50 | disposition home or self-care (01) ==
LOC: EDUNIT# 05:31 → ER 05:33
DX: K04.7 Periapical abscess without sinus (principal); G43.909 Migraine, unspecified, not intractable, without status migrainosus; F41.9 Anxiety disorder, unspecified; F32.9 Major depressive disorder, single episode, unspecified; F17.210 Nicotine dependence, cigarettes, uncomplicated; Z82.49 Family history of ischemic heart disease and other diseases of the circulatory system
CPT/HCPCS: 99282

== ENCOUNTER 2019-09-06 07:06 | Emergency (ER) | payer BC ==
[~2019-09-06] VITALS: Ht 160 cm; Wt 58.9 kg
[~2019-09-06 07:06] MED LIST changes: +AMOX500C2 PO
[2019-09-06] MEDS ORDERED: NS IV 1000 ML 1,000 ML IV SCH (07:26)
[2019-09-06] MEDS ORDERED: ONDANSETRON 4 MG/2 ML (SDV) Z0FRAN IVP ONE (07:30)
[2019-09-06] MEDS ORDERED: KETOROLAC 30 MG/ML VIAL IVP ONE ×2 (07:30→08:15)
[2019-09-06 07:46] LABS: BASOPHILS % (AUTO) 0 % (0-10); EOSINOPHILS # (AUTO) 0.1 10^3/uL (0.0-0.3); EOSINOPHILS % (AUTO) 1 % (0-10); HEMATOCRIT 39 % (35-52); HEMOGLOBIN 13.2 G/DL (11.5-16.0); LYMPHOCYTES # (AUTO) 1.4 X 10^3 (1.0-4.0); LYMPHOCYTES % (AUTO) 13 % (12-44); MEAN CORPUSCULAR HEMOGLOBIN 32 PG (25-34); MEAN CORPUSCULAR HGB CONC 34 G/DL (32-36); MEAN CORPUSCULAR VOLUME 96 FL (80-99); MEAN PLATELET VOLUME 9.6 FL (7.4-10.4); MONOCYTES # (AUTO) 0.9 X 10^3 (0.0-1.0); MONOCYTES % (AUTO) 9 % (0-12); NEUTROPHILS # (AUTO) 8.1 X 10^3 (1.8-7.8); NEUTROPHILS % (AUTO) 77 % (42-75); PLATELET COUNT 252 10^3/uL (130-400); RED CELL DISTRIBUTION WIDTH 12.7 % (10.0-14.5); WHITE BLOOD COUNT 10.5 10^3/uL (4.3-11.0)
[2019-09-06] MEDS ORDERED: LORazepam INJ 2 MG/ML (ATIVAN) VIAL ONE (07:53)
[2019-09-06 07:59] LABS: CHLORIDE 101 MMOL/L (98-107); POTASSIUM 3.8 MMOL/L (3.6-5.0); SODIUM 138 MMOL/L (135-145)
[2019-09-06 08:00] LABS: CALCIUM 9.6 MG/DL (8.5-10.1)
[2019-09-06] MEDS ORDERED: LORazepam INJ 2 MG/ML (ATIVAN) VIAL IVP ONE (08:00)
[2019-09-06 08:01] LABS: GLUCOSE 93 MG/DL (70-105)
--- NOTE | 2019-09-06 08:01 | ED General ---
General Chief Complaint: General Problems/Pain Stated Complaint: SOA;COUGH;N/V Nursing Triage Note: pt presents to ed with complaints of generalized weakness, cold chills, malaise, and nausea and vomting since Wednesday. Pt reports she was swabbed for Covid last week and told it was negative. Nursing Sepsis Screen: No Definite Risk Source of Information: Patient Exam Limitations: No Limitations History of Present Illness Date Seen by Provider: Sep 06, 2019 Time Seen by Provider: 07:20 Initial Comments This 54 year old woman presents to the ER by private vehicle with complaints of vomiting and myalgia since August 31. She had sore throat earlier in the week and obtained COVID drive through testing which she states was negative. She is tearful, anxious, and complains of intense generalized body aches without and focal abdominal pain. She is afebrile on presentation and does not have a thermometer at home. Vital signs are WNL. She believes she is dehydrated. Despite stated complaint at the registration desk, she denies SOA or cough. Allergies and Home Medications Allergies Coded Allergies: No Known Drug Allergies (Unverified , 12/07/17) Home Medications Alprazolam 1 Mg Tablet, 1 MG PO PRN, (Reported) Amoxicillin 500 Mg Capsule, 500 MG PO TID Prescribed by: ETHEL MARTIN on 08/06/19 0544 Cefdinir 300 Mg Capsule, 300 MG PO BID Prescribed by: KATHIA NEAL on 09/06/19 0926 Cholecalciferol (Vitamin D3) 2,000 Unit Tablet, 2,000 UNIT PO 3X PER WEEK, (Reported) Citalopram Hydrobromide 40 Mg Tablet, 40 MG PO DAILY, (Reported) Ibuprofen 800 Mg Tablet, 800 MG PO Q8H PRN for PAIN, (Reported) Ketorolac Tromethamine 10 Mg Tablet, 10 MG PO Q6H Prescribed by: DAVID JESUS on 12/01/182040 Lisdexamfetamine Dimesylate 50 Mg Capsule, 50 MG PO DAILY, (Reported) Nitrofurantoin Monohyd/M-Cryst 100 Mg Capsule, 100 MG PO BID Prescribed by: DAVID JESUS on 12/01/182040 Ondansetron 4 Mg Tab.rapdis, 4 MG PO Q4H Prescribed by: DAVID JESUS on 12/01/182040 Ondansetron 4 Mg Tab.rapdis, 4 MG SL Q4H PRN for NAUSEA/VOMITING Prescribed by: KATHIA NEAL on 09/06/19 09 Phenazopyridine HCl 200 Mg Tablet, 1 TAB PO TID Prescribed by: DAVID JESUS on 12/01/182040 Tizanidine HCl 4 Mg Capsule, 4 MG PO HS PRN for SPASMS, (Reported) Patient Home Medication List Home Medication List Reviewed: Yes Review of Systems Review of Systems Constitutional: no symptoms reported EENTM: see HPI Respiratory: no symptoms reported Cardiovascular: no symptoms reported Gastrointestinal: see HPI Genitourinary: no symptoms reported : No Musculoskeletal: see HPI Skin: no symptoms reported Psychiatric/Neurological: See HPI, Anxiety Hematologic/Lymphatic: No Symptoms Reported Immunological/Allergic: no symptoms reported Past Dprkhtt-Lejskt-Rkmlrn Hx Past Med/Social Hx: Reviewed Nursing Past Med/Soc Hx Patient Social History Alcohol Use: Rarely Uses Recreational Drug Use: No Smoking Status: Current Everyday Smoker Type Used: Cigarettes 2nd Hand Smoke Exposure: No Recent Foreign Travel: No Contact w/Someone Who Travel: No Recent Infectious Disease Expo: No Recent Hopitalizations: No Physical Abuse: No Sexual Abuse: No Mistreated: No Fear: No Immunizations Up To Date Tetanus Booster (TDap): More than 5yrs Date of Influenza Vaccine: Dec 14, 2016 Seasonal Allergies Seasonal Allergies: Yes Past Medical History Surgeries: Yes Hysterectomy Respiratory: No Cardiac: No Neurological: Yes Headaches /Migraines Reproductive Disorders: Yes (UTERINE ABLATION AND HYST) Female 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 Sexually Transmitted Disease: No HIV/AIDS: No Genitourinary: No Gastrointestinal: No Musculoskeletal: Yes (ANKYLOSING SPONDYLITIS; SPINAL STENOSIS) Chronic Back Pain Endocrine: No HEENT: No Loss of Vision: Denies Hearing Impairment: Denies Cancer: No Psychosocial: Yes (MOOD DISORDER) Anxiety, Depression Integumentary: No Blood Disorders: No Adverse Reaction/Blood Tranf: No (N/A) Family Medical History Heart Disease, Cancer, Diabetes, Hypertension Physical Exam Vital Signs Vital Signs - First Documented 09/06/19 07:46 Temp 37.1 Pulse 77 Resp 21 B/P (MAP) 123/82 (96) Pulse Ox 100 Capillary Refill : Less Than 3 Seconds Height, Weight, BMI Height: 5'2.00" Weight: 127lbs. 0.0oz. [id number]; 23.00 BMI Method:Stated General Appearance: WD/WN, Moderate Distress HEENT: PERRL/EOMI, Other (oropharynx dry/pasty. 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 Emotional response seems to be out of perportion to the circumstances) Skin: Normal Color, Warm/Dry Procedures/Interventions Dental Procedures: Dental I&D Suture Size: 4-0 Progress/Results/Core Measures Suspected Sepsis Recent Fever Within 48 Hours: No Infection Criteria Present: None New/Unexplained Altered Menta: No Sepsis Screen: No Definite Risk SIRS Temperature: Pulse: 77 Respiratory Rate: 21 Laboratory Tests 09/06/19 07:37: White Blood Count 10.5 Blood Pressure 123 /82 Mean: 96 Laboratory Tests 09/06/19 07:37: Creatinine 0.75, Platelet Count 252, Total Bilirubin 0.4 Results/Orders Lab Results Laboratory Tests Test 09/06/19 07:37 09/06/19 08:35 Range/Units White Blood Count 10.5 4.3-11.0 10^3/uL Red Blood Count 4.07 L 4.35-5.85 10^6/uL Hemoglobin 13.2 11.5-16.0 G/DL Hematocrit 39 35-52 % Mean Corpuscular Volume 96 80-99 FL Mean Corpuscular Hemoglobin 32 25-34 PG Mean Corpuscular Hemoglobin Concent 34 32-36 G/DL Red Cell Distribution Width 12.7 10.0-14.5 % Platelet Count 252 130-400 10^3/uL Mean Platelet Volume 9.6 7.4-10.4 FL Neutrophils (%) (Auto) 77 H 42-75 % Lymphocytes (%) (Auto) 13 12-44 % Monocytes (%) (Auto) 9 0-12 % Eosinophils (%) (Auto) 1 0-10 % Basophils (%) (Auto) 0 0-10 % Neutrophils # (Auto) 8.1 H 1.8-7.8 X 10^3 Lymphocytes # (Auto) 1.4 1.0-4.0 X 10^3 Monocytes # (Auto) 0.9 0.0-1.0 X 10^3 Eosinophils # (Auto) 0.1 0.0-0.3 10^3/uL Basophils # (Auto) 0.0 0.0-0.1 10^3/uL Sodium Level 138 135-145 MMOL/L Potassium Level 3.8 3.6-5.0 MMOL/L Chloride Level 101 98-107 MMOL/L Carbon Dioxide Level 26 21-32 MMOL/L Anion Gap 11 5-14 MMOL/L Blood Urea Nitrogen 14 7-18 MG/DL Creatinine 0.75 0.60-1.30 MG/DL Estimat Glomerular Filtration Rate > 60 BUN/Creatinine Ratio 19 Glucose Level 93 70-105 MG/DL Calcium Level 9.6 8.5-10.1 MG/DL Corrected Calcium 9.6 8.5-10.1 MG/DL Magnesium Level 2.3 1.6-2.4 MG/DL Total Bilirubin 0.4 0.1-1.0 MG/DL Aspartate Amino Transf (AST/SGOT) 12 5-34 U/L Alanine Aminotransferase (ALT/SGPT) 13 0-55 U/L Alkaline Phosphatase 80 40-136 U/L Total Creatine Kinase 27 L 29-168 U/L Total Protein 7.0 6.4-8.2 GM/DL Albumin 4.0 3.2-4.5 GM/DL Urine Color YELLOW Urine Clarity CLOUDY Urine pH 7.5 5-9 Urine Specific [place] 1.015 L 1.016-1.022 Urine Protein 2+ H NEGATIVE Urine Glucose (UA) NEGATIVE NEGATIVE Urine Ketones TRACE H NEGATIVE Urine Nitrite POSITIVE H NEGATIVE Urine Bilirubin NEGATIVE NEGATIVE Urine Urobilinogen 1.0 < = 1.0 MG/DL Urine Leukocyte Esterase 3+ H NEGATIVE Urine RBC (Auto) 3+ H NEGATIVE Urine RBC 50-100 H /HPF Urine WBC TNTC H /HPF Urine Squamous Epithelial Cells 2-5 /HPF Urine Crystals NONE /LPF Urine Bacteria LARGE H /HPF Urine Casts NONE /LPF Urine Mucus NEGATIVE /LPF Urine Culture Indicated YES Urine Opiates Screen NEGATIVE NEGATIVE Urine Oxycodone Screen NEGATIVE NEGATIVE Urine Methadone Screen NEGATIVE NEGATIVE Urine Propoxyphene Screen NEGATIVE NEGATIVE Urine Barbiturates Screen NEGATIVE NEGATIVE Ur Tricyclic Antidepressants Screen NEGATIVE NEGATIVE Urine Phencyclidine Screen NEGATIVE NEGATIVE Urine Amphetamines Screen NEGATIVE NEGATIVE Urine Methamphetamines Screen NEGATIVE NEGATIVE Urine Benzodiazepines Screen POSITIVE H NEGATIVE Urine Cocaine Screen NEGATIVE NEGATIVE Urine Cannabinoids Screen NEGATIVE NEGATIVE My Orders Orders - KATHIA JEAN MD Ed Iv/Invasive Line Start (09/06/19 07:26) Ns Iv 1000 Ml (Sodium Chloride 0.9%) (09/06/19 07:26) Ondansetron Injection (Zofran Injectio (09/06/19 07:30) Cbc With Automated Diff (09/06/19 07:26) Comprehensive Metabolic Panel (09/06/19 07:26) Magnesium (09/06/19 07:26) Ua Culture If Indicated (09/06/19 07:26) Ketorolac Injection (Toradol Injection) (09/06/19 07:30) Creatine Kinase (09/06/19 07:26) Lorazepam Injection (Ativan Injection) (09/06/19 08:00) Drug Screen Stat (Urine) (09/06/19 07:54) Lorazepam Injection (Ativan Injection) (09/06/19 07:53) Ketorolac Injection (Toradol Injection) (09/06/19 08:15) Urine Culture (09/06/19 08:35) Ceftriaxone For Iv Use (Rocephin For I (09/06/19 09:30) Medications Given in ED Current Medications Medications Dose Ordered Sig/Karen Route Start Time Stop Time Status Last Admin Dose Admin Ceftriaxone Sodium 1000 mg/ Sterile Water 10 ml @ 200 mls/hr ONCE ONCE IV 09/06/19 09:30 09/06/19 09:32 DC 09/06/19 09:29 200 MLS/HR Ketorolac Tromethamine 15 mg ONCE ONCE IVP 09/06/19 07:30 09/06/19 07:31 DC 09/06/19 07:40 15 MG Ketorolac Tromethamine 15 mg ONCE ONCE IVP 09/06/19 08:15 09/06/19 08:16 DC 09/06/19 08:30 15 MG Lorazepam 0.5 mg ONCE ONCE IVP 09/06/19 08:00 09/06/19 08:01 DC 09/06/19 07:40 0.5 MG Ondansetron HCl 8 mg ONCE ONCE IVP 09/06/19 07:30 09/06/19 07:31 DC 09/06/19 07:40 8 MG Vital Signs/I&O 09/06/19 09/06/19 07:46 09:44 Temp 37.1 37.1 Pulse 77 89 Resp 21 21 B/P (MAP) 123/82 (96) 109/77 (96) Pulse Ox 100 100 Capillary Refill : Less Than 3 Seconds Blood Pressure Mean: 96 Progress Note #1: Time: 08:05 Progress Note Patient seen and examined. Labs pending. Zofran given for nausea. Toradol given for pain. Patient was still crying and anxious but declined anything further for pain control. Ativan was given for anxiety. Progress Note #2: Time: 08:16 Progress Note Labs are unremarkable. Patient is still complaining of pain. She does not want any opioids. I offered an additional 15 mg of Toradol which she accepts. Nausea has resolved. Progress Note #3: Progress Note Patient was found to have UTI. She was treated with Rocephin and discharged. She was much improved at the time of discharge. Departure Impression Primary Impression: Urinary tract infection Qualified Codes: N39.0 - Urinary tract infection, site not specified; R31.9 - Hematuria, unspecified Additional Impressions: Nausea & vomiting Qualified Codes: R11.2 - Nausea with vomiting, unspecified Myalgia Anxiety Disposition: 01 HOME, SELF-CARE Condition: Improved Departure-Patient Inst. Decision time for Depature: 09:22 Referrals: CARTER HAND DO (PCP/Family) Primary Care Physician Patient Instructions: Urinary Tract Infections in Adults Add. Discharge Instructions: Drink plenty of clear liquids. Take Zofran as prescribed for nausea and vomiting. Start your antibiotics tonight or tomorrow morning. Complete the entire course as prescribed. Follow up with Dr. Hand on Wednesday to review urine culture results. Call today for appt time. Have your urine screened again after you have completed UTI treatment to be sure the blood clears. You may take Tylenol up to 1000 mg every 6 hours and Ibuprofen up to 600 mg every 6 hours as needed for pain. Return to care if you have worsening or persistent symptoms despite treatment. All discharge instructions reviewed with patient and/or family. Voiced understanding. Scripts Ondansetron (Ondansetron Odt) 4 Mg Tab.rapdis 4 MG SL Q4H PRN for NAUSEA/VOMITING, #10 TAB Prov: KATHIA JEAN MD 09/06/19 Cefdinir (Cefdinir) 300 Mg Capsule 300 MG PO BID, #14 CAP Prov: KATHIA JEAN MD 09/06/19 Copy Copies To 1: CARTER HAND JOSHUA T MD Sep 06, 2019 08:01
[2019-09-06 08:03] LABS: BILIRUBIN,TOTAL 0.4 MG/DL (0.1-1.0); CARBON DIOXIDE 26 MMOL/L (21-32)
[2019-09-06 08:05] LABS: ALKALINE PHOSPHATASE 80 U/L (40-136); CREATININE SERUM 0.75 MG/DL (0.60-1.30); GFR ESTIMATED > 60
[2019-09-06 08:06] LABS: BUN/CREATININE RATIO 19
[2019-09-06 08:08] LABS: ALANINE AMINOTRANSFERASE 13 U/L (0-55); MAGNESIUM 2.3 MG/DL (1.6-2.4)
[2019-09-06 08:09] LABS: CREATINE KINASE 27 U/L (29-168)
[2019-09-06 09:06] LABS: BILIRUBIN,URINE NEGATIVE (NEGATIVE); CLARITY,URINE CLOUDY; COLOR,URINE YELLOW; GLUCOSE, URINE (UA) NEGATIVE (NEGATIVE); KETONES,URINE TRACE (NEGATIVE); LEUKOCYTE ESTERASE ,URINE 3+ (NEGATIVE); NITRITE,URINE POSITIVE (NEGATIVE); PH,URINE 7.5 (5-9); PROTEIN,URINE 2+ (NEGATIVE)
[2019-09-06 09:12] LABS: BACTERIA,URINE LARGE /HPF; RBC,URINE 50-100 /HPF; WBC,URINE TNTC /HPF
[2019-09-06 09:19] LABS: AMPHETAMINE SCREEN, URINE NEGATIVE (NEGATIVE); BARBITURATE SCREEN URINE NEGATIVE (NEGATIVE); BENZODIAZEPINES SCREEN URINE POSITIVE (NEGATIVE); CANNABINOID SCREEN, URINE NEGATIVE (NEGATIVE); COCAINE SCREEN URINE NEGATIVE (NEGATIVE); METHADONE STAT NEGATIVE (NEGATIVE); METHAMPHETAMINE SCREEN URINE S NEGATIVE (NEGATIVE); OPIATE SCREEN URINE NEGATIVE (NEGATIVE); OXYCODONE STAT NEGATIVE (NEGATIVE); PROPOXYPHENE STAT NEGATIVE (NEGATIVE); TRICYCLIC ANTIDEPRESSANTS SCRE NEGATIVE (NEGATIVE)
[2019-09-06] MEDS ORDERED: CEFD300C3 PO (09:26)
[2019-09-06] MEDS ORDERED: ONDA4TAB11 SL (09:26)
[2019-09-06] MEDS ORDERED: cefTRIAXone FOR IV USE 1,000 MG in WATER (STERILE) FOR INJECTION 10 ML IV ONE (09:30)
[2019-09-06 09:44] VITALS: BP 109/77
== END 2019-09-06 09:44 | disposition home or self-care (01) ==
LOC: EDUNIT# 07:06 → ER 07:09
DX: N39.0 Urinary tract infection, site not specified (principal); M79.18 Myalgia, other site; F41.9 Anxiety disorder, unspecified; F17.210 Nicotine dependence, cigarettes, uncomplicated; G43.909 Migraine, unspecified, not intractable, without status migrainosus; G89.29 Other chronic pain; M54.9 Dorsalgia, unspecified; F32.9 Major depressive disorder, single episode, unspecified; Z82.49 Family history of ischemic heart disease and other diseases of the circulatory system; Z79.1 Long term (current) use of non-steroidal anti-inflammatories (NSAID)
CPT/HCPCS: 36415; 80053; 80306; 81000; 82550; 83735; 85025; 87077; 87088; 87186

== ENCOUNTER 2020-09-23 16:52 | Emergency (ER) | payer SELFPAY ==
[~2020-09-23] VITALS: Ht 157.4 cm; Wt 58.9 kg
[~2020-09-23 16:52] MED LIST changes: +CEFD300C3 PO; +ONDA4TAB11 SL
[2020-09-23 17:42] LABS: BASOPHILS # (AUTO) 0.1 10^3/uL (0.0-0.1); BASOPHILS % (AUTO) 1 % (0-10); EOSINOPHILS # (AUTO) 0.1 10^3/uL (0.0-0.3); EOSINOPHILS % (AUTO) 1 % (0-10); HEMATOCRIT 43 % (35-52); HEMOGLOBIN 14.5 g/dL (11.5-16.0); LYMPHOCYTES # (AUTO) 1.5 10^3/uL (1.0-4.0); LYMPHOCYTES % (AUTO) 15 % (12-44); MEAN CORPUSCULAR HEMOGLOBIN 32 pg (25-34); MEAN CORPUSCULAR HGB CONC 34 g/dL (32-36); MEAN CORPUSCULAR VOLUME 95 fL (80-99); MEAN PLATELET VOLUME 9.9 fL (9.0-12.2); MONOCYTES # (AUTO) 0.5 10^3/uL (0.0-1.0); MONOCYTES % (AUTO) 6 % (0-12); NEUTROPHILS # (AUTO) 7.5 10^3/uL (1.8-7.8); NEUTROPHILS % (AUTO) 77 % (42-75); PLATELET COUNT 274 10^3/uL (130-400); WHITE BLOOD COUNT 9.7 10^3/uL (4.3-11.0)
[2020-09-23] MEDS ORDERED: LACTATED RINGERS 1,000 ML IV ONE (17:45)
[2020-09-23 17:47] LABS: ALBUMIN 4.4 GM/DL (3.2-4.5); CHLORIDE 102 MMOL/L (98-107); SODIUM 139 MMOL/L (135-145)
[2020-09-23 17:48] LABS: CALCIUM 9.8 MG/DL (8.5-10.1)
[2020-09-23 17:50] LABS: GLUCOSE 76 MG/DL (70-105); TOTAL PROTEIN 7.2 GM/DL (6.4-8.2)
[2020-09-23 17:51] LABS: BILIRUBIN,TOTAL 0.7 MG/DL (0.1-1.0); CARBON DIOXIDE 24 MMOL/L (21-32)
[2020-09-23 17:53] LABS: ALKALINE PHOSPHATASE 75 U/L (40-136); CREATININE SERUM 0.72 MG/DL (0.60-1.30); GFR ESTIMATED > 60
[2020-09-23 17:54] LABS: BUN/CREATININE RATIO 22
[2020-09-23 17:56] LABS: ALANINE AMINOTRANSFERASE 17 U/L (0-55); CREATINE KINASE 30 U/L (29-168)
--- NOTE | 2020-09-23 17:57 | ED General ---
General Chief Complaint: Respiratory Problems Stated Complaint: TIRED,MUSCLE PAIN, NAUSEA Nursing Triage Note: THIS COVID POSITIVE PATIENT STATES SHE FEELS LIKE SHE IS DEYDRATED SINCE SHE IS UNABLE TO REALLY KEEP ANY FOOD OR FLUIDS DOWN. STATES SHE LAST THREW UP LAST NIGHT WHEN SHE TRIED TO EAT SOME CHICKEN. TODAY SHE HAS KEPT DOWN WATER. STATES SHE HAS ZOFRAN AT HOME BUT SHE REALLY JUST DOESNT HAVE AN APPETITE. STATES HAD A FEVER OF 102.1 TWO DAYS AGO BUT HAS NOT SINCE THEN. Source of Information: Patient Exam Limitations: No Limitations (ETHEL MARTIN) History of Present Illness Date Seen by Provider: Sep 23, 2020 Time Seen by Provider: 17:21 Initial Comments Patient presents ER by private conveyance from home with chief complaint of malaise, general fatigue and dehydration. She was diagnosed with COVID-19 14 days ago and symptoms started 1 day prior to that. She has had a couple days of diarrhea and since then just nausea and vomiting. She is ran out of her Zofran. She says she has very poor appetite and no taste for food. She is been trying to drink Pedialyte and water and does not feel like she is keeping up with her fluid intake. She has not had any labs since she got sick. She did get [employer] vaccine earlier in the year and late last year in October she had COVID-19 but felt only mild symptoms and had no long-term sequelae from that. She denies a history of lung disease. She quit smoking a week ago. She is not coughing up anything nor does she feel short of breath. She does not rely on supplemental oxygen. She denies dysuria or diarrhea now. She is having nausea. (ETHEL MARTIN) Allergies and Home Medications Allergies Coded Allergies: No Known Drug Allergies (Unverified , 12/07/17) Home Medications Alprazolam 1 Mg Tablet, 1 MG PO PRN, (Reported) Amoxicillin 500 Mg Capsule, 500 MG PO TID Prescribed by: ETHEL MARTIN on 08/06/19 0544 Azithromycin 500 Mg Tablet, 500 MG PO DAILY Prescribed by: DAVID ARRIOLA on 09/23/20 1837 Cefdinir 300 Mg Capsule, 300 MG PO BID Prescribed by: KATHIA NEAL on 09/06/19 0926 Cefdinir 300 Mg Capsule, 300 MG PO BID Prescribed by: DAVID ARRIOLA on 09/23/20 183 Cholecalciferol (Vitamin D3) 2,000 Unit Tablet, 2,000 UNIT PO 3X PER WEEK, (Reported) Citalopram Hydrobromide 40 Mg Tablet, 40 MG PO DAILY, (Reported) Ibuprofen 800 Mg Tablet, 800 MG PO Q8H PRN for PAIN, (Reported) Ketorolac Tromethamine 10 Mg Tablet, 10 MG PO Q6H Prescribed by: DAVID ARRIOLA on 12/01/182040 Lisdexamfetamine Dimesylate 50 Mg Capsule, 50 MG PO DAILY, (Reported) Nitrofurantoin Monohyd/M-Cryst 100 Mg Capsule, 100 MG PO BID Prescribed by: DAVID ARRIOLA on 12/01/182040 Ondansetron 4 Mg Tab.rapdis, 4 MG PO Q4H Prescribed by: DAVID ARRIOLA on 12/01/182040 Ondansetron 4 Mg Tab.rapdis, 4 MG SL Q4H PRN for NAUSEA/VOMITING Prescribed by: KATHIA NEAL on 09/06/19 0926 Ondansetron 4 Mg Tab.rapdis, 4 MG PO Q6H PRN for NAUSEA/VOMITING Prescribed by: ETHEL MARTIN on 09/23/20 175 Phenazopyridine HCl 200 Mg Tablet, 1 TAB PO TID Prescribed by: DAVID ARRIOLA on 12/01/182040 Tizanidine HCl 4 Mg Capsule, 4 MG PO HS PRN for SPASMS, (Reported) Patient Home Medication List Home Medication List Reviewed: Yes (ETHEL MARTIN) Review of Systems Review of Systems Constitutional: No chills, No diaphoresis; malaise, weakness EENTM: No ear discharge, No ear pain, No eye pain Respiratory: No cough, No short of breath Cardiovascular: No chest pain, No edema Gastrointestinal: No abdominal pain; diarrhea, nausea, vomiting Genitourinary: No discharge, No dysuria Musculoskeletal: No back pain, No joint pain Psychiatric/Neurological: Denies Headache, Denies Numbness (ETHEL MARTIN) All Other Systems Reviewed Negative Unless Noted: Yes (ETHEL MARTIN) Past Qawfosc-Kjepfx-Dqqkyi Hx Patient Social History Tobacco Use?: Yes Tobacco type used: Cigarettes Smoking Status: Current Everyday Smoker Use of E-Cig and/or Vaping dev: No Substance use?: No Alcohol Use?: No Pt feels they are or have been: No (ETHEL MARTIN) Immunizations Up To Date Tetanus Booster (TDap): More than 5yrs Influenza Vaccine Up-to-Date: No; Not Current First/Initial COVID19 Vaccinat: MAR 2020 Second COVID19 Vaccination Kyler: APR 2020 COVID19 Vaccine 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: D-Share (ETHEL MARTIN) Seasonal Allergies Seasonal Allergies: Yes (ETHEL MARTIN) Past Medical History Surgeries: Yes Hysterectomy Respiratory: No Cardiac: No Neurological: Yes Headaches /Migraines Reproductive Disorders: Yes (UTERINE ABLATION AND HYST) Female 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 Sexually Transmitted Disease: No HIV/AIDS: No Genitourinary: No Gastrointestinal: No Musculoskeletal: Yes (ANKYLOSING SPONDYLITIS; SPINAL STENOSIS) Chronic Back Pain Endocrine: No HEENT: No Loss of Vision: Denies Hearing Impairment: Denies Cancer: No Psychosocial: Yes (MOOD DISORDER) Anxiety, Depression Integumentary: No Blood Disorders: No Adverse Reaction/Blood Tranf: No (N/A) (ETHEL MARTIN) Family Medical History Heart Disease, Cancer, Diabetes, Hypertension (ETHEL MARTIN) Physical Exam Vital Signs Vital Signs - First Documented 09/23/20 17:10 Temp 36.6 Pulse 75 Resp 18 B/P (MAP) 120/83 (95) Pulse Ox 98 O2 Delivery Room Air (EDIN,DAVID K DO) Vital Signs Capillary Refill : Less Than 3 Seconds (ETHEL MARTIN) Height, Weight, BMI Height: 5'2.00" Weight: 127lbs. 0.0oz. 57.395822ul; 23.00 BMI Method:Stated General Appearance: WD/WN, Mild Distress Eyes: Bilateral Eye Normal Inspection, Bilateral Eye PERRL, Bilateral Eye EOMI HEENT: PERRL/EOMI, TMs Normal, Normal ENT Inspection; No Moist Mucous Membranes Neck: Full Range of Motion, Normal Inspection Respiratory: Lungs Clear, Normal Breath Sounds, No Accessory Muscle Use, No Respiratory Distress Cardiovascular: Regular Rate, Rhythm, No Edema, Normal Peripheral Pulses Gastrointestinal: Normal Bowel Sounds, Non Tender, Soft Extremity: Normal Capillary Refill, Normal Inspection, No Pedal Edema Neurologic/Psychiatric: Alert, Oriented x3, Normal Mood/Affect Skin: Normal Color, Warm/Dry (ETHEL MARTIN) Procedures/Interventions Dental Procedures: Dental I&D (ETHEL MARTIN) Suture Size: 4-0 (ETHEL MARTIN) Progress/Results/Core Measures Suspected Sepsis SIRS Temperature: Pulse: 75 Respiratory Rate: 18 Laboratory Tests 09/23/20 17:17: White Blood Count 9.7 Blood Pressure 120 /83 Mean: 95 Laboratory Tests 09/23/20 17:17: Platelet Count 274 (ETHEL MARTIN) Results/Orders Lab Results Laboratory Tests Test 09/23/20 17:17 09/23/20 18:28 Range/Units White Blood Count 9.7 4.3-11.0 10^3/uL Red Blood Count 4.49 3.80-5.11 10^6/uL Hemoglobin 14.5 11.5-16.0 g/dL Hematocrit 43 35-52 % Mean Corpuscular Volume 95 80-99 fL Mean Corpuscular Hemoglobin 32 25-34 pg Mean Corpuscular Hemoglobin Concent 34 32-36 g/dL Red Cell Distribution Width 11.8 10.0-14.5 % Platelet Count 274 130-400 10^3/uL Mean Platelet Volume 9.9 9.0-12.2 fL Immature Granulocyte % (Auto) 0 % Neutrophils (%) (Auto) 77 H 42-75 % Lymphocytes (%) (Auto) 15 12-44 % Monocytes (%) (Auto) 6 0-12 % Eosinophils (%) (Auto) 1 0-10 % Basophils (%) (Auto) 1 0-10 % Neutrophils # (Auto) 7.5 1.8-7.8 10^3/uL Lymphocytes # (Auto) 1.5 1.0-4.0 10^3/uL Monocytes # (Auto) 0.5 0.0-1.0 10^3/uL Eosinophils # (Auto) 0.1 0.0-0.3 10^3/uL Basophils # (Auto) 0.1 0.0-0.1 10^3/uL Immature Granulocyte # (Auto) 0.0 0.0-0.1 10^3/uL Sodium Level 139 135-145 MMOL/L Potassium Level 4.0 3.6-5.0 MMOL/L Chloride Level 102 98-107 MMOL/L Carbon Dioxide Level 24 21-32 MMOL/L Anion Gap 13 5-14 MMOL/L Blood Urea Nitrogen 16 7-18 MG/DL Creatinine 0.72 0.60-1.30 MG/DL Estimat Glomerular Filtration Rate > 60 BUN/Creatinine Ratio 22 Glucose Level 76 70-105 MG/DL Calcium Level 9.8 8.5-10.1 MG/DL Corrected Calcium 9.5 8.5-10.1 MG/DL Magnesium Level 2.0 1.6-2.4 MG/DL Total Bilirubin 0.7 0.1-1.0 MG/DL Aspartate Amino Transf (AST/SGOT) 18 5-34 U/L Alanine Aminotransferase (ALT/SGPT) 17 0-55 U/L Alkaline Phosphatase 75 40-136 U/L Total Creatine Kinase 30 29-168 U/L C-Reactive Protein High Sensitivity 0.10 0.00-0.50 MG/DL Total Protein 7.2 6.4-8.2 GM/DL Albumin 4.4 3.2-4.5 GM/DL Procalcitonin 0.01 <0.10 NG/ML (EDIN,DAVID K DO) My Orders Orders - MAHSA ARRIOLAA K Azithromycin Tablet (Zithromax Tablet) (09/23/20 18:45) Ceftriaxone (Rocephin) (09/23/20 18:45) (EDINDAVID K ) Medications Given in ED Current Medications Medications Dose Ordered Sig/Karen Route Start Time Stop Time Status Last Admin Dose Admin Azithromycin 1,000 mg ONCE ONCE PO 09/23/20 18:45 09/23/20 18:46 09/23/20 18:40 1,000 MG Lactated Ringer's 1,000 ml @ 0 mls/hr Q0M ONCE IV 09/23/20 17:45 09/23/20 17:46 DC 09/23/20 17:43 1,000 MLS/HR Ondansetron HCl 8 mg ONCE ONCE IVP 09/23/20 18:00 09/23/20 18:01 DC 09/23/20 17:57 8 MG (EDIN,DAVID K DO) Vital Signs/I&O 09/23/20 17:10 Temp 36.6 Pulse 75 Resp 18 B/P (MAP) 120/83 (95) Pulse Ox 98 O2 Delivery Room Air (DAVDI ARRIOLA DO) Vital Signs/I&O Capillary Refill : Less Than 3 Seconds (ETHEL MARTIN) Blood Pressure Mean: 95 Progress Note : Time: 17:58 Progress Note Plan is to hydrate her with a least a liter of fluid and make sure she has plenty of Zofran. Her vital signs are stable and aseptic. She is in agreement with this plan. Turned the patient's care over to Dr. Arriola at shift change. (ETHEL MARTIN) Progress Note : Progress Note 1800--ASSUMED CARE FROM DR. MARTIN. PT'S NAUSEA HAS RESOLVED NO DYSPNEA NO HYPOXIA NO COUGH NO FEVER NO COMPLAINTS OF ANY KIND AT THIS TIME (DAVID ARRIOLA DO) Diagnostic Imaging Diagonstic Imaging: Xray Plain Films/CT/US/NM/MRI: chest Reviewed: Reviewed by Me (ETHEL MARTIN) Comments CXR--PER RADIOLOGIST REPORT AT 1831 FINDINGS: Frontal view of the chest demonstrates development of an infiltrate in the left lung base. Heart size and vascularity are normal. There are no pleural effusions. IMPRESSION: There is left basilar infiltrate. (DAVID ARRIOLA DO) Departure Impression Primary Impression: COVID-19 Additional Impressions: Mild dehydration LLL pneumonia Disposition: 01 HOME, SELF-CARE Condition: Stable Departure-Patient Inst. Decision time for Depature: 18:30 (DAVID ARRIOLA DO) Referrals: CARTER HAND DO (PCP/Family) Primary Care Physician Patient Instructions: COVID-19 After You Have Been Vaccinated, Dehydration, Adult (DC), Atypical Pneumonia (Mycoplasma and Viral) (DC) Add. Discharge Instructions: Drink plenty of fluids. LOTS OF CLEAR LIQUIDS--WATER, BROTH, JELLO, GATORADE BRATS DIET--BANANAS, RICE, APPLESAUCE, TOAST, SALTINES Tylenol 1000 mg every 8 hours necessary for body aches or fever. Topical creams and vapor rubs can be helpful for congestion. Zofran 1 tablet under the tongue every 6 hours as necessary for nausea and/or vomiting. Return to the ER for pronounced worsening symptoms. FOLLOW UP WITH YOUR DR LATER THIS WEEK FOR FURTHER CARE All discharge instructions reviewed with patient and/or family. Voiced understanding. Scripts Cefdinir (Cefdinir) 300 Mg Capsule 300 MG PO BID, #20 CAP Prov: DAVID ARRIOLA DO 09/23/20 Azithromycin (Zithromax) 500 Mg Tablet 500 MG PO DAILY for 5 Days, #5 TAB Prov: DAVID ARRIOLA DO 09/23/20 Ondansetron (Ondansetron Odt) 4 Mg Tab.rapdis 4 MG PO Q6H PRN for NAUSEA/VOMITING, #20 TAB 0 Refills Prov: ETHEL MARTIN 09/23/20 ETHEL MARTIN Sep 23, 2020 17:57 DAVID ARRIOLA DO Sep 23, 2020 18:36
[2020-09-23] MEDS ORDERED: ONDA4TAB11 PO (17:59)
[2020-09-23] MEDS ORDERED: ONDANSETRON 4 MG/2 ML (SDV) Z0FRAN IVP ONE (18:00)
--- NOTE | 2020-09-23 18:25 | Diagnostic Imaging Report ---
INDICATION: Covid positive, shortness of air, cough. FINDINGS: Frontal view of the chest demonstrates development of an infiltrate in the left lung base. Heart size and vascularity are normal. There are no pleural effusions. IMPRESSION: There is left basilar infiltrate. Dictated by: Dictated on workstation # [id number]
[2020-09-23 18:36] LABS: BILIRUBIN,URINE 1+ (NEGATIVE); CLARITY,URINE CLEAR; COLOR,URINE YELLOW; GLUCOSE, URINE (UA) NEGATIVE (NEGATIVE); KETONES,URINE 3+ (NEGATIVE); LEUKOCYTE ESTERASE ,URINE 1+ (NEGATIVE); NITRITE,URINE NEGATIVE (NEGATIVE); PH,URINE 5.5 (5-9); PROTEIN,URINE NEGATIVE (NEGATIVE)
[2020-09-23] MEDS ORDERED: CEFD300C3 PO (18:37)
[2020-09-23] MEDS ORDERED: AZIT500T PO (18:37)
[2020-09-23] MEDS ORDERED: AZITHROMYCIN 250 MG TAB (ZITHROMAX) PO ONE (18:45)
[2020-09-23] MEDS ORDERED: cefTRIAXone 1,000 MG in WATER (STERILE) FOR INJECTION 10 ML IV ONE (18:45)
[2020-09-23 18:53] LABS: AMORPHOUS SEDIMENT,UR FEW AMOR URATES /LPF; BACTERIA,URINE TRACE /HPF
[2020-09-23] MEDS ORDERED: cefTRIAXone 1,000 MG VIAL ONE (18:56)
[2020-09-23 19:05] VITALS: BP 112/75
== END 2020-09-23 19:10 | disposition home or self-care (01) ==
LOC: EDUNIT# 16:52 → ER 16:54
DX: U07.1 COVID-19 (principal); E86.0 Dehydration; J18.1 Lobar pneumonia, unspecified organism; F41.9 Anxiety disorder, unspecified; F32.9 Major depressive disorder, single episode, unspecified; F17.210 Nicotine dependence, cigarettes, uncomplicated; Z79.899 Other long term (current) drug therapy
CPT/HCPCS: 36415; 71045; 80053; 81000; 82550; 83735; 84145; 85025; 86141

== ENCOUNTER 2021-01-13 05:35 | Outpatient (CLI) | payer OTHER ==
[~2021-01-13] VITALS: Ht 157.5 cm; Wt 65.7 kg
[~2021-01-13 05:35] MED LIST changes: +AZIT500T PO
[2021-01-16] MEDS ORDERED: ESCI20TA39 PO (13:31)
== END 2021-01-16 15:15 | disposition home or self-care (01) ==
LOC: PREOP 05:35
PROVIDERS: ATTEND Surgery
DX: Z01.818 Encounter for other preprocedural examination (principal)

== ENCOUNTER 2021-01-20 07:24 | Day surgery (SDC) | payer OTHER ==
[~2021-01-20] VITALS: Ht 157.5 cm; Wt 65.7 kg
[~2021-01-20 07:24] MED LIST changes: +ESCI20TA39 PO
[2021-01-20] MEDS ORDERED: LACTATED RINGERS 1,000 ML IV STA (07:34)
[2021-01-20 07:40] VITALS: BP 109/80
[2021-01-20] MEDS ORDERED: MIDAZOLAM 2 MG/2 ML (VERSED) VIAL ONE (07:52)
[2021-01-20] MEDS ORDERED: PROPOFOL INJECTION 50 ML IV ONE ×2 (07:53→08:50)
--- NOTE | 2021-01-20 08:22 | Progress Note-Pre Operative ---
Pre-Operative Progress Note H&P Reviewed The H&P was reviewed, patient examined and no changes noted. Time Seen by Provider: 08:18 Date H&P Reviewed: Jan 20, 2021 Time H&P Reviewed: 08:18 Pre-Operative Diagnosis: Screening Colon,??hx of polyp YULIA ROSADO DO Jan 20, 2021 08:22
[2021-01-20 09:10] VITALS: BP 99/65
--- NOTE | 2021-01-20 09:14 | Progress Note-Post Operative ---
Post-Operative Progess Note Surgeon (s)/Motorboat Operator (s) Surgeon YULIA ROSADO DO Motorboat Operator: CANDE PanII Pre-Operative Diagnosis Hx of polyp Post-Operative Diagnosis Polyps Int hemorrhoids Procedure & Operative Findings Date of Procedure 01/20/21 Procedure Performed/Findings Colonoscopy with hot bx Indications for procedure: She had a sessile serrated polyp found 3 yrs ago, these are very aggressive and require sooner surveillance than every 5 years. PROCEDURE NOTE: After informed consent was obtained, the patient was brought to the endoscopy suite, placed in bed in left lateral decubitus position. She was administered IV sedation by the ZIGZAG TUNNEL ELASTIC OPERATOR who then monitored her vitals the entire time, heart rate, blood pressure and pulse ox and the scope was inserted, pushed all the way to about 150 cm and pushed into the cecum, took a picture of appendiceal orifice and noticed a polyp right near the opening. Elected to do a hot biopsy of the polyp. Then slowly withdrew the scope insufflating to look circumferentially at the wade starting in the Cecum and just outside the cecal cap found a large polyp. Took a picture and then did a hot biopsy; however, unable to remove this entire polyp because of how large it was. Then continued up the ascending colon to the hepatic flexure, then down the transverse colon to the splenic flexure, into the descending colon. In the sigmoid saw another small polyp and did another hot biopsy. Finally down into the rectal vault and retroflexed the scope. Took a picture of the internal hemorrhoids and finally removed the scope. The patient tolerated the procedure. She was recovered in endoscopy suite. Anesthesia Type IV sedation by ZIGZAG TUNNEL ELASTIC OPERATOR Estimated Blood Loss Estimated blood loss (mL): scant Specimens/Packing Specimens Removed polyp near appy cecal polyp sigmoid polyp YULIA ROSADO DO Jan 20, 2021 09:14
[2021-01-20 09:15] VITALS: BP 101/60
--- NOTE | 2021-01-20 09:16 | Endoscopy Discharge Instruct ---
Endo Procedure/Findings Findings 1.: Polyp 2.: Internal Hemorrhoids Discharge Instructions - Activity: You might feel a little sleepy until tomorrow. This is due to the medicine you received to relax you. Until tomorrow, you should: NOT drive a car, operate machinery or power tools. NOT drink any alcoholic beverages. NOT make any important decisions or sign importortant papers. Do not return to work until tomorrow, unless otherwise instructed. Resume previous activities tomorrow. Diet: Start by taking liquids. If you tolerate liquids, advance to solid food. 1.: Other Recommendation (Pt will probably need surgery to remove polyp) 2.: Colonoscopy in 1 year Notify Physician - If you experience excessive bleeding, unusual abdominal pain, fever, or chest pain, contact your doctor immediately. YULIA ROSADO DO Jan 20, 2021 09:16
[2021-01-20 09:20] VITALS: BP 112/74
[2021-01-20 09:30] VITALS: BP 112/74
[2021-01-20 09:54] VITALS: BP 115/70
--- NOTE | 2021-01-20 12:42 | Anesthesia-General Post-Op ---
MAC Patient Condition Mental Status/LOC: Same as Preop Cardiovascular: Satisfactory Nausea/Vomiting: Absent Respiratory: Satisfactory Pain: Controlled Complications: Absent Post Op Complications Complications None Follow Up Care/Instructions Patient Instructions None needed. Anesthesiology Discharge Order Discharge Order Patient is doing well, no complaints, stable vital signs, no apparent adverse anesthesia problems. No complications reported per nursing. NANDA ENGLISH CRNA Jan 20, 2021 12:42
== END 2021-01-20 09:56 | disposition home or self-care (01) ==
LOC: ENDO 07:24
PROVIDERS: ATTEND Surgery
DX: Z12.11 Encounter for screening for malignant neoplasm of colon (principal); D12.0 Benign neoplasm of cecum; F41.9 Anxiety disorder, unspecified; F32.A Depression, unspecified; Z79.899 Other long term (current) drug therapy; Z87.891 Personal history of nicotine dependence
CPT/HCPCS: 88305